=== PATIENT | male | born 1950 | race Caucasian/White ===

== ENCOUNTER → 2017-01-29 | Outpatient (CLI) | payer MEDICARE ==
[2017-01-29 09:11] LABS: Basophils % (A) 1 %; CH 28.6; CHCM 32.8; Eosinophils # (A) 0.2 k/uL (0-0.7); Eosinophils % (A) 3 %; HDW 2.69; HGB 13.3 gm/dL (13.0-17.5); Luc % (Auto) 3; Lymphocytes # (A) 1.7 k/uL (1.0-4.8); Lymphocytes % (A) 24 %; MCH 29.1 pg (25.0-35.0); MCHC 33.2 g/dL (31.0-37.0); MCV 87.6 fL (80.0-100.0); Mean Platelet Volume 6.5; Monocytes # (A) 0.7 k/uL (0-1.0); Monocytes % (A) 9 %; Neutrophils # (A) 4.3 k/uL (1.3-7.7); Neutrophils % (A) 60 %; RBC 4.57 m/uL (4.30-5.90); RDW 13.2 % (11.5-15.5); WBC 7.1 k/uL (3.8-10.6); WBC (Perox) 7.79
[2017-01-29 14:00] LABS: ALT 28 U/L (21-72); AST 17 U/L (17-59); Alkaline Phosphatase 57 U/L (38-126); Anion Gap 9 mmol/L; Blood Urea Nitrogen 21 mg/dL (9-20); Calcium 9.4 mg/dL (8.4-10.2); Carbon Dioxide 25 mmol/L (22-30); Chloride 107 mmol/L (98-107); Cholesterol 210 mg/dL (<200); Glucose 106 mg/dL (74-99); HDL Cholesterol 69 mg/dL (40-60); Non-African American GFR(MDRD) >60 (>60 ml/min/1.73 sqM); Potassium 4.7 mmol/L (3.5-5.1); Sodium 141 mmol/L (137-145); Total Bilirubin 0.6 mg/dL (0.2-1.3); Total Protein 6.6 g/dL (6.3-8.2); Triglycerides 116 mg/dL (<150)
[2017-01-29 14:33] LABS: Prostate Specific Antigen <0.06 ng/mL (0.00-4.00)
== END | disposition home or self-care (01) ==
LOC: LABWHC1 08:03
PROVIDERS: ATTEND Internal Medicine
DX: E78.2 Mixed hyperlipidemia (principal); I10 Essential (primary) hypertension; Z85.46 Personal history of malignant neoplasm of prostate
CPT/HCPCS: 36415; 80053; 80061; 84153; 85025

== ENCOUNTER → 2018-10-30 | Outpatient (CLI) | payer MEDICARE ==
--- NOTE | 2018-10-30 14:53 | NM ---
EXAMINATION TYPE: NM bone scan whole body DATE OF EXAM: 10/30/2018 COMPARISON: NONE HISTORY: Prostate cancer Delayed whole-body scanning was performed following the injection of 23.4 mCi Tc 99m MDP. Images wer e acquired 3 hours post injection. FINDINGS: No suspicious focal uptake is identified to suggest metastatic disease. There is some focal uptake in the right first metatarsophalangeal joint space, more likely related to degenerative change. Some subtle uptake within the mid to left mid sacrum on the frontal projection may be present. This i s less distinct. A metastatic lesion at this level cannot be entirely excluded. This is not appreciat ed on the posterior views. IMPRESSION: 1. Suspicious uptake suggestive for metastatic disease is not identified. 2. Probable degenerative changes first metatarsophalangeal joint space right foot. 3. Some nonspecific uptake in the mid pelvis identified on the frontal projections nearly midline. Th is does not appear to be associated with an osseous lesion.
== END | disposition home or self-care (01) ==
LOC: RADNMMAIN 10:00
PROVIDERS: ATTEND Internal Medicine
DX: Z08 Encounter for follow-up examination after completed treatment for malignant neoplasm (principal); Z85.46 Personal history of malignant neoplasm of prostate
CPT/HCPCS: 78306; A9503

== ENCOUNTER → 2019-04-08 | Outpatient (CLI) | payer MEDICARE ==
[2019-04-08 11:12] LABS: HGB 13.2 gm/dL (13.0-17.5); MCH 29.7 pg (25.0-35.0); MCHC 34.6 g/dL (31.0-37.0); MCV 85.7 fL (80.0-100.0); Mean Platelet Volume 5.5; Platelet Count 366 k/uL (150-450); RBC 4.44 m/uL (4.30-5.90); RDW 13.4 % (11.5-15.5); WBC 8.7 k/uL (3.8-10.6)
[2019-04-08 17:54] LABS: African American GFR (CKD) 88.6 (60.0-200.0); Anion Gap 9.2 mmol/L (4.00-12.00); Carbon Dioxide 28.8 mmol/L (21.6-31.8); Potassium 4.6 mmol/L (3.5-5.5)
== END | disposition home or self-care (01) ==
LOC: LABWHC1 10:16
PROVIDERS: ATTEND Internal Medicine Cardiovascular Disease
DX: R07.2 Precordial pain (principal)
CPT/HCPCS: 36415; 80051; 82565; 84520; 85027; 85379

== ENCOUNTER 2019-04-17 08:58 | Observation (INO) | payer MEDICARE ==
[2019-04-17 09:36] LABS: Basophils # (A) 0.1 k/uL (0-0.2); Basophils % (A) 1 %; Eosinophils # (A) 0.3 k/uL (0-0.7); Eosinophils % (A) 4 %; HCT 43.8 % (39.0-53.0); HGB 14.3 gm/dL (13.0-17.5); Lymphocytes # (A) 1.4 k/uL (1.0-4.8); Lymphocytes % (A) 19 %; MCH 28.9 pg (25.0-35.0); MCHC 32.6 g/dL (31.0-37.0); MCV 88.6 fL (80.0-100.0); Mean Platelet Volume 6.2; Monocytes # (A) 0.6 k/uL (0-1.0); Monocytes % (A) 8 %; Neutrophils % (A) 66 %; Platelet Count 336 k/uL (150-450); RBC 4.94 m/uL (4.30-5.90); RDW 13.9 % (11.5-15.5); WBC 7.6 k/uL (3.8-10.6)
[2019-04-17 09:47] LABS: INR 0.9 (<1.2); Partial Thromboplastin Time 24.5 sec (22.0-30.0); Prothrombin Time 9.9 sec (9.0-12.0)
[2019-04-17 10:25] LABS: ALT 18 U/L (21-72); AST 22 U/L (17-59); African American GFR (CKD) >90 (>60 ml/min/1.73 sqM); Albumin 4.3 g/dL (3.5-5.0); Alkaline Phosphatase 53 U/L (38-126); Anion Gap 9 mmol/L; Blood Urea Nitrogen 17 mg/dL (9-20); Calcium 9.5 mg/dL (8.4-10.2); Carbon Dioxide 23 mmol/L (22-30); Chloride 108 mmol/L (98-107); Creatine Kinase 67 U/L (55-170); Glucose 112 mg/dL (74-99); Magnesium 2.1 mg/dL (1.6-2.3); Potassium 4.5 mmol/L (3.5-5.1); Sodium 140 mmol/L (137-145); Total Bilirubin 0.7 mg/dL (0.2-1.3); Total Protein 7.2 g/dL (6.3-8.2)
--- NOTE | 2019-04-17 10:34 | XR ---
EXAMINATION TYPE: XR chest 2V DATE OF EXAM: 04/17/2019 COMPARISON: Chest x-ray December 02, 2014. HISTORY: Numbness in upper and lower extremities. TECHNIQUE: Frontal and lateral views of the chest are obtained. FINDINGS: There is chronic parenchymal change without suspicious narrowing focal air space opacity, pleural effusion, or pneumothorax seen. The cardiac silhouette size is within normal limits. Partial visualization of surgical change in the cervical spine. Lap band device epigastric region redemonstr ated.. IMPRESSION: Chronic changes without acute pulmonary process.
--- NOTE | 2019-04-17 12:57 | ED ---
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 Is able also history of hypertension. He was seen by his doctor today due to chest pain was noted be in A. fib with RVR the heart rate was about 135. No recent fevers chills nausea vomiting sweats: Cough or shortness of breath. No prior history of atrial fibrillation. Other modifying factors. No history of thyroid disease. MD Complaint: chest pain, other - Related Data Home Medications Medication Instructions Recorded Confirmed Escitalopram Oxalate [Lexapro] 20 mg PO DAILY 12/02/14 04/17/19 Aspirin [Adult Low Dose Aspirin EC] 81 mg PO DAILY 12/01/15 04/17/19 amLODIPine BESYLATE [Norvasc] 10 mg PO DAILY 12/01/15 04/17/19 Allergies Allergy/AdvReac Type Severity Reaction Status Date / Time Penicillins Allergy Unknown Verified 04/17/19 09:22 Childhood morphine AdvReac Nausea & Verified 04/17/19 09:22 Vomiting Review of Systems ROS Statement: Those systems with pertinent positive or pertinent negative responses have been documented in the HPI. ROS Other: All systems not noted in ROS Statement are negative. EKG Findings - EKG Results: EKG: interpreted by ERMD (Normal sinus rhythm a 75 appear interval 160 QRS duration 86 QT since QTC 396/[address]-T wave changes) Past Medical History Past Medical History: Cancer, GI Bleed, Prostate Disorder Additional Past Medical History / Comment(s): prostate cancer, skin cancer, kidney stone , RECTAL BLEEDING History of Any Multi-Drug Resistant Organisms: None Reported Past Surgical History: Appendectomy, Bariatric Surgery, Cholecystectomy Additional Past Surgical History / Comment(s): colonoscopy, lap band, rt clavical reduction, prostatectomy, SKIN CA REMOVED Past Anesthesia/Blood Transfusion Reactions: Postoperative Nausea & Vomiting (PONV) Additional Past Anesthesia/Blood Transfusion Reaction / Comment(s): VERTIGO Past Psychological History: Depression Smoking Status: Former smoker Past Alcohol Use History: None Reported Past Drug Use History: None Reported - Past Family History Father Family Medical History: Myocardial Infarction ([place]) Additional Family Medical History / Comment(s): AGE 65 OF [place] AND HAD 2 PRIOR [place]'S Mother Additional Family Medical History / Comment(s): MAC DEGENERATION, HEART PROBLEMS General Exam - General Exam Comments Initial Comments: This a well-developed well-nourished awake alert oriented times 3 male Limitations: no limitations General appearance: alert, in no apparent distress Head exam: Present: atraumatic, normocephalic, normal inspection Eye exam: Present: normal appearance, PERRL, EOMI. Absent: scleral icterus, conjunctival injection, periorbital swelling ENT exam: Present: normal exam, mucous membranes moist Neck exam: Present: normal inspection. Absent: tenderness, meningismus, lymphadenopathy Respiratory exam: Present: normal lung sounds bilaterally. Absent: respiratory distress, wheezes, rales, rhonchi, stridor Cardiovascular Exam: Present: regular rate, normal rhythm, normal heart sounds. Absent: systolic murmur, diastolic murmur, rubs, gallop, clicks GI/Abdominal exam: Present: soft, normal bowel sounds. Absent: distended, tenderness, guarding, rebound, rigid Extremities exam: Present: normal inspection, full ROM, normal capillary refill. Absent: tenderness, pedal edema, joint swelling, calf tenderness Back exam: Present: normal inspection Neurological exam: Present: alert, oriented X3, CN II-XII intact Psychiatric exam: Present: normal affect, normal mood Skin exam: Present: warm, dry, intact, normal color. Absent: rash Course Vital Signs 04/17/19 04/17/19 04/17/19 09:04 09:13 09:20 Temperature 97.4 F L Pulse Rate 75 82 78 Respiratory 16 Rate Blood Pressure 118/79 122/91 O2 Sat by Pulse 96 100 99 Oximetry 04/17/19 04/17/19 04/17/19 09:30 09:40 09:50 Temperature Pulse Rate 75 63 67 Respiratory Rate Blood Pressure 122/91 113/73 113/73 O2 Sat by Pulse 99 99 99 Oximetry 04/17/19 04/17/19 04/17/19 10:00 10:10 10:20 Temperature Pulse Rate 63 61 Respiratory Rate Blood Pressure 113/73 114/77 114/77 O2 Sat by Pulse 98 97 Oximetry 04/17/19 04/17/19 10:30 10:40 Temperature Pulse Rate 73 63 Respiratory Rate Blood Pressure 114/77 132/85 O2 Sat by Pulse 98 99 Oximetry Chest Pain MDM - MDM Did review the imaging and report no acute findings. Patient is spontaneously convert from A. fib to normal sinus rhythm since his departure from the office. Case is discussed with Dr. Mayfield as well as Dr. Adams. Patient will be admitted patient was informed of the findings as well as his family. Disposition Clinical Impression: Unstable angina pectoris, Chest pain, Paroxysmal atrial fibrillation Disposition: ADMITTED IP TO THIS HOSP Condition: Stable Referrals: Luis E Caldwell MD [Primary Care Provider] - 1-2 days
[2019-04-17] MEDS ORDERED: HEPARIN SOD,PORK IN 0.45% NACL 25,000 UNIT in 0.45% NACL 1 250ML.BAG IV SCH (13:00)
[2019-04-17] MEDS ORDERED: HEPARIN SODIUM,PORCINE 5,000 UNIT/ML 1 ML VIAL IV ONE (13:00)
[2019-04-17] MEDS ORDERED: SODIUM CHLORIDE 0.9% 1,000 ML IV SCH (13:00)
[2019-04-17] MEDS ORDERED: NITROGLYCERIN SL TABS 0.4 MG TAB SUBLINGUAL PRN (13:00)
--- NOTE | 2019-04-17 14:44 | P.HPIM ---
History of Present Illness H&P Date: 04/17/19 Patient is a 68-year-old male with a past medical history of hypertension who presented to the ED from Dr Bourgeois's office for chest discomfort. The patient notes that over the past 1 week, he has been having intermittent substernal chest discomfort, non-radiating, exertional, w/ associated palpitations, SOB, and some dizziness. The patient was seen by his PMD who referred him to Dr Bourgeois's office ([facility]). The patient underwent a stress test yesterday and was waiting for the result. Upon waking up this am, he again noticed the similar discomfort and went back to Dr Bourgeois's office where he was noticed to be in Afib w/ RVR. The patient was sent to the ED for further evaluation. Upon presentation to the ED, the patient had reverted back to sinus rhythm. At time of the interview, the patient noted that his chest discomfort and SOB had resolved upon presentation and hadn't recurred. He denied nausea, vomiting, palpitations, or dizziness. The patient underwent an extensive evaluation in the ED w/ EKG showing NSR @ 75 bpm w/ no ST-T wave changes noted. Laboratory evaluation and revealed a troponin level of 0.012, BNP of 203, BUN 17, creatinine 0.95, WBC count of 7.6, hemoglobin of 14.3, platelets 336, sodium 140, andpotassium 4.5. The patient was admitted to the medicine service in observation for cardiology evaluation. Review of Systems Pertinent positives and negatives as discussed in HPI, a complete review of systems was performed and all other systems are negative. Past Medical History Past Medical History: Cancer, GI Bleed, Prostate Disorder Additional Past Medical History / Comment(s): prostate cancer, skin cancer, kidney stone , RECTAL BLEEDING History of Any Multi-Drug Resistant Organisms: None Reported Past Surgical History: Appendectomy, Bariatric Surgery, Cholecystectomy Additional Past Surgical History / Comment(s): colonoscopy, lap band, rt clavical reduction, prostatectomy, SKIN CA REMOVED Past Anesthesia/Blood Transfusion Reactions: Postoperative Nausea & Vomiting (PONV) Additional Past Anesthesia/Blood Transfusion Reaction / Comment(s): VERTIGO Past Psychological History: Depression Smoking Status: Former smoker Past Alcohol Use History: None Reported Past Drug Use History: None Reported - Past Family History Father Family Medical History: Myocardial Infarction ([place]) Additional Family Medical History / Comment(s): AGE 65 OF [place] AND HAD 2 P RIOR NE'S Mother Additional Family Medical History / Comment(s): MAC DEGENERATION, HEART PROBLEMS Medications and Allergies Home Medications Medication Instructions Recorded Confirmed Type Escitalopram Oxalate [Lexapro] 20 mg PO DAILY 12/02/14 04/17/19 History Aspirin [Adult Low Dose Aspirin EC] 81 mg PO DAILY 12/01/15 04/17/19 History amLODIPine BESYLATE [Norvasc] 10 mg PO DAILY 12/01/15 04/17/19 History Allergies Allergy/AdvReac Type Severity Reaction Status Date / Time Penicillins Allergy Unknown Verified 04/17/19 09:22 Childhood morphine AdvReac Nausea & Verified 04/17/19 09:22 Vomiting Physical Exam Vitals: Vital Signs Temp Pulse Resp BP Pulse Ox 04/17/19 13:00 61 121/58 100 04/17/19 12:50 60 121/58 99 04/17/19 12:40 55 L 121/58 98 04/17/19 12:30 53 L 111/77 97 04/17/19 12:20 58 L 111/77 98 04/17/19 12:10 59 L 111/77 100 04/17/19 12:00 57 L 127/75 98 04/17/19 11:50 62 127/75 98 04/17/19 11:40 55 L 127/75 98 04/17/19 11:30 61 111/69 99 04/17/19 11:20 58 L 111/69 98 04/17/19 11:10 72 111/69 98 04/17/19 11:00 64 132/85 99 04/17/19 10:50 64 132/85 98 04/17/19 10:40 63 132/85 99 04/17/19 10:30 73 114/77 98 04/17/19 10:20 61 114/77 97 04/17/19 10:10 114/77 04/17/19 10:00 63 113/73 98 04/17/19 09:50 67 113/73 99 04/17/19 09:40 63 113/73 99 04/17/19 09:30 75 122/91 99 04/17/19 09:20 78 122/91 99 04/17/19 09:13 82 100 04/17/19 09:04 97.4 F L 75 16 118/79 96 Intake and Output 04/16/19 04/17/19 04/17/19 22:59 06:59 14:59 Other: Weight 99.79 kg General: non toxic, no distress, appears at stated age, obese Derm: no unusual rashes/lesions no unusual ecchymoses, warm, dry Head: atraumatic, normocephalic, symmetric Eyes: EOMI, no lid lag, anicteric sclera, pupils equal round reactive to light ENT: Nose and ears atraumatic, no thrush, no pharyngeal erythema Neck: No thyromegaly, no cervical lymphadenopathy, trachea midline, supple Mouth: no lip lesion, mucus membranes moist Cardiovascular: S1S2 reg, no murmur, positive posterior tibial pulse bilateral, no edema, capillary refill less than 2 seconds Lungs: CTA bilateral, no rhonchi, no rales , no accessory muscle use Abdominal: soft, nontender to palpation, no guarding, no appreciable orga nomegaly, normal bowel sounds Ext: no gross muscle atrophy, muscle strength 5 out of 5 in all 4 extremities grossly, no contractures, Neuro: CN II-XI grossly intact, light touch intact all 4 extremities, finger to nose within normal limits, Psych: Alert, oriented, appropriate affect Results CBC & Chem 7: 04/17/19 09:18 04/17/19 09:18 Labs: Abnormal Lab Results - Last 24 Hours (Table) 04/17/19 Range/Units 09:18 Chloride 108 H (98-107) mmol/L Glucose 112 H (74-99) mg/dL ALT 18 L (21-72) U/L Assessment and Plan Plan: Chest discomfort, SOB, likely due to newly diagnosed paroxysmal atrial fibrillation vs ACS -Cardiology consulted -Recent cardiac stress test as outpatient -CHADSVASc score - 2 -Will await Cardiology recommendations for likely long-term anticoagulation -Cardiac monitoring -Trend troponin Hypertension -Continue with home meds DVT prophylaxis -NOAC The patient is admitted with an anticipated less than 2 midnight stay for evaluation of newly diagnosed Afib CODE STATUS: Full Code Discussed with: Patient Anticipated discharge date: 04/18/[address]: Home A total of 40 minutes was spent on the care of this complex patient more than 50% of the time was spent in counseling and care coordination.
--- NOTE | 2019-04-17 14:48 | P.PN ---
Subjective This is a pleasant 68-year-old male past medical history significant for hypertension and depression. He follows in the office with Dr. Bourgeois. He went to the office this morning with symptoms of chest discomfort and was found to be in atrial fibrillation with rapid ventricular rates around 135. This is a new diagnosis for him. He was sent to the hospital for further initiation of anti-arrhythmic and anti-coagulation. By the time he arrived in the ED he had converted to sinus mechanism spontaneously with a heart rate of 75. He is seen and examined sitting up on the stretcher in ED in no acute distress he denies chest pain, shortness of breath, dizziness or palpitations. He continues to maintain sinus mechanism. He underwent a Lexiscan stress test 04/16 that was negative for reversible cardiac ischemia. Echocardiogram obtained 04/14 revealed normal LV systolic function with EF 55%, grade 1 diastolic dysfunction, mild MR and hypokinesia of the septum. Blood pressure currently 113/96 heart rate 55 afebrile and maintaining oxygen saturation on room air. Laboratory data reviewed, CBC unremarkable, sodium 140, potassium 4.5, creatinine 0.95, magnesium 2.1, cardiac enzymes negative 1, proBNP 203. He has been initiated on heparin infusion. GENERAL: Well-appearing, well-nourished and in no acute distress. NECK: Supple without JVD or thyromegaly. LUNGS: Breath sounds clear to auscultation bilaterally. Respiration equal and u nlabored. No wheezes, rales or rhonchi. HEART: Regular rate and rhythm without murmurs, rubs or gallops. S1 and S2 heard. EXTREMITIES: Normal range of motion, no edema. No clubbing or cyanosis. Tatiana pheral pulses intact. ASSESSMENT New onset paroxysmal atrial fibrillation, spontaneously converted to sinus mechanism. CHADS-VASC score 2. Chest pain, atypical. Likely secondary to a-fib. Hypertension Depression Former nicotine dependence, quit 1997 PLAN Discontinue heparin infusion and initiate on Eliquis 5 mg BID. We will ask the case liner to check the cost for the patient. Initiate rhythmol 150 mg TID for rhythm control. Continue amlodipine as previously ordered. Decrease aspirin to 81 mg daily. Consider discontinuation completely of cardiac enzymes are normal. Continue to obtain serial cardiac enzymes to rule out an acute event. Check thyroid function. Thank you kindly for this consultation. Nurse Practitioner note has been reviewed, I agree with a documented findings and plan of care. Patient was seen and examined. Objective - Vital Signs Vital signs: Vital Signs Temp 97.4 F L 04/17/19 09:04 Pulse 55 L 04/17/19 14:00 Resp 12 04/17/19 14:00 BP 113/96 04/17/19 14:00 Pulse Ox 97 04/17/19 14:00 Intake & Output 04/16/19 04/17/19 04/17/19 18:59 06:59 18:59 Weight 99.79 kg - Labs CBC & Chem 7: 04/17/19 09:18 04/17/19 09:18 Labs: Abnormal Lab Results - Last 24 Hours (Table) 04/17/19 Range/Units 09:18 Chloride 108 H (98-107) mmol/L Glucose 112 H (74-99) mg/dL ALT 18 L (21-72) U/L
[2019-04-17] MEDS: APIXABAN 5 MG TAB PO SCH ×2 (15:12→22:12)
[2019-04-17] MEDS: PROPAFENONE 150 MG TAB PO SCH ×2 (15:12→22:12)
[2019-04-17 15:48] VITALS: RESP 18
[2019-04-18 04:31] LABS: Cholesterol 239 mg/dL (<200); HDL Cholesterol 81 mg/dL (40-60); LDL Cholesterol,Calculated 137 mg/dL (0-99); Triglycerides 106 mg/dL (<150)
[2019-04-18] MEDS: PROPAFENONE 150 MG TAB PO SCH (08:10)
[2019-04-18] MEDS: APIXABAN 5 MG TAB PO SCH (08:10)
[2019-04-18] MEDS ORDERED: ASPIRIN 325 MG TAB PO SCH (09:00)
[2019-04-18] MEDS ORDERED: amLODIPine 10 MG TAB PO SCH (09:00)
[2019-04-18] MEDS ORDERED: ESCITALOPRAM 20 MG TAB PO SCH (09:00)
[2019-04-18] MEDS ORDERED: ASPIRIN 81 MG PO SCH (09:00)
[2019-04-18 10:20] VITALS: BP 138/84; PULSE 63; TEMP 97.5
--- NOTE | 2019-04-18 10:26 | P.DS ---
Providers Date of admission: 04/17/19 13:00 Expected date of discharge: 04/18/19 Attending physician: Sharee Mayfield MD Consults: 04/17/19 13:00 Consult Physician Urgent Consulting Provider: Carlos Adams Consult Reason/Comments: Chest pain, paroxysmal atrial fibrillation Do you want consulting provider notified?: Already Contacted Primary care physician: Luis E Caldwell [facility] Course: Discharge diagnoses Onset paroxysmal A. 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 Bourgeois's office after he presented there with chest discomfort and found to be in atrial fibrillation with rate 135 then spontaneously converted to sinus rhythm while in the ER, echocardiogram done in clinic showed a preserved LVEF of 55%, grade 1 diastolic dysfunction, mild MR and hypokinesis of the septum. On arrival patient was initiated on IV heparin, cardiac enzymes are negative pro BNP was 203. The patient's CHADS-VASC score 2 and he was transitioned to DOAC Eliquis and initiated on Rythmol 150 mg TID. The patient was subsequently discharged home in stable condition instructed to follow-up with his PCP Dr. Caldwell and has a follow-up appointment with cardiology Dr. Bourgeois 05/06. This discharge process took approximately 30 minutes Focused exam Cardiovascular: Regular rate and rhythm no murmurs rubs or gallops Patient Condition at Discharge: Stable Plan - Discharge Summary Discharge Rx Participant: No New Discharge Prescriptions: New Apixaban [Eliquis] 5 mg PO BID #180 tab No Action Escitalopram Oxalate [Lexapro] 20 mg PO DAILY Aspirin [Adult Low Dose Aspirin EC] 81 mg PO DAILY amLODIPine BESYLATE [Norvasc] 10 mg PO DAILY Discharge Medication List Escitalopram Oxalate [Lexapro] 20 mg PO DAILY 12/02/14 [History] Aspirin [Adult Low Dose Aspirin EC] 81 mg PO DAILY 12/01/15 [History] amLODIPine BESYLATE [Norvasc] 10 mg PO DAILY 12/01/15 [History] Apixaban [Eliquis] 5 mg PO BID #180 tab 04/17/19 [Rx] Follow up Appointment(s)/Referral(s): Luis E Caldwell MD [Primary Care Provider] - 04/21/19 9:15 am (Sunday) Dante Bourgeois MD [STAFF PHYSICIAN] - 05/06/19 1:30 pm (Sunday -previously scheduled appointment) Patient Instructions/Handouts: A-fib (Atrial Fibrillation) (DC), Safe Use of Anticoagulants (DC) Activity/Diet/Wound Care/Special Instructions: Madelyn is covered - Rx at [facility] - $90 for 90 day supply - 30 day free coupon applied Discharge Disposition: HOME SELF-CARE
--- NOTE | 2019-04-18 14:21 | PN ---
PROGRESS NOTE Mr. Hartman was seen by me yesterday in the emergency room. He came in from the office after an atrial fib following a stress test. Stress test was unremarkable for ischemia. He is maintaining sinus rhythm. He can be discharged on Eliquis 5 mg b.i.d. and Rythmol [address] and see Dr. Bourgeois in one week. Vital signs stable. No JVD. S1, S2 heard normally. Lungs are clear. Abdomen and lower extremity exam unchanged. Stress test was negative. He will be going home on Rythmol. MMODL / IJN: [id number] /
== END 2019-04-18 12:46 | disposition home or self-care (01) ==
LOC: EC 08:58 → 3SCARD 13:00
PROVIDERS: ADMIT Internal Medicine; ATTEND Internal Medicine
DX: R07.89 Other chest pain (principal); I48.0 Paroxysmal atrial fibrillation; I10 Essential (primary) hypertension; I34.0 Nonrheumatic mitral (valve) insufficiency; F32.9 Major depressive disorder, single episode, unspecified; Z79.82 Long term (current) use of aspirin; Z79.899 Other long term (current) drug therapy; Z88.0 Allergy status to penicillin; Z88.5 Allergy status to narcotic agent; Z85.828 Personal history of other malignant neoplasm of skin; Z85.46 Personal history of malignant neoplasm of prostate; Z87.442 Personal history of urinary calculi; Z87.19 Personal history of other diseases of the digestive system; Z90.49 Acquired absence of other specified parts of digestive tract; Z98.84 Bariatric surgery status; Z90.79 Acquired absence of other genital organ(s); Z87.891 Personal history of nicotine dependence; Z82.49 Family history of ischemic heart disease and other diseases of the circulatory system; Z83.518 Family history of other specified eye disorder
CPT/HCPCS: 93005 ×2; 99285; 36415; 83880; 80061; 80053; 84443; 82550; 83735; 84484; 85025; 85610; 85730; 71046; G0378 ×2

== ENCOUNTER → 2019-04-28 | Outpatient (CLI) | payer MEDICARE ==
[2019-04-28 12:38] LABS: HCT 39.8 % (39.0-53.0); HGB 13.3 gm/dL (13.0-17.5); MCH 30.1 pg (25.0-35.0); MCHC 33.5 g/dL (31.0-37.0); MCV 89.8 fL (80.0-100.0); Mean Platelet Volume 5.6; Platelet Count 354 k/uL (150-450); RBC 4.43 m/uL (4.30-5.90); RDW 13.6 % (11.5-15.5); WBC 9.4 k/uL (3.8-10.6)
[2019-04-28 18:45] LABS: Anion Gap 11.7 mmol/L (4.00-12.00); Carbon Dioxide 27.3 mmol/L (21.6-31.8); Non-African American GFR(CKD) 68.1 (60.0-200.0); Potassium 4.6 mmol/L (3.5-5.5)
== END ==
LOC: LABWHC1 11:19
PROVIDERS: ATTEND Internal Medicine Cardiovascular Disease
DX: Z01.812 Encounter for preprocedural laboratory examination (principal); R06.02 Shortness of breath
CPT/HCPCS: 36415; 80051; 82565; 84520; 85027

== ENCOUNTER → 2019-05-02 | Day surgery (SDC) | payer MEDICARE ==
[2019-04-29 14:29] VITALS: BMI 34.2
[~2019-05-02] MED LIST: ALPRAZolam 0.25 MG TAB PO PRN; ALPRAZolam 0.5 MG TAB PO ONE; ALPRAZolam 0.5 MG TAB PO PRN; ASPIRIN 325 MG TAB PO STA; ATORVASTATIN 80 MG TAB PO STA; IOPAMIDOL-370 125ML BTL INJ ONE; IV FLUID CONTINUATION 950 ML IV ONE; LIDOCAINE 1% INJ 10MG/ML (20 ML MDV) ONE; LIDOCAINE 1% INJ 10MG/ML (20 ML MDV) SQ ONE; MIDAZOLAM 2 MG/2 ML VIAL IV ONE; NITROGLYCERIN SL TABS 0.4 MG TAB SUBLINGUAL PRN; RX INFO: IV CONTRAST WAS GIVEN 1 EACH MISC MISCELLANE PRN; SODIUM CHLORIDE 0.9% 1,000 ML IV ONE; SODIUM CHLORIDE 0.9% 1,000 ML IV SCH; SODIUM CHLORIDE 0.9% 1,000 ML in EMPTY BAG 1 BAG IV ONE; fentaNYL (PF) 50 MCG/ML 2 ML AMP IV ONE; fentaNYL (PF) 50 MCG/ML 2 ML AMP ONE
[2019-05-02 07:29] VITALS: TEMP 97.7
--- NOTE | 2019-05-02 08:43 | CC ---
CARDIAC CATHETERIZATION REPORT INDICATION: Unstable angina. PROCEDURE NOTE: After obtaining informed consent, left heart catheterization and coronary angiogram are performed via the right femoral artery using standard Sergo catheters. The patient tolerated the procedure well without any obvious immediate complications. A femoral angiogram was performed and Angio-Seal was deployed for hemostasis. FINDINGS: 1. HEMODYNAMICS: Left ventricular end-diastolic pressure is 4 mm. There is no significant gradient across the aortic valve. 2. LEFT VENTRICULOGRAM: Left ventriculogram is not performed. 3. ANGIOGRAPHIC DATA: LEFT MAIN CORONARY ARTERY: Left main coronary artery is a normal-sized vessel and is free of stenosis. Divides into left anterior descending coronary artery and circumflex coronary artery. Circumflex coronary artery shows a 30% to 40% stenosis in the proximal part. LAD and its branches are free of significant stenosis. Right coronary artery is a large dominant vessel and is free of significant stenosis. CONCLUSIONS: 1. Mild nonobstructive coronary artery disease involving circumflex coronary artery. 2. Normal left ventricular end-diastolic pressures. 3. Patient received moderate conscious sedation and sedation time was 13 minutes. MMODL / IJN: [id number] /
--- NOTE | 2019-05-02 08:43 | LTR ---
May 02, 2019 Re: Noble Hartman Dear Luis E: I performed cardiac catheterization on Noble Hartman. A detailed catheterization note is enclosed for your records. In brief, the cardiac catheterization reveals mild nonobstructive coronary artery disease involving circumflex coronary artery. The patient's chest discomfort and shortness of breath are noncardiac in origin and his management is going to be in the form of risk factor modification. Thank you for allowing us to participate in the care of this pleasant gentleman. Sincerely, MD DWAIN Cardozo / NURYN: [id number] /
[2019-05-02 09:25] VITALS: RESP 16
[2019-05-02 15:44] VITALS: BP 138/69; PULSE 54
== END ==
LOC: CATHCVL 06:40
PROVIDERS: ATTEND Internal Medicine Cardiovascular Disease
DX: I25.110 Atherosclerotic heart disease of native coronary artery with unstable angina pectoris (principal); I10 Essential (primary) hypertension; Z87.891 Personal history of nicotine dependence; I48.0 Paroxysmal atrial fibrillation; Z79.01 Long term (current) use of anticoagulants; Z79.899 Other long term (current) drug therapy; Z88.5 Allergy status to narcotic agent
CPT/HCPCS: 93458; C1760; C1894; C1769; J2250; J2001; J3010; Q9967

== ENCOUNTER → 2019-11-20 | Outpatient (CLI) | payer MEDICARE ==
[2019-11-20 09:19] LABS: African American GFR (CKD) >90 (>60 ml/min/1.73 sqM); Blood Urea Nitrogen 27 mg/dL (9-20); Non-African American GFR(CKD) 82 (>60 ml/min/1.73 sqM)
--- NOTE | 2019-11-20 12:14 | CT ---
EXAMINATION TYPE: CT brain wo/w con DATE OF EXAM: 11/20/2019 COMPARISON: HISTORY: Dizziness with headache and nausea CT DLP: 2291 mGycm Automated exposure control for dose reduction was used. CONTRAST: CT scan of the head is performed without and with IV Contrast, patient injected with 100 mL of Isovue 300. FINDINGS: There is no abnormal enhancing mass or midline shift identified. The sulci are within normal limits in size. The globes are intact and the visualized sinuses are clear. Periventricular white matter sh ows patchy low attenuation. Ventricles appear prominently. There is prominence in the region of the a nterior communicating artery seen on axial images #19 and 20. Calvarium is intact. Paranasal sinuses and mastoid air cells are well aerated. IMPRESSION: Difficult to exclude aneurysm at the anterior communicating artery. MRA [place] may be of be nefit. Nonspecific white matter demyelination may be due to chronic small vessel ischemia change. The re is ventriculomegaly present, consider normal pressure hydrocephalus, brain MRI.
== END | disposition home or self-care (01) ==
LOC: RADCTMAIN 08:33
PROVIDERS: ATTEND Otolaryngology
DX: G93.89 Other specified disorders of brain (principal); G37.8 Other specified demyelinating diseases of central nervous system
CPT/HCPCS: 82565; 84520; 70470; 36415; Q9967

== ENCOUNTER → 2019-11-27 | Outpatient (CLI) | payer MEDICARE ==
--- NOTE | 2019-11-27 13:40 | MR ---
EXAMINATION TYPE: MR angio head wo con DATE OF EXAM: 11/27/2019 1:32 PM COMPARISON: NONE HISTORY: Vertigo Three-dimensional [id number] intracranial MRA was performed with multiple intensity projection im ages submitted and source data reviewed at the workstation. The vertebrobasilar system as well as intracranial portions of the internal carotid arteries and thei r major tributaries are patent. Noted to involve the anterior communicating artery is a 5 mm aneurysm . No additional aneurysms identified. 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
--- NOTE | 2019-11-27 14:13 | MR ---
EXAMINATION TYPE: MR brain wo/w con DATE OF EXAM: 11/27/2019 2:02 PM COMPARISON: MRA from the same day HISTORY: Vertigo CONTRAST: Patient received 10 mL intravenous Gadavist gadolinium contrast. Multiplanar and multispin-echo imaging of the brain was performed . Pre and post contrast enhanced i mages are obtained. The ventricles, basal cisterns and sulci overlying the cerebral convexities are moderately enlarged. There is evidence of mild to moderate periventricular white matter ischemic demyelination. Remote deep white matter insults are also noted. No acute edema is seen on diffusion weighted imaging. There is no evidence for midline shift or mass effect. 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 Acute intracranial hemorrhage or extra-axial collection is not evident. No enhancing lesions are seen. The paranasal sinuses and mastoid air cells are well-aerated. IMPRESSION: 1. Age-related atrophic and chronic small vessel ischemic change. No acute intracranial process at this time. 2. 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
== END | disposition home or self-care (01) ==
LOC: RADMRIMAIN 12:48
PROVIDERS: ATTEND Otolaryngology
DX: I72.8 Aneurysm of other specified arteries (principal); R54 Age-related physical debility; I99.8 Other disorder of circulatory system; R94.02 Abnormal brain scan
CPT/HCPCS: 70544; 70553; A9585

== ENCOUNTER 2020-04-20 08:23 | Day surgery (SDC) | payer MEDICARE ==
[2020-04-19 11:54] VITALS: BMI 33.4
[~2020-04-20 08:23] MED LIST changes: -ALPRAZolam 0.25 MG TAB PO PRN; -ALPRAZolam 0.5 MG TAB PO ONE; -ALPRAZolam 0.5 MG TAB PO PRN; -ASPIRIN 325 MG TAB PO STA; -ATORVASTATIN 80 MG TAB PO STA; -IOPAMIDOL-370 125ML BTL INJ ONE; -IV FLUID CONTINUATION 950 ML IV ONE; +LACTATED RINGERS 1,000 ML IV SCH; -LIDOCAINE 1% INJ 10MG/ML (20 ML MDV) ONE; -LIDOCAINE 1% INJ 10MG/ML (20 ML MDV) SQ ONE; -MIDAZOLAM 2 MG/2 ML VIAL IV ONE; -NITROGLYCERIN SL TABS 0.4 MG TAB SUBLINGUAL PRN; -RX INFO: IV CONTRAST WAS GIVEN 1 EACH MISC MISCELLANE PRN; -SODIUM CHLORIDE 0.9% 1,000 ML IV ONE; -SODIUM CHLORIDE 0.9% 1,000 ML IV SCH; -SODIUM CHLORIDE 0.9% 1,000 ML in EMPTY BAG 1 BAG IV ONE; -fentaNYL (PF) 50 MCG/ML 2 ML AMP IV ONE; -fentaNYL (PF) 50 MCG/ML 2 ML AMP ONE
[2020-04-20 08:48] VITALS: TEMP 97.8
[2020-04-20] MEDS ORDERED: LIDOCAINE 1% (10MG/ML) FOR IV START INTRADERMA ONE (08:52)
[2020-04-20] MEDS ORDERED: MIDAZOLAM 2 MG/2 ML VIAL ONE (08:58)
[2020-04-20] MEDS ORDERED: TRIAMCINOLONE ACETONIDE 40 MG/ML 1 ML VIAL ONE (08:58)
[2020-04-20] MEDS ORDERED: ROPIVACAINE 5MG/ML 20ML VIAL ONE (08:58)
[2020-04-20] MEDS ORDERED: fentaNYL (PF) 50 MCG/ML 2 ML AMP ONE (08:58)
[2020-04-20] MEDS ORDERED: IV FLUID CONTINUATION 1,000 ML IV ONE (09:51)
[2020-04-20 09:54] VITALS: PULSE 66
[2020-04-20 10:12] VITALS: BP 123/72; RESP 18
--- NOTE | 2020-04-20 20:44 | FL ---
Fluoroscopy INDICATION: Pain FINDINGS: Fluoroscopy time: 21 seconds. Images obtained: 5. IMPRESSIONS: 1. Documentation of fluoroscopy.
--- NOTE | 2020-04-22 12:50 | P.PCN ---
Date of Procedure: 04/20/20 Surgeon: Sharifa Monique Pathology: none sent Condition: stable Disposition: PACU Description of Procedure: PREOPERATIVE DIAGNOSIS: Lumbar spondylosis without myelopathy POSTOPERATIVE DIAGNOSIS: Lumbar spondylosis without myelopathy PROCEDURES : bilateral Radiofrequency thermocoagulation L4-L5, and L5-S1 medial branch, with fluoroscopic guidance ANESTHESIA: IV moderate conscious sedation with versed and fentanyl and local infiltration with lidocaine 1% 5 ml Physician:Sharifa Monique MD EBL: Minimal PROCEDURE INDICATION: The patient with low back pain secondary to lumbar facet arthropathy who had more than 50% relief of her pain with previous diagnostic lumbar medial branch block with bupivacaine. PROCEDURE DESCRIPTION / TECHNIQUE: The patient was seen and identified in the preoperative area. Risks, benefits, complications, including but not limited to risk of infection ,bleeding , allergic reactions to the medications and no complete pain relief , and alternatives were discussed with the patient, the patient agreed to proceed with the procedure and signed the consent. IV was started. Vital signs remained stable throughout the procedure. Patient was taken to the OR and time out was completed. The patient was placed in the prone position on the procedure table. The lumber area was prepped and draped in the usual sterile fashion. . Vital signs were closely monitored during the procedure .IV sedation was used during the procedure to decrease patients anxiety. The target points were identified as follows: For the L5-S1 level which corresponds to the dorsal ramus of L5 the target point was at the superior medial aspect of the sacral ala on the Rt side of the spine on the AP view of fluoroscopy and for the L3, and L4 medial branches the target points were at the connection between the transverse process and the superior articular process of L4, and L5 vertebra respectively on the Rtoblique view of fluoroscopy. skin was marked, and localized with 1% lidocaineat these points. Subsequently, an 18 [id number] radiofrequency needles with a 10-mm curved active tips were advanced guided by fluoroscopy to each of the target points mentioned above in a superior medial direction to get the active tips as parallel as possible to the medial branches tracks. AP, oblique, and lateral views of fluoroscopy were used to verify needle tips position. Each level then underwent motor testing at 2.5 Hz and 0 to 3 volt with local stimulation, but no radicular symptoms down the legs. Thereafter radiofrequency thermocoagulation at 80 degrees celsius for 90 seconds after injecting 1 ml of PF Marcaine 0.5%(3 mls) with 20 mg of Kenalog.The same levels on the left side were then done in the same manner. At the end of the procedure, the skin was cleansed and bandages were applied. A copy of needle placement fluoroscopy was saved on the C-arm machine. COMPLICATIONS: No acute complications. DISPOSITION / PLANS: The patient was placed in a supine position and transferred to the recovery area in a stable condition for observation and was discharged from the recovery room after meeting discharge criteria. Home discharge instructions given to the patient by the staff. The patient was reexamined prior to discharge. The patient will schedule a follow up in the clinic in 2-4 weeks.
== END 2020-04-20 10:27 | disposition home or self-care (01) ==
LOC: ORPAIN 08:23
PROVIDERS: ATTEND Anesthesiology
DX: M47.816 Spondylosis without myelopathy or radiculopathy, lumbar region (principal); I48.91 Unspecified atrial fibrillation; Z79.01 Long term (current) use of anticoagulants; Z88.5 Allergy status to narcotic agent
CPT/HCPCS: 64635; 64636; J2250; J3301; J3010; J2795; 99152; 99153

== ENCOUNTER → 2020-05-12 | Outpatient (CLI) | payer MEDICARE ==
[2020-05-12 08:40] VITALS: BP 127/68; PULSE 88; RESP 18; TEMP 98.5
--- NOTE | 2020-05-12 08:57 | P.PN ---
Subjective Progress Note Date: 05/12/20 This is a 69-year-old gentleman with history of axial lower back pain with no radiation to the lower extremities. The patient had lumbar medial branch RFA in a few weeks ago which gave him excellent relief of pain but only lasted for about one week then his pain came back to its original intensity. His pain improves by lying down in bed and by sitting up straight however it increases by standing up and moving around. The patient has not tried physical therapy recently. He takes ibuprofen for his pain. He is on Eliquis for history of coronary artery disease. Patient denies new-onset weakness, bowel/bladder incontinence, or any other signs or symptoms of cauda equina syndrome. There are no signs of acute intoxication, and no indications of medication diversion or overuse. In addition to above, 13-point review of systems is also negative for chest pain , shortness of breath, changes in vision, changes in hearing, new onset weakness, abdominal pain, diarrhea, extreme fatigue, malaise, fever, skin changes, homicidal or suicidal ideation, or bowel or bladder incontinence. Vital Signs: Reviewed in EMR Gen: AAOx3, NAD HEENT: PERRLA,hearing grossly normal Pulm: resp unlabored Neck: supple, trachea midline Neuro exam of the lower extremities: Normal muscle strength in the lower extremities bilaterally Straight leg raising test: Angelo's test: Range of motion of the lumbar spine: Facet loading test: Tenderness in the paravertebral musculature: Mild tenderness in the lumbosacral junction Neuro: CN II-XII grossly intact, Imaging: Reviewed in EMR/chart Assessment: Lumbar DDD Lumbar spondylosis without myelopathy Obesity Coronary artery disease with treatment with Eliquis Plan: 1. Explanation: Opioid and psychological risk scores were reviewed. Diagnoses, prognoses, and multiple treatment options including but not limited to physical therapy, interventional therapies, adjuvant medical therapies, narcotic medication therapies, and surgery were discussed with the patient and all questions were answered to the patient's satisfaction. 2. Opioid agreement: Signed with the patient and the patient is warned not to use opioids while driving or before driving and not to combine opioids with benzodiazepines or alcohol. 3. Counseling: The patient was counseled extensively on SMOKING CESSATION, BODY MASS INDEX, EXERCISE. Specifically, the patient was instructed regarding the importance of smoking cessation, obesity, and exercise in the context of both chronic pain and overall health. 4. Procedures: For now 5. Consultations: Prefer for a course of physical therapy 6. Investigations: None 7. Medications: [place] 5 mg twice a day #30 pills with no refills 8. Disposition: Return to clinic in 4 weeks 9. Maps were reviewed and were appropriate. Controlled Substance Measures Is patient prescribed a controlled substance at discharge?: Yes When asked, does pt state using other controlled substances?: No If prescribed controlled substance>3 days was MAPS reviewed?: Yes If Rx opioid, was Start Talking consent form obtained?: Yes If opioid is for acute pain is fill amount 7 days or less?: No Was information provided regarding opioid addiction?: Yes Objective - Vital Signs Vital signs: Vital Signs Temp 98.5 F 05/12/20 08:35 Pulse 88 05/12/20 08:35 Resp 18 05/12/20 08:35 BP 127/68 05/12/20 08:35 Pulse Ox 97 05/12/20 08:35
== END | disposition home or self-care (01) ==
LOC: PNWHC3 08:27
PROVIDERS: ATTEND Anesthesiology
DX: M51.36 Other intervertebral disc degeneration, lumbar region (principal); M47.816 Spondylosis without myelopathy or radiculopathy, lumbar region; E66.9 Obesity, unspecified; I25.10 Atherosclerotic heart disease of native coronary artery without angina pectoris; Z79.01 Long term (current) use of anticoagulants; Z79.891 Long term (current) use of opiate analgesic
CPT/HCPCS: 99211

== ENCOUNTER → 2020-06-09 | Outpatient (CLI) | payer MEDICARE ==
[2020-06-09 09:14] VITALS: BP 177/93; PULSE 96; RESP 16; TEMP 97.6
--- NOTE | 2020-06-09 09:25 | P.PAINPG ---
Subjective Progress Note Date: 06/09/20 This is a 69-year-old gentleman with history of axial lower back pain with no radiation to the lower extremities. The patient had lumbar medial branch RFA in the past ([address]) which gave him excellent relief of pain (14 months). It was repeated here but unfortunately only gave him about a week of relief. His pain improves by lying down in bed and by sitting up straight however it increases by standing up and moving around. The patient has not tried physical therapy recently. He takes ibuprofen for his pain. He is on Eliquis for history of coronary artery disease. Is receiving on the PT but this has not helped with his pain. He is confused why he only had 5 days of relief with the last procedure, he was very good relief for very short lasting. Pain is located in the mid to low back described as dull and aching with no radiation into the lower extremities. Pain is curren tly 9 out of 10, at worst 10 out of 10 at its best 5 out of 10. He notes the [place] has made him constipated and he has been taking medication to help with that Patient denies new-onset weakness, bowel/bladder incontinence, or any other signs or symptoms of cauda equina syndrome. There are no signs of acute intoxication, and no indications of medication diversion or overuse. In addition to above, 13-point review of systems is also negative for chest pain, shortness of breath, changes in vision, changes in hearing, new onset weakness, abdominal pain, diarrhea, extreme fatigue, malaise, fever, skin changes, homicidal or suicidal ideation, or bowel or bladder incontinence. Vital Signs: Reviewed in EMR Gen: AAOx3, NAD HEENT: PERRLA,hearing grossly normal Pulm: resp unlabored Neck: supple, trachea midline Neuro exam of the lower extremities: Normal muscle strength in the lower extremities bilaterally Straight leg raising test: Angelo's test: Range of motion of the lumbar spine: Facet loading test: Tenderness in the paravertebral musculature: Mild tenderness in the lumbosacral junction Neuro: CN II-XII grossly intact, Imaging: Reviewed in EMR/chart Assessment: Lumbar DDD Lumbar spondylosis without myelopathy Obesity Coronary artery disease with treatment with Eliquis Plan: 1. Explanation: Opioid and psychological risk scores were reviewed. Diagnoses, prognoses, and multiple treatment options including but not limited to physical therapy, interventional therapies, adjuvant medical therapies, narcotic medication therapies, and surgery were discussed with the patient and all questions were answered to the patient's satisfaction. 2. Opioid agreement: Signed with the patient and the patient is warned not to use opioids while driving or before driving and not to combine opioids with benzodiazepines or alcohol. 3. Counseling: The patient was counseled extensively on SMOKING CESSATION, BODY MASS INDEX, EXERCISE. Specifically, the patient was instructed regarding the importance of smoking cessation, obesity, and exercise in the context of both chronic pain and overall health. 4. Procedures: with Dr Madden he was having L2- L5 bilateral RFA. We were only able to do bilateral L4-L5, L5-S1 due to insurance issues. Given that he has had these procedures with good relief in the past and we did not to L2-L3 and L3-L4 with her last procedure, it makes sense that these specific joints might be the greater generators of his pain. We will do bilateral L2-L3 and L3- L4 RFA He'll have to hold his Eliquis for 3 days. 5. Consultations: Continue PT 6. Investigations: None 7. Medications: [place] 5 mg twice a day #30 pills, he takes it only as needed 8. Disposition: Return for procedure 9. Maps were reviewed and were appropriate. Controlled Substance Measures Is patient prescribed a controlled substance at discharge?: Yes When asked, does pt state using other controlled substances?: No If prescribed controlled substance>3 days was MAPS reviewed?: Yes If Rx opioid, was Start Talking consent form obtained?: Yes If opioid is for acute pain is fill amount 7 days or less?: No Was information provided regarding opioid addiction?: Yes PQRS Measure Charge Sheet PQRS Narrative: Smoking Status Former smoker Scale Used Numeric (1 - 10) Hx Alcohol Use (MH) No Home Medications: Ambulatory Orders Apixaban [Eliquis] 5 mg PO BID #180 tab 04/17/19 Propafenone [Rythmol] 150 mg PO TID #90 tablet 04/18/19 amLODIPine [Norvasc] 10 mg PO DAILY 03/30/20 Hydrocodone/Acetaminophen [[place] 5-325] 1 tab PO Q6HR PRN 05/12/20 Controlled Substance Measures - Controlled Substance Measures Is patient prescribed a controlled substance at discharge?: No
== END | disposition home or self-care (01) ==
LOC: PNWHC3 08:40
PROVIDERS: ATTEND Anesthesiology
DX: M51.36 Other intervertebral disc degeneration, lumbar region (principal); M47.816 Spondylosis without myelopathy or radiculopathy, lumbar region; E66.9 Obesity, unspecified; I25.10 Atherosclerotic heart disease of native coronary artery without angina pectoris; Z79.01 Long term (current) use of anticoagulants; Z87.891 Personal history of nicotine dependence; Z79.891 Long term (current) use of opiate analgesic; Z79.899 Other long term (current) drug therapy
CPT/HCPCS: 99211

== ENCOUNTER 2020-06-24 11:33 | Day surgery (SDC) | payer MEDICARE ==
[2020-06-22 15:43] VITALS: BMI 34.8
[2020-06-24 11:57] VITALS: TEMP 97.2
[2020-06-24] MEDS ORDERED: LIDOCAINE 1% (10MG/ML) FOR IV START INTRADERMA ONE (12:15)
[2020-06-24] MEDS ORDERED: SODIUM CHLORIDE 0.9% (PF) 10 ML VIAL ONE (12:45)
[2020-06-24] MEDS ORDERED: ROPIVACAINE 5MG/ML 20ML VIAL ONE (12:45)
[2020-06-24] MEDS ORDERED: methylPREDNISolone ACETATE 40 MG/ML 1 ML VIAL ONE (12:45)
[2020-06-24] MEDS ORDERED: fentaNYL (PF) 50 MCG/ML 2 ML AMP ONE (12:45)
[2020-06-24] MEDS ORDERED: MIDAZOLAM 2 MG/2 ML VIAL ONE (12:45)
--- NOTE | 2020-06-24 13:33 | P.PCN ---
Date of Procedure: 06/24/20 Procedure(s) Performed: PREOPERATIVE DIAGNOSIS: 1-Lumbar Spondylosis with Facet Arthropathy without myelopathy. 2- Lumber degenerative disc disease POSTOPERATIVE DIAGNOSIS: 1- Lumbar Spondylosis with Facet Arthropathy without myelopathy. 2- Lumber degenerative disc disease PROCEDURES : Bilateral Radiofrequency thermocoagulation, L1 , L2 , and L3 medial branch, with fluoroscopic guidance (fluoroscopy images available in the radiology department) ( to denervate the facet joint at L2-3, and L3-4 levels ) ANESTHESIA: Moderate sedation with intravenous versed 3 mg and fentaneyl 200 mcg, and local infiltration with Ropivacaine 0.5 % . EBL: Minimal PROCEDURE INDICATION: The patient with low back pain secondary to lumbar facet arthropathy who had more than 50% relief of her pain with previous diagnostic lumbar medial branch block with bupivacaine. PROCEDURE DESCRIPTION / TECHNIQUE: The patient was seen and identified in the preoperative area. Risks, benefits, complications, including but not limited to risk of infection ,bleeding , allergic reactions to the medications and no complete pain releife , and alternatives were discussed with the patient, the patient agreed to proceed with the procedure and signed the consent. IV was started. Vital signs remained stable throughout the procedure. Patient was taken to the OR and time out was completed. The patient was placed in the prone position on the procedure table. The lumber area was prepped and draped in the usual sterile fashion. . Vital signs were closely monitored during the procedure .IV sedation was used during the procedure to decrease patients anxiety. Using AP and then oblique fluoroscopy, the ``eye of the Javan dog corresponding to the connection between the superior and transverse articular processes of right L1, L2, and L3 were identified, marked, and localized with 1% lidocaine. Subsequently, a 18 [id number] radiofrequency cannula with a 10- mm active tip was advanced guided by fluoroscopy to each of the``eyes of the Javan dog at right L1, L2, and L3. Each site then underwent sensory testing at 50 Hz and 0 to 1 volt and motor testing at 2.5 Hz and 0 to 3 volt with local stimulation, but no radicular symptoms down the legs. Thereafter each sites underwent radiofrequency thermocoagulation at 80 degrees celsius for 90 seconds after injecting 0.5 ml of PF Ropivacaine 1ml, then after the thermocoagulation done , 1 ml of the block solution containing Depo-Medrol 20 mg and 3 ml of Ropivacaine 0.5% was injected at the right L1 , L2 , and L3 , levels after negative aspiration of CSF and blood and with no paresthesias. C annulas were retracted while injecting lidocaine 1% until the needle is out. The same procedure was repeated at the level of Left L1, L2 , and L3 levels. At the end of the procedure, the skin was cleansed and bandages were applied. COMPLICATIONS: No acute complications. DISPOSITION / PLANS: The patient was placed in a supine position and transferred to the recovery area in a stable condition for observation and was discharged from the recovery room after meeting discharge criteria. Home discharge instructions given to the patient by the staff. The patient was reexamined prior to discharge. The patient will schedule a follow up in the clinic in 2-4 weeks.
[2020-06-24] MEDS ORDERED: IV FLUID CONTINUATION 1,000 ML IV ONE (13:35)
[2020-06-24 13:39] VITALS: RESP 16
--- NOTE | 2020-06-24 13:48 | FL ---
Fluoroscopy INDICATION: Pain FINDINGS: Fluoroscopy time: 0.49 minutes . Images obtained: 6. IMPRESSIONS: 1. Documentation of fluoroscopy.
[2020-06-24 13:49] VITALS: BP 129/73; PULSE 74
== END 2020-06-24 14:06 | disposition home or self-care (01) ==
LOC: ORPAIN 11:33
PROVIDERS: ATTEND Specialist
DX: M47.816 Spondylosis without myelopathy or radiculopathy, lumbar region (principal); M51.36 Other intervertebral disc degeneration, lumbar region; I48.91 Unspecified atrial fibrillation; Z88.5 Allergy status to narcotic agent; Z79.01 Long term (current) use of anticoagulants
CPT/HCPCS: 64635; 64636; J2250; J1030; J3010; J2795; 99152; 99153

== ENCOUNTER → 2020-06-28 | Outpatient (CLI) | payer MEDICARE ==
--- NOTE | 2020-06-28 09:55 | MR ---
EXAMINATION TYPE: MR lumbar spine wo con DATE OF EXAM: 06/28/2020 COMPARISON: Prior lumbar MRI 12/03/2014 HISTORY: Low Back Pain TECHNIQUE: Multiplanar, multisequence images of the lumbar spine were acquired. L1-L2: Normal disc appearance without desiccation. No herniation, protrusion or disc bulging. No ca nal stenosis is present. Foramina are patent bilaterally. L2-L3: Hypertrophic changes of the facets causes posterior lateral mass effect on the thecal sac, the re is posterior broad-based disc bulge, some loss of disc height which is developed in the interval. Circumferential extension endplate disc complex encroaches somewhat on the neural foramen greater on the right. Mild spinal stenosis. L3-L4: Normal disc appearance without desiccation. No herniation, protrusion or disc bulging. No ca nal stenosis is present. Foramina are patent bilaterally. There is facet arthropathy change present. L4-L5: Small posterior disc bulge causes slight anterior mass effect on the thecal sac. There is face t arthropathy change. Circumferential extension of disc material encroaches somewhat on the neural fo ramen on the right, hypertrophic changes of the facets encroach on the lateral recesses, no significa nt spinal stenosis L5-S1: Normal disc appearance without desiccation. No herniation, protrusion or disc bulging. No ca nal stenosis is present. Foramina are patent bilaterally. Lumbar segments are intact. No paraspinal masses are identified. Conus medullaris has a normal appe arance. There is a mild spinal curvature. Some loss of disc signal at intervertebral levels is again seen consistent with disc desiccation. Possible transitional vertebral body, correlate prior to any i ntervention, numbering system as on prior exams may not be accurate. Parapelvic cysts suspected withi n the left kidney. IMPRESSION: Degenerative disc disease mildly progressed as described, correlate with plain film prior to any inte rvention as described above.
== END | disposition home or self-care (01) ==
LOC: RADMRIMAIN 06:50
PROVIDERS: ATTEND Anesthesiology
DX: M51.36 Other intervertebral disc degeneration, lumbar region (principal)
CPT/HCPCS: 72148

== ENCOUNTER → 2020-07-12 | Outpatient (CLI) | payer MEDICARE ==
[2020-07-12 12:49] VITALS: BP 158/83; PULSE 82; RESP 18; TEMP 97.6
--- NOTE | 2020-07-12 12:58 | P.PN ---
Subjective Progress Note Date: 07/12/20 This is a 69-year-old gentleman with axial lower back pain status post RFA on the lumbar medial branches. After his RFA on the L4 5 and L5-S1 joints he had one week of very good pain relief but he did not get any relief after the RFA on the higher lumbar facet joints. His pain is back to its baseline now .he takes [place] for his pain but it does cause severe constipation to him. Patient denies new-onset weakness, bowel/bladder incontinence, or any other signs or symptoms of cauda equina syndrome. There are no signs of acute intoxication, and no indications of medication diversion or overuse. In addition to above, 13-point review of systems is also negative for chest pain, shortness of breath, changes in vision, changes in hearing, new onset weakness, abdominal pain, diarrhea, extreme fatigue, malaise, fever, skin changes, homicidal or suicidal ideation, or bowel or bladder incontinence. Vital Signs: Reviewed in EMR Gen: AAOx3, NAD HEENT: PERRLA,hearing grossly normal Pulm: resp unlabored Neck: supple, trachea midline Neuro exam of the lower extremities: Straight leg raising test: Angelo's test: Range of motion of the lumbar spine: Facet loading test: Tenderness in the paravertebral musculature: There is tenderness above the iliac crest close to midline on the left side of the spine and also around the sacroiliac joint on the left side. Neuro: CN II-XII grossly intact, Imaging: Reviewed in EMR/chart Assessment: Lumbar spondylosis without myelopathy Probable left sacroiliitis Probable lumbar sacral ligament inflammation Coronary artery disease with treatment with Eliquis Plan: 1. Explanation: Opioid and psychological risk scores were reviewed. Diagnoses, prognoses, and multiple treatment options including but not limited to physical therapy, interventional therapies, adjuvant medical therapies, narcotic medication therapies, and surgery were discussed with the patient and all questions were answered to the patient's satisfaction. 2. Opioid agreement: Signed with the patient and the patient is warned not to use opioids while driving or before driving and not to combine opioids with benzodiazepines or alcohol. 3. Counseling: The patient was counseled extensively on SMOKING CESSATION, BODY MASS INDEX, EXERCISE. Specifically, the patient was instructed regarding the importance of smoking cessation, obesity, and exercise in the context of both chronic pain and overall health. 4. Procedures: Scheduled for left lumbar sacral ligament injection with fluoroscopic guidance and left sacroiliac joint steroid injection . The patient does not have to hold his Eliquis for this procedure. 5. Consultations: None 6. Investigations: None 7. Medications: Continue [place] 5 mg twice a day if needed for pain and I will prescribe him Movantik for his constipation 8. Disposition: Return to the above-mentioned procedures as soon as possible 9. Maps were reviewed and were appropriate. Controlled Substance Measures Is patient prescribed a controlled substance at discharge?: Yes When asked, does pt state using other controlled substances?: No If prescribed controlled substance>3 days was MAPS reviewed?: Yes If Rx opioid, was Start Talking consent form obtained?: Yes If opioid is for acute pain is fill amount 7 days or less?: No Was information provided regarding opioid addiction?: Yes Objective - Vital Signs Vital signs: Vital Signs Temp 97.6 F 07/12/20 12:41 Pulse 82 07/12/20 12:41 Resp 18 07/12/20 12:41 BP 158/83 07/12/20 12:41 Pulse Ox 97 07/12/20 12:41 Intake & Output 07/11/20 07/12/20 07/12/20 18:59 06:59 18:59 Weight 102.076 kg
== END | disposition home or self-care (01) ==
LOC: PNWHC3 12:24
PROVIDERS: ATTEND Anesthesiology
DX: M47.816 Spondylosis without myelopathy or radiculopathy, lumbar region (principal); I25.10 Atherosclerotic heart disease of native coronary artery without angina pectoris; Z79.01 Long term (current) use of anticoagulants; Z79.891 Long term (current) use of opiate analgesic
CPT/HCPCS: 99211

== ENCOUNTER → 2020-10-15 | Day surgery (SDC) | payer MEDICARE ==
[2020-10-13 13:13] VITALS: BMI 33.4
[~2020-10-15] MED LIST changes: +IV FLUID CONTINUATION 1,000 ML IV ONE; +LIDOCAINE 1% (10MG/ML) FOR IV START INTRADERMA ONE; +MIDAZOLAM 2 MG/2 ML VIAL ONE; +ROPIVACAINE 5MG/ML 20ML VIAL ONE; +fentaNYL (PF) 50 MCG/ML 2 ML AMP ONE; +methylPREDNISolone ACETATE 40 MG/ML 1 ML VIAL ONE
[2020-10-15 07:28] VITALS: TEMP 97.3
--- NOTE | 2020-10-15 08:04 | P.PCN ---
Date of Procedure: 10/15/20 Procedure(s) Performed: Procedure= 1-Left sacroiliac joints steroid injection under fluoroscopy guidance (fluoroscopy image stored on file in the radiology Department ). 2-left lumbosacral ligament steroid injection under fluoroscopic guidance Preoperative diagnosis= 1-Left sacroiliitis 2-left lumbosacral ligament neuralgia 3-lumbar spondylosis with facet arthropathy Postoperative diagnosis=Same as preop Diagnosis . Complication = none Condition= stable Anesthesia= monitored anesthesia care as per anesthesia department . Indication for the procedure= patient complaining of low back pain , examination was positive for severe tenderness over the left sacroiliac joints , and over the left lumbosacral ligament and patient diagnosed with sacroiliitis, for this reason he was good candidate for sacroiliac joint steroid injection. Description of the procedure= procedure risk and benefits discussed with the patient, including but not limited, risk of infection and bleeding, and ALLERGIC reaction to the medication and not complete pain relief and patient agreed with the preceding patient taken to the operating room, placed in prone position or standard monitors applied to the patient then after induction of anesthesia back prepped with chlorhexidine 3 times , Then under strict sterile technique, first I did the left sacroiliac joint the which was identified under fluoroscopy guidance been local infiltration of the skin and subcu interstitial with lidocaine 1% then 22-gauge Quincke Needle advanced slowly under fluoroscopy and placed in the left sacroiliac joint needle placement confirmed with AP and oblique and lateral view and after appropriate needle placement confirmed and after negative aspiration, or heme , then Ropivacaine 0.5% 3 mL, and 20 mg of Depo-Medrol mixed together and injected in the right sacroiliac joint after negative aspiration patient tolerated the procedure well without any complication. Then the left lumbosacral ligament steroid injection done under strict sterile technique local infiltration of the skin and subcu interstitial at the location of the left lumbosacral ligament then a 22-gauge [place]ke Needle advanced slowly under fluoroscopy time placed in the left lumbosacral ligament, needle placement confirmed with AP and oblique and lateral view then after appropriate needle placement confirmed and after negative aspiration 0.5% Marcaine 4 mL and 20 mg of Depo-Medrol injected after negative aspiration patient tolerated the procedure well that any complications and she will follow up in clinic 3 weeks
[2020-10-15 08:24] VITALS: BP 107/64; PULSE 70; RESP 18
--- NOTE | 2020-10-15 08:48 | FL ---
Fluoroscopy INDICATION: Pain FINDINGS: Fluoroscopy time: 5 seconds. Images obtained: 2. IMPRESSIONS: 1. Documentation of fluoroscopy.
== END ==
LOC: ORPAIN 06:37
PROVIDERS: ATTEND Specialist
DX: M46.1 Sacroiliitis, not elsewhere classified (principal); M47.816 Spondylosis without myelopathy or radiculopathy, lumbar region; G58.8 Other specified mononeuropathies; I48.91 Unspecified atrial fibrillation; Z88.5 Allergy status to narcotic agent; Z79.899 Other long term (current) drug therapy
CPT/HCPCS: 20550; J2250; J1030; J3010; J2795; G0260; 27096

== ENCOUNTER → 2020-10-27 | Outpatient (CLI) | payer MEDICARE ==
[2020-10-27 11:06] VITALS: BP 144/85; PULSE 75; RESP 16; TEMP 97.7
--- NOTE | 2020-10-27 11:20 | P.PN ---
Subjective Progress Note Date: 10/27/20 This is a follow-up visit for this 70 years old male with a chronic history of severe low back pain, is diagnosed with lumbar spondylosis, and left sacroiliitis, and left lumbosacral ligament neuralgia, recently we have done a left sacroiliac joint steroid injection, and left lumbosacral ligament through t he injection he reported that he had a good benefit from it, currently is complaining of severe localized pain in the low back area ,mainly on the left side, with radiation to the left buttock area, he denies any motor or sensory deficit he denies any fever or night sweats. Denies any change in bowel movements or urination, he is able to ambulate on his own . Objective - Vital Signs Vital signs: Vital Signs Temp 97.7 F 10/27/20 11:04 Pulse 75 10/27/20 11:04 Resp 16 10/27/20 11:04 BP 144/85 10/27/20 11:04 Pulse Ox 97 10/27/20 11:04 Intake & Output 10/26/20 10/27/20 10/27/20 18:59 06:59 18:59 Weight 99.79 kg - Exam Physical Examinations : -Constitutiona : Cooperative , not in acute distress . -HEENT : nech : supple , no Lymphadenopathy , normal thyroid size . : eyes : no ptosis , no icterus, no photophobia . - neurologic : Cranial nerve II to XII intact , no focal neurological deffecit . -psychatric : alert , oriented X 3 , appropriate affect , intact judgment and insight . -Lymphatic : no Lymphadenopathy . - musculoskeltal : Lumber spine moter stegnth lower extremities ,thigh and legs 5/5 Right side , 5/5 Left side deep tendon reflexes : normal Knee J erk , normal ankle Jerk lumber facet Loading Test = negative bilaterally Range of motion of the lumbar spine F lexion 30 degrees, extension 10 degrees strait leg raising test = positive at 45 degree left side Fabere test= negative bilaterally Sever tenderness over the Sacroiliac joint on the Left sides Gaenslen test= negative right ,and positive left . Seated flexion test= negative right ,and positive Left . Distraction test= positive left-sided only Sacroiliac compression test= positive left Severe tenderness on the left side lumbar paraspinal muscles around L4 Assessment and Plan Plan: Assessment and plan=1-lumbar spondylosis with lumbar facet arthropathy without myelopathy 2-left sacroiliitis. 3-myofascial pain syndrome lumbar area. Patient could benefit from left-sided sacroiliac joint steroid injection and from left side trigger point injection lumbar paraspinal muscles - PQRS measures = - Patient's medications are documented in the chart. -Tobacco use is negative and counseling.Given. -Patient's has not received pneumococcal vaccine. -Advanced care planning discussed, patient not eligible. -Opiate contract not signed. -Pain positive and follow-up visit/procedure is scheduled. -Patient's blood pressure measured [ 144/85 ] , and documented in the record ,and patient will follow up with the primary care. -Patient's weight was measured and body mass index [ ] above the, normal limits and counseling was done. and patient instructed to follow-up with the primary care physician. -Patient was not identified as an unhealthy alcohol user Time with Patient: Less than 30
== END ==
LOC: PNWHC3 10:31
PROVIDERS: ATTEND Specialist
DX: M47.816 Spondylosis without myelopathy or radiculopathy, lumbar region (principal); M46.1 Sacroiliitis, not elsewhere classified; M79.18 Myalgia, other site; Z87.891 Personal history of nicotine dependence
CPT/HCPCS: 99211

== ENCOUNTER 2020-12-07 06:41 | Day surgery (SDC) | payer MEDICARE ==
[~2020-12-07 06:41] MED LIST changes: -IV FLUID CONTINUATION 1,000 ML IV ONE; -LIDOCAINE 1% (10MG/ML) FOR IV START INTRADERMA ONE; -MIDAZOLAM 2 MG/2 ML VIAL ONE; -ROPIVACAINE 5MG/ML 20ML VIAL ONE; -fentaNYL (PF) 50 MCG/ML 2 ML AMP ONE; -methylPREDNISolone ACETATE 40 MG/ML 1 ML VIAL ONE
[2020-12-07] MEDS ORDERED: LIDOCAINE 1% (10MG/ML) FOR IV START INTRADERMA ONE (09:43)
[2020-12-07 09:44] VITALS: TEMP 97.4
[2020-12-07] MEDS ORDERED: methylPREDNISolone ACETATE 40 MG/ML 1 ML VIAL ONE (09:45)
[2020-12-07] MEDS ORDERED: fentaNYL (PF) 50 MCG/ML 2 ML AMP ONE (09:45)
[2020-12-07] MEDS ORDERED: ROPIVACAINE 5MG/ML 20ML VIAL ONE (09:45)
[2020-12-07] MEDS ORDERED: MIDAZOLAM 2 MG/2 ML VIAL ONE (09:45)
--- NOTE | 2020-12-07 10:05 | P.PCN ---
Date of Procedure: 12/07/20 Procedure(s) Performed: Procedure= 1-Left sacroiliac joints steroid injection under fluoroscopy guidance (fluoroscopy image stored on file in the radiology Department ) 2-trigger point injection left side lumbar paraspinal muscles total of 3 trigger point injected Preoperative diagnosis= 1-left sacroiliitis 2-myofascial pain syndrome lumbar paraspinal muscles3-lumbar facet arthropathy Postoperative diagnosis=Same as preop Diagnosis . Complication = none Condition= stable Anesthesia= moderate sedation with intravenous Versed 2 mg , and fentanyl 100 micrograms . Indication for the procedure= patient complaining of low back pain , examination was positive for severe tenderness over the sacroiliac joints bilaterally and patient diagnosed with sacroiliitis, for this reason he/ she was good candidate for sacroiliac joint steroid injection. Description of the procedure= procedure risk and benefits discussed with the patient, including but not limited, risk of infection and bleeding, and ALLERGIC reaction to the medication and not complete pain relief and patient agreed with the preceding patient taken to the operating room, placed in prone position or standard monitors applied to the patient then after induction of anesthesia back prepped with chlorhexidine 3 times , Then the left sacroiliac joint steroid injection done under strict sterile technique local infiltration of the skin and subcu interstitial at the location of the left sacroiliac joint then a 22-gauge Quincke Needle advanced slowly under fluoroscopy time placed in the left sacroiliac joint, needle placement confirmed with AP and oblique and lateral view then after appropriate needle placement confirmed and after negative aspiration 0.5% Ropivacaine 3 mL and 40 mg of Depo-Medrol injected in the left sacroiliac joint after negative aspiration patient tolerated the procedure well that any complications . then the left side trigger point injection in the lumbar paraspinal muscles ,(was marked and identified in preop holding area ) each one of them injected with ropivacaine 0.5% 2 mL, using 25-gauge needle injection done after negative aspiration, and was no paresthesia during the injection, patient tolerated the procedure well without any complications,and taken to recovery room and monitored, he is discharged home in stable condition
[2020-12-07] MEDS ORDERED: IV FLUID CONTINUATION 800 ML IV ONE (10:08)
[2020-12-07 10:16] VITALS: RESP 16
[2020-12-07 10:24] VITALS: BP 123/72; PULSE 85
--- NOTE | 2020-12-07 10:27 | FL ---
EXAMINATION TYPE: FL guided pain mgmt statistic DATE OF EXAM: 12/07/2020 HISTORY: Fluoroscopy time 3 seconds of fluoroscopy provided. IMPRESSION: 1. Fluoroscopy time.
== END 2020-12-07 10:39 | disposition home or self-care (01) ==
LOC: ORPAIN 06:41
PROVIDERS: ATTEND Specialist
DX: M79.18 Myalgia, other site (principal); M47.816 Spondylosis without myelopathy or radiculopathy, lumbar region; Z88.5 Allergy status to narcotic agent
CPT/HCPCS: 20553; J2250; J1030; J3010; J2795; G0260; 20552; 27096; 99152

== ENCOUNTER → 2021-01-03 | Outpatient (CLI) | payer MEDICARE ==
[2021-01-03 11:29] VITALS: BP 129/76; PULSE 67; RESP 16; TEMP 97.9
--- NOTE | 2021-01-03 14:48 | P.PN ---
Subjective Progress Note Date: 01/03/21 This is a follow-up visit for this 70 years old male with a chronic history of severe low back pain, is diagnosed with lumbar spondylosis, and left sacroiliitis, and left lumbosacral ligament neuralgia, recently we have done a left sacroiliac joint steroid injection, currently is complaining of severe loc alized pain in the low back area ,mainly on the left side, with radiation to the left buttock area, he denies any motor or sensory deficit he denies any fever or night sweats. Denies any change in bowel movements or urination, he is able to ambulate on his own . Physical Examinations : -Constitutiona : Cooperative , not in acute distress . -HEENT : nech : supple , no Lymphadenopathy , normal thyroid size . : eyes : no ptosis , no icterus, no photophobia . - neurologic : Cranial nerve II to XII intact , no focal neurological deffecit . -psychatric : alert , oriented X 3 , appropriate affect , intact judgment and insight . -Lymphatic : no Lymphadenopathy . - musculoskeltal : Lumber spine moter stegnth lower extremities ,thigh and legs 5/5 Right side , 5/5 Left side deep tendon reflexes : normal Knee Jerk , normal ankle Jerk lumber facet Loading Test = negative bilaterally Range of motion of the lumbar spine Flexion 30 degrees, extension 10 degrees strait leg raising test = positive at 45 degree left side Fabere test= negative bilaterally Severe tenderness on the left side lower lumbar paraspinal muscles Assessment and Plan Plan: Assessment and plan=1-lumbar spondylosis with lumbar facet arthropathy without myelopathy 2-left sacroiliitis. 3-myofascial pain syndrome lumbar area. Patient could benefit from left side trigger po int injection lower lumbar paraspinal muscles - PQRS measures = - Patient's medications are documented in the chart. -Tobacco use is negative and counseling.Given. -Patient's has not received pneumococcal vaccine. -Advanced care planning discussed, patient not eligible. -Opiate contract not signed. -Pain positive and follow-up visit/procedure is scheduled. -Patient's blood pressure measured [ 129/76] , and documented in the record ,and patient will follow up with the primary care. -Patient's weight was measured and body mass index [ ] above the, normal limits and counseling was done. and patient instructed to follow-up with the primary care physician. -Patient was not identified as an unhealthy alcohol user Objective - Vital Signs Vital signs: Vital Signs Temp 97.9 F 01/03/21 11:27 Pulse 67 01/03/21 11:27 Resp 16 01/03/21 11:27 BP 129/76 01/03/21 11:27 Pulse Ox 96 01/03/21 11:27
== END | disposition home or self-care (01) ==
LOC: PNWHC3 10:36
PROVIDERS: ATTEND Specialist
DX: M50.30 Other cervical disc degeneration, unspecified cervical region (principal); M47.816 Spondylosis without myelopathy or radiculopathy, lumbar region; M46.96 Unspecified inflammatory spondylopathy, lumbar region; M46.1 Sacroiliitis, not elsewhere classified
CPT/HCPCS: 99211

== ENCOUNTER 2021-01-25 08:14 | Day surgery (SDC) | payer MEDICARE ==
[2021-01-24 09:33] VITALS: BMI 33.4
[2021-01-25 08:57] VITALS: TEMP 97.5
[2021-01-25] MEDS ORDERED: LACTATED RINGERS 1,000 ML IV ONE (09:06)
[2021-01-25] MEDS ORDERED: ROPIVACAINE 5MG/ML 20ML VIAL ONE (09:35)
[2021-01-25] MEDS ORDERED: MIDAZOLAM 2 MG/2 ML VIAL ONE (09:35)
[2021-01-25] MEDS ORDERED: methylPREDNISolone ACETATE 40 MG/ML 1 ML VIAL ONE (09:35)
--- NOTE | 2021-01-25 09:35 | P.OP ---
Date of Procedure: 01/25/21 Description of Procedure: Date of procedure: 01/25/2021 Preoperative Diagnosis: myofascial pain syndrome of left lower lumbar paraspinal muscles Postoperative diagnosis: Same Anesthesia: Local Surgeon: Maged Koehler MD Estimated blood loss: 0 ml Indications for procedure: This is a 70-year-old patient with myofascial pain and palpable trigger points in Lumbar paraspinal, Latissimus dorsi muscles on the left. The patient consents for an injection after an explanation of risks including but not limited to bleeding and infection, benefits, and alternatives and the patient has signed a consent form indicating understanding of all of them. Description of procedure: After informed consent was obtained the patient's back was sterilely prepped in the usual fashion with ChloraPrep. 3 trigger points were identified via palpation of the lumbar paraspinal and latissimus dorsi muscles on the left and marked sterilely. Ultrasound guidance was utilized for each injection. Ultrasound guidance was used for needle placement and for visualization of medication spread. Each trigger point was injected with a 22-gauge 100mm with a solution consisting of 8 mL of 0.5% Ropivacaine and 80mg/1ml of Depo-Medrol for total of 9 mls. 2mls was injected into 4 sites. The patient's vital signs were stable afterwards and the procedure was tolerated well. Patient was discharged home with follow-up instructions.
[2021-01-25] MEDS ORDERED: IV FLUID CONTINUATION 1,000 ML IV ONE (09:51)
[2021-01-25 09:54] VITALS: RESP 16
[2021-01-25 10:10] VITALS: BP 120/70; PULSE 60
== END 2021-01-25 10:18 | disposition home or self-care (01) ==
LOC: ORPAIN 08:14
PROVIDERS: ATTEND Anesthesiology
DX: M79.18 Myalgia, other site (principal); Z88.5 Allergy status to narcotic agent; I48.0 Paroxysmal atrial fibrillation; Z79.01 Long term (current) use of anticoagulants
CPT/HCPCS: 20552; J2250; J1030; J2795; 20553

== ENCOUNTER 2021-02-09 12:35 | Observation (INO) | payer MEDICARE ==
[2021-02-09] MEDS ORDERED: SODIUM CHLORIDE 0.9% 1,000 ML IV STA (12:50)
[2021-02-09 13:20] LABS: Basophils % (A) 1 %; Eosinophils # (A) 0.2 k/uL (0-0.7); Eosinophils % (A) 2 %; HCT 37.1 % (39.0-53.0); Lymphocytes # (A) 1.5 k/uL (1.0-4.8); Lymphocytes % (A) 19 %; MCH 27.6 pg (25.0-35.0); MCHC 32.5 g/dL (31.0-37.0); MCV 84.9 fL (80.0-100.0); Mean Platelet Volume 7.2; Monocytes # (A) 0.8 k/uL (0-1.0); Monocytes % (A) 10 %; Neutrophils # (A) 5.5 k/uL (1.3-7.7); Neutrophils % (A) 67 %; Platelet Count 502 k/uL (150-450); RBC 4.37 m/uL (4.30-5.90); RDW 13.5 % (11.5-15.5); WBC 8.2 k/uL (3.8-10.6)
--- NOTE | 2021-02-09 13:23 | ED ---
General Adult HPI - General Chief complaint: Dizziness Stated complaint: A-Fib Time Seen by Provider: 02/09/21 12:38 Source: EMS Mode of arrival: EMS Limitations: no limitations - History of Present Illness Initial comments: Patient is a 70-year-old male with history of A. fib, on eliquis, and hypertension, presenting to the emergency department via EMS over feeling dizzy and short of breath since yesterday. He denies any chest pain associated with t his. He states he did feels heart rate increase and felt like he was in and out of A. fib. Patient states he felt short of breath continue today with elevated heart rate so he called ems. Per EMS, his heart rate is averaging anywhere from 80-160. On arrival to the ER, he states he is feeling much improvement, he currently has no short of breath, no chest pain. He denies being dizzy but feels like if he stands up he might be dizzy. He denies any abdominal pain, no nausea or vomiting. He states he was having some mild abdominal discomfort yesterday but feels like it is constipation. He states he does deal with occasional constipation and this feels similar. He denies any recent fevers or chills. He denies having a headache, no blurry vision. He denies any changes in his medications. Patient has no further complaints at this time. - Related Data Home Medications Medication Instructions Recorded Confirmed amLODIPine [Norvasc] 10 mg PO QAM 03/30/20 01/25/21 Aspirin 325 mg PO DAILY 09/02/20 01/25/21 Propafenone [Rythmol] 225 mg PO TID 09/02/20 01/25/21 Ferrous Sulfate [Feosol] 325 mg PO DAILY 10/13/20 01/25/21 Multivitamins, Thera [Multivitamin 1 tab PO DAILY 10/13/20 01/25/21 (formulary)] Pantoprazole [Protonix] 40 mg PO DAILY 10/13/20 01/25/21 Atorvastatin Calcium [Lipitor] 20 mg PO HS 01/25/21 01/25/21 Diltiazem Oral [Cardizem Oral] 30 mg PO TID 01/25/21 01/25/21 Previous Rx's Medication Instructions Recorded Apixaban [Eliquis] 5 mg PO BID #180 tab 04/17/19 Allergies Allergy/AdvReac Type Severity Reaction Status Date / Time morphine Allergy Nausea & Verified 02/09/21 12:39 Vomiting Review of Systems ROS Statement: Those systems with pertinent positive or pertinent negative responses have been documented in the HPI. ROS Other: All systems not noted in ROS Statement are negative. Past Medical History Past Medical History: Atrial Fibrillation, Cancer, Hypertension, Prostate Disorder Additional Past Medical History / Comment(s): CHRONIC LOW BACK PAIN. Prostate cancer, skin cancer, kidney stone. History of Any Multi-Drug Resistant Organisms: None Reported Past Surgical History: Appendectomy, Bariatric Surgery, Cholecystectomy, Orthopedic Surgery Additional Past Surgical History / Comment(s): cervical sx with titanium rods, Colonoscopy, lap band, rt clavical reduction, Prostatectomy, SKIN CA REMOVED, pain procedures at [facility] PROCED[facility] Past Anesthesia/Blood Transfusion Reactions: Postoperative Nausea & Vomiting (PONV) Additional Past Anesthesia/Blood Transfusion Reaction / Comment(s): VERTIGO Past Psychological History: Depression Smoking Status: Former smoker Past Alcohol Use History: None Reported Past Drug Use History: None Reported - Past Family History Father Family Medical History: Myocardial Infarction (DC) Mother Additional Family Medical History / Comment(s): MAC DEGENERATION, HEART PROBLEMS General Exam - General Exam Comments Initial Comments: GENERAL: Patient is well-developed and well-nourished. Patient is nontoxic and in no acute distress. HEAD: Atraumatic, normocephalic. EYES: Pupils equal round and reactive to light, extraocular movements intact, sclera anicteric, conjunctiva are normal. Eyelids were unremarkable. ENT: TMs normal, nares patent, oropharynx clear without exudates. Moist mucous membranes. NECK: Normal range of motion, supple without lymphadenopathy or JVD. LUNGS: Unlabored respirations. Breath sounds clear to auscultation bilaterally and equal. No wheezes rales or rhonchi. HEART: Regular rate and rhythm without murmurs, rubs or gallops. ABDOMEN: Soft, nontender, normoactive bowel sounds. No guarding, no rebound. No masses appreciated. : Deferred MUSCULOSKELETAL: Normal extremities with adequate strength and normal range of motion, no pitting or edema. No clubbing or cyanosis. NEUROLOGICAL: Patient is alert and oriented x 3. Motor and sensory are also intact. Cranial nerves II through XII grossly intact. Symmetrical smile. Normal speech, normal gait. PSYCH: Normal mood, normal affect. SKIN: Warm, Dry, normal turgor, no rashes or lesions noted. Limitations: no limitations Course Vital Signs 02/09/21 02/09/21 02/09/21 12:37 13:00 13:30 Temperature 98.3 F Pulse Rate 81 78 77 Respiratory 16 20 24 Rate Blood Pressure 118/82 145/94 116/79 O2 Sat by Pulse 99 100 100 Oximetry 02/09/21 02/09/21 14:00 14:30 Temperature Pulse Rate 71 74 Respiratory 22 19 Rate Blood Pressure 136/79 125/84 O2 Sat by Pulse 97 98 Oximetry EKG Findings - EKG Comments: EKG Findings:: Sinus rhythm with fusion complexes, no signs of acute ST segment elevation. Ventricular rate 82, ND interval 180, QT 388. Similar to previous on 04/17/2019. Medical Decision Making - Medical Decision Making Patient is a 70-year-old male with history of A. fib, hypertension, presenting via EMS with concerns of shortness of breath, palpitations and dizziness since yesterday. He feels like he is going in and out of A. fib. He is on eliquis. Per EMS, his heart rate was averaging anywhere from 80-160/170's with associated SOB/dizziness. Upon arrival to the ER, his vitals were stable, heart rate in the 80s. He is in no acute distress, he denies any chest pain or shortness of breath here. His exam revealing no acute findings. EKG shows sinus rhythm with fusion complexes, no acute process. Chest x-ray shows COPD, no other acute process. Patient's labs show a normal white count, stable hemoglobin at 12.0, coags are within normal limits. Troponin is negative. Patient did have a trial of standing, had episode of dizziness and felt like he may go into A. fib. His vitals continued to be stable. Patient will be brought in for cardiac consult with ANakul fib associated with dizziness. Patient accepted by . Case discussed with Dr. Montes. - Lab Data Result diagrams: 02/09/21 13:00 02/09/21 13:00 Lab Results 02/09/21 02/09/21 02/09/21 Range/Units 13:00 13:00 13:00 WBC 8.2 (3.8-10.6) k/uL RBC 4.37 (4.30-5.90) m/uL Hgb 12.0 L (13.0-17.5) gm/dL Hct 37.1 L (39.0-53.0) % MCV 84.9 (80.0-100.0) fL MCH 27.6 (25.0-35.0) pg MCHC 32.5 (31.0-37.0) g/dL RDW 13.5 (11.5-15.5) % Plt Count 502 H (150-450) k/uL MPV 7.2 Neutrophils % 67 % Lymphocytes % 19 % Monocytes % 10 % Eosinophils % 2 % Basophils % 1 % Neutrophils # 5.5 (1.3-7.7) k/uL Lymphocytes # 1.5 (1.0-4.8) k/uL Monocytes # 0.8 (0-1.0) k/uL Eosinophils # 0.2 (0-0.7) k/uL Basophils # 0.0 (0-0.2) k/uL PT 10.6 (9.0-12.0) sec INR 1.0 (<1.2) APTT 24.2 (22.0-30.0) sec Sodium 139 (137-145) mmol/L Potassium 4.1 (3.5-5.1) mmol/L Chloride 110 H (98-107) mmol/L Carbon Dioxide 18 L (22-30) mmol/L Anion Gap 11 mmol/L BUN 18 (9-20) mg/dL Creatinine 0.98 (0.66-1.25) mg/dL Est GFR (CKD-EPI)AfAm >90 (>60 ml/min/1.73 sqM) Est GFR (CKD-EPI)NonAf 78 (>60 ml/min/1.73 sqM) Glucose 121 H (74-99) mg/dL Calcium 9.5 (8.4-10.2) mg/dL Magnesium 2.1 (1.6-2.3) mg/dL Total Bilirubin 0.6 (0.2-1.3) mg/dL AST 27 (17-59) U/L ALT 16 (4-49) U/L Alkaline Phosphatase 60 (38-126) U/L Troponin I (0.000-0.034) ng/mL Total Protein 6.8 (6.3-8.2) g/dL Albumin 4.0 (3.5-5.0) g/dL 02/09/21 Range/Units 13:00 WBC (3.8-10.6) k/uL RBC (4.30-5.90) m/uL Hgb (13.0-17.5) gm/dL Hct (39.0-53.0) % MCV (80.0-100.0) fL MCH (25.0-35.0) pg MCHC (31.0-37.0) g/dL RDW (11.5-15.5) % Plt Count (150-450) k/uL MPV Neutrophils % % Lymphocytes % % Monocytes % % Eosinophils % % Basophils % % Neutrophils # (1.3-7.7) k/uL Lymphocytes # (1.0-4.8) k/uL Monocytes # (0-1.0) k/uL Eosinophils # (0-0.7) k/uL Basophils # (0-0.2) k/uL PT (9.0-12.0) sec INR (<1.2) APTT (22.0-30.0) sec Sodium (137-145) mmol/L Potassium (3.5-5.1) mmol/L Chloride (98-107) mmol/L Carbon Dioxide (22-30) mmol/L Anion Gap mmol/L BUN (9-20) mg/dL Creatinine (0.66-1.25) mg/dL Est GFR (CKD-EPI)AfAm (>60 ml/min/1.73 sqM) Est GFR (CKD-EPI)NonAf (>60 ml/min/1.73 sqM) Glucose (74-99) mg/dL Calcium (8.4-10.2) mg/dL Magnesium (1.6-2.3) mg/dL Total Bilirubin (0.2-1.3) mg/dL AST (17-59) U/L ALT (4-49) U/L Alkaline Phosphatase (38-126) U/L Troponin I <0.012 (0.000-0.034) ng/mL Total Protein (6.3-8.2) g/dL Albumin (3.5-5.0) g/dL Disposition Clinical Impression: A-fib, Dizziness Disposition: ADMITTED IP TO THIS HOSP Condition: Stable Referrals: Lilo Cannon NPC [Primary Care Provider] - 1-2 days Decision Date: 02/09/21 Decision Time: 15:02
[2021-02-09 13:30] LABS: Partial Thromboplastin Time 24.2 sec (22.0-30.0); Prothrombin Time 10.6 sec (9.0-12.0)
--- NOTE | 2021-02-09 13:30 | XR ---
EXAMINATION TYPE: XR chest 2V DATE OF EXAM: 02/09/2021 COMPARISON: 04/17/2019 HISTORY: 70 year-old male shortness of breath, dyspnea, chest pain TECHNIQUE: AP and lateral views FINDINGS: Heart limits of normal in size. Aorta and pulmonary vasculature within normal limits. Partially visua lized posterior cervical fusion hardware. Hyperinflation. No consolidation or pleural effusion. IMPRESSION: COPD. No definite acute process.
[2021-02-09 13:36] LABS: ALT 16 U/L (4-49); AST 27 U/L (17-59); African American GFR (CKD) >90 (>60 ml/min/1.73 sqM); Alkaline Phosphatase 60 U/L (38-126); Anion Gap 11 mmol/L; Blood Urea Nitrogen 18 mg/dL (9-20); Calcium 9.5 mg/dL (8.4-10.2); Carbon Dioxide 18 mmol/L (22-30); Chloride 110 mmol/L (98-107); Glucose 121 mg/dL (74-99); Magnesium 2.1 mg/dL (1.6-2.3); Non-African American GFR(CKD) 78 (>60 ml/min/1.73 sqM); Potassium 4.1 mmol/L (3.5-5.1); Sodium 139 mmol/L (137-145); Total Bilirubin 0.6 mg/dL (0.2-1.3); Total Protein 6.8 g/dL (6.3-8.2)
[2021-02-09 14:52] LABS: Appearance,Urine Clear (Clear); Bilirubin,Urine Negative (Negative); Blood,Urine Negative (Negative); Color,Urine Yellow; Glucose,Urine (UA) Negative (Negative); Ketones,Urine 2+ (Negative); Leukocyte Esterase,Urine Negative (Negative); Nitrite,Urine Negative (Negative); Protein,Urine Negative (Negative); Urobilinogen,Urine <2.0 mg/dL (<2.0)
[2021-02-09] MEDS ORDERED: ACETAMINOPHEN TAB 325 MG TAB PO PRN (14:58)
[2021-02-09] MEDS ORDERED: NALOXONE 0.4 MG/ML 1 ML VIAL IV PRN (14:58)
[2021-02-09] MEDS ORDERED: ONDANSETRON 4 MG/2 ML VIAL IVP PRN (14:58)
--- NOTE | 2021-02-09 16:16 | P.HPIM ---
History of Present Illness H&P Date: 02/09/21 Chief Complaint: Dizziness This is a 70-year-old male with past medical history noted below significant for chronic atrial fibrillation on anticoagulation with Eliquis who presented to the emergency room with worsening dizziness and palpitation. Patient said that last night he was having problems with constipation and then went to bed and woke up this morning feeling very dizzy. He also describes his heart racing. This was associated with mild shortness of breath. He denies any chest pain. Patient said that he lives alone and noticed that he is unable to get out of bed secondary to dizziness and palpitations so he called EMS. According to ER reports, patient's heart rate during transport with EMS was up to 160. When he presented to the ER his heart rate was in the 80s and 90s. He is hemodynamically stable. His heart rate is fluctuating on the monitor between 70 and 120s. Patient's report taking all of his medications as prescribed. Patient is on a weird regimen including Cardizem and amlodipine. He is also maintained on Rythmol. He otherwise denies any flulike symptoms. Review of Systems Review of system: 14 points review of systems were obtained and were negative except to what were mentioned in the HPI. Past Medical History Past Medical History: Atrial Fibrillation, Cancer, Hypertension, Prostate Disorder Additional Past Medical History / Comment(s): CHRONIC LOW BACK PAIN. Prostate cancer, skin cancer, kidney stone. History of Any Multi-Drug Resistant Organisms: None Reported Past Surgical History: Appendectomy, Bariatric Surgery, Cholecystectomy, Orthopedic Surgery Additional Past Surgical History / Comment(s): cervical sx with titanium rods, Colonoscopy, lap band, rt clavical reduction, Prostatectomy, SKIN CA REMOVED, pain procedures at [facility]PAIN [facility]INIC PROCEDURES Past Anesthesia/Blood Transfusion Reactions: Postoperative Nausea & Vomiting (PONV) Additional Past Anesthesia/Blood Transfusion Reaction / Comment(s): VERTIGO Past Psychological History: Depression Smoking Status: Former smoker Past Alcohol Use History: None Reported Past Drug Use History: None Reported - Past Family History Father Family Medical History: Myocardial Infarction ([place]) Mother Additional Family Medical History / Comment(s): MAC DEGENERATION, HEART PROBLEMS Medications and Allergies Home Medications Medication Instructions Recorded Confirmed Type Apixaban [Eliquis] 5 mg PO BID #180 tab 04/17/19 02/09/21 Rx amLODIPine [Norvasc] 10 mg PO DAILY 03/30/20 02/09/21 History Aspirin 325 mg PO DAILY 09/02/20 02/09/21 History Ferrous Sulfate [Feosol] 325 mg PO Q96H 10/13/20 02/09/21 History Multivitamins, Thera [Multivitamin 1 tab PO DAILY 10/13/20 02/09/21 History (formulary)] Atorvastatin Calcium [Lipitor] 20 mg PO HS 01/25/21 02/09/21 History Diltiazem Oral [Cardizem Oral] 30 mg PO TID 01/25/21 02/09/21 History Budesonide/Formoterol Fumarate 2 puff INHALATION RT-BID 02/09/21 02/09/21 History [Symbicort 160-4.5 Mcg Inhaler] Propafenone [Rythmol] 225 mg PO TID 02/09/21 02/09/21 History Allergies Allergy/AdvReac Type Severity Reaction Status Date / Time morphine AdvReac Nausea & Verified 02/09/21 15:08 Vomiting Physical Exam Vitals: Vital Signs Temp Pulse Resp BP Pulse Ox 02/09/21 14:30 74 19 125/84 98 02/09/21 14:00 71 22 136/79 97 02/09/21 13:30 77 24 116/79 100 02/09/21 13:00 78 20 145/94 100 02/09/21 12:37 98.3 F 81 16 118/82 99 Intake and Output 02/09/21 02/09/21 02/09/21 06:59 14:59 22:59 Other: Weight 99.79 kg General: The patient is awake and alert, in no distress Eye: there is normal conjunctiva bilaterally. Neck: The neck is supple, there is no JVD. Cardiovascular: Normal S1-S2, no S3-S4, no murmurs. Respiratory: Lungs clear to auscultation bilaterally Gastrointestinal: Abdomen is soft, nontender Musculoskeletal: There is no pedal edema. Neurological:. Speech is normal. Skin: Skin is warm and dry Results CBC & Chem 7: 02/09/21 13:00 02/09/21 13:00 Labs: Abnormal Lab Results - Last 24 Hours (Table) 02/09/21 02/09/21 02/09/21 Range/Units 13:00 13:00 14:47 Hgb 12.0 L (13.0-17.5) gm/dL Hct 37.1 L (39.0-53.0) % Plt Count 502 H (150-450) k/uL Chloride 110 H (98-107) mmol/L Carbon Dioxide 18 L (22-30) mmol/L Glucose 121 H (74-99) mg/dL Urine Ketones 2+ H (Negative) Assessment and Plan Assessment: 1. Chronic atrial fibrillation with rapid ventricular response. I will increase his home dose of Cardizem from 30 mg 3 times a day to 60 mg 3 times a day. Discontinue Norvasc. Continue home dose of Rythmol. On anticoagulation with Eliquis. I would check thyroid function test and obtain echocardiogram. Cardiology consulted for further evaluation. 2. Essential hypertension, blood pressure within acceptable range. Amlodipine was discontinued. I will continue to monitor blood pressure closely. 3. History of brain aneurysm status post coiling at [facility] in July 2020 Today, I reviewed his medication list and lab work results. We'll continue telemetry monitoring. Awaiting cardiology evaluation.
[2021-02-09] MEDS: PROPAFENONE 225 MG TAB PO SCH ×2 (17:59→21:05)
[2021-02-09] MEDS: DILTIAZEM ORAL 60 MG TAB PO SCH ×2 (17:59→21:05)
[2021-02-09] MEDS: SYMBICORT 160-4.5 MCG INHALER INHALATION SCH (19:43)
[2021-02-09] MEDS ORDERED: ATORVASTATIN 20 MG TAB PO SCH (21:00)
[2021-02-09] MEDS: APIXABAN 5 MG TAB PO SCH (21:05)
[2021-02-09 21:21] VITALS: RESP 16
[2021-02-10] MEDS: SYMBICORT 160-4.5 MCG INHALER INHALATION SCH (08:23)
[2021-02-10] MEDS: PROPAFENONE 225 MG TAB PO SCH ×2 (08:57→17:05)
[2021-02-10] MEDS: APIXABAN 5 MG TAB PO SCH (08:57)
[2021-02-10] MEDS: DILTIAZEM ORAL 60 MG TAB PO SCH ×2 (08:57→17:05)
[2021-02-10] MEDS ORDERED: ASPIRIN 325 MG TAB PO SCH (09:00)
[2021-02-10] MEDS ORDERED: MULTIVITAMINS, THERA 1 EACH TAB PO SCH (09:00)
--- NOTE | 2021-02-10 09:46 | CONS ---
CONSULTATION Mr. Hartman 70-year-old male who presented with symptoms of dizziness. The patient had severe constipation over the last 4 days and yesterday was getting up to the bathroom multiple times during the night without ability to move his bowels. Then he got up again and he felt quite dizzy. Subsequently he went back to his bedroom and he felt his heart going fast and because of that, he called EMS. In the EMS he was noted to be in atrial fibrillation and upon arrival, he was in sinus mechanism. He had palpitation, but no chest discomfort. His breathing has been stable. He is feeling better today. He continues to be in sinus mechanism. He has no PND, orthopnea. No peripheral edema and no syncope. He has underwent a stress echocardiogram in February of 2020 that revealed no evidence of inducible ischemia and his left ventricular systolic function was preserved at that time. The patient is average in his exercise tolerance and has no associated chest discomfort and according to the records available, he had a prior mild nonobstructive coronary artery disease by cardiac catheterization. The patient has no history of myocardial infarction or congestive heart failure. His coronary risk factors are remarkable for history of hypertension. He is nondiabetic. MEDICATION: Include Eliquis 5 mg twice a day, aspirin once a day, Norvasc 10 mg daily and diltiazem 30 mg 3 times a day in addition to Lipitor 20 mg daily. REVIEW OF SYSTEMS: RESPIRATORY system: He has no documented history of recent wheezing or cough. GI system: He had the severe constipation. No nausea. No vomiting. system: No dysuria or hematuria. NERVOUS SYSTEM: No history of stroke or seizure. PHYSICAL EXAMINATION: 70-year-old male, alert, oriented, in no apparent distress. Blood pressure 119/70 with a heart rate in the 70s. HEAD: Normocephalic. Eyes sclerae anicteric. NECK: Good upstroke. No bruit. No jugular venous distention. LUNGS: Clear to auscultation. HEART: Regular rate and rhythm S1, S2. No S3. No S4. No rub. ABDOMEN: Soft, nontender. Positive bowel sounds. No organomegaly. EXTREMITIES: No edema. Intact distal pulses. LAB DATA: Hemoglobin of 12. Troponin less than 0.012. BUN and creatinine of 18 and 0.98, potassium 4.1. TSH 1.1810. EKG revealed a sinus mechanism, normal axis and intervals. No acute changes. His chest x-ray shows no acute infiltrate. IMPRESSION: 1. Episode of dizziness could be related to orthostatic hypotension with an episode of paroxysmal atrial fibrillation back in sinus mechanism. No evidence of acute coronary syndrome. 2. Paroxysmal atrial fibrillation remains in sinus mechanism. 3. History of hypertension. 4. History of hyperlipidemia. RECOMMENDATIONS: I agree with your plan of stopping the amlodipine. I will also stop his aspirin. The patient had a prior history of brain aneurysm with coiling at [facility] in July of this year and has been stable. I would obtain echocardiogram with Doppler. If there is no evidence of segmental wall motion abnormality, then no further cardiac workup will be needed at this time and he will follow up on a regular basis with Dr. Bourgeois. The issue of constipation will be evaluated by his primary care physician. Thank you for this consult. We will follow with you. MMODL / IJN: [id number] /
[2021-02-10] MEDS ORDERED: LACTULOSE 20 GM/30 ML CUP PO ONE (10:30)
--- NOTE | 2021-02-10 13:49 | ECHOF ---
Referral Reason:afib MEASUREMENTS -------- HEIGHT: 172.7 cm WEIGHT: 99.8 kg BP: 119/71 RVIDd: 4.2 cm (< 3.3) IVSd: 1.2 cm (0.6 - 1.1) LVIDd: 4.7 cm (3.9 - 5.3) LVPWd: 1.3 cm (0.6 - 1.1) IVSs: 1.3 cm LVIDs: 3.0 cm LVPWs: 1.8 cm LAESV Index (A-L): 30.69 ml/m Ao Diam: 2.8 cm (2.0 - 3.7) AV Cusp: 1.9 cm (1.5 - 2.6) LA Diam: 4.6 cm (2.7 - 3.8) MV EXCURSION: 20.523 mm (> 18.000) MV EF SLOPE: 70 mm/s (70 - 150) EPSS: 0.3 cm MV E [place]: 0.71 m/s MV DecT: 253 ms MV A [place]: 0.88 m/s MV E/A Ratio: 0.82 RAP: 5.00 mmHg RVSP: 26.33 mmHg FINDINGS -------- Sinus rhythm. This was a technically adequate study. The left ventricular size is normal. There is borderline concentric left ventricular hypertrophy. Overall left ventricular systolic function is normal with, an EF between 55 - 60 %. The right ventricle is moderately enlarged. LA is midly dilated 29-33ml/m2. The right atrium is mildly enlarged. Interatrial and interventricular septum intact. There is mild aortic valve sclerosis. There is no evidence of aortic regurgitation. There is no e vidence of aortic stenosis. The mitral valve is normal. Mild mitral regurgitation is present. The tricuspid valve appears structurally normal. Mild tricuspid regurgitation present. Right vent ricular systolic pressure is normal at < 35 mmHg. The right ventricular systolic pressure, as measu red by Doppler, is 26.33mmHg. There is no pulmonic regurgitation present. The aortic root size is normal. IVC Not well visulized. There is no pericardial effusion. CONCLUSIONS -------- 1. There is borderline concentric left ventricular hypertrophy. 2. Overall left ventricular systolic function is normal with, an EF between 55 - 60 %. 3. The right ventricle is moderately enlarged. 4. LA is midly dilated 29-33ml/m2. 5. The right atrium is mildly enlarged. 6. There is mild aortic valve sclerosis. 7. Mild mitral regurgitation is present. 8. Mild tricuspid regurgitation present. 9. There is no pericardial effusion. FABRIC WORKER SUPERVISOR: Jacqueline Hall RDCS
[2021-02-10 14:11] VITALS: BP 137/68; PULSE 69; TEMP 98.1
--- NOTE | 2021-02-10 16:31 | P.DS ---
Providers Date of admission: 02/09/21 15:11 Expected date of discharge: 02/10/21 Attending physician: Rochelle Preston Consults: 02/09/21 14:59 Consult Physician Urgent Consulting Provider: [facility] Consult Reason/Comments: A. fib with dizziness, episodes of RVR Do you want consulting provider notified?: Yes Primary care physician: Lilo Cannon [facility] Hospital Course: This is a 70-year-old male with past medical history noted below who presented to the emergency room with palpitation and dizziness. Patient was evaluated in the ER and placed on observation for further management of his medical problems noted below. 1. Chronic atrial fibrillation with rapid ventricular response. Converted spontaneously to normal sinus rhythm after admission. Home dose of Cardizem adjusted. Discontinued Norvasc and aspirin. Continue home dose of Rythmol. On anticoagulation with Eliquis. Patient was seen and evaluated by cardiology. Echocardiogram showed preserved ejection fraction with no significant valvular abnormalities. Thyroid function test was normal. 2. Essential hypertension, blood pressure within acceptable range. Amlodipine was discontinued. Continue to monitor blood pressure closely. 3. History of brain aneurysm status post coiling at [facility] in July 2020 Patient was seen and evaluated by me on the day of discharge. He was in normal sinus rhythm on traffic monitor specialist. He will be discharged home in a stable condition. He was advised to follow-up with his line pilot as directed. General: The patient is awake and alert, in no distress Eye: there is normal conjunctiva bilaterally. Neck: The neck is supple, there is no JVD. Cardiovascular: Normal S1-S2, no S3-S4, no murmurs. Respiratory: Lungs clear to auscultation bilaterally Gastrointestinal: Abdomen is soft, nontender Musculoskeletal: There is no pedal edema. Neurological:. Speech is normal. Skin: Skin is warm and dry Patient Condition at Discharge: Stable Plan - Discharge Summary Discharge Rx Participant: Yes New Discharge Prescriptions: New Diltiazem Cd [Cardizem Cd] 180 mg PO DAILY #30 cap.er.24h Continue Apixaban [Eliquis] 5 mg PO BID #180 tab Multivitamins, Thera [Multivitamin (formulary)] 1 tab PO DAILY Propafenone [Rythmol] 225 mg PO TID Ferrous Sulfate [Iron (65 MG Elemental)] 325 mg PO Q96H Atorvastatin Calcium [Lipitor] 20 mg PO HS Budesonide/Formoterol Fumarate [Symbicort 160-4.5 Mcg Inhaler] 2 puff INHALATION RT-BID Discontinued amLODIPine [Norvasc] 10 mg PO DAILY Aspirin 325 mg PO DAILY Diltiazem Oral [Cardizem Oral] 30 mg PO TID Discharge Medication List Apixaban [Eliquis] 5 mg PO BID #180 tab 04/17/19 [Rx] Ferrous Sulfate [Iron (65 MG Elemental)] 325 mg PO Q96H 10/13/20 [History] Multivitamins, Thera [Multivitamin (formulary)] 1 tab PO DAILY 10/13/20 [History] Atorvastatin Calcium [Lipitor] 20 mg PO HS 01/25/21 [History] Budesonide/Formoterol Fumarate [Symbicort 160-4.5 Mcg Inhaler] 2 puff INHALATION RT-BID 02/09/21 [History] Propafenone [Rythmol] 225 mg PO TID 02/09/21 [History] Diltiazem Cd [Cardizem Cd] 180 mg PO DAILY #30 cap.er.24h 02/10/21 [Rx] Follow up Appointment(s)/Referral(s): Lilo Cannon, DOMINIQUE [Primary Care Provider] - 1-2 days Discharge Disposition: HOME SELF-CARE
[2021-02-12] MEDS ORDERED: FERROUS SULFATE 325 MG TAB PO SCH (12:30)
== END 2021-02-10 17:47 | disposition home or self-care (01) ==
LOC: EC 12:35 → 6NMEDSUR 15:11
PROVIDERS: ADMIT Internal Medicine; ATTEND Internal Medicine
DX: I48.0 Paroxysmal atrial fibrillation (principal); I10 Essential (primary) hypertension; I67.1 Cerebral aneurysm, nonruptured; E78.5 Hyperlipidemia, unspecified; I25.10 Atherosclerotic heart disease of native coronary artery without angina pectoris; I48.20 Chronic atrial fibrillation, unspecified; J44.9 Chronic obstructive pulmonary disease, unspecified; K59.00 Constipation, unspecified; G89.29 Other chronic pain; M54.5 Low back pain; N42.9 Disorder of prostate, unspecified; F32.9 Major depressive disorder, single episode, unspecified; Z79.01 Long term (current) use of anticoagulants; Z79.51 Long term (current) use of inhaled steroids; Z79.82 Long term (current) use of aspirin; Z79.899 Other long term (current) drug therapy; Z88.5 Allergy status to narcotic agent; Z85.46 Personal history of malignant neoplasm of prostate; Z85.828 Personal history of other malignant neoplasm of skin; Z87.442 Personal history of urinary calculi; Z87.891 Personal history of nicotine dependence; Z90.89 Acquired absence of other organs; Z90.49 Acquired absence of other specified parts of digestive tract; Z98.84 Bariatric surgery status; Z82.49 Family history of ischemic heart disease and other diseases of the circulatory system
CPT/HCPCS: 96360; 99285; 36415; 94640 ×2; 93005; 93306; 80053; 84443; 83735; 84484; 85025; 85610; 85730; 81003; 71046; G0378 ×2

== ENCOUNTER 2021-02-14 05:46 | Observation (INO) | payer MEDICARE ==
[2021-02-14] MEDS ORDERED: SODIUM CHLORIDE 0.9% 500 ML 500 ML IV STA (06:26)
[2021-02-14] MEDS ORDERED: ASPIRIN 81 MG PO STA (06:26)
[2021-02-14 06:49] LABS: Basophils % (A) 0 %; Eosinophils # (A) 0.3 k/uL (0-0.7); Eosinophils % (A) 4 %; HCT 35.1 % (39.0-53.0); HGB 11.6 gm/dL (13.0-17.5); Hypochromasia Slight; Lymphocytes # (A) 1.5 k/uL (1.0-4.8); Lymphocytes % (A) 23 %; MCV 84.9 fL (80.0-100.0); Mean Platelet Volume 7.5; Monocytes # (A) 0.6 k/uL (0-1.0); Monocytes % (A) 9 %; Neutrophils # (A) 4.2 k/uL (1.3-7.7); Neutrophils % (A) 62 %; Platelet Count 454 k/uL (150-450); RBC 4.13 m/uL (4.30-5.90); RDW 13.6 % (11.5-15.5); WBC 6.7 k/uL (3.8-10.6)
--- NOTE | 2021-02-14 06:56 | ED ---
Chest Pain HPI - General Chief Complaint: Chest Pain Stated Complaint: Chest Pain Time Seen by Provider: 02/14/21 06:02 Source: patient Mode of arrival: ambulatory - History of Present Illness Initial Comments: Patient is a 70-year-old male with history of A. fib, hypertension, presenting to the emergency Department with complaints of chest pain started about 2 hours prior to arrival. He describes it as pressure in the center of his chest, no radiation. He feels like it is pressure coming up from his abdomen. Patient was just discharged from this hospital 4 days ago for similar complaint. He states that he had normal labs and did have an echo which was normal as well. States during his stay he told them he was constipated so he was given a certain medication, he had a very large bowel movement while in the hospital and felt so much better. He states he is feeling that same way again. He is complaining of some dizziness since yesterday, he was trying to have a bowel movement, he also feels shortness of breath. He is having lots of abdominal pressure as well, but no specific area of pain. He denies any nausea or vomiting. He states he has not had a bowel movement since being in the hospital 4 days ago. He does admit to history of appendectomy, cholecystectomy and bariatric surgery. He also had history of prostate cancer with removal. No recent fevers or chills. He has no further complaints. - Related Data Home Medications Medication Instructions Recorded Confirmed Ferrous Sulfate [Iron (65 MG 325 mg PO Q96H 10/13/20 02/14/21 Elemental)] Multivitamins, Thera [Multivitamin 1 tab PO DAILY 10/13/20 02/14/21 (formulary)] Atorvastatin Calcium [Lipitor] 20 mg PO HS 01/25/21 02/14/21 Budesonide/Formoterol Fumarate 2 puff INHALATION RT-BID 02/09/21 02/14/21 [Symbicort 160-4.5 Mcg Inhaler] Propafenone [Rythmol] 225 mg PO TID 02/09/21 02/14/21 Aspirin EC [Ecotrin] 325 mg PO DAILY 02/14/21 02/14/21 Diltiazem Oral [Cardizem Oral] 30 mg PO TID 02/14/21 02/14/21 amLODIPine [Norvasc] 10 mg PO DAILY 02/14/21 02/14/21 Previous Rx's Medication Instructions Recorded Apixaban [Eliquis] 5 mg PO BID #180 tab 04/17/19 Allergies Allergy/AdvReac Type Severity Reaction Status Date / Time morphine AdvReac Nausea & Verified 02/14/21 08:02 Vomiting Review of Systems ROS Statement: Those systems with pertinent positive or pertinent negative responses have been documented in the HPI. ROS Other: All systems not noted in ROS Statement are negative. EKG Findings - EKG Comments: EKG Findings:: Sinus rhythm with first-degree AV block with premature atrial complexes, nonspecific ST abnormalities, no signs of acute ST segment elevation. Prolonged QT, this is similar to his previous and 02/09/2021. Ventricular rate 83, PA interval 224, QT 412. Past Medical History Past Medical History: Atrial Fibrillation, Cancer, Hypertension, Prostate Di sorder Additional Past Medical History / Comment(s): CHRONIC LOW BACK PAIN. Prostate cancer, skin cancer, kidney stone. History of Any Multi-Drug Resistant Organisms: None Reported Past Surgical History: Appendectomy, Bariatric Surgery, Cholecystectomy, Orthopedic Surgery Additional Past Surgical History / Comment(s): cervical sx with titanium rods, Colonoscopy, lap band, rt clavical reduction, Prostatectomy, SKIN CA REMOVED, pain procedures at [facility].PAIN CLINIC PROCEDURES Past Anesthesia/Blood Transfusion Reactions: Postoperative Nausea & Vomiting (PONV) Additional Past Anesthesia/Blood Transfusion Reaction / Comment(s): VERTIGO Past Psychological History: Depression Smoking Status: Former smoker Past Alcohol Use History: None Reported Past Drug Use History: None Reported - Past Family History Father Family Medical History: Myocardial Infarction ([place]) Mother Additional Family Medical History / Comment(s): MAC DEGENERATION, HEART PROBLEMS General Exam - General Exam Comments Initial Comments: GENERAL: Patient is well-developed and well-nourished. Patient is nontoxic and in mild distress. HEAD: Atraumatic, normocephalic. EYES: Pupils equal round and reactive to light, extraocular movements intact, sclera anicteric, conjunctiva are normal. Eyelids were unremarkable. ENT: TMs normal, nares patent, oropharynx clear without exudates. Moist mucous membranes. NECK: Normal range of motion, supple without lymphadenopathy or JVD. LUNGS: Unlabored respirations. Breath sounds clear to auscultation bilaterally and eq ual. No wheezes rales or rhonchi. HEART: Regular rate and rhythm without murmurs, rubs or gallops. ABDOMEN: Soft, no specific area pain, pressure with palpation all over his abdomen. normoactive bowel sounds. No guarding, no rebound. No masses appreciated. : Deferred MUSCULOSKELETAL: Normal extremities with adequate strength and normal range of motion, no pitting or edema. No clubbing or cyanosis. NEUROLOGICAL: Patient is alert and oriented x 3. Motor and sensory are also intact. Cranial nerves II through XII grossly intact. Symmetrical smile. Normal speech, normal gait. PSYCH: Normal mood, normal affect. SKIN: Warm, Dry, normal turgor, no rashes or lesions noted. Course Vital Signs 02/14/21 02/14/21 02/14/21 05:49 07:27 10:00 Temperature 98.1 F 97.8 F Pulse Rate 114 H 64 112 H Respiratory 18 16 24 Rate Blood Pressure 101/68 138/84 137/79 O2 Sat by Pulse 100 100 98 Oximetry - Reevaluation(s) Reevaluation #1: 02/14/21 10:20 Patient's initial cardiac workup is all within normal limits. Patient was given lactulose to help with bowel movement, this was unsuccessful, he continues to have lots of abdominal pressure. At this time I did order a CT of the abdomen and pelvis, waiting results. Chest Pain [facility] Patient is a 70-year-old male presenting for chest pressure, dizziness and shortness of breath that started about 3 AM this morning. Patient was recently admitted for A. fib and dizziness last week, he was discharged on , had normal labs and echo. He states he had a bowel movement during that stay and felt his symptoms much improved. He feels like his symptoms are coming from his belly. He has not had a bowel movement in 4 days. His initial vital showed tachycardia at 114, blood pressure slightly low. Initial cardiac workup was negative including EKG, troponin, labs are all within normal limits, d-dimer is normal as well. Urine shows no evidence of infection. The lows, did have a small bowel movement with some mild improvement in his symptoms. He to need to felt short of breath and dizzy from the pushing so ended up doing an abdominal CT which showed some mild narrowing of the sigmoid colon but no other acute findings, no obstruction. Patient remains uncomfortable, still complaining of chest pressure and abdominal pressure. Patient will be admitted for serial troponins and consult with GI. He is agreeable to this. Patient accepted by Dr. Preston with GI on consult. Case discussed with Dr. Mo. Disposition Clinical Impression: Chest pain, Abdominal pain, Constipation Disposition: ADMITTED IP TO THIS HOSP Condition: Stable Decision Date: 02/14/21 Decision Time: 12:57
[2021-02-14 06:57] LABS: ALT 16 U/L (4-49); African American GFR (CKD) >90 (>60 ml/min/1.73 sqM); Albumin 4.1 g/dL (3.5-5.0); Amylase 51 U/L (30-110); Anion Gap 10 mmol/L; Blood Urea Nitrogen 16 mg/dL (9-20); Calcium 9.7 mg/dL (8.4-10.2); Carbon Dioxide 19 mmol/L (22-30); Chloride 111 mmol/L (98-107); Glucose 127 mg/dL (74-99); Lipase 108 U/L (23-300); Non-African American GFR(CKD) 83 (>60 ml/min/1.73 sqM); Sodium 140 mmol/L (137-145); Total Bilirubin 0.8 mg/dL (0.2-1.3); Total Protein 6.9 g/dL (6.3-8.2)
[2021-02-14 06:59] LABS: AST 32 U/L (17-59); Alkaline Phosphatase 48 U/L (38-126); Magnesium 2.1 mg/dL (1.6-2.3); Potassium 4.5 mmol/L (3.5-5.1)
[2021-02-14 07:02] LABS: Partial Thromboplastin Time 24.7 sec (22.0-30.0); Prothrombin Time 10.9 sec (9.0-12.0)
--- NOTE | 2021-02-14 07:06 | XR ---
EXAMINATION TYPE: XR KUB DATE OF EXAM: 02/14/2021 COMPARISON: NONE HISTORY: Constipation TECHNIQUE: 2 views upright FINDINGS: There is no sign of intestinal obstruction or pneumoperitoneum. Fecal pattern is normal. Th ere is gastric bariatric surgery. There are clips in the pelvis. There is no evidence of abdominal ma ss. There are clips from cholecystectomy. Lung bases are clear. IMPRESSION: Nonacute abdomen. No significant constipation.
--- NOTE | 2021-02-14 07:07 | XR ---
EXAMINATION TYPE: XR chest 2V DATE OF EXAM: 02/14/2021 COMPARISON: 02/09/2021 HISTORY: Chest pain TECHNIQUE: 2 views FINDINGS: Heart and mediastinum are normal. Lungs are clear of infiltrate. There is no heart failure. There are chest leads. Costophrenic angles are clear. Bony thorax appears intact. IMPRESSION: No active cardiopulmonary disease. No change.
[2021-02-14 07:44] LABS: Appearance,Urine Clear (Clear); Bilirubin,Urine Negative (Negative); Blood,Urine Negative (Negative); Color,Urine Light Yellow; Glucose,Urine (UA) Negative (Negative); Ketones,Urine Negative (Negative); Leukocyte Esterase,Urine Negative (Negative); Nitrite,Urine Negative (Negative); PH, Urine 7.5 (5.0-8.0); Protein,Urine Negative (Negative); Specific Gravity,Urine 1.007 (1.001-1.035); Urobilinogen,Urine <2.0 mg/dL (<2.0)
[2021-02-14] MEDS ORDERED: LACTULOSE 20 GM/30 ML CUP PO ONE (08:01)
--- NOTE | 2021-02-14 11:57 | CT ---
EXAMINATION TYPE: CT abdomen pelvis w con DATE OF EXAM: 02/14/2021 COMPARISON: None HISTORY: Acute abdomen pressure CT DLP: 1710.1 mGycm Automated exposure control for dose reduction was used. CONTRAST: CT scan of the abdomen pelvis is performed with IV Contrast, patient injected with 100 ml mL of Isovu e 300. FINDINGS- LUNG BASES-2 mm nodule within the right middle lobe. 2 small to characterize. Subsegmental changes le ft lung base.. LIVER/GB-postcholecystectomy changes noted. PANCREAS- No gross abnormality is seen. SPLEEN- No gross abnormality is seen. ADRENALS- No gross abnormality is seen. KIDNEYS/BLADDER-no hydronephrosis. There is a lateral mid pole renal lesion which does not meet the c riteria of simple cyst measuring 1.2 cm and ultrasound correlation is recommended.. BOWEL-a lap band surgery noted. No evidence of obstruction. Bowel gas pattern nonspecific. Changes of diverticulosis noted. There is a localized area of narrowing involving the sigmoid colon.. LYMPH NODES- No greater than 1cm abdominal or pelvic lymph nodes areappreciated. OSSEOUS STRUCTURES-hypertrophic and degenerative changes of the spine. Multilevel facet arthropathy.. OTHER- aorta of normal caliber. There are 2 fat-containing anterior abdominal wall small hernias. IMPRESSION- 1. Post lap band surgery with 2 small anterior abdominal wall fat-containing hernias. 2. No evidence of bowel obstruction. 3. Diverticulosis of the colon with a localized area of narrowing involving the sigmoid colon. This p otentially could be transient and related to peristalsis. Mucosal lesion not excluded. Consider direc t visualization. 4. Indeterminate right renal lesion recommend ultrasound.
[2021-02-14] MEDS ORDERED: ACETAMINOPHEN TAB 325 MG TAB PO PRN (12:55)
[2021-02-14] MEDS ORDERED: ONDANSETRON 4 MG/2 ML VIAL IVP PRN (12:55)
[2021-02-14] MEDS ORDERED: NALOXONE 0.4 MG/ML 1 ML VIAL IV PRN (12:55)
[2021-02-14] MEDS ORDERED: FERROUS SULFATE 325 MG TAB PO SCH (14:30)
--- NOTE | 2021-02-14 14:30 | P.HPIM ---
History of Present Illness H&P Date: 02/14/21 Chief Complaint: Constipation and chest tightness This is a 70-year-old male with past medical history noted below significant for chronic atrial fibrillation on anticoagulation who presented to the emergency room with chest tightness and constipation. Patient was discharged on the hospital a few days ago after being admitted for A. fib with RVR. His regimen was adjusted at the time. He said that he was doing fairly well up until yesterday and he felt slightly dizzy. He is also complaining of constipation and reported that he did not have a bowel movement since . He denies any significant abdominal pain. He believed that his chest tightness is secondary to his constipation. He denies any exertional dyspnea or active chest pain. He was evaluated in the ER and a computed tomography scan showed evidence of diverticulosis with narrowing involving the sigmoid colon. Patient told me that he had upper and lower endoscopy me at [facility] 3 month ago that was reported normal. Patient will be placed on observation for further evaluation. Review of Systems Review of system: 14 points review of systems were obtained and were negative except to what were mentioned in the HPI. Past Medical History Past Medical History: Atrial Fibrillation, Cancer, Hypertension, Prostate Disorder Additional Past Medical History / Comment(s): CHRONIC LOW BACK PAIN. Prostate cancer, skin cancer, kidney stone. History of Any Multi-Drug Resistant Organisms: None Reported Past Surgical History: Appendectomy, Bariatric Surgery, Cholecystectomy, Orthopedic Surgery Additional Past Surgical History / Comment(s): cervical sx with titanium rods, Colonoscopy, lap band, rt clavical reduction, Prostatectomy, SKIN CA REMOVED, pain procedures at .PAIN CLINIC PROCEDURES Past Anesthesia/Blood Transfusion Reactions: Postoperative Nausea & Vomiting (PONV) Additional Past Anesthesia/Blood Transfusion Reaction / Comment(s): VERTIGO Past Psychological History: Depression Smoking Status: Former smoker Past Alcohol Use History: None Reported Past Drug Use History: None Reported - Past Family History Father Family Medical History: Myocardial Infarction ([place]) Mother Additional Family Medical History / Comment(s): MAC DEGENERATION, HEART PROBLEMS Medications and Allergies Home Medications Medication Instructions Recorded Confirmed Type Apixaban [Eliquis] 5 mg PO BID #180 tab 04/17/19 02/14/21 Rx Ferrous Sulfate [Iron (65 MG 325 mg PO Q96H 10/13/20 02/14/21 History Elemental)] Multivitamins, Thera [Multivitamin 1 tab PO DAILY 10/13/20 02/14/21 History (formulary)] Atorvastatin Calcium [Lipitor] 20 mg PO HS 01/25/21 02/14/21 History Budesonide/Formoterol Fumarate 2 puff INHALATION RT-BID 02/09/21 02/14/21 History [Symbicort 160-4.5 Mcg Inhaler] Propafenone [Rythmol] 225 mg PO TID 02/09/21 02/14/21 History Aspirin EC [Ecotrin] 325 mg PO DAILY 02/14/21 02/14/21 History Diltiazem Oral [Cardizem Oral] 30 mg PO TID 02/14/21 02/14/21 History amLODIPine [Norvasc] 10 mg PO DAILY 02/14/21 02/14/21 History Allergies Allergy/AdvReac Type Severity Reaction Status Date / Time morphine AdvReac Nausea & Verified 02/14/21 08:02 Vomiting Physical Exam Vitals: Vital Signs Temp Pulse Resp BP Pulse Ox 02/14/21 10:00 112 H 24 137/79 98 02/14/21 07:27 97.8 F 64 16 138/84 100 02/14/21 05:49 98.1 F 114 H 18 101/68 100 Intake and Output 02/13/21 02/14/21 02/14/21 22:59 06:59 14:59 Other: Weight 99.79 kg General: The patient is awake and alert, in no distress Eye: there is normal conjunctiva bilaterally. Neck: The neck is supple, there is no JVD. Cardiovascular: Normal S1-S2, no S3-S4, no murmurs. Respiratory: Lungs clear to auscultation bilaterally Gastrointestinal: Abdomen is soft, nontender Musculoskeletal: There is no pedal edema. Neurological:. Speech is normal. Skin: Skin is warm and dry Results CBC & Chem 7: 02/14/21 06:34 02/14/21 06:34 Labs: Abnormal Lab Results - Last 24 Hours (Table) 02/14/21 02/14/21 Range/Units 06:34 06:34 RBC 4.13 L (4.30-5.90) m/uL Hgb 11.6 L (13.0-17.5) gm/dL Hct 35.1 L (39.0-53.0) % Plt Count 454 H (150-450) k/uL Chloride 111 H (98-107) mmol/L Carbon Dioxide 19 L (22-30) mmol/L Glucose 127 H (74-99) mg/dL Assessment and Plan Assessment: 1. Constipation, patient given one-time dose of lactulose in the ER. We will administer enema as well. Computed tomography scan of the abdomen showed diverticulosis with localized area of narrowing involving the sigmoid colon. GI consulted by ER staff. Patient informing that he had the upper and lower endoscopy 3 month ago that was reported normal. 2. Chronic atrial fibrillation on anticoagulation 3. Essential hypertension Patient will be placed in observation awaiting GI evaluation
[2021-02-14] MEDS: SODIUM CHLORIDE 0.9% 1,000 ML IV SCH (16:13)
[2021-02-14] MEDS: DILTIAZEM ORAL 30 MG TAB PO SCH ×2 (17:09→21:22)
[2021-02-14] MEDS: PROPAFENONE 225 MG TAB PO SCH ×2 (17:09→21:22)
[2021-02-14] MEDS: SYMBICORT 160-4.5 MCG INHALER INHALATION SCH (19:37)
[2021-02-14] MEDS: polyethylene glycoL 3350 17 GM POWD.PACK PO SCH (21:22)
[2021-02-14] MEDS: ATORVASTATIN 20 MG TAB PO SCH (21:22)
[2021-02-14] MEDS: APIXABAN 5 MG TAB PO SCH (21:22)
[2021-02-15] MEDS: SODIUM CHLORIDE 0.9% 1,000 ML IV SCH ×2 (02:46→17:07)
[2021-02-15] MEDS: MULTIVITAMINS, THERA 1 EACH TAB PO SCH (07:43)
[2021-02-15] MEDS: APIXABAN 5 MG TAB PO SCH (07:43)
[2021-02-15] MEDS: PROPAFENONE 225 MG TAB PO SCH (07:43)
[2021-02-15] MEDS: SYMBICORT 160-4.5 MCG INHALER INHALATION SCH ×2 (07:48→19:31)
[2021-02-15] MEDS ORDERED: NITROGLYCERIN SL TABS 0.4 MG TAB SUBLINGUAL PRN (09:01)
[2021-02-15] MEDS ORDERED: ALPRAZolam 0.25 MG TAB PO PRN (09:01)
[2021-02-15] MEDS ORDERED: SODIUM CHLORIDE 0.9% 1,000 ML in EMPTY BAG 1 BAG IV ONE (09:01)
[2021-02-15] MEDS ORDERED: ALPRAZolam 0.5 MG TAB PO PRN (09:01)
--- NOTE | 2021-02-15 09:44 | P.CRDCN ---
History of Present Illness History of present illness: HISTORY OF PRESENTING ILLNESS This is a pleasant 70-year-old male past medical history significant for nonobstructive coronary artery disease, paroxysmal atrial fibrillation, hypertension, brain aneursym, bariatric surgery, former tobacco use. 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 We have been asked to see in consultation for chest pain and symptomatic bradycardia. Patient is seen and examined at bedside. He states that for some time now in the morning he has acute onset shortness of breath, dizziness, lightheadedness and sometimes confusion. This morning around 7:30 AM patient has an episode of shortness of breath, lightheadedness and confusion he was noted to have a heart rate in the 3040s, the nurse and heart time getting the patient's pulse. At that time patient's heart rate fluctuating and he was very symptomatic. His heart rate then increased and was in atrial fibrillation with RVR and then his heart decreased to the 40s. In addition to this, patient has been having intermittent episodes of chest pressure. It is nonradiating. It is exertional. It is aggravated by activity or when he is exerting himself. It is alleviated by resting. Patient does have associated shortness of breath. He states that these episodes have been happening after his stress test last year. He denies palpitations, lower extremity edema, syncope, symptoms of orthopnea or PND. Patient was recently admitted with dizziness, he underwent an echocardiogram showed no acute findings. His amlodipine was discontinued at that time. Current home cardiac medications include aspirin 81 mg daily, Cardizem 30 mg 3 times a day, Rythmol 225 mg 3 times a day, atorvastatin 20 mg daily, Eliquis 5 mg twice a day. DIAGNOSTICS EKG reveals sinus rhythm with first degree AV block, premature ventricle complexes, ST depression in V3-V6, ST depressions appear slightly progressed from previous EKG in 02/09/21 Most recent cardiac catheterization 04/2019 which revealed mild nonobstructive coronary artery disease involving the circumflex coronary [id number]% stenosis proximal circumflex. Normal left ventricular diastolic pressures. Most recent stress test was dobutamine stress test 03/04/2020 which was negative for ischemia. Most recent echocardiogram 02/10/2021 revealed EF 50-60%, RV is mildly enlarged, LA is mildly dilated, mild mitral regurgitation, tricuspid regurgitation Telemetry tracings indicate sinus bradycardia HR in 30-40s, patient also with 2- 3 second pauses, and occasionally did go into atrial fibrillation with RVR Chest xray no active cardiopulmonary disease. Laboratory reviewed, troponin negative 3, WBC 6.7, hemoglobin 11.6, platelets 454, d-dimer negative, sodium 140, potassium 4.5, BUN 16, serum and 0.9, magnesium 2.1, proBNP 187 REVIEW OF SYSTEMS At the time of my exam: CONSTITUTIONAL: Denies fever or chills. CARDIOVASCULAR: +chest pain, +shortness of breath, Denies orthopnea, PND or palpitations. RESPIRATORY: Denies cough. GASTROINTESTINAL: Denies abdominal pain, diarrhea, constipation, nausea or vomiting. MUSCULOSKELETAL: Denies myalgias. NEUROLOGIC: +lightheadedness +dizziness +confusion, Denies numbness, tingling, headacbe or weakness. ENDOCRINE: Denies fatigue, weight change, polydipsia or polyurina. GENITOURINARY: Denies burning, hematuria or urgency with micturation. HEMATOLOGIC: Denies history of anemia or bleeding. PHYSICAL EXAMINATION Blood pressure 132/68 heart rate 74 afebrile and maintaining oxygen saturation 100% on room air CONSTITUTIONAL: No apparent distress. HEENT: Head is normocephalic. Pupils are equal, round. Sclerae anicteric. Mucous membranes of the mouth are moist. No JVD. No carotid bruit. CHEST EXAMINATION: Lungs are clear to auscultation. No chest wall tenderness is noted on palpation or with deep breathing. HEART EXAMINATION: Regular rate and rhythm. S1, S2 heard. No murmurs, gallops or rub. ABDOMEN: Soft, nontender. Positive bowel sounds. EXTREMITIES: 2+ peripheral pulses, no lower extremity edema and no calf tenderness. SKIN: intact NEUROLOGIC EXAMINATION: Patient is awake, alert and oriented x3. ASSESSMENT Symptomatic bradycardia Chest pain, patient's symptoms and EKG changes concern for possible ischemia History of nonobstructive coronary artery disease Paroxysmal atrial fibrillation (on Eliquis) Hypertension History of brain aneursym History of bariatric surgery Former tobacco use PLAN -We recommend cardiac catheterization at this time. Patient is agreeable to procedure -I have discussed the risks, benefits and alternative therapies for the above- mentioned procedure and for both sedation/analgesia as well as necessary blood product administration, if indicated, as they pertain to this patient. The patient has indicated understanding and acceptance of the risks and procedures discussed. Questions have been answered appropriately and he is agreeable to move forward with the above-stated procedure. -No need to repeat echocardiogram at this time with recent test on 02/10/21 -Patient in addition will most likely need a pacemaker, this was discussed with the patient in detail, we will discuss further with patient after cardiac catheterization results -Patient did receive his Eliquis this morning. -Hold cardizem and rythmol at this time. -Continue statin -Further recommendations based on clinical course Nurse Practitioner note has been reviewed, I agree with a documented findings and plan of care. Patient was seen and examined. Past Medical History Past Medical History: Atrial Fibrillation, Cancer, Hypertension, Prostate Disorder Additional Past Medical History / Comment(s): CHRONIC LOW BACK PAIN. Prostate cancer, skin cancer, kidney stone. History of Any Multi-Drug Resistant Organisms: None Reported Past Surgical History: Appendectomy, Bariatric Surgery, Cholecystectomy, Orthopedic Surgery Additional Past Surgical History / Comment(s): cervical sx with titanium rods, Colonoscopy, lap band, rt clavical reduction, Prostatectomy, SKIN CA REMOVED, pain procedures at [facility]PA[facility] PROCEDURES Past Anesthesia/Blood Transfusion Reactions: Postoperative Nausea & Vomiting (PONV) Additional Past Anesthesia/Blood Transfusion Reaction / Comment(s): VERTIGO Past Psychological History: Depression Smoking Status: Former smoker Past Alcohol Use History: None Reported Past Drug Use History: None Reported - Past Family History Father Family Medical History: Myocardial Infarction ([place]) Mother Additional Family Medical History / Comment(s): MAC DEGENERATION, HEART PROBLEMS Medications and Allergies Home Medications Medication Instructions Recorded Confirmed Type Apixaban [Eliquis] 5 mg PO BID #180 tab 04/17/19 02/14/21 Rx Ferrous Sulfate [Iron (65 MG 325 mg PO Q96H 10/13/20 02/14/21 History Elemental)] Multivitamins, Thera [Multivitamin 1 tab PO DAILY 10/13/20 02/14/21 History (formulary)] Atorvastatin Calcium [Lipitor] 20 mg PO HS 01/25/21 02/14/21 History Budesonide/Formoterol Fumarate 2 puff INHALATION RT-BID 02/09/21 02/14/21 History [Symbicort 160-4.5 Mcg Inhaler] Propafenone [Rythmol] 225 mg PO TID 02/09/21 02/14/21 History Aspirin EC [Ecotrin] 325 mg PO DAILY 02/14/21 02/14/21 History Diltiazem Oral [Cardizem Oral] 30 mg PO TID 02/14/21 02/14/21 History amLODIPine [Norvasc] 10 mg PO DAILY 02/14/21 02/14/21 History Allergies Allergy/AdvReac Type Severity Reaction Status Date / Time morphine AdvReac Nausea & Verified 02/14/21 08:02 Vomiting Physical Exam Vitals: Vital Signs Temp Pulse Pulse Pulse Resp BP BP 02/15/21 07:00 97.5 F L 74 16 132/68 02/15/21 02:00 97.8 F 61 14 110/68 02/14/21 19:39 98.0 F 62 16 152/61 02/14/21 13:32 98.3 F 76 16 147/79 02/14/21 10:00 112 H 24 137/79 Pulse Ox 02/15/21 07:00 100 02/15/21 02:00 95 02/14/21 19:39 96 02/14/21 13:32 98 02/14/21 10:00 98 Intake and Output 02/14/21 02/15/21 02/15/21 22:59 06:59 14:59 Other: Voiding Method Toilet Toilet # Voids 1 1 Weight 101.6 kg 101.3 kg Results 02/14/21 06:34 02/14/21 06:34 Cardiac Enzymes 02/14/21 02/14/21 Range/Units 15:12 17:55 Troponin I <0.012 <0.012 (0.000-0.034) ng/mL Current Medications Generic Name Dose Route Start Last Admin Trade Name Freq PRN Reason Stop Dose Admin Acetaminophen 650 mg 02/14/21 12:55 Acetaminophen Tab 325 Mg Tab PO Q6HR PRN Mild Pain or Fever > 100.5 Alprazolam 0.25 mg 02/15/21 09:01 Alprazolam 0.25 Mg Tab PO Q6HR PRN Mild Anxiety Alprazolam 0.5 mg 02/15/21 09:01 Alprazolam 0.5 Mg Tab PO Q6HR PRN Moderate Anxiety Apixaban 5 mg 02/14/21 21:00 02/15/21 07:43 Apixaban 5 Mg Tab PO 5 mg BID KEATON Administration Protocol Atorvastatin Calcium 20 mg 02/14/21 21:00 02/14/21 21:22 Atorvastatin 20 Mg Tab PO 20 mg HS KEATON Administration Budesonide/Formoterol Fumarate 2 puff 02/14/21 20:00 02/15/21 07:48 Symbicort 160-4.5 Mcg Inhaler INHALATION 2 puff RT-BID KEATON Administration Ferrous Sulfate 325 mg 02/14/21 14:30 02/14/21 16:23 Ferrous Sulfate 325 Mg Tab PO 325 mg Q96H KEATON Administration Sodium Chloride 1,000 mls @ 75 mls/hr 02/14/21 13:00 02/15/21 02:46 Saline 0.9% IV Not Given .[id number] KEATON Sodium Chloride 1,000 ml/ IV 1,000 mls @ 101.3 mls/hr 02/15/21 09:01 Solution IV 02/15/21 18:53 .[id number] ONE 1 ML/KG/HR Heparin Sodium (Porcine) 10, 1,001 mls @ 999 mls/hr 02/16/21 07:00 000 unit/ Sodium Chloride IRRIGATION 02/16/21 23:00 ONCE PRN INTRA-OP Heparin Sodium (Porcine) 2,500 250.5 mls @ 250 mls/hr 02/16/21 07:00 unit/ Sodium Chloride IRRIGATION 02/16/21 23:00 ONCE PRN INTRA-OP Multivitamins 1 each 02/15/21 09:00 02/15/21 07:43 Multivitamins, Thera 1 Each Tab PO 1 each DAILY KEATON Administration Naloxone HCl 0.2 mg 02/14/21 12:55 Naloxone 0.4 Mg/Ml 1 Ml Vial IV Q2M PRN Opioid Reversal Nitroglycerin 0.4 mg 02/15/21 09:01 Nitroglycerin Sl Tabs 0.4 Mg Tab SUBLINGUAL Q5M PRN Chest Pain Ondansetron HCl 4 mg 02/14/21 12:55 Ondansetron 4 Mg/2 Ml Vial IVP Q8HR PRN Nausea And Vomiting Polyethylene Glycol 17 gm 02/14/21 21:00 02/14/21 21:22 Polyethylene Glycol 3350 17 Gm Powd.Pack PO 17 gm HS KEATON Administration Propafenone HCl 225 mg 02/14/21 16:00 02/15/21 07:43 Propafenone 225 Mg Tab PO 225 mg TID KEATON Administration Intake and Output 02/14/21 02/15/21 02/15/21 22:59 06:59 14:59 Other: Voiding Method Toilet Toilet # Voids 1 1 Weight 101.6 kg 101.3 kg 02/14/21 06:34 02/14/21 06:34
[2021-02-15] MEDS ORDERED: ASPIRIN 325 MG TAB PO STA (09:45)
[2021-02-15] MEDS ORDERED: fentaNYL (PF) 50 MCG/ML 2 ML AMP ONE (09:56)
[2021-02-15] MEDS ORDERED: HEPARIN SODIUM 1,000 UN/ML (10ML VL) ONE (09:56)
[2021-02-15] MEDS ORDERED: VERAPAMIL 2.5 MG/ML 2 ML AMP ONE (09:56)
[2021-02-15] MEDS ORDERED: LIDOCAINE 1% INJ 10MG/ML (20 ML MDV) ONE (09:56)
[2021-02-15] MEDS ORDERED: IV FLUID CONTINUATION 600 ML IV ONE (10:26)
[2021-02-15] MEDS ORDERED: MIDAZOLAM 2 MG/2 ML VIAL IV ONE (10:50)
[2021-02-15] MEDS ORDERED: fentaNYL (PF) 50 MCG/ML 2 ML AMP IV ONE (10:50)
[2021-02-15] MEDS ORDERED: LIDOCAINE 1% INJ 10MG/ML (20 ML MDV) SQ ONE (10:51)
[2021-02-15] MEDS ORDERED: VERAPAMIL SYRINGE (5 MG/10 ML) INTRAARTER ONE (10:52)
[2021-02-15] MEDS ORDERED: HEPARIN SODIUM 1,000 UN/ML (10ML VL) IV ONE (10:54)
--- NOTE | 2021-02-15 10:59 | P.PN ---
Subjective Progress Note Date: 02/15/21 Patient was having symptoms of chest pressure this morning and his heart rate was noted to be in the 30s and 40s on the monitor in atrial fibrillation. Patient remained hemodynamically stable. He was seen and evaluated by cardiology. He was taken to the lab technologist for left heart catheterization. Objective - Vital Signs Vital signs: Vital Signs Temp 97.5 F L 02/15/21 07:00 Pulse 76 02/15/21 08:00 Resp 16 02/15/21 08:00 BP 132/68 02/15/21 07:00 Pulse Ox 100 02/15/21 07:00 Intake & Output 02/14/21 02/15/21 02/15/21 18:59 06:59 18:59 Weight 101.6 kg 101.3 kg Other: Voiding Method Toilet Toilet # Voids 1 1 - Exam General: The patient is awake and alert, in no distress Eye: there is normal conjunctiva bilaterally. Neck: The neck is supple, there is no JVD. Cardiovascular: Normal S1-S2, no S3-S4, no murmurs. Respiratory: Lungs clear to auscultation bilaterally Gastrointestinal: Abdomen is soft, nontender Musculoskeletal: There is no pedal edema. Neurological:. Speech is normal. Skin: Skin is warm and dry - Labs CBC & Chem 7: 02/14/21 06:34 02/14/21 06:34 Assessment and Plan Assessment: This is a 70-year-old male with past medical history noted below who presented to the emergency room with worsening constipation and abdominal/chest pressure. Patient was evaluated in the ER and placed on observation for further management. After receiving a dose of lactulose and an enema patient had a bowel movement with some relief. On the following morning, patient was having more chest pressure and was noted to be bradycardic on the quality assurance monitor body with heart rate to the 30s and 40s in atrial fibrillation. A 12-lead EKG showed nonspecific changes concerning for ischemia. Cardiology recommended left heart catheterization. Below is a list of his medical problems at this during this hospitalization. 1. History of nonobstructive coronary artery disease now with symptoms suggestive for unstable angina: Seen and evaluated by cardiology. Left heart catheterization today. Recent echocardiogram showed preserved ejection fraction with no significant valvular or wall motion abnormalities. 2. Constipation: Resolved. We will continue bowel regimen Computed tomography scan of the abdomen showed diverticulosis with localized area of narrowing involving the sigmoid colon. GI consulted by ER staff. Patient informing that he had the upper and lower endoscopy 3 month ago that was reported normal. 3. Chronic atrial fibrillation on anticoagulation with Eliquis. Cardiology recommended holding Cardizem and Rythmol for now. We'll continue telemetry monitoring 4. Essential hypertension Continue current management otherwise. Repeat lab work in the morning.
[2021-02-15] MEDS ORDERED: IOPAMIDOL-370 125ML BTL INJ ONE (11:05)
[2021-02-15] MEDS ORDERED: ONDANSETRON 4 MG/2 ML VIAL ONE (12:41)
[2021-02-15] MEDS ORDERED: MAGNESIUM CITRATE 296 ML BOTTLE PO ONE (15:34)
--- NOTE | 2021-02-15 16:49 | P.CONS ---
History of Present Illness - Reason for Consult Consult date: 02/15/21 Constipation, Abdominal pain Requesting physician: Ita Ojeda - Chief Complaint rapid heart rate - History of Present Illness Sub-pleasant 70-year-old white male who came to the emergency department with complaints of rapid heart rate. The patient has a history of atrial fibrillation, brain aneurysm, prostate cancer, hypertension, lap band surgery, and chronic low back pain. He was seen recently at [facility] and here in the emergency department and sent home medication adjustment. The patient reports he had similar symptoms again this morning around 7:30 where he had rapid heart rate, lightheadedness, confusion shortness of breath and chest pressure. He is being followed by cardiology and is planned to undergo cardiac catheterization this morning. Patient was also complaining of constipation and abdominal pain. States he does not regularly get constipated but at times he will and he has not gone for 4-5 days. He states when he has the constipation he gets some distention and abdominal discomfort. He denies any nausea or vomiting. Lactulose yesterday afternoon and did have a bowel movement following. He states the bowel movement was hard and yodit. Denied any blood from the rectum or blood in the stool. He had a CT of the abdomen and pelvis that showed post lap band surgery with 2 small anterior abdominal wall fat-co ntaining hernias. No evidence of bowel obstruction. Diverticulosis of the colon with a localized area of narrowing involving the sigmoid colon. This potentially could be transient related to peristalsis. Mucosal lesion not excluded. Consider direct visualization. Indeterminate right renal lesion recommend ultrasound. He also had an abdominal x-ray showing nonacute abdomen. No significant constipation. He had an EGD and colonoscopy done by Dr. Charles 12/03/15 for GI bleed. Colonoscopy showed extensive colitis of the rectum and left colon, EGD showed antral gastritis, and mild esophagitis. He also states that Dr. Chavis did a repeat EGD and sigmoidoscopy in August of this year at [facility] which was significant for a polyp. Review of Systems REVIEW OF SYSTEMS: CARDIOPULMONARY: Rapid heart rate,. The chest pressure and shortness of breath. Gastrointestinal: Abdominal pain. No nausea or vomiting. No hematemesis, coffee-ground emesis. No rectal bleeding, or melena. Constipation, no bowel movement for 4-5 days. GENITOURINARY: No dysuria or hematuria. MUSCULOSKELETAL: Reports normal range of motion., Joint pain. SKIN: No rashes. No jaundice. ENDOCRINE: No chills, fevers. No excessive weight gain or loss. No polydipsia or polyuria. PSYCHIATRIC: Unremarkable. NEUROLOGY: No change in mental status. Denies dizziness, headache. ENT: Vision unremarkable. CONSTITUTIONAL: No recent weight loss. No fever, chills, night sweats. Past Medical History Past Medical History: Atrial Fibrillation, Cancer, Hypertension, Prostate Disorder Additional Past Medical History / Comment(s): CHRONIC LOW BACK PAIN. Prostate cancer, skin cancer, kidney stone. History of Any Multi-Drug Resistant Organisms: None Reported Past Surgical History: Appendectomy, Bariatric Surgery, Cholecystectomy, Orthopedic Surgery Additional Past Surgical History / Comment(s): cervical sx with titanium rods, Colonoscopy, lap band, rt clavical reduction, Prostatectomy, SKIN CA REMOVED, pain procedures at [facility] PROCEDURES Past Anesthesia/Blood Transfusion Reactions: Postoperative Nausea & Vomiting (PONV) Additional Past Anesthesia/Blood Transfusion Reaction / Comm: VERTIGO Past Psychological History: Depression Smoking Status: Former smoker Past Alcohol Use History: None Reported Past Drug Use History: None Reported - Past Family History Father Family Medical History: Myocardial Infarction (CT) Mother Additional Family Medical History / Comment(s): MAC DEGENERATION, HEART PROBLEMS Medications and Allergies Home Medications Medication Instructions Recorded Confirmed Type Apixaban [Eliquis] 5 mg PO BID #180 tab 04/17/19 02/14/21 Rx Ferrous Sulfate [Iron (65 MG 325 mg PO Q96H 10/13/20 02/14/21 History Elemental)] Multivitamins, Thera [Multivitamin 1 tab PO DAILY 10/13/20 02/14/21 History (formulary)] Atorvastatin Calcium [Lipitor] 20 mg PO HS 01/25/21 02/14/21 History Budesonide/Formoterol Fumarate 2 puff INHALATION RT-BID 02/09/21 02/14/21 History [Symbicort 160-4.5 Mcg Inhaler] Propafenone [Rythmol] 225 mg PO TID 02/09/21 02/14/21 History Aspirin EC [Ecotrin] 325 mg PO DAILY 02/14/21 02/14/21 History Diltiazem Oral [Cardizem Oral] 30 mg PO TID 02/14/21 02/14/21 History amLODIPine [Norvasc] 10 mg PO DAILY 02/14/21 02/14/21 History Allergies Allergy/AdvReac Type Severity Reaction Status Date / Time morphine AdvReac Nausea & Verified 02/14/21 08:02 Vomiting Physical Exam Vitals: Vital Signs Temp Pulse Pulse Resp BP Pulse Ox 02/15/21 07:00 97.5 F L 74 16 132/68 100 02/15/21 02:00 97.8 F 61 14 110/68 95 02/14/21 19:39 98.0 F 62 16 152/61 96 02/14/21 13:32 98.3 F 76 16 147/79 98 Intake and Output 02/14/21 02/15/21 02/15/21 22:59 06:59 14:59 Other: Voiding Method Toilet Toilet # Voids 1 1 Weight 101.6 kg 101.3 kg Results CBC & Chem 7: 02/14/21 06:34 02/14/21 06:34 Comments: CT of the abdomen and pelvis that showed post lap band surgery with 2 small anterior abdominal wall fat-containing hernias. No evidence of bowel obstruction. Diverticulosis of the colon with a localized area of narrowing involving the sigmoid colon. This potentially could be transient related to peristalsis. Mucosal lesion not excluded. Consider direct visualization. Indeterminate right renal lesion recommend ultrasound. abdominal x-ray showing nonacute abdomen. No significant constipation. Assessment and Plan (1) Constipation Narrative/Plan: This is 70-year-old male patient with a past medical history significant for chronic atrial fibrillation, brain aneurysm, prostate cancer, hypertension, and chronic low back pain who presented to the emergency department with rapid heart rate, dizziness, shortness of breath and chest pressure. Patient was also complaining of some abdominal pain and distention associated with constipation. The patient has a history of occasional constipation. Last bowel movement reported 4-5 days ago. He was given back to low-dose yesterday with positive bowel movement following. He had a CT of the abdomen and pelvis that showed no bowel obstruction and no significant constipation. He is currently being worked up by cardiology and underwent a cardiac catheterization today and plan is for pacemaker placement tomorrow. Patient states abdominal pain has improved since bowel movement. He underwent EGD and colonoscopy 12/03/[address] Charles for GI bleed. Colonoscopy showed extensive colitis of the rectum and left colon. EGD showed antral gastritis and mild esophagitis. He states he had a sigmoidoscopy and repeat EGD in August [address] Bourgeois at [facility] which was significant for a polyp. Current Visit: Yes Status: Acute Code(s): K59.00 - CONSTIPATION, UNSPECIFIED SNOMED Code(s): 39209156 (2) Abdominal pain Current Visit: Yes Status: Acute Code(s): R10.9 - UNSPECIFIED ABDOMINAL PAIN SNOMED Code(s): 22034343 (3) Paroxysmal atrial fibrillation Narrative/Plan: Being followed closely by cardiology plan is for pacemaker tomorrow. Patient is on Eliquis, currently on hold. Current Visit: No Status: Acute Code(s): I48.0 - PAROXYSMAL ATRIAL FIBRILLATION SNOMED Code(s): 550575575 Plan: 1. Continue symptomatic and supportive care 2. Patient may have diet as tolerated 3. Magnesium citrate ordered 4. Continue with MiraLAX as needed for constipation 5. Continue medical and cardiac management Thank you for this consultation, we will continue to follow Dr. Barclay I agree with the dictator's note, documented as a scribe by Genny Thorne.
[2021-02-15] MEDS: polyethylene glycoL 3350 17 GM POWD.PACK PO SCH (20:54)
[2021-02-15] MEDS: ATORVASTATIN 20 MG TAB PO SCH (20:54)
[2021-02-15] MEDS ORDERED: FLECAINIDE 50 MG TAB PO SCH (21:00)
[2021-02-15] MEDS ORDERED: DILTIAZEM ORAL 30 MG TAB PO SCH (22:00)
--- NOTE | 2021-02-15 22:03 | P.CARDCATH ---
Description of Procedure: PROCEDURES PERFORMED: Left heart catheterization, bilateral coronary angiography INDICATION: Chest pain concerning for unstable angina HISTORY: Patient is a pleasant 70 year old male with history of Afib, hypertension and hyperlipidemia who has been having worsened symptoms of lightheadedness as well as intermittent chest pressure which can occur with exertion. Left heart catheterization was recommended. CONSENT:I have discussed the risks, benefits and alternative therapies for the above-mentioned procedure and for both sedation/analgesia as well as necessary blood product administration, if indicated, as they pertain to this patient. The patient has indicated understanding and acceptance of the risks and procedures discussed. PROCEDURE: After the risks, benefits and alternatives of the above mentioned procedure explained in detail with the patient, informed consent was obtained. Patient was taken to the catheterization lab and prepped and draped in usual fashion. 1% lidocaine was used to anesthetize the right radial artery. A 6- [place] sheath was placed in the right radial artery using modified Seldinger yoandy hnique. Left coronary angiography was performed with a 5-[place] Lucian JL 3.5 catheter and right coronary angiography was performed with a 5-[place] Lucian AR2 catheter in various views. A 5-[place] Lucian FR5 catheter was inserted into the left ventricle and pressure measurements were obtained. The right radial sheath was removed and a TR band was placed with hemostasis achieved. The patient tolerated the procedure well. Patient was transported back to the post catheterization holding area in stable condition. Conscious Sedation: Patient was monitored under the direct supervision of vision of myself for conscious sedation using Versed and fentanyl for a total duration of 14 minutes HEMODYNAMICS: Ao: 143/78 LV: 142/2, LVEDP 12mmHg SELECTIVE CORONARY ARTERIOGRAPHY: LEFT MAIN: The left main is a large caliber vessel which bifurcates into the LAD and circumflex. There is no significant stenosis. LEFT ANTERIOR DESCENDING CORONARY ARTERY: LAD is a large caliber vessel which wraps around to the apex. There are mild luminal irregularities. LEFT CIRCUMFLEX CORONARY ARTERY: Left circumflex is a moderate caliber vessel with proximal 20-30% stenosis. RIGHT CORONARY ARTERY: The right coronary artery is a large caliber vessel which gives off a PDA and PLV branch and is the dominant vessel. There is a proximal RCA 30% stenosis. FINAL IMPRESSION: 1. Mild CAD as described above including 30% RCA and circumflex stenosis. 2. Normal left sided filling pressures PLAN: 1. Aggressive risk factor modification per most recent ACC/AHA guidelines. 2. Continue with medical treatment.
[2021-02-16] MEDS: SODIUM CHLORIDE 0.9% 1,000 ML IV SCH ×2 (05:27→07:04)
[2021-02-16] MEDS ORDERED: HEPARIN SODIUM,PORCINE 2,500 UNIT in SODIUM CHLORIDE 0.9% 250 ML IRRIGATION PRN (07:00)
[2021-02-16] MEDS ORDERED: HEPARIN SODIUM,PORCINE 10,000 UNIT in SODIUM CHLORIDE 0.9% 1,000 ML IRRIGATION PRN (07:00)
[2021-02-16] MEDS: FLECAINIDE 50 MG TAB PO SCH ×2 (07:04→20:12)
[2021-02-16] MEDS: SYMBICORT 160-4.5 MCG INHALER INHALATION SCH ×2 (07:55→21:45)
[2021-02-16] MEDS: APIXABAN 5 MG TAB PO SCH ×2 (09:05→20:12)
[2021-02-16] MEDS: MULTIVITAMINS, THERA 1 EACH TAB PO SCH (09:05)
[2021-02-16 09:36] LABS: Basophils # (A) 0.02 X 10*3/uL (0.00-0.10); Basophils % (A) 0.3 %; Eosinophils # (A) 0.27 X 10*3/uL (0.04-0.35); HCT 28.7 % (39.6-50.0); HGB 8.7 g/dL (13.0-17.0); Lymphocytes # (A) 1.85 X 10*3/uL (0.90-5.00); Lymphocytes % (A) 27.2 %; MCH 26.5 pg (27.0-32.0); MCHC 30.3 g/dL (32.0-37.0); MCV 87.5 fL (80.0-97.0); Mean Platelet Volume 9.7 fL (9.5-12.2); Monocytes # (A) 0.75 X 10*3/uL (0.20-1.00); Neutrophils # (A) 3.88 X 10*3/uL (1.80-7.70); Neutrophils % (A) 57.1 %; Platelet Count 341 X 10*3/uL (140-440); RBC 3.28 X 10*6/uL (4.40-5.60); RDW 13.2 % (11.5-14.5)
[2021-02-16 10:32] LABS: African American GFR (CKD) 99.2 (60.0-200.0); Anion Gap 5.9 mmol/L (4.00-12.00); BUN/Creat Ratio 25.56 Ratio (12.00-20.00); Calcium 7.9 mg/dL (8.7-10.3); Carbon Dioxide 24.1 mmol/L (21.6-31.8); Magnesium 1.8 mg/dL (1.5-2.4); Non-African American GFR(CKD) 85.6 (60.0-200.0)
--- NOTE | 2021-02-16 13:02 | P.PN ---
Subjective This is a pleasant 70-year-old male past medical history significant for nonobstructive coronary artery disease, paroxysmal atrial fibrillation, hype rtension, brain aneursym, bariatric surgery, former tobacco use. He follows with a door hanger in [place]. We have been asked to see in consultation for chest pain and symptomatic bradycardia. Patient is seen and examined at bedside. He states that for some time now in the morning he has acute onset shortness of breath, dizziness, lightheadedness and sometimes confusion. This morning around 7:30 AM patient has an episode of shortness of breath, lightheadedness and confusion he was noted to have a heart rate in the 3040s, the nurse and heart time getting the patient's pulse. At that time patient's heart rate fluctuating and he was very symptomatic. His heart rate then increased and was in atrial fibrillation with RVR and then his heart decreased to the 40s. In addition to this, patient has been having intermittent episodes of chest pressure. It is nonradiating. It is exertional. It is aggravated by activity or when he is exerting himself. It is alleviated by resting. Patient does have associated shortness of breath. He states that these episodes have been happening after his stress test last year. He denies palpitations, lower extremity edema, syncope, symptoms of orthopnea or PND. Patient was recently admitted with dizziness, he underwent an echocardiogram showed no acute findings. His amlodipine was discontinued at that time. Current home cardiac medications include aspirin 81 mg daily, Cardizem 30 mg 3 times a day, Rythmol 225 mg 3 times a day, atorvastatin 20 mg daily, Eliquis 5 mg twice a day.Most recent echocardiogram 02/10/2021 revealed EF 50-60%, RV is mildly enlarged, LA is mildly dilated, mild mitral regurgitation, tricuspid regurgitation 02/15- Patient underwent cardiac catheterization with Dr. Li, which revealed mild coronary artery disease, left circumflex with proximal 20-30% stenosis. Proximal RCA with 30% stenosis. 02/16/2021: Patient seen and examined at bedside, , no acute distress. No complaints at this time. Blood pressure 122/73, heart rate 64, afebrile, maintaining oxygen saturations 95% room air. Telemetry reviewed patient continues to be in sinus mechanism heart rate 50-[address] Sotelo evaluated the patient yesterday and recommended flecainide 100 mg twice a day and possible ablation as an outpatient. Patient currently maintained on Eliquis 5 mg twice a day, atorvastatin 20 mg nightly, flecainide 100 mg twice a day. PHYSICAL EXAMINATION CONSTITUTIONAL: No apparent distress. HEENT: Neck Supple. CHEST EXAMINATION: Lungs are clear to auscultation. HEART EXAMINATION: Regular rate and rhythm. S1, S2 heard. ABDOMEN: Soft, nontender. Positive bowel sounds. EXTREMITIES: 2+ peripheral pulses, no lower extremity edema and no calf tenderness. SKIN: R radial artery cath site, clean, dry intact 2+ pulses NEUROLOGIC EXAMINATION: Patient is awake, alert and oriented x3. ASSESSMENT Symptomatic bradycardia, sinus rhythm with PACs. Chest pain, patient's symptoms and EKG changes concern for possible ischemia History of nonobstructive coronary artery disease Paroxysmal atrial fibrillation (on Eliquis) Hypertension History of brain aneursym History of bariatric surgery Former tobacco use non-obstructive coronary artery disease PLAN -Patient evaluated by Dr. Sotelo, recommends Flecainide and possible ablation as an outpatient. Patient will follow up with Dr. Sotelo in the outpatient office. -Continue Eliquis 5mg BID -Continue Flecainide 100mg BID -Continue to monitor patient on telemetry for 24 hours. -If patient hemodynamically stable. Most likely discharge tomorrow. Nurse Practitioner note has been reviewed, I agree with a documented findings and plan of care. Patient was seen and examined. Objective - Vital Signs Vital signs: Vital Signs Temp 97.4 F L 02/16/21 07:00 Pulse 71 02/16/21 08:00 Resp 18 02/16/21 08:00 BP 122/73 02/16/21 07:00 Pulse Ox 95 02/16/21 07:00 Intake & Output 02/15/21 02/16/21 02/16/21 18:59 06:59 18:59 Intake Total 650 Balance 650 Intake: IV 100 Oral 550 Other: Voiding Method Toilet Toilet Toilet # Voids 1 2 - Labs CBC & Chem 7: 02/16/21 04:27 02/16/21 04:27 Labs: Abnormal Lab Results - Last 24 Hours (Table) 02/16/21 02/16/21 Range/Units 04:27 04:27 RBC 3.28 L (4.40-5.60) X 10*6/uL Hgb 8.7 L (13.0-17.0) g/dL Hct 28.7 L (39.6-50.0) % MCH 26.5 L (27.0-32.0) pg MCHC 30.3 L (32.0-37.0) g/dL Chloride 110 H (96-109) mmol/L BUN/Creatinine Ratio 25.56 H (12.00-20.00) Ratio Calcium 7.9 L (8.7-10.3) mg/dL
--- NOTE | 2021-02-16 13:15 | P.PN ---
Subjective Progress Note Date: 02/16/21 Patient is doing well today. She was sitting at the side of the bed when I saw him. He denies any discomfort. He is currently in normal sinus rhythm on the monitor. No acute events overnight reported by nursing staff. Objective - Vital Signs Vital signs: Vital Signs Temp 97.4 F L 02/16/21 07:00 Pulse 71 02/16/21 08:00 Resp 18 02/16/21 08:00 BP 122/73 02/16/21 07:00 Pulse Ox 95 02/16/21 07:00 Intake & Output 02/15/21 02/16/21 02/16/21 18:59 06:59 18:59 Intake Total 650 Balance 650 Intake: IV 100 Oral 550 Other: Voiding Method Toilet Toilet Toilet # Voids 1 2 1 - Exam General: The patient is awake and alert, in no distress Eye: there is normal conjunctiva bilaterally. Neck: The neck is supple, there is no JVD. Cardiovascular: Normal S1-S2, no S3-S4, no murmurs. Respiratory: Lungs clear to auscultation bilaterally Gastrointestinal: Abdomen is soft, nontender Musculoskeletal: There is no pedal edema. Neurological:. Speech is normal. Skin: Skin is warm and dry - Labs CBC & Chem 7: 02/16/21 04:27 02/16/21 04:27 Labs: Abnormal Lab Results - Last 24 Hours (Table) 02/16/21 02/16/21 Range/Units 04:27 04:27 RBC 3.28 L (4.40-5.60) X 10*6/uL Hgb 8.7 L (13.0-17.0) g/dL Hct 28.7 L (39.6-50.0) % MCH 26.5 L (27.0-32.0) pg MCHC 30.3 L (32.0-37.0) g/dL Chloride 110 H (96-109) mmol/L BUN/Creatinine Ratio 25.56 H (12.00-20.00) Ratio Calcium 7.9 L (8.7-10.3) mg/dL Assessment and Plan Assessment: This is a 70-year-old male with past medical history noted below who presented to the emergency room with worsening constipation and abdominal/chest pressure. Patient was evaluated in the ER and placed on observation for further management. After receiving a dose of lactulose and an enema patient had a bowel movement with some relief. On the following morning, patient was having more chest pressure and was noted to be bradycardic on the cafeteria monitor with heart rate to the 30s and 40s in atrial fibrillation. A 12-lead EKG showed nonspecific changes concerning for ischemia. Cardiology recommended left heart catheterization. Below is a list of his medical problems at this during this hospitalization. 1. History of nonobstructive coronary artery disease now with symptoms suggestive for unstable angina: Seen and evaluated by cardiology. Left heart catheterization on 02/16 showed nonobstructive coronary artery disease. Recent echocardiogram showed preserved ejection fraction with no significant valvular or wall motion abnormalities. 2. Constipation: Resolved. We will continue bowel regimen Computed tomography scan of the abdomen showed diverticulosis with localized area of narrowing invo lving the sigmoid colon. GI consulted by ER staff. Patient had upper and lower endoscopy 3 month ago that was reported normal. 3. Chronic atrial fibrillation on anticoagulation with Eliquis. Cardiology recommended starting flecainide twice daily. Discontinue Cardizem and Rythmol. We'll continue telemetry monitoring. Currently in normal sinus rhythm 4. Essential hypertension Continue current management otherwise. Repeat lab work in the morning. Anticipate discharge home tomorrow
--- NOTE | 2021-02-16 14:41 | P.PN ---
Subjective Progress Note Date: 02/16/21 Principal diagnosis: Anemia The patient was seen and examined lying in bed. Patient states he had a couple small bowel movements yesterday therefore he did not take his magnesium citrate. Patient states he does still feel like he has some bloating and stool present. Denies any abdominal pain, nausea, or vomiting. Patient states plan is for discharge home tomorrow an outpatient cardiac ablation. Denies any blood in his stool. Objective - Vital Signs Vital signs: Vital Signs Temp 97.4 F L 02/16/21 07:00 Pulse 64 02/16/21 07:00 Resp 18 02/16/21 07:00 BP 122/73 02/16/21 07:00 Pulse Ox 95 02/16/21 07:00 Intake & Output 02/15/21 02/16/21 02/16/21 18:59 06:59 18:59 Intake Total 650 Balance 650 Intake: IV 100 Oral 550 Other: Voiding Method Toilet Toilet # Voids 1 2 - Exam General appearance: The patient is alert, oriented, appears in no acute distress. HET: Head is normocephalic and atraumatic. Conjunctiva pink. Sclera anicteric. Neck: Supple without lymphadenopathy. Abdomen: Soft, nontender, nondistended with bowel sounds. No guarding or rigidity. Extremities: Normal skin color and turgor. No pedal edema Skin: No rashes, no jaundice Neurological: No focal deficits. Alert and oriented 3. - Labs CBC & Chem 7: 02/16/21 04:27 02/16/21 04:27 Labs: Abnormal Lab Results - Last 24 Hours (Table) 02/16/21 Range/Units 04:27 RBC 3.28 L (4.40-5.60) X 10*6/uL Hgb 8.7 L (13.0-17.0) g/dL Hct 28.7 L (39.6-50.0) % MCH 26.5 L (27.0-32.0) pg MCHC 30.3 L (32.0-37.0) g/dL Assessment and Plan (1) Constipation Narrative/Plan: This is 70-year-old male patient with a past medical history significant for chr onic atrial fibrillation, brain aneurysm, prostate cancer, hypertension, and chronic low back pain who presented to the emergency department with rapid heart rate, dizziness, shortness of breath and chest pressure. Patient was also complaining of some abdominal pain and distention associated with constipation. The patient has a history of occasional constipation. Last bowel movement reported 4-5 days ago. He was given back to low-dose yesterday with positive bowel movement following. He had a CT of the abdomen and pelvis that showed no bowel obstruction and no significant constipation. He is currently being worked up by cardiology and underwent a cardiac catheterization today and plan is for pacemaker placement tomorrow. Patient states abdominal pain has improved since bowel movement. He underwent EGD and colonoscopy 12/03/[address] Charles for GI bleed. Colonoscopy showed extensive colitis of the rectum and left colon. EGD showed antral gastritis and mild esophagitis. He states he had a sigmoidoscopy and repeat EGD in August [address] Bourgeois at [facility] which was significant for a polyp. Current Visit: Yes Status: Acute Code(s): K59.00 - CONSTIPATION, UNSPECIFIED SNOMED Code(s): 39731018 (2) Abdominal pain Current Visit: Yes Status: Acute Code(s): R10.9 - UNSPECIFIED ABDOMINAL PAIN SNOMED Code(s): 85024256 (3) Paroxysmal atrial fibrillation Narrative/Plan: Being followed closely by cardiology plan is for pacemaker tomorrow. Patient is on Eliquis, currently on hold. Current Visit: No Status: Acute Code(s): I48.0 - PAROXYSMAL ATRIAL FIBRILLATION SNOMED Code(s): 926455561 Plan: 1. Continue symptomatic and supportive care 2. Patient may have diet as tolerated 3. Magnesium citrate ordered 4. Continue with MiraLAX as needed for constipation 5. Continue medical and cardiac management Thank you for this consultation, patient is cleared for discharge from gastroenterology. He may follow-up as needed if constipation persists. Dr. Barclay I agree with the dictator's note, documented as a scribe by Genny Thorne.
[2021-02-16] MEDS: ATORVASTATIN 20 MG TAB PO SCH (20:12)
[2021-02-16] MEDS: polyethylene glycoL 3350 17 GM POWD.PACK PO SCH (20:12)
[2021-02-17] MEDS: SYMBICORT 160-4.5 MCG INHALER INHALATION SCH (07:35)
[2021-02-17] MEDS: SODIUM CHLORIDE 0.9% 1,000 ML IV SCH (08:27)
[2021-02-17] MEDS: FLECAINIDE 50 MG TAB PO SCH ×2 (08:28→08:31)
[2021-02-17] MEDS: APIXABAN 5 MG TAB PO SCH (08:28)
[2021-02-17] MEDS: MULTIVITAMINS, THERA 1 EACH TAB PO SCH (08:28)
[2021-02-17 08:44] VITALS: BP 119/71; PULSE 71; RESP 17; TEMP 98.2
[2021-02-17 10:17] LABS: Basophils % (A) 1 %; Eosinophils # (A) 0.2 k/uL (0-0.7); Eosinophils % (A) 4 %; HCT 31.7 % (39.0-53.0); HGB 10.1 gm/dL (13.0-17.5); Hypochromasia Moderate; Lymphocytes % (A) 16 %; MCH 27.9 pg (25.0-35.0); MCHC 31.9 g/dL (31.0-37.0); MCV 87.5 fL (80.0-100.0); Monocytes # (A) 0.5 k/uL (0-1.0); Monocytes % (A) 8 %; Neutrophils # (A) 4.7 k/uL (1.3-7.7); Neutrophils % (A) 70 %; Platelet Count 362 k/uL (150-450); RBC 3.62 m/uL (4.30-5.90); RDW 13.8 % (11.5-15.5); WBC 6.7 k/uL (3.8-10.6)
--- NOTE | 2021-02-17 10:30 | P.PN ---
Subjective Progress Note Date: 02/17/21 HISTORY OF PRESENT ILLNESS: This is a pleasant 70-year-old male past medical history significant for nonobstructive coronary artery disease, paroxysmal atrial fibrillation, hyperten evelyn, brain aneursym, bariatric surgery, former tobacco use. 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 We have been asked to see in consultation for chest pain and symptomatic bradycardia. Patient is seen and examined at bedside. He states that for some time now in the morning he has acute onset shortness of breath, dizziness, lightheadedness and sometimes confusion. This morning around 7:30 AM patient has an episode of shortness of breath, lightheadedness and confusion he was noted to have a heart rate in the 3040s, the nurse and heart time getting the patient's pulse. At that time patient's heart rate fluctuating and he was very symptomatic. His heart rate then increased and was in atrial fibrillation with RVR and then his heart decreased to the 40s. In addition to this, patient has been having intermittent episodes of chest pressure. It is nonradiating. It is exertional. It is aggravated by activity or when he is exerting himself. It is alleviated by resting. Patient does have associated shortness of breath. He states that these episodes have been happening after hi s stress test last year. He denies palpitations, lower extremity edema, syncope, symptoms of orthopnea or PND. Patient was recently admitted with dizziness, he underwent an echocardiogram showed no acute findings. His amlodipine was discontinued at that time. Current home cardiac medications include aspirin 81 mg daily, Cardizem 30 mg 3 times a day, Rythmol 225 mg 3 times a day, atorvastatin 20 mg daily, Eliquis 5 mg twice a day.Most recent echocardiogram 02/10/2021 revealed EF 50-60%, RV is mildly enlarged, LA is mildly dilated, mild mitral regurgitation, tricuspid regurgitation 02/15- Patient underwent cardiac catheterization with Dr. Li, which revealed mild coronary artery disease, left circumflex with proximal 20-30% stenosis. Proximal RCA with 30% stenosis. 02/16/2021: Patient seen and examined at bedside, , no acute distress. No complaints at this time. Blood pressure 122/73, heart rate 64, afebrile, maintaining oxygen saturations 95% room air. Telemetry reviewed patient continues to be in sinus mechanism heart rate 50-[address] Sotelo evaluated the patient yesterday and recommended flecainide 100 mg twice a day and possible ablation as an outpatient. Patient currently maintained on Eliquis 5 mg twice a day, atorvastatin 20 mg nightly, flecainide 100 mg twice a day. 02/17/2021 Patient examined this morning. Patient is sitting up in the chair. He denies chest pain or pressure. He denies shortness of breath. Upon reviewing tele metry, patient had an episode around 1:30 morning where his heart rate went into the 130s to 140s. Patient states he thinks he may have been in the bathroom at that time as he was having issues with constipation overnight. No significant bradycardia has been noted. Hemoglobin yesterday 8.7. Repeat today 10.1. PHYSICAL EXAM: VITAL SIGNS: Reviewed. GENERAL: Well-developed in no acute distress. NECK: Supple. No JVD or thyromegaly LUNGS: Respirations even and unlabored. Lungs essentially clear to auscultation bilaterally. HEART: Regular rate and rhythm. S1 and S2 heard. EXTREMITIES: Normal range of motion. No clubbing or cyanosis. Peripheral pulses intact. No lower extremity edema. Right radial cath site with pus present ASSESSMENT: Symptomatic bradycardia Chest pain, status post cardiac catheterization revealing mild coronary artery disease Paroxysmal atrial fibrillation, on anticoagulation with Eliquis Hypertension History of brain aneurysm History of bariatric surgery Former nicotine dependence PLAN: Continue current cardiac medications including Eliquis 5 mg twice a day, atorvastatin 20 mg daily, and flecainide 100 mg every 12 hours The patient may be discharged home today from a cardiac standpoint. He is to follow up outpatient with Dr. Sotelo and possible cardiac ablation will be scheduled on an outpatient basis. Nurse practitioner note has been reviewed by physician. Signing provider agrees with the documented findings, assessment, and plan of care. Objective - Vital Signs Vital signs: Vital Signs Temp 98.2 F 02/17/21 08:00 Pulse 71 02/17/21 08:00 Resp 17 02/17/21 08:00 BP 119/71 02/17/21 08:00 Pulse Ox 98 02/17/21 08:00 Intake & Output 02/16/21 02/17/21 02/17/21 18:59 06:59 18:59 Intake Total 180 Balance 180 Weight 103 kg 103.1 kg Intake: Oral 180 Other: Voiding Method Toilet Toilet # Voids 1 3 1 # Bowel Movements 1 - Labs CBC & Chem 7: 02/17/21 09:18 02/16/21 04:27 Labs: Abnormal Lab Results - Last 24 Hours (Table) 02/16/21 02/17/21 Range/Units 04:27 09:18 RBC 3.62 L (4.30-5.90) m/uL Hgb 10.1 L (13.0-17.5) gm/dL Hct 31.7 L (39.0-53.0) % Chloride 110 H (96-109) mmol/L BUN/Creatinine Ratio 25.56 H (12.00-20.00) Ratio Calcium 7.9 L (8.7-10.3) mg/dL
--- NOTE | 2021-02-17 20:09 | P.EPCON ---
Electrophysiology Consult - EP Consult Electrophysiology Consult: This is Dr. Sotelo dictating a consult on this patient The patient was interviewed and examined IMPRESSION / ASSESSMENT: Symptomatic paroxysmal atrial fibrillation with RVR. This is his primary arrhythmia and the main reason for his symptoms Postconversion bradycardia, brief but his heart rates to go down into the 30s, while on Cardizem and propafenone 225 mg twice daily Mild coronary artery disease Prior history of cerebral aneurysm status post coiling at [facility] in July of this year Preserved LV systolic function normal atrial size, mild MR Telemetry strips obtained and reviewed Patient has paroxysmal atrial fibrillation, symptomatic He has postconversion bradycardia documented around 11 PM last night This morning when he was bradycardic after cath he was actually having sinus rhythm with PACs on telemetry but the monitor showed a heart rate of 30 beats a minute He is on Cardizem and propafenone 225 mg 3 times a day and is feeling terrible His left atrium is normal LV function is normal No significant CAD Prior history of cerebral aneurysm status post coiling at [facility] in July of this year PLAN: Stop Cardizem Stop propafenone Start flecainide 100 mg twice daily Monitor on telemetry for 48 hours to watch for bradycardia and for adequate suppression of atrial fibrillation Resume anticoagulation Patient was instructed not to stop ELIQUIS I would recommend cryoablation of the pulmonary veins and then subsequently reduction in the dose of flecainide to 50 mg twice daily HPI Patient complains of recurrent weakness fatigue and tiredness he has been experiencing this since August He gets this mostly in the morning he feels his heart and these episodes last for 30 minutes to an hour One particular day he is feeling very bad and he went to his primary care physician's office He was found to be in A. fib with RVR He was transferred to [facility] He was started on rate control medications and treated with propafenone However he continues to feel poorly expenses palpitations but feels very weak and lightheaded dizzy Here on telemetry he has had recurrent episodes of atrial fibrillation with postconversion mild bradycardia No syncope ROS: No fever chills or rigors, no cough, phlegm or expectoration, no nausea, vomiting or diarrhea, no hematuria, dysuria, no musculoskeletal complaints, no strokes or seizures, no skin lesions. EXAMINATION: Normal heart sounds no murmurs or gallop or rub Abdomen soft nontender Extremities are warm no edema During atrial fibrillation his heart rates are elevated and the patient feels very poorly He has paroxysmal atrial fibrillation and he converts to sinus rhythm and sinus bradycardia, briefly in the 30s REVIEW OF LABS, ECG & MEDICAL DATA Telemetry strips obtained and reviewed Patient has paroxysmal atrial fibrillation, symptomatic He has postconversion bradycardia documented around 11 PM last night This morning when he was bradycardic after cath he was actually having sinus rhythm with PACs on telemetry but the monitor showed a heart rate of 30 beats a minute He is on Cardizem and propafenone 225 mg 3 times a day and is feeling therapy His left atrium is normal LV function is normal No significant CAD Prior history of cerebral aneurysm status post coiling at [facility] in July of this andi
--- NOTE | 2021-03-16 13:35 | P.DS ---
Providers Date of admission: 02/15/21 13:28 Expected date of discharge: 03/16/21 Attending physician: Rochelle Preston Consults: 02/15/21 07:38 Consult Physician Routine Consulting Provider: Geoff Richards Consult Reason/Comments: symptomatic bradycardia Do you want consulting provider notified?: Yes Primary care physician: [facility] Course: This is a 70-year-old male with past medical history noted below who presented to the emergency room with worsening constipation and abdominal/chest pressure. Patient was evaluated in the ER and placed on observation for further management. After receiving a dose of lactulose and an enema patient had a bowel movement with some relief. On the following morning, patient was having more chest pressure and was noted to be bradycardic on the vehicle monitor technician with heart rate to the 30s and 40s in atrial fibrillation. A 12-lead EKG showed nonspecific changes concerning for ischemia. Cardiology recommended left heart catheterization. Below is a list of his medical problems at this during this hospitalization. 1. History of nonobstructive coronary artery disease now with symptoms suggestive for unstable angina: Seen and evaluated by cardiology. Left heart catheterization on 02/16 showed nonobstructive coronary artery disease. Recent echocardiogram showed preserved ejection fraction with no significant valvular or wall motion abnormalities. 2. Constipation: Resolved. We will continue bowel regimen Computed tomography scan of the abdomen showed diverticulosis with localized area of narrowing involving the sigmoid colon. GI consulted by ER staff. Patient had upper and lower endoscopy 3 month ago that was reported normal. 3. Chronic atrial fibrillation on anticoagulation with Eliquis. Cardiology recommended starting flecainide twice daily. Discontinue Cardizem and Rythmol. We'll continue telemetry monitoring. Currently in normal sinus rhythm 4. Essential hypertension Patient was discharged home in a stable condition. For further details about this hospitalization please refer to the electronic chart. Patient Condition at Discharge: Stable Plan - Discharge Summary Discharge Rx Participant: No New Discharge Prescriptions: New polyethylene glycoL 3350 [Miralax] 17 gm PO HS #30 powd.pack Continue Apixaban [Eliquis] 5 mg PO BID #180 tab Multivitamins, Thera [Multivitamin (formulary)] 1 tab PO DAILY Ferrous Sulfate [Iron (65 MG Elemental)] 325 mg PO Q96H Atorvastatin Calcium [Lipitor] 20 mg PO HS Budesonide/Formoterol Fumarate [Symbicort 160-4.5 Mcg Inhaler] 2 puff INHALATION RT-BID Discontinued Propafenone [Rythmol] 225 mg PO TID amLODIPine [Norvasc] 10 mg PO DAILY Diltiazem Oral [Cardizem Oral] 30 mg PO TID Aspirin EC [Ecotrin] 325 mg PO DAILY No Action Ubidecarenone [Co Q-10] 100 mg PO DAILY Flecainide [Tambocor] 50 mg PO Q12HR Colchicine [Colcrys] 0.6 mg PO DAILY #7 each Pantoprazole [Protonix] 40 mg PO DAILY Cyanocobalamin (Vitamin B-12) [Vitamin B-12] 1,000 mcg PO DAILY Discharge Medication List Apixaban [Eliquis] 5 mg PO BID #180 tab 04/17/19 [Rx] Ferrous Sulfate [Iron (65 MG Elemental)] 325 mg PO Q96H 10/13/20 [History] Multivitamins, Thera [Multivitamin (formulary)] 1 tab PO DAILY 10/13/20 [History] Atorvastatin Calcium [Lipitor] 20 mg PO HS 01/25/21 [History] Budesonide/Formoterol Fumarate [Symbicort 160-4.5 Mcg Inhaler] 2 puff INHALATION RT-BID 02/09/21 [History] polyethylene glycoL 3350 [Miralax] 17 gm PO HS #30 powd.pack 02/17/21 [Rx] Cyanocobalamin (Vitamin B-12) [Vitamin B-12] 1,000 mcg PO DAILY 03/02/21 [History] Flecainide [Tambocor] 50 mg PO Q12HR 03/02/21 [History] Pantoprazole [Protonix] 40 mg PO DAILY 03/02/21 [History] Ubidecarenone [Co Q-10] 100 mg PO DAILY 03/02/21 [History] Colchicine [Colcrys] 0.6 mg PO DAILY #7 each 03/08/21 [Rx] Follow up Appointment(s)/Referral(s): Alvin Li DO [STAFF PHYSICIAN] - 1 Week Rachael Bourgeois MD [STAFF PHYSICIAN] - As Needed Marco A Martin MD [Primary Care Provider] - 1-2 days Patient Instructions/Handouts: Flecainide (By mouth), A-fib (Atrial Fibrillation) (GEN), Bradycardia (GEN) Discharge Disposition: HOME SELF-CARE
== END 2021-02-17 12:18 | disposition home or self-care (01) ==
LOC: EC 05:46 → 6NMEDSUR 12:37 → OBSVTOIN 02-15 13:28 → INTOOBSV 02-15 13:28 → UNDODISIN 02-17 12:18
PROVIDERS: ADMIT Internal Medicine; ATTEND Internal Medicine
PROC: B2111ZZ Fluoroscopy of Multiple Coronary Arteries using Low Osmolar Contrast (ICD-10-PCS; 2021-02-15)
PROC: 4A023N7 Measurement of Cardiac Sampling and Pressure, Left Heart, Percutaneous Approach (ICD-10-PCS; principal; 2021-02-15 07:30)
DX: I25.119 Atherosclerotic heart disease of native coronary artery with unspecified angina pectoris (principal); K59.00 Constipation, unspecified; K57.30 Diverticulosis of large intestine without perforation or abscess without bleeding; R07.89 Other chest pain; I48.0 Paroxysmal atrial fibrillation; I10 Essential (primary) hypertension; I44.0 Atrioventricular block, first degree; R00.1 Bradycardia, unspecified; I08.1 Rheumatic disorders of both mitral and tricuspid valves; G89.29 Other chronic pain; M54.5 Low back pain; F32.9 Major depressive disorder, single episode, unspecified; Z98.84 Bariatric surgery status; Z90.49 Acquired absence of other specified parts of digestive tract; Z90.79 Acquired absence of other genital organ(s); Z88.5 Allergy status to narcotic agent; Z79.899 Other long term (current) drug therapy; Z79.51 Long term (current) use of inhaled steroids; Z79.82 Long term (current) use of aspirin; Z79.01 Long term (current) use of anticoagulants; Z85.46 Personal history of malignant neoplasm of prostate; Z85.828 Personal history of other malignant neoplasm of skin; Z87.442 Personal history of urinary calculi; Z87.891 Personal history of nicotine dependence; Z86.79 Personal history of other diseases of the circulatory system; Z86.010 Personal history of colon polyps; Z82.49 Family history of ischemic heart disease and other diseases of the circulatory system
CPT/HCPCS: 96360; 96361; 99285; 36415; 94640 ×6; 93005; 93458; 85379; 83880; 80053; 80048; 84443; 82150; 83690; 83735 ×2; 84484; 85025 ×3; 85610; 85730; 81003; 71046; 74018; 74177; G0378 ×4; C1894; C1769; J2250; J2001; J3010; J1644; Q9967 ×2

== ENCOUNTER 2021-02-27 06:23 | Emergency (ER) | payer MEDICARE ==
[2021-02-27 06:34] VITALS: TEMP 98.1
[2021-02-27] MEDS ORDERED: ASPIRIN 81 MG PO STA (06:58)
--- NOTE | 2021-02-27 07:11 | ED ---
Chest Pain HPI - General Chief Complaint: Chest Pain Stated Complaint: A-Fib Time Seen by Provider: 02/27/21 06:35 Source: patient Mode of arrival: wheelchair - History of Present Illness Initial Comments: Patient is a 70-year-old male with history of A. fib, presenting to the emergency Department with complaints of acute onset of chest pressure and shortness of breath that woke him from sleep about 2 AM this morning. Patient states he was given a new medication, flecainide, that he took 2 tablets, for a total 100 mg, when this episode was happening. Patient states he did feel improvement in his symptoms and lay back down to go to sleep. He states he slept for maybe an hour or 2 and then woke up with the same pressure and shortness of breath feeling so he drove himself to the ER. He states the pressure is mostly in the center of his chest, denies any radiation. Currently rates it a 5/10. He is improving since he walked into the ER. He does feel short of breath as well. He is on Eliquis. He states he is supposed to have an ablation by Dr. Sotelo however they are very backed up and they're trying to schedule him at this time. He denies any fevers or chills, no cough or congestion, no abdominal pain, nausea or vomiting or diarrhea. He has no further complaints at this time. Upon arrival to the ER his vitals are stable. - Related Data Home Medications Medication Instructions Recorded Confirmed Ferrous Sulfate [Iron (65 MG 325 mg PO Q96H 10/13/20 02/14/21 Elemental)] Multivitamins, Thera [Multivitamin 1 tab PO DAILY 10/13/20 02/14/21 (formulary)] Atorvastatin Calcium [Lipitor] 20 mg PO HS 01/25/21 02/14/21 Budesonide/Formoterol Fumarate 2 puff INHALATION RT-BID 02/09/21 02/14/21 [Symbicort 160-4.5 Mcg Inhaler] Previous Rx's Medication Instructions Recorded Apixaban [Eliquis] 5 mg PO BID #180 tab 04/17/19 Flecainide [Tambocor] 100 mg PO Q12HR #240 tab 02/17/21 polyethylene glycoL 3350 [Miralax] 17 gm PO HS #30 powd.pack 02/17/21 Allergies Allergy/AdvReac Type Severity Reaction Status Date / Time morphine AdvReac Nausea & Verified 02/27/21 06:34 Vomiting Review of Systems ROS Statement: Those systems with pertinent positive or pertinent negative responses have been documented in the HPI. ROS Other: All systems not noted in ROS Statement are negative. EKG Findings - EKG Comments: EKG Findings:: Sinus rhythm with premature supraventricular complexes, otherwise normal ECG, no signs of acute ST segment elevation. Similar to previous and 02/14/2021. Ventricular rate 72, WI interval 194, QT 434. Past Medical History Past Medical History: Atrial Fibrillation, Cancer, Hypertension, Prostate Disorder Additional Past Medical History / Comment(s): CHRONIC LOW BACK PAIN. Prostate cancer, skin cancer, kidney stone. History of Any Multi-Drug Resistant Organisms: None Reported Past Surgical History: Appendectomy, Bariatric Surgery, Cholecystectomy, Orthopedic Surgery Additional Past Surgical History / Comment(s): cervical sx with titanium rods, Colonoscopy, lap band, rt clavical reduction, Prostatectomy, SKIN CA REMOVED, pain procedures at [facility]PAIN [facility]INIC PROCEDURES Past Anesthesia/Blood Transfusion Reactions: Postoperative Nausea & Vomiting (PONV) Additional Past Anesthesia/Blood Transfusion Reaction / Comment(s): VERTIGO Past Psychological History: Depression Smoking Status: Former smoker Past Alcohol Use History: None Reported Past Drug Use History: None Reported - Past Family History Father Family Medical History: Myocardial Infarction (NM) Mother Additional Family Medical History / Comment(s): MAC DEGENERATION, HEART PROBLEMS General Exam - General Exam Comments Initial Comments: GENERAL: Patient is well-developed and well-nourished. Patient is nontoxic and in mild distress. HEAD: Atraumatic, normocephalic. EYES: Pupils equal round and reactive to light, extraocular movements intact, sclera anicteric, conjunctiva are normal. Eyelids were unremarkable. ENT: TMs normal, nares patent, oropharynx clear without exudates. Moist mucous membranes. NECK: Normal range of motion, supple without lymphadenopathy or JVD. LUNGS: Unlabored respirations. Breath sounds clear to auscultation bilaterally and equal. No wheezes rales or rhonchi. HEART: Regular rate and rhythm without murmurs, rubs or gallops. ABDOMEN: Soft, nontender, normoactive bowel sounds. No guarding, no rebound. No masses appreciated. : Deferred MUSCULOSKELETAL: Normal extremities with adequate strength and normal range of motion, no pitting or edema. No clubbing or cyanosis. NEUROLOGICAL: Patient is alert and oriented x 3. Motor and sensory are also intact. Cranial nerves II through XII grossly intact. Symmetrical smile. Normal speech, normal gait. PSYCH: Normal mood, normal affect. SKIN: Warm, Dry, normal turgor, no rashes or lesions noted. Course Vital Signs 02/27/21 02/27/21 06:32 07:20 Temperature 98.1 F Pulse Rate 75 64 Respiratory 18 20 Rate Blood Pressure 206/81 143/69 O2 Sat by Pulse 98 97 Oximetry Chest Pain [facility] Patient is a 70-year-old male with history of A. fib, presenting for an acute onset of chest pressure shortness of breath that happened approximately 2 AM this morning. It did wake him up from his sleep. He took 2 tablets of Flecainide, total of 100mg, it did help improve his symptoms. He went back to sleep for an hour or 2 and woke up with the same symptoms today came in to the ER. His vitals are stable, EKG showing sinus rhythm with premature super ventri cular complexes, no other acute process. Labs today are unremarkable including a normal white count, normal d-dimer and normal troponin, BNP is 232. Patient's vital signs remained stable. He states he feels improvement does not feel short of breath or palpitations at this time. Patient did have a recent heart cath and has been following closely Dr. Sotelo. I do feel he patient is safe to go home. Strict return parameters were discussed with the patient and he verbalized understanding. He is agreeable to this plan of care, he states he does feel comfortable going home. He will follow up with his armhole baster jumpbasting. Case discussed in detail with Dr. Montes who is agreeable to this as well. Disposition Clinical Impression: Dyspnea, Atypical chest pain Disposition: HOME SELF-CARE Condition: Stable Instructions (If sedation given, give patient instructions): A-fib (Atrial Fibrillation) (ED) Additional Instructions: Please return to the Emergency Department if symptoms worsen or any other concerns. Please follow-up with your armhole baster jumpbasting. Is patient prescribed a controlled substance at d/c from ED?: No Referrals: Marco A Martin MD [Primary Care Provider] - 1-2 days Bruno Sotelo MD [STAFF PHYSICIAN] - 1-2 days Time of Disposition: 08:24
[2021-02-27 07:19] LABS: Basophils % (A) 1 %; Eosinophils # (A) 0.4 k/uL (0-0.7); Eosinophils % (A) 6 %; HCT 32.3 % (39.0-53.0); HGB 10.4 gm/dL (13.0-17.5); Hypochromasia Slight; Lymphocytes # (A) 1.7 k/uL (1.0-4.8); Lymphocytes % (A) 28 %; MCH 27.6 pg (25.0-35.0); MCHC 32.2 g/dL (31.0-37.0); MCV 85.8 fL (80.0-100.0); Mean Platelet Volume 7.4; Monocytes # (A) 0.6 k/uL (0-1.0); Monocytes % (A) 9 %; Neutrophils # (A) 3.4 k/uL (1.3-7.7); Neutrophils % (A) 54 %; Platelet Count 384 k/uL (150-450); RBC 3.76 m/uL (4.30-5.90); RDW 13.8 % (11.5-15.5); WBC 6.3 k/uL (3.8-10.6)
--- NOTE | 2021-02-27 07:22 | XR ---
EXAMINATION TYPE: XR chest 2V DATE OF EXAM: 02/27/2021 COMPARISON: 02/14/2021 HISTORY: Chest pain TECHNIQUE: Frontal and lateral views of the chest are obtained. FINDINGS: There is no focal air space opacity, pleural effusion, or pneumothorax seen. The cardiac silhouette size is within normal limits. The osseous structures are intact. IMPRESSION: No acute cardiopulmonary process. No interval change.
[2021-02-27 07:28] VITALS: PULSE 64
[2021-02-27 07:31] LABS: Albumin 3.5 g/dL (3.5-5.0); Potassium 4.5 mmol/L (3.5-5.1); Total Bilirubin 0.2 mg/dL (0.2-1.3); Total Protein 5.9 g/dL (6.3-8.2)
[2021-02-27 07:37] LABS: INR 0.9 (<1.2); Partial Thromboplastin Time 23.2 sec (22.0-30.0); Prothrombin Time 9.8 sec (9.0-12.0)
[2021-02-27 08:59] VITALS: BP 135/79; RESP 18
== END 2021-02-27 08:59 | disposition home or self-care (01) ==
LOC: EC 06:23
DX: R06.02 Shortness of breath (principal); R07.89 Other chest pain; I10 Essential (primary) hypertension; Z88.5 Allergy status to narcotic agent; Z87.891 Personal history of nicotine dependence; Z86.79 Personal history of other diseases of the circulatory system
CPT/HCPCS: 36415; 71046; 80053; 83735; 83880; 84484; 85025; 85379; 85610; 85730; 93005; 99285

== ENCOUNTER 2021-03-07 09:46 | Day surgery (SDC) | payer MEDICARE ==
[2021-03-02 14:09] VITALS: BMI 34.9
[2021-03-07] MEDS ORDERED: SODIUM CHLORIDE 0.9% 1,000 ML IV SCH (10:41)
[2021-03-07] MEDS ORDERED: LACTATED RINGERS 1,000 ML IV SCH (10:41)
[2021-03-07] MEDS ORDERED: SODIUM CHLORIDE 0.9% 1,000 ML IV ONE (10:47)
[2021-03-07 11:09] LABS: Glucose,Whole Blood 116 mg/dL (75-99)
[2021-03-07] MEDS ORDERED: PHENYLEPHRINE-0.9% NACL SYG 1,000 MCG/10 ML SYRINGE ONE (13:01)
[2021-03-07] MEDS ORDERED: PROTAMINE SULFATE 10 MG/ML 5 ML VIAL IV ONE (13:01)
[2021-03-07] MEDS ORDERED: MIDAZOLAM 2 MG/2 ML VIAL ONE (13:01)
[2021-03-07] MEDS ORDERED: PROPOFOL 10 MG/ML 20 ML VIAL IV ONE (13:01)
[2021-03-07] MEDS ORDERED: HEPARIN SODIUM,PORCINE 10,000 UNIT/ML 1 ML VIAL ONE (13:01)
[2021-03-07] MEDS ORDERED: GLYCOPYRROLATE 0.2 MG/ML 2 ML VIAL ONE (13:01)
[2021-03-07] MEDS ORDERED: fentaNYL (PF) 50 MCG/ML 2 ML AMP ONE (13:01)
[2021-03-07] MEDS ORDERED: ISOPROTERENOL 250 MCG/1.25 ML SYR IV ONE (13:01)
[2021-03-07] MEDS ORDERED: SUCCINYLCHOLINE CHLORIDE 100 MG/5 ML SYR IV ONE (13:01)
[2021-03-07] MEDS ORDERED: LIDOCAINE 1% INJ 10MG/ML (20 ML MDV) ONE (13:11)
[2021-03-07] MEDS ORDERED: HEPARIN SOD,PORK IN 0.45% NACL 25,000 UNIT in 0.45% NACL 1 250ML.BAG IV ONE (13:14)
--- NOTE | 2021-03-07 13:19 | P.HPCAR ---
History of Present Illness This is Dr. Sotelo dictating an H/P on this patient The patient was interviewed and examined IMPRESSION / ASSESSMENT: Patient continues to experience palpitations on flecainide 50 mg twice daily, symptomatic following discharge from the hospital Paroxysmal atrial fibrillation with RVR continue with discomfort in the chest No episodes of syncope on flecainide since this Mild CAD History of cerebral aneurysm status post coiling at [facility] earlier this year Preserved LV systolic function History of postconversion pauses and postconversion bradycardia, very symptomatic Normal left atrium PLAN: Cryoablation the pulmonary veins for management of paroxysmal atrial fibrillation Reduce the dose of flecainide thereafter to 25 mg twice daily Continue ELIQUIS 5 mg twice daily Follow-up with Dr. Li thereafter HPI Patient continues to have episodes of palpitations and chest discomfort, brief episodes on flecainide However he does not have any further episodes of syncope or presyncope He complains of chest discomfort when he has atrial fibrillation with palpitations Minimal puffiness in the ankles He denies any fever chills cough expectoration Denies any syncope post discharge ROS: No fever chills or rigors, no cough, phlegm or expectoration, no nausea, vomiting or diarrhea, no hematuria, dysuria, no musculoskeletal complaints, no strokes or seizures, no skin lesions. EXAMINATION: Afebrile 97.2F pulse rate in the 70s, blood pressure 117/58. His mercury pulse ox 98% No JVD no carotid bruits Heart sounds are normal and regular no murmurs Breath sounds are clear no rhonchi no crackles Normal S1 normal is Soft abdomen nontender Extremities are warm minimal lower extremity puffiness REVIEW OF LABS, ECG & MEDICAL DATA glucose 116 Physical Exam Vitals: Vital Signs Temp Pulse Resp BP Pulse Ox 03/07/21 10:49 97.2 F L 74 16 117/58 98 Intake and Output 03/06/21 03/07/21 03/07/21 22:59 06:59 14:59 Intake Total 20 Balance 20 Intake: IV 20 Other: Weight 103.6 kg Past Medical History Past Medical History: Atrial Fibrillation, Cancer, Hypertension, Prostate Disorder Additional Past Medical History / Comment(s): CHRONIC LOW BACK PAIN. Prostate cancer, skin cancer, kidney stone. History of Any Multi-Drug Resistant Organisms: None Reported Past Surgical History: Appendectomy, Bariatric Surgery, Cholecystectomy, Orthopedic Surgery Additional Past Surgical History / Comment(s): cervical sx with titanium rods, Colonoscopy, lap band, rt clavical reduction, Prostatectomy, SKIN CA REMOVED, pain procedures at [facility]PAIN CLINIC PROCEDURES Past Anesthesia/Blood Transfusion Reactions: Postoperative Nausea & Vomiting (PONV) Additional Past Anesthesia/Blood Transfusion Reaction / Comment(s): VERTIGO Smoking Status: Former smoker - Past Family History Father Family Medical History: Myocardial Infarction (CT) Mother Additional Family Medical History / Comment(s): MAC DEGENERATION, HEART PROBLEMS Physical Examination Vital Signs Temp Pulse Resp BP Pulse Ox 03/07/21 10:49 97.2 F L 74 16 117/58 98 Intake and Output 03/06/21 03/07/21 03/07/21 22:59 06:59 14:59 Intake Total 20 Balance 20 Intake: IV 20 Other: Weight 103.6 kg Results Current Medications Generic Name Dose Route Start Last Admin Trade Name Freq PRN Reason Stop Dose Admin Lactated Ringer's 1,000 mls @ 20 mls/hr 03/07/21 10:41 Lactated Ringers IV 04/06/21 10:42 .Q24H KETAON Sodium Chloride 1,000 mls @ 20 mls/hr 03/07/21 10:41 Saline 0.9% IV 04/06/21 10:42 .Q24H KEATON Intake and Output 03/06/21 03/07/21 03/07/21 22:59 06:59 14:59 Intake Total 20 Balance 20 Intake: IV 20 Other: Weight 103.6 kg Patient Weight 03/08/21 06:59 Weight 103.6 kg
[2021-03-07] MEDS ORDERED: LIDOCAINE 1% INJ 10MG/ML (20 ML MDV) SQ ONE (13:53)
[2021-03-07] MEDS ORDERED: IOPAMIDOL-370 100ML BTL INJ ONE (15:20)
[2021-03-07] MEDS ORDERED: ACETAMINOPHEN IV (For NPO) 1,000 MG in EMPTY BAG 1 BAG IVPB ONE (16:02)
--- NOTE | 2021-03-07 16:21 | P.EPPROC ---
- EP Procedure Note Electrophysiology Procedure Note: PROCEDURE A. fib ablation/pulmonary isolation DIAGNOSIS Paroxysmal Atrial fibrillation, symptomatic, refractory to therapy with flecainide and propafenone Long postconversion pauses on propafenone, symptomatic Normal coronary arteries preserved LV systolic function and no significant valvular abnormalities RESULT Elevated left atrial pressures with prominent V waves, 38/8/21 mmHg RA pressures 17/6/11 mmHg No left atrial appendage mass seen on intracardiac echo Successful A. fib ablation/pulmonary vein isolation of all veins using cryo- ablation Complete entrance block in all 4 veins confirmed No evidence for phrenic nerve injury Esophageal deflection YES At the end of the procedure Inducible atrial fibrillation with burst stimulation in the coronary sinus on high-dose Isuprel following successful PVI, requiring 100 J biphasic cardioversion PROCEDURE DETAILS Patient was brought to the EP lab in a fasting state. Written informed consent was obtained prior to the procedure. Procedure performed under general anesthesia After initial muscle relaxant use, muscle relaxants were not given thereafter in order to assess phrenic nerve during procedure. Patient prepped and draped as per protocol Full cryo-set up with standard preparation of the cryoablation tools done. Femo ral Venous access obtained on the right and left groins Venous and arterial Sheaths placed. Diagnostic catheters for the high right atrium, phrenic nerve stimulation and pacing, His bundle, RV and coronary sinus placed Intracardiac echo catheter placed. Long sheath placed in the right atrium Left and right transseptal catheterization performed under intracardiac echo guidance. Intravenous heparin with aCT above 300 Later, catheter positioning and balloon positioning in the left atrium, under intracardiac echo guidance Diagnostic EP study with Drug infusion Coronary sinus pacing and recording Baseline measurements QRS 91 ms, sinus cycle length 900 ms, QT 480 ms line AH 110 ms, HV 41 ms Atrial pacing performed from the high right atrium and the coronary sinus Transseptal catheterization performed RA pressure 17/6/11 LA pressure 38/8/21 Transseptal catheterization performed with standard sheath. The cryoablation sheath was then placed with an over the wire exchange without any acute complications. All 4 pulmonary veins were isolated in the following sequence: Left superior followed by left inferior followed by right superior followed by right inferior The cryo-ablation balloon was placed at the os of each vein 1.5 mL of IV dye was injected to confirm an occluded vein Goal during cryoablation was to achieve complete occlusion of the pulmonary vein, achieve -30 degrees C at 30 seconds and achieve -40 degrees C at 60 seconds and a time to effect of less than 60-90 seconds, . If not the balloon was repositioned to obtain this result After completion of Cryoblation with durations from 180-240 seconds, entrance block was confirmed with the Attain circular catheter in a roving fashion around the antrum of the pulmonary veins Phrenic nerve pacing was performed from the SVC, right innominate vein area and diaphragm voltage was monitored. Diaphragmatic contractions were also monitored manually for strength of contraction. Parameter goals for each cryo freeze Complete occlusion of the appropriate vein -30 degrees C by 30 seconds -40 degrees C by 60 seconds Minimum between minus 40-55 degrees C Thaw time greater than 10 seconds Balloon visualized by intracardiac echo The esophagus was intubated. Esophageal Temperature monitoring with a CIRCA catheter formed. Esophageal deflection for hypothermia of the esophagus below 30 degrees C Left superior pulmonary vein Complete isolation, entrance block Left inferior pulmonary vein Complete isolation, entrance block Right superior pulmonary vein, during phrenic nerve pacing Complete isolation, entrance block Right middle pulmonary vein, during phrenic nerve pacing Complete isolation with entrance block Right inferior pulmonary vein, during phrenic nerve pacing Complete isolation, entrance block At the end of the procedure the Achieve catheter was once again used to check for entrance block Phrenic nerve stimulation was performed to confirm diaphragmatic stimulation the end of the procedure Cine fluoroscopy was performed at the very end of the procedure to confirm movement of both diaphragms with inspiration and expiration At the end of the procedure the patient was extubated Heparin was reversed Venous sheaths were removed and hemostasis assured PROCEDURES PERFORMED Diagnostic EP study CS pacing and recording Left and right transseptal catheterization Catheter the mapping of the tachycardia (NOT 3D mapping) Intracardiac echocardiography Pulmonary vein isolation with transseptal and comprehensive EPS, 53868 Electrical cardioversion with a synchronized shock across the chest [id number] Drug Infusion [id number]
[2021-03-07] MEDS ORDERED: lisinopriL 10 MG TAB PO STA (17:11)
[2021-03-07] MEDS: COLCHICINE 0.6 MG EACH PO SCH ×2 (17:23→17:43)
[2021-03-07] MEDS: SYMBICORT 160-4.5 MCG INHALER INHALATION SCH (20:02)
[2021-03-07] MEDS: ACETAMINOPHEN TAB 325 MG TAB PO PRN (20:03)
[2021-03-07] MEDS: FLECAINIDE 50 MG TAB PO SCH (20:04)
[2021-03-07] MEDS: APIXABAN 5 MG TAB PO SCH (20:04)
[2021-03-07] MEDS ORDERED: ATORVASTATIN 20 MG TAB PO SCH (21:00)
[2021-03-08] MEDS: ACETAMINOPHEN TAB 325 MG TAB PO PRN (02:13)
[2021-03-08] MEDS ORDERED: NITROGLYCERIN OINT 1 INCH/GM PACKET TOPICAL STA (06:14)
--- NOTE | 2021-03-08 06:22 | P.EN ---
A team note Activated at 5:45 AM. Arrived on the scene shortly after. Reviewed the chart and discussed the case with RN. The patient was admitted for paroxysmal atrial fibrillation and underwent an ablation. The patient was doing well throughout the night when he suddenly developed substernal pressure-like chest discomfort or shortness of breath. At time of evaluation, the patient reports that his pain is somewhat improved since initial onset roughly 45 minutes ago. The pain was currently a 4 out of 10, substernal, pressure-like, nonradiating, nonpleuritic, with associated shortness of breath and nausea and dizziness. EKG was obtained revealing normal sinus rhythm at [address] elevations noted in inferior leads. The EKG was sent to industrial custodian manager business continuity Dr CHITRA Adams who noted that his symptoms could be from pericarditis and to give a dose of Dilaudid and continue cardiac monitoring. General: Non-toxic, in mild acute distress, appears stated age, obese HEENT: NC/AT, anicteric sclerae, moist conjunctiva, no lid-lag, PERRLA Cardiovascular: S1/S2 wnl, no murmurs, rubs, or gallops Lungs: Clear to auscultation, normal respiratory effort, no accessory muscle use Abdominal: Soft, non-tender, non-distended, no guarding, rebound, or rigidity Skin: Warm, dry Extremities: No edema or contractures Psychiatric: Alert and oriented to person, place and time, appropriate affect Neuro: CN II-XII grossly intact, Strength 5/5 in all 4 extremities, Speech intact, Sensation to light touch grossly intact throughout Assessment/plan Chest pain with abnormal EKG status post ablation -Obtain repeat EKGs every 30 minutes -Continue cardiac monitoring -Nitroglycerin paste ordered -Defer management to cardiology to whom this patient is well-known
[2021-03-08] MEDS ORDERED: HYDROmorphone 0.5 MG/0.5 ML SYRINGE IVP STA (06:28)
[2021-03-08] MEDS ORDERED: PANTOPRAZOLE 40 MG TABLET PO SCH (07:30)
[2021-03-08] MEDS ORDERED: FUROSEMIDE 40 MG TAB PO ONE (08:02)
[2021-03-08] MEDS ORDERED: LACTULOSE 20 GM/30 ML CUP PO ONE (08:15)
[2021-03-08] MEDS: COLCHICINE 0.6 MG EACH PO SCH (08:16)
[2021-03-08] MEDS: APIXABAN 5 MG TAB PO SCH (08:16)
[2021-03-08] MEDS: FLECAINIDE 50 MG TAB PO SCH (08:17)
[2021-03-08] MEDS: SYMBICORT 160-4.5 MCG INHALER INHALATION SCH (08:48)
[2021-03-08 14:59] VITALS: BP 124/66; PULSE 76; RESP 16; TEMP 98.1
--- NOTE | 2021-03-09 11:22 | P.DS ---
Providers Attending physician: Bruno Sotelo Primary care physician: [facility] Course: Patient was brought in for elective cryoablation of the pulmonary veins for management of paroxysmal atrial fibrillation. He underwent the procedure yesterday without any acute complication. Last evening he had an episode of chest discomfort. An EKG was obtained in the computer readings had acute ME prompting an A-team to be called. In fact EKG showed signs of early repolarization. The patient was having discomfort in the left precordial region exacerbated by breathing which is standard and typical after an ablation. He continues to have some discomfort with deep inspiration at the time of her exam. He denies exertional chest pain. Blood pressure 124/66 heart rate 76 afebrile maintaining oxygen saturation on room air. GENERAL: Well-appearing, well-nourished and in no acute distress. NECK: Supple without JVD or thyromegaly. LUNGS: Breath sounds clear to auscultation bilaterally. Respiration equal and unlabored. No wheezes, rales or rhonchi. HEART: Regular rate and rhythm without murmurs, rubs or gallops. S1 and S2 heard. EXTREMITIES: Normal range of motion, no edema. No clubbing or cyanosis. Peripheral pulses intact. ASSESSMENT Paroxysmal atrial fibrillation PLAN Stable for discharge. Follow-up with Dr. Li in the office. Add colchicine 0.6 mg daily for one week. Nurse Practitioner note has been reviewed, I agree with a documented findings and plan of care. Patient was seen and examined. Patient Condition at Discharge: Stable Plan - Discharge Summary Discharge Rx Participant: Yes New Discharge Prescriptions: New Colchicine [Colcrys] 0.6 mg PO DAILY #7 each Continue Apixaban [Eliquis] 5 mg PO BID #180 tab Multivitamins, Thera [Multivitamin (formulary)] 1 tab PO DAILY polyethylene glycoL 3350 [Miralax] 17 gm PO HS #30 powd.pack Ubidecarenone [Co Q-10] 100 mg PO DAILY Flecainide [Tambocor] 50 mg PO Q12HR Ferrous Sulfate [Iron (65 MG Elemental)] 325 mg PO Q96H Atorvastatin Calcium [Lipitor] 20 mg PO HS Budesonide/Formoterol Fumarate [Symbicort 160-4.5 Mcg Inhaler] 2 puff INHALATION RT-BID Pantoprazole [Protonix] 40 mg PO DAILY Cyanocobalamin (Vitamin B-12) [Vitamin B-12] 1,000 mcg PO DAILY Discharge Medication List Apixaban [Eliquis] 5 mg PO BID #180 tab 04/17/19 [Rx] Ferrous Sulfate [Iron (65 MG Elemental)] 325 mg PO Q96H 10/13/20 [History] Multivitamins, Thera [Multivitamin (formulary)] 1 tab PO DAILY 10/13/20 [History] Atorvastatin Calcium [Lipitor] 20 mg PO HS 01/25/21 [History] Budesonide/Formoterol Fumarate [Symbicort 160-4.5 Mcg Inhaler] 2 puff INHALATION RT-BID 02/09/21 [History] polyethylene glycoL 3350 [Miralax] 17 gm PO HS #30 powd.pack 02/17/21 [Rx] Cyanocobalamin (Vitamin B-12) [Vitamin B-12] 1,000 mcg PO DAILY 03/02/21 [History] Flecainide [Tambocor] 50 mg PO Q12HR 03/02/21 [History] Pantoprazole [Protonix] 40 mg PO DAILY 03/02/21 [History] Ubidecarenone [Co Q-10] 100 mg PO DAILY 03/02/21 [History] Colchicine [Colcrys] 0.6 mg PO DAILY #7 each 03/08/21 [Rx] Follow up Appointment(s)/Referral(s): Alvin Li DO [STAFF PHYSICIAN] - 03/15/21 9:00 am Patient Instructions/Handouts: Cardiac Ablation (DC) Activity/Diet/Wound Care/Special Instructions: Post EP study - Ablation instructions 1. Keep access sites dry for 2 days. 2. No heavy lifting or straining for 2 days. 3. Avoid bending the hips repeatedly for 2 days. 4. You may go up and down stairs slowly Call if the following is noted 1. Bleeding, increasing swelling or pain at the access sites. 2. Increasing chest discomfort, especially upon taking a deep breath. 3. Increasing shortness of breath, at rest or with exertion. 4. Undue cough / phlegm 5. Difficulty or pain while swallowing. 6. Pain or change in color in the extremities. 7. Fever, chills, rigors. 8. Increasing headache or neurologic symptoms. 9. Dizziness, fainting, palpitations No change in medications Follow-up Dr. Li within one week Discharge Disposition: HOME SELF-CARE
== END 2021-03-08 15:20 | disposition home or self-care (01) ==
LOC: CATHEP 09:46 → 6NMEDSUR 15:44 → CATHEP 03-08 15:20
PROVIDERS: ATTEND Internal Medicine Clinical Cardiac Electrophysiology
DX: I48.0 Paroxysmal atrial fibrillation (principal); I10 Essential (primary) hypertension; Z85.46 Personal history of malignant neoplasm of prostate; Z79.899 Other long term (current) drug therapy; Z79.82 Long term (current) use of aspirin; I67.1 Cerebral aneurysm, nonruptured; I25.10 Atherosclerotic heart disease of native coronary artery without angina pectoris; R07.89 Other chest pain; Z79.01 Long term (current) use of anticoagulants; Z82.49 Family history of ischemic heart disease and other diseases of the circulatory system; Z87.442 Personal history of urinary calculi; Z87.891 Personal history of nicotine dependence; Z90.49 Acquired absence of other specified parts of digestive tract; Z90.79 Acquired absence of other genital organ(s)
CPT/HCPCS: 94640 ×2; 93623; 93662; 93609; 93656; C1894 ×2; C1769 ×5; C1760; C1730 ×2; C1759; C1893; C1733; C1766; J2250; J2720; J1644 ×2; J2001; J3010; J0131; J2370; J0330; J2704; J1170; Q9967; 93653

== ENCOUNTER → 2021-03-16 | Outpatient (CLI) | payer MEDICARE ==
--- NOTE | 2021-03-16 14:03 | CONS ---
CONSULTATION DATE OF SERVICE: 03/16/2021 This 70-year-old gentleman has been evaluated in [facility] for possible obstructive sleep apnea-hypopnea syndrome. HISTORY OF PRESENT ILLNESS/SLEEP-WAKE EVALUATION: Patient's usual sleep schedule is from 10 p.m. to 8 a.m. No problems with falling asleep. No TV in bedroom. He usually sleeps on the side position. He does snore and wakes up from sleep 2 times with one episode of nocturia. During the day he feels significant sleepiness. [place] Sleepiness Scale is 14. According to the patient, he is ready to take a nap any time, but fights sleepiness and does not take any naps. No history of hypnagogic hallucinations, sleep paralysis or cataplexy. During the day he might have problems with memory and depression. PAST MEDICAL HISTORY: Positive for atrial fibrillation, hyperlipidemia, iron deficiency anemia, prostate carcinoma, neck problems, brain aneurysm. PAST SURGICAL HISTORY: Cardiac ablation for atrial fibrillation, prostatectomy in 2005, neck surgery, surgery for brain aneurysm in July 2019. MEDICATIONS: 1. Eliquis 5 mg twice a day. 2. Flecainide 50 mg twice a day. 3. Pantoprazole 40 mg once a day. 4. Atorvastatin 20 mg once a day. 5. Iron supplement once in 4 days. SOCIAL HISTORY: Positive for smoking up to 2 packs a day for 30 years, quit in 1997. Alcohol consumption: None. FAMILY HISTORY: Heart problems. REVIEW OF SYSTEMS: No fevers. No double vision. No recent chest pain. No shortness of breath. No abdominal pain. No bleeding episodes. No blood in the urine. No seizure episodes. Awakenings from sleep, sleepiness during the day. PHYSICAL EXAMINATION: GENERAL: A gentleman without distress. VITAL SIGNS: BP 153/74, HR 74, RR 16, height 5 feet 8 inches, weight 229, body mass index 34.8, temperature 98.1, oxygen saturation at room air 98%. HEENT: PERRLA, EOMI, evaluation of oropharynx showed tongue protrudes midline. Extremely low position of soft palate; Mallampati IV. NECK: Supple, no JVD. Thyroid is not palpable. Neck measures 16-1/2 inches in circumference. LUNGS: Clear to percussion and to auscultation. Good air exchange. No wheezing or rhonchi. HEART: S1, S2 regular. No murmurs, gallops, or rubs. ABDOMEN: Soft and nontender. Bowel sounds are present. No organomegaly appreciated. EXTREMITIES: No clubbing or cyanosis. SOFTWARE SALES CONSULTANT: Awake, alert, and oriented X3. Cranial nerves 2 to 7 intact. There is no fasciculation or atrophy. noted. No focal deficits observed. IMPRESSION: 1. Snoring, awakenings from sleep with nocturia, extremely low position of soft palate, Mallampati IV, sleepiness, [place] Sleepiness Scale increased to 14; obstructive sleep apnea-hypopnea syndrome. 2. Significant excessive daytime sleepiness with [place] Sleepiness Scale 14, dictating necessity to include hypersomnia in differential diagnosis. 3. History of atrial fibrillation converted to normal sinus rhythm by cardiac ablation. 4. Hyperlipidemia. 5. History of iron deficiency anemia. 6. History of prostate carcinoma, status post prostatectomy in 2005. 7. Status post neck surgery. 8. Status post treatment for brain aneurysm in July 2019. PLAN: 1. Polysomnography for evaluation of patient's breathing during sleep. 2. CPAP/BiPAP titration if sleep study confirms obstructive sleep apnea-hypopnea syndrome. 3. Preferable position during sleep on the side. 4. No driving if patient feels any sleepiness. 5. I will see patient for follow up visit to explain results of testing and following plan. 6. MSLT if sleep study is negative for obstructive sleep apnea-hypopnea syndrome. Thank you very much for referring this patient for consultation. Sincerely, Humble Garcia MD, PhD, FAASM Diplomat of [employer] Sleep Medicine Board of [employer] [facility] Fonda MMODL / NURYN: [id number] /
== END | disposition home or self-care (01) ==
LOC: SLEEP 11:11
PROVIDERS: ATTEND Internal Medicine
DX: G47.33 Obstructive sleep apnea (adult) (pediatric) (principal); G47.10 Hypersomnia, unspecified; I48.91 Unspecified atrial fibrillation; E78.5 Hyperlipidemia, unspecified; D50.9 Iron deficiency anemia, unspecified; Z85.46 Personal history of malignant neoplasm of prostate; Z90.79 Acquired absence of other genital organ(s)
CPT/HCPCS: 99211

== ENCOUNTER 2021-03-25 08:54 | Observation (INO) | payer MEDICARE ==
--- NOTE | 2021-03-25 09:22 | ED ---
General Adult HPI - General Chief complaint: Shortness of Breath Stated complaint: SOB, dizziness Time Seen by Provider: 03/25/21 09:02 Source: patient, RN notes reviewed, old records reviewed Mode of arrival: wheelchair Limitations: physical limitation - History of Present Illness Initial comments: 70-year-old male history of atrial fibrillation presents for evaluation of dyspnea, mild chest pressure. Symptoms began yesterday morning and improve thr oughout the day. This morning again the patient woke up with increased dyspnea and chest pressure. He is on eliquis, and had heart ablation earlier this week with cardiology. He denies lower extremity edema. Denies cough. Denies fever. He has been vaccinated against coronavirus. - Related Data Home Medications Medication Instructions Recorded Confirmed Ferrous Sulfate [Iron (65 MG 325 mg PO Q96H 10/13/20 03/25/21 Elemental)] Multivitamins, Thera [Multivitamin 1 tab PO DAILY 10/13/20 03/25/21 (formulary)] Atorvastatin Calcium [Lipitor] 20 mg PO HS 01/25/21 03/25/21 Budesonide/Formoterol Fumarate 2 puff INHALATION RT-BID 02/09/21 03/25/21 [Symbicort 160-4.5 Mcg Inhaler] Cyanocobalamin (Vitamin B-12) 1,000 mcg PO DAILY 03/02/21 03/25/21 [Vitamin B-12] Flecainide [Tambocor] 50 mg PO Q12HR 03/02/21 03/25/21 Pantoprazole [Protonix] 40 mg PO DAILY 03/02/21 03/25/21 Ubidecarenone [Co Q-10] 100 mg PO DAILY 03/02/21 03/25/21 Penicillin V Potassium [Pen Vee K] 500 mg PO QID 03/25/21 03/25/21 Previous Rx's Medication Instructions Recorded Apixaban [Eliquis] 5 mg PO BID #180 tab 04/17/19 Colchicine [Colcrys] 0.6 mg PO DAILY #7 each 03/08/21 Allergies Allergy/AdvReac Type Severity Reaction Status Date / Time morphine AdvReac Nausea & Verified 03/25/21 10:36 Vomiting Review of Systems ROS Statement: Those systems with pertinent positive or pertinent negative responses have been documented in the HPI. ROS Other: All systems not noted in ROS Statement are negative. Past Medical History Past Medical History: Atrial Fibrillation, Cancer, Hypertension, Prostate Disorder Additional Past Medical History / Comment(s): CHRONIC LOW BACK PAIN. Prostate cancer, skin cancer, kidney stone. History of Any Multi-Drug Resistant Organisms: None Reported Past Surgical History: Appendectomy, Bariatric Surgery, Cholecystectomy, Orthopedic Surgery Additional Past Surgical History / Comment(s): cervical sx with titanium rods, Colonoscopy, lap band, rt clavical reduction, Prostatectomy, SKIN CA REMOVED, pain procedures at [facility] PROCEDURES, heart ablation Past Anesthesia/Blood Transfusion Reactions: No Reported Reaction Additional Past Anesthesia/Blood Transfusion Reaction / Comment(s): VERTIGO Past Psychological History: Depression Smoking Status: Former smoker Past Alcohol Use History: None Reported Past Drug Use History: None Reported - Past Family History Father Family Medical History: Myocardial Infarction ([place]) Mother Additional Family Medical History / Comment(s): MAC DEGENERATION, HEART PROBLEMS General Exam Limitations: physical limitation General appearance: alert, in no apparent distress, anxious Head exam: Present: atraumatic, normocephalic Eye exam: Present: normal appearance, PERRL ENT exam: Present: normal exam Neck exam: Present: normal inspection. Absent: tenderness, meningismus Respiratory exam: Present: normal lung sounds bilaterally. Absent: respiratory distress, wheezes, rales, rhonchi Cardiovascular Exam: Present: regular rate, normal rhythm GI/Abdominal exam: Present: soft. Absent: distended, tenderness, guarding Extremities exam: Present: normal inspection, normal capillary refill. Absent: pedal edema, calf tenderness Neurological exam: Present: alert, oriented X3, CN II-XII intact. Absent: motor sensory deficit Psychiatric exam: Present: normal affect, normal mood Skin exam: Present: warm, dry, intact. Absent: cyanosis, diaphoretic Course Vital Signs 03/25/21 08:55 Temperature 97.5 F L Pulse Rate 75 Respiratory 24 Rate Blood Pressure 153/83 O2 Sat by Pulse 100 Oximetry EKG Findings - EKG Comments: EKG Findings:: EKG: Normal sinus rhythm, rate 63, OK interval 162, QRS duration 94, QTC 452, no ST segment elevation. Medical Decision Making - Medical Decision Making 70-year-old male with orthopnea, dyspnea, and mild chest pressure. EKG is sinus rhythm without ST segment elevation. Chest x-ray clear, no large pneumonia, no signs of congestive heart failure. He has a CBC showing improved hemoglobin from prior, normal white blood cell count, normal lites, negative d-dimer, negative troponin, negative BNP. I did discuss case with Dr. Li covering for cardiology. Patient will be observed repeat troponin has been ordered. Cardiology placed on consult. Patient admitted to [facility]. - Lab Data Result diagrams: 03/25/21 09:03/25/21 09: Lab Results 03/25/21 03/25/21 03/25/21 Range/Units 09: 09: 09: WBC 7.8 (3.8-10.6) k/uL RBC 4.37 (4.30-5.90) m/uL Hgb 11.4 L (13.0-17.5) gm/dL Hct 36.0 L (39.0-53.0) % MCV 82.4 (80.0-100.0) fL MCH 26.2 (25.0-35.0) pg MCHC 31.8 (31.0-37.0) g/dL RDW 13.3 (11.5-15.5) % Plt Count 456 H (150-450) k/uL MPV 7.1 Neutrophils % 71 % Lymphocytes % 16 % Monocytes % 7 % Eosinophils % 3 % Basophils % 0 % Neutrophils # 5.6 (1.3-7.7) k/uL Lymphocytes # 1.3 (1.0-4.8) k/uL Monocytes # 0.5 (0-1.0) k/uL Eosinophils # 0.2 (0-0.7) k/uL Basophils # 0.0 (0-0.2) k/uL Hypochromasia Slight PT 10.9 (9.0-12.0) sec INR 1.0 (<1.2) APTT 24.5 (22.0-30.0) sec D-Dimer 0.24 (<0.60) mg/L FEU Sodium 139 (137-145) mmol/L Potassium 4.7 (3.5-5.1) mmol/L Chloride 106 (98-107) mmol/L Carbon Dioxide 21 L (22-30) mmol/L Anion Gap 12 mmol/L BUN 16 (9-20) mg/dL Creatinine 1.02 (0.66-1.25) mg/dL Est GFR (CKD-EPI)AfAm 85 (>60 ml/min/1.73 sqM) Est GFR (CKD-EPI)NonAf 74 (>60 ml/min/1.73 sqM) Glucose 132 H (74-99) mg/dL Plasma Lactic Acid Nathaniel (0.7-2.0) mmol/L Calcium 9.7 (8.4-10.2) mg/dL Total Bilirubin 0.6 (0.2-1.3) mg/dL AST 22 (17-59) U/L ALT 15 (4-49) U/L Alkaline Phosphatase 68 (38-126) U/L Troponin I (0.000-0.034) ng/mL NT-Pro-B Natriuret Pep pg/mL Total Protein 6.7 (6.3-8.2) g/dL Albumin 3.9 (3.5-5.0) g/dL 03/25/21 03/25/21 03/25/21 Range/Units 09:27 09:27 09:27 WBC (3.8-10.6) k/uL RBC (4.30-5.90) m/uL Hgb (13.0-17.5) gm/dL Hct (39.0-53.0) % MCV (80.0-100.0) fL MCH (25.0-35.0) pg MCHC (31.0-37.0) g/dL RDW (11.5-15.5) % Plt Count (150-450) k/uL MPV Neutrophils % % Lymphocytes % % Monocytes % % Eosinophils % % Basophils % % Neutrophils # (1.3-7.7) k/uL Lymphocytes # (1.0-4.8) k/uL Monocytes # (0-1.0) k/uL Eosinophils # (0-0.7) k/uL Basophils # (0-0.2) k/uL Hypochromasia PT (9.0-12.0) sec INR (<1.2) APTT (22.0-30.0) sec D-Dimer (<0.60) mg/L FEU Sodium (137-145) mmol/L Potassium (3.5-5.1) mmol/L Chloride (98-107) mmol/L Carbon Dioxide (22-30) mmol/L Anion Gap mmol/L BUN (9-20) mg/dL Creatinine (0.66-1.25) mg/dL Est GFR (CKD-EPI)AfAm (>60 ml/min/1.73 sqM) Est GFR (CKD-EPI)NonAf (>60 ml/min/1.73 sqM) Glucose (74-99) mg/dL Plasma Lactic Acid Nathaniel 2.4 H* (0.7-2.0) mmol/L Calcium (8.4-10.2) mg/dL Total Bilirubin (0.2-1.3) mg/dL AST (17-59) U/L ALT (4-49) U/L Alkaline Phosphatase (38-126) U/L Troponin I <0.012 (0.000-0.034) ng/mL NT-Pro-B Natriuret Pep 348 pg/mL Total Protein (6.3-8.2) g/dL Albumin (3.5-5.0) g/dL Disposition Clinical Impression: Dyspnea, Chest pain Disposition: ADMITTED IP TO THIS HOSP Condition: Stable Is patient prescribed a controlled substance at d/c from ED?: No Referrals: Marco A Martin MD [Primary Care Provider] - 1-2 days Decision to Admit Reason: Admit from EC Decision Date: 03/25/21 Decision Time: 11:01
[2021-03-25 09:40] LABS: Basophils % (A) 0 %; Eosinophils # (A) 0.2 k/uL (0-0.7); Eosinophils % (A) 3 %; HGB 11.4 gm/dL (13.0-17.5); Hypochromasia Slight; Lymphocytes # (A) 1.3 k/uL (1.0-4.8); Lymphocytes % (A) 16 %; MCH 26.2 pg (25.0-35.0); MCHC 31.8 g/dL (31.0-37.0); MCV 82.4 fL (80.0-100.0); Mean Platelet Volume 7.1; Monocytes # (A) 0.5 k/uL (0-1.0); Monocytes % (A) 7 %; Neutrophils # (A) 5.6 k/uL (1.3-7.7); Neutrophils % (A) 71 %; Platelet Count 456 k/uL (150-450); RBC 4.37 m/uL (4.30-5.90); RDW 13.3 % (11.5-15.5); WBC 7.8 k/uL (3.8-10.6)
[2021-03-25 09:52] LABS: Albumin 3.9 g/dL (3.5-5.0); Calcium 9.7 mg/dL (8.4-10.2); Potassium 4.7 mmol/L (3.5-5.1); Total Bilirubin 0.6 mg/dL (0.2-1.3); Total Protein 6.7 g/dL (6.3-8.2)
[2021-03-25 09:58] LABS: Partial Thromboplastin Time 24.5 sec (22.0-30.0); Prothrombin Time 10.9 sec (9.0-12.0)
--- NOTE | 2021-03-25 10:27 | XR ---
EXAMINATION TYPE: XR chest 2V DATE OF EXAM: 03/25/2021 COMPARISON: 02/27/2021 INDICATION: Difficulty breathing short of breath TECHNIQUE: Frontal and lateral views of the chest are obtained. FINDINGS: The heart size is normal. The pulmonary vasculature is normal. There is a 1.0 cm nodular type density at the lateral right lung base may be a nipple shadow. Repeat chest x-ray with nipple markers is recommended. This is an interval finding. Underlying nodule is not excluded. IMPRESSION: 1. 1 cm nodule may be a nipple shadow. Repeat frontal chest with nipple markers is recommended. 2. An acute pulmonary process not otherwise evident.
[2021-03-25] MEDS ORDERED: ACETAMINOPHEN TAB 325 MG TAB PO PRN (10:59)
[2021-03-25] MEDS ORDERED: NALOXONE 0.4 MG/ML 1 ML VIAL IV PRN (10:59)
--- NOTE | 2021-03-25 12:13 | P.HPIM ---
<Omar Huerta - Last Filed: 03/25/21 14:18> History of Present Illness H&P Date: 03/25/21 History of Presenting Illness: Patient is a very pleasant 70-year-old male with a past medical history of CAD, hypertension, hyperlipidemia, chronic atrial fibrillation on anticoagulation w ith Eliquis and status post recent ablation, and GERD. Patient presented to the hospital with a chief complaint of chest pain, shortness of breath, and lightheadedness. Patient reports that over the past 6 weeks he has experienced progressively worsening dyspnea with exertion and has underwent an extensive cardiac workup including an echocardiogram 02/10/21 showing an EF of 55-60% with no significant valvular abnormalities. Cardiac catheterization on 02/15/21 showing mild CAD with 30% stenosis to RCA and circumflex in which cardiology recommended aggressive risk factor modification and continued medical management. He reports despite echocardiogram and cardiac catheterization he continued to have progressively worsening dyspnea with exertion. Patient reports in addition to this he reports having significant orthopnea and reports that he has been waking up in the middle of the night unable to catch his breath and feeling as though he is drowning in his own secretions. Patient reports he came to the emergency department this morning because when he woke up not only was he feeling the same shortness of breath and feeling as though he was drowning this was also accompanied by chest pain and dizziness/lightheadedness. Upon arrival to the emergency department patient was seen and fully evaluated. His vital signs were stable, his SpO2 was 100% on room air. EKG was completed showing normal sinus rhythm at 63 bpm with no noted T-wave or ST abnormalities. Chest x-ray revealed findings suggestive of a 1 cm nodule likely secondary to nipple shadow. Labs completed with CBC showing mild normocytic normochromic anemia with hemoglobin of 11.4 and thrombocytosis with platelet count of 456. D-dimer was normal findings is 0.24 and troponin negative at less than 0.012. BMP was unremarkable and initial lactic acid was 2.4 resolving after treatment of fluids to 1.6. Covid PCR was negative and patient reports receiving both vaccinations. Patient was admitted to our services with consultation to cardiology as well as pulmonology. Upon examination, patient denied having any headache, lightheadedness, dizziness, changes in vision or hearing, currently feeling any chest pain or palpitations and states shortness of breath improves when he is sitting up but returns with movement or lying down. Review of systems: Pertinent positives and negatives as discussed in HPI, a complete review of systems was performed and all other systems are negative. Physical exam: Vital signs reviewed and stable. General: Nontoxic, no distress and appears stated age. Derm: Skin warm and dry, normal coloration for ethnicity. Head: Atraumatic, normocephalic and symmetric. Eyes: EOMs intact, no lid lag, and anicteric sclera Mouth: no lip lesions, mucus membranes moist Cardiovascular: Regular rate and rhythm with normal S1S2, no murmur, positive posterior tibial pulses bilaterally, and cap refill < 2 seconds. Lungs: Respirations even, regular, and unlabored on room air. Lungs CTA bilaterally, no rhonchi, no rales, no wheezing, and no accessory muscle usage. Abdominal: soft, nontender to palpation, no guarding, no appreciable organomegaly Ext: ROM intact. No gross muscle atrophy, no edema, no contractures Neuro: Speech clear, face symmetrical and CN II-XII grossly intact with no noted focal neuro deficits Psych: Alert and oriented to person, place, time, and situation. Appropriate and pleasant affect. Assessment and Plan of Care: Chest pain and progressively worsening dyspnea with exertion -EKG was completed showing normal sinus rhythm at 63 bpm with no noted T-wave or ST abnormalities. -Troponin negative at less than 0.012, we will continue to trend. -Consult to cardiology, appreciate further recommendations -Recent Echocardiogram revealing an EF of 55-60 % with no significant valvular abnormalities. -Recent cardiac cath 02/15/21 showing mild CAD with 30% stenosis to RCA and circumflex in which cardiology recommended aggressive risk factor modification and continued medical management. -Continue daily aspirin, Eliquis, atorvastatin, and flecainide. -Continuous telemetry monitoring Orthopnea -Possibly underlying undiagnosed sleep apnea -Consult placed to pulmonology -Patient will likely need to follow up outpatient with counter server for PFTs Hypertension -Monitor vital signs and continue daily medication regimen with flecainide 50 mg every 12 hours. Hyperlipidemia -Continue daily medication regimen with atorvastatin 20 mg nightly. Chronic atrial fibrillation on anticoagulation with Eliquis and status post recent ablation -Continue daily medication regimen with Eliquis for anticoagulation and fl ecainide for rate/rhythm control. GERD -GI prophylaxis with 40 mg Protonix daily . The patient is admitted with an anticipated less than 2 midnight stay for evaluation of chest pain, dyspnea with exertion, and orthopnea. CODE STATUS: Full code DVT prophylaxis: Eliquis Discussed with: Patient and RN Anticipated discharge date: 1-[address]: Home A total of 45 minutes was spent on the care of this complex patient more than 50% of the time was spent in counseling and care coordination. Past Medical History Past Medical History: Atrial Fibrillation, Cancer, Hypertension, Prostate Disorder Additional Past Medical History / Comment(s): CHRONIC LOW BACK PAIN. Prostate cancer, skin cancer, kidney stone. History of Any Multi-Drug Resistant Organisms: None Reported Past Surgical History: Appendectomy, Bariatric Surgery, Cholecystectomy, Orthopedic Surgery Additional Past Surgical History / Comment(s): cervical sx with titanium rods, Colonoscopy, lap band, rt clavical reduction, Prostatectomy, SKIN CA REMOVED, pain procedures at [facility] PROCEDURES, heart ablation Past Anesthesia/Blood Transfusion Reactions: No Reported Reaction Additional Past Anesthesia/Blood Transfusion Reaction / Comment(s): VERTIGO Past Psychological History: Depression Smoking Status: Former smoker Past Alcohol Use History: None Reported Past Drug Use History: None Reported - Past Family History Father Family Medical History: Myocardial Infarction ([place]) Mother Additional Family Medical History / Comment(s): MAC DEGENERATION, HEART PROBLEMS Medications and Allergies Home Medications Medication Instructions Recorded Confirmed Type Apixaban [Eliquis] 5 mg PO BID #180 tab 04/17/19 03/25/21 Rx Ferrous Sulfate [Iron (65 MG 325 mg PO Q96H 10/13/20 03/25/21 History Elemental)] Multivitamins, Thera [Multivitamin 1 tab PO DAILY 10/13/20 03/25/21 History (formulary)] Atorvastatin Calcium [Lipitor] 20 mg PO HS 01/25/21 03/25/21 History Budesonide/Formoterol Fumarate 2 puff INHALATION RT-BID 02/09/21 03/25/21 History [Symbicort 160-4.5 Mcg Inhaler] Cyanocobalamin (Vitamin B-12) 1,000 mcg PO DAILY 03/02/21 03/25/21 History [Vitamin B-12] Flecainide [Tambocor] 50 mg PO Q12HR 03/02/21 03/25/21 History Pantoprazole [Protonix] 40 mg PO DAILY 03/02/21 03/25/21 History Ubidecarenone [Co Q-10] 100 mg PO DAILY 03/02/21 03/25/21 History Colchicine [Colcrys] 0.6 mg PO DAILY #7 each 03/08/21 03/25/21 Rx Penicillin V Potassium [Pen Vee K] 500 mg PO QID 03/25/21 03/25/21 History Allergies Allergy/AdvReac Type Severity Reaction Status Date / Time morphine AdvReac Nausea & Verified 03/25/21 10:36 Vomiting Physical Exam Vitals: Vital Signs Temp Pulse Resp BP Pulse Ox 03/25/21 08:55 97.5 F L 75 24 153/83 100 Intake and Output 03/24/21 03/25/21 03/25/21 22:59 06:59 14:59 Other: Weight 99.79 kg Results CBC & Chem 7: 03/25/21 09:27 03/25/21 09:27 Labs: Abnormal Lab Results - Last 24 Hours (Table) 03/25/21 03/25/21 03/25/21 Range/Units 09:27 09:27 09:27 Hgb 11.4 L (13.0-17.5) gm/dL Hct 36.0 L (39.0-53.0) % Plt Count 456 H (150-450) k/uL Carbon Dioxide 21 L (22-30) mmol/L Glucose 132 H (74-99) mg/dL Plasma Lactic Acid Nathaniel 2.4 H* (0.7-2.0) mmol/L <Chevy Olea - Last Filed: 03/25/21 18:29> Physical Exam Osteopathic Statement: *. No significant issues noted on an osteopathic structural exam other than those noted in the History and Physical/Consult. Vitals: Vital Signs Temp Pulse Resp BP Pulse Ox 03/25/21 15:00 78 18 132/77 100 03/25/21 14:00 77 18 100 03/25/21 13:00 74 18 100 03/25/21 12:19 74 18 121/71 100 03/25/21 08:55 97.5 F L 75 24 153/83 100 Intake and Output 03/25/21 03/25/21 03/25/21 06:59 14:59 22:59 Other: Weight 99.79 kg Results CBC & Chem 7: 03/25/21 09:27 03/25/21 09:27 Labs: Abnormal Lab Results - Last 24 Hours (Table) 03/25/21 03/25/21 03/25/21 Range/Units 09: 09: 09:27 Hgb 11.4 L (13.0-17.5) gm/dL Hct 36.0 L (39.0-53.0) % Plt Count 456 H (150-450) k/uL Carbon Dioxide 21 L (22-30) mmol/L Glucose 132 H (74-99) mg/dL Plasma Lactic Acid Nathaniel 2.4 H* (0.7-2.0) mmol/L Assessment and Plan Assessment: Patient seen and evaluated by me independently. Patient was also seen by ISABEL, the original author of this note. I am in agreement with the subjective, physical exam, and assessment and plan as documented with the addition/changes of my exam and assessment below. Gen: awake, alert HEENT: normocephalic, atraumatic, good hearing acuity, moist mucous membranes Resp: good air exchange, breathing comfortably with no accessory muscle use CVS: good distal perfusion x 4, GI: soft, NTTP, ND : no SPT, no CVAT, tripathi catheter not present MSK: no pitting edema, no clubbing Neuro: non-focal, moving all extremities Psych: cooperative, euthymic mood Plan: admit to observation, telemetry Rule out cardiac event Patient will need pulmonary function tests and sleep study
--- NOTE | 2021-03-25 13:37 | P.CNPUL ---
History of Present Illness Consult date: 03/25/21 Requesting physician: Chevy Olea Reason for consult: other (Orthopnea, lung nodule) Chief complaint: Chest pain History of present illness: This is a 70-year-old white male with history of chronic atrial fibrillation, history of ablation, patient presented to the hospital with an acute episode of dyspnea and mild chest pressure over the sternum, symptoms started early this morning as the patient woke up, he felt sudden chest pressure, dyspnea, and felt lightheaded. Patient had recent cryoablation of the pulmonary veins 2 weeks ago, and he was discharged home on 03/16/2021. Patient had previous history of nonobstructive coronary artery disease with intermittent symptoms of unstable angina. Last cardiac catheterization on 02/16 showed nonobstructive coronary artery disease. And recent echocardiogram showed good LV function. Again the patient does have history of chronic atrial fibrillation, and recent ablation was done. He was maintained on flecainide twice a day, and he discontinued his Cardizem and Rythmol after his last ablation. Patient is maintained on anticoagulation therapy. Chest x-ray on admission questioned a small tiny right lower lobe nodule less than 1 cm, was not present on a chest x-ray from a month ago, hence I feel the nodule is most likely and a shadow, and I will recommend repeat x-ray of the chest with nipple markers. Patient had remote [id number] smoking history, however he quit many years ago. He had no active pulmonary symptoms except for this recent episode of shortness of breath and chest pressure. Denies any cough, no wheezing, denies any fever no chills and or hemoptysis troponin on this admission was relatively normal repeat troponin was also normal and his BNP level was normal. Chest x-ray was also unremarkable except for this questionable right lower lobe nodule, again highly suspicious for being a nipple shadow. Even if the patient truly has lung nodule, this would have to be monitored on outpatient basis and the patient will eventually need CT of the chest and close monitoring on outpatient basis. Review of Systems CONSTITUTIONAL: Denies fever or chills. CARDIOVASCULAR: As noted in HPI. RESPIRATORY: Denies cough wheezing shortness of breath GASTROINTESTINAL: Denies abdominal pain, diarrhea, constipation, nausea or vomiting. MUSCULOSKELETAL: Denies myalgias. NEUROLOOn Lightheadedness earlier today as noted in HPI. Genitourinary: Denies burning, hematuria or urgency with micturation. HEMATOLOGIC: Denies history of anemia or bleeding. patient is maintained on anticoagulation therapy for atrial fibrillation. psychiatric: Negative. skin: Negative Past Medical History Past Medical History: Atrial Fibrillation, Cancer, Hypertension, Prostate Disorder Additional Past Medical History / Comment(s): CHRONIC LOW BACK PAIN. Prostate cancer, skin cancer, kidney stone. History of Any Multi-Drug Resistant Organisms: None Reported Past Surgical History: Appendectomy, Bariatric Surgery, Cholecystectomy, Orthopedic Surgery Additional Past Surgical History / Comment(s): cervical sx with titanium rods, Colonoscopy, lap band, rt clavical reduction, Prostatectomy, SKIN CA REMOVED, pain procedures at [facility] PROCEDURES, heart ablation Past Anesthesia/Blood Transfusion Reactions: No Reported Reaction Additional Past Anesthesia/Blood Transfusion Reaction / Comment(s): VERTIGO Past Psychological History: Depression Smoking Status: Former smoker Past Alcohol Use History: None Reported Past Drug Use History: None Reported - Past Family History Father Family Medical History: Myocardial Infarction ([place]) Mother Additional Family Medical History / Comment(s): MAC DEGENERATION, HEART PROBLEMS Medications and Allergies Home Medications Medication Instructions Recorded Confirmed Type Apixaban [Eliquis] 5 mg PO BID #180 tab 04/17/19 03/25/21 Rx Ferrous Sulfate [Iron (65 MG 325 mg PO Q96H 10/13/20 03/25/21 History Elemental)] Multivitamins, Thera [Multivitamin 1 tab PO DAILY 10/13/20 03/25/21 History (formulary)] Atorvastatin Calcium [Lipitor] 20 mg PO HS 01/25/21 03/25/21 History Budesonide/Formoterol Fumarate 2 puff INHALATION RT-BID 02/09/21 03/25/21 History [Symbicort 160-4.5 Mcg Inhaler] Cyanocobalamin (Vitamin B-12) 1,000 mcg PO DAILY 03/02/21 03/25/21 History [Vitamin B-12] Flecainide [Tambocor] 50 mg PO Q12HR 03/02/21 03/25/21 History Pantoprazole [Protonix] 40 mg PO DAILY 03/02/21 03/25/21 History Ubidecarenone [Co Q-10] 100 mg PO DAILY 03/02/21 03/25/21 History Colchicine [Colcrys] 0.6 mg PO DAILY #7 each 03/08/21 03/25/21 Rx Penicillin V Potassium [Pen Vee K] 500 mg PO QID 03/25/21 03/25/21 History Allergies Allergy/AdvReac Type Severity Reaction Status Date / Time morphine AdvReac Nausea & Verified 03/25/21 10:36 Vomiting Physical Exam Vitals: Vital Signs Temp Pulse Resp BP Pulse Ox 03/25/21 12:19 74 18 121/71 100 03/25/21 08:55 97.5 F L 75 24 153/83 100 Intake and Output 03/24/21 03/25/21 03/25/21 22:59 06:59 14:59 Other: Weight 99.79 kg Physical Exam: Revealed 70-year-old white male in no distress. Head: Atraumatic, normocephalic. HEENT:[Neck is supple.] [No neck masses.] [No thyromegaly.] [No JVD.] Chest: [Clear throughout, no crackles, no rhonchi, no wheezes.] Cardiac Exam: [Normal S1 and S2, no S3 gallop, no murmur.] Abdomen: [Soft, nontender, no megaly, no rebound, no guarding, normal bowel sounds.] Extremities: [No clubbing, no edema, no cyanosis.] Neurological Exam: [No focal neurologic deficit.] Alert oriented 3. Psychiatric: Normal mood, affect and normal mental status examination. Skin: No rashes. Results - Laboratory Findings CBC and BMP: 03/25/21 09:27 03/25/21 09:27 PT/INR, D-dimer PT 10.9 sec (9.0-12.0) 03/25/21 09: INR 1.0 (<1.2) 03/25/21 09:27 D-Dimer 0.24 mg/L FEU (<0.60) 03/25/21 09:27 Abnormal lab findings: Abnormal Labs 03/25/21 03/25/21 03/25/21 09:27 09:27 09:27 Hgb 11.4 L Hct 36.0 L Plt Count 456 H Carbon Dioxide 21 L Glucose 132 H Plasma Lactic Acid Nathaniel 2.4 H* - Diagnostic Findings Chest x-ray: image reviewed (As noted in HPI.) Assessment and Plan Assessment: Impression: Chest pain, cardiac in nature unless for otherwise. Possibly related to intermittent episodes of atrial fibrillation and RVR. History of nonobstructive coronary artery disease. Paroxysmal atrial fibrillation. Status post recent ablation. Nonspecific right lower lobe nodule, suggest repeating chest x-ray with nipple markers. This nodule was not present on a chest x-ray from a month ago. Benign essential hypertension. History of brain aneurysm. History of bariatric surgery. Former smoker. Recommendation: Continue treatment plan as per cardiology. A shunt is yet to be seen by cardiology. Repeat chest x-ray with nipple markers. If the nodule is truly present, would recommend outpatient follow-up and CT of the chest which could also be done on outpatient basis. Will reevaluate the patient on when necessary basis. Time with Patient: Greater than 30
[2021-03-25] MEDS: SYMBICORT 160-4.5 MCG INHALER INHALATION SCH (19:55)
[2021-03-25] MEDS ORDERED: ATORVASTATIN 20 MG TAB PO SCH (21:00)
[2021-03-25] MEDS: FLECAINIDE 50 MG TAB PO SCH (21:20)
[2021-03-25] MEDS: APIXABAN 5 MG TAB PO SCH (21:20)
[2021-03-25 23:46] VITALS: RESP 18
[2021-03-26] MEDS ORDERED: PANTOPRAZOLE 40 MG TABLET PO SCH (07:30)
--- NOTE | 2021-03-26 07:39 | XR ---
EXAMINATION TYPE: XR chest 2V DATE OF EXAM: 03/26/2021 COMPARISON: 03/25/2021 HISTORY: 70 years Male. STUDY INDICATION GIVEN: rt lung nodule . TECHNIQUE: Frontal lateral chest radiographs IMPRESSION: Previously described 1 cm nodule is not well demonstrated on this study. Bilateral nipple markers are noted. Minimal bibasilar subsegmental atelectasis. No significant change. No focal airspace disease, pneumothorax or pleural effusion identified. The cardiomediastinal silhoue tte is normal. No acute osseous abnormality.
[2021-03-26] MEDS: APIXABAN 5 MG TAB PO SCH (08:16)
[2021-03-26] MEDS: FLECAINIDE 50 MG TAB PO SCH (08:18)
[2021-03-26] MEDS: COLCHICINE 0.6 MG EACH PO SCH ×2 (08:21→08:23)
[2021-03-26] MEDS ORDERED: MULTIVITAMINS, THERA 1 EACH TAB PO SCH (09:00)
[2021-03-26] MEDS ORDERED: ASPIRIN 81 MG PO SCH (09:00)
[2021-03-26] MEDS ORDERED: CYANOCOBALAMIN 500 MCG TAB PO SCH (09:00)
[2021-03-26] MEDS: SYMBICORT 160-4.5 MCG INHALER INHALATION SCH (09:10)
[2021-03-26 11:41] LABS: HCT 33.3 % (39.6-50.0); HGB 9.9 g/dL (13.0-17.0); MCH 25.1 pg (27.0-32.0); MCHC 29.7 g/dL (32.0-37.0); MCV 84.5 fL (80.0-97.0); Mean Platelet Volume 9.6 fL (9.5-12.2); Platelet Count 371 X 10*3/uL (140-440); RBC 3.94 X 10*6/uL (4.40-5.60); RDW 13.3 % (11.5-14.5); WBC 6.75 X 10*3/uL (4.50-10.00)
[2021-03-26 11:54] LABS: African American GFR (CKD) 77.9 (60.0-200.0); Anion Gap 9.3 mmol/L (4.00-12.00); BUN/Creat Ratio 18.18 Ratio (12.00-20.00); Calcium 8.8 mg/dL (8.7-10.3); Carbon Dioxide 24.7 mmol/L (21.6-31.8); Non-African American GFR(CKD) 67.2 (60.0-200.0); Potassium 4.5 mmol/L (3.5-5.5)
[2021-03-26] MEDS ORDERED: MAG HYDROX/AL HYDROX/SIMETH 30 ML, HYOSCYAMINE ELIXIR 10 ML, LIDOCAINE VISCOUS 2% 10 ML PO ONE ×3 (12:00)
[2021-03-26 14:32] VITALS: BP 144/79; PULSE 69; TEMP 98.5
--- NOTE | 2021-03-26 16:36 | P.DS ---
<Omar Huerta - Last Filed: 03/26/21 16:37> Providers Expected date of discharge: 03/26/21 Hospital Course: Discharge Diagnosis: Chest pain, acute coronary event ruled out GERD Orthopnea and reports of waking up choking, likely resulting from reflux as these symptoms completely resolved with GI cocktail Hypertension Hyperlipidemia Chronic atrial fibrillation on anticoagulation with Eliquis and status post recent ablation Hospital Course: Patient is a very pleasant 70-year-old male with a past medical history of CAD, hypertension, hyperlipidemia, chronic atrial fibrillation on anticoagulation wi th Eliquis and status post recent ablation, and GERD. Patient presented to the hospital with a chief complaint of chest pain, shortness of breath, and lightheadedness. Patient reports that over the past 6 weeks he has experienced progressively worsening dyspnea with exertion and has underwent an extensive cardiac workup including an echocardiogram 02/10/21 showing an EF of 55-60% with no significant valvular abnormalities. Cardiac catheterization on 02/15/21 showing mild CAD with 30% stenosis to RCA and circumflex in which cardiology recommended aggressive risk factor modification and continued medical management. He reports despite echocardiogram and cardiac catheterization he continued to have progressively worsening dyspnea with exertion. Patient reports in addition to this he reports having significant orthopnea and reports that he has been waking up in the middle of the night unable to catch his breath and feeling as though he is drowning in his own secretions. Patient reports he came to the emergency department this morning because when he woke up not only was he feeling the same shortness of breath and feeling as though he was drowning this was also accompanied by chest pain and dizziness/lightheadedness. Upon arrival to the emergency department patient was seen and fully evaluated. His vital signs were stable, his SpO2 was 100% on room air. EKG was completed showing normal sinus rhythm at 63 bpm with no noted T-wave or ST abnormalities. Chest x-ray revealed findings suggestive of a 1 cm nodule likely secondary to nipple shadow. Labs completed with CBC showing mild normocytic normochromic anemia with hemoglobin of 11.4 and thrombocytosis with platelet count of 456. D-dimer was normal findings is 0.24 and troponin negative at less than 0.012. BMP was unremarkable and initial lactic acid was 2.4 resolving after treatment of fluids to 1.6. Covid PCR was negative and patient reports receiving both vaccinations. Patient was admitted to our services with consultation to cardiology as well as pulmonology. Patient continued to have persistent complaints of dyspnea, shakiness, and nausea and waking up choking each time he lied down. Concerns for underlying obstructive sleep apnea versus GERD. Orders placed for GI cocktail consisting of Maalox, hyoscyamine, and viscous lidocaine. This resulted in complete resolution of patient's symptoms. Case was discussed with cardiology whom stated patient cleared for discharge home and may follow up in office outpatient. Patient started on Protonix 40 mg twice a day along with Carafate ACHS. Patient educated on the importance of staying upright for 2 hours after meals and maintaining heart healthy and low fat diet. Patient instructed he will need to follow up outpatient with GI specialist, Dr. Charles on Sunday. Patient is also scheduled for Sleep study on 04/03/21. Physical exam: Vital signs reviewed and stable. General: Nontoxic, no distress and appears stated age. Derm: Skin warm and dry, normal coloration for ethnicity. Head: Atraumatic, normocephalic and symmetric. Eyes: EOMs intact, no lid lag, and anicteric sclera Mouth: no lip lesions, mucus membranes moist Cardiovascular: Regular rate and rhythm with normal S1S2, no murmur, positive posterior tibial pulses bilaterally, and cap refill < 2 seconds. Lungs: Respirations even, regular, and unlabored on room air. Lungs CTA bilaterally, no rhonchi, no rales, no wheezing, and no accessory muscle usage. Abdominal: soft, nontender to palpation, no guarding, no appreciable organ omegaly Ext: ROM intact. No gross muscle atrophy, no edema, no contractures Neuro: Speech clear, face symmetrical and CN II-XII grossly intact with no noted focal neuro deficits Psych: Alert and oriented to person, place, time, and situation. Appropriate and pleasant affect. A total of 45 minutes of time were spent preparing this complex discharge summary. Patient Condition at Discharge: Stable Plan - Discharge Summary Discharge Rx Participant: No New Discharge Prescriptions: New Sucralfate [Carafate] 1 gm PO ACHS 30 Days #1 pack Continue Apixaban [Eliquis] 5 mg PO BID #180 tab Multivitamins, Thera [Multivitamin (formulary)] 1 tab PO DAILY Ubidecarenone [Co Q-10] 100 mg PO DAILY Flecainide [Tambocor] 50 mg PO Q12HR Colchicine [Colcrys] 0.6 mg PO DAILY #7 each Ferrous Sulfate [Iron (65 MG Elemental)] 325 mg PO Q96H Atorvastatin Calcium [Lipitor] 20 mg PO HS Budesonide/Formoterol Fumarate [Symbicort 160-4.5 Mcg Inhaler] 2 puff INHALATION RT-BID Cyanocobalamin (Vitamin B-12) [Vitamin B-12] 1,000 mcg PO DAILY Changed Pantoprazole [Protonix] 40 mg PO BID 30 Days #60 tab No Action Penicillin V Potassium [Pen Vee K] 500 mg PO QID Discharge Medication List Apixaban [Eliquis] 5 mg PO BID #180 tab 04/17/19 [Rx] Ferrous Sulfate [Iron (65 MG Elemental)] 325 mg PO Q96H 10/13/20 [History] Multivitamins, Thera [Multivitamin (formulary)] 1 tab PO DAILY 10/13/20 [History] Atorvastatin Calcium [Lipitor] 20 mg PO HS 01/25/21 [History] Budesonide/Formoterol Fumarate [Symbicort 160-4.5 Mcg Inhaler] 2 puff INHALATION RT-BID 02/09/21 [History] Cyanocobalamin (Vitamin B-12) [Vitamin B-12] 1,000 mcg PO DAILY 03/02/21 [History] Flecainide [Tambocor] 50 mg PO Q12HR 03/02/21 [History] Ubidecarenone [Co Q-10] 100 mg PO DAILY 03/02/21 [History] Colchicine [Colcrys] 0.6 mg PO DAILY #7 each 03/08/21 [Rx] Penicillin V Potassium [Pen Vee K] 500 mg PO QID 03/25/21 [History] Pantoprazole [Protonix] 40 mg PO BID 30 Days #60 tab 03/26/21 [Rx] Sucralfate [Carafate] 1 gm PO ACHS 30 Days #1 pack 03/26/21 [Rx] Follow up Appointment(s)/Referral(s): Alvin Li DO [STAFF PHYSICIAN] - 1 Week Marco A Martin MD [Primary Care Provider] - 1-2 days Patricia Rushing MD [STAFF PHYSICIAN] - 1 Week Alvarez Charles MD [STAFF PHYSICIAN] - 1-2 Days (Please call Sunday morning as Dr. Charles stated he would like to see you in office sunday.) Patient Instructions/Handouts: Gastroesophageal Reflux Disease (DC), Dizziness (GEN) Activity/Diet/Wound Care/Special Instructions: Activity: As tolerated Diet: Heart healthy and low-fat diet Special Instructions: Please follow up outpatient for your sleep study as scheduled. You received significant improvement as expected when you received the GI cocktail as we discussed. You are being started on Protonix 40 mg twice daily. I recommend that you take this medication for 4-6 weeks prior to tapering down to one pill daily..in which you may discuss further with your GI specialist, Dr. Charles. In addition to taking this medication we are starting you on Carafate 1 g with meals and just before bedtime. These medications well help coat your stomach and aid in controlling your gastric reflux. It is also of high importance for you to remain upright after meals for a minimum of 2 hours prior to laying down. You may also benefit by sleeping with an additional pillow beneath your head to help elevate your head and further prevent reflux. Thank you for allowing us to participate in your care, it was truly a pleasure having you for our patient!!! Discharge Disposition: HOME SELF-CARE <Betsy Tong - Last Filed: 03/26/21 19:40> Providers Date of admission: 03/25/21 11:00 Attending physician: Chevy Olea MD Consults: 03/25/21 12:18 Consult Physician Routine Consulting Provider: Latoya Hunt Consult Reason/Comments: orthopnea, pt states cant sleep wakes up choking Do you want consulting provider notified?: Yes 03/25/21 12:19 Consult Physician Routine Consulting Provider: Biju Rojas Consult Reason/Comments: chest pain, progressively worsening dyspnea Do you want consulting provider notified?: Yes Primary care physician: [facility] Hospital Course: Omar Huerta NP rendered care for this patient independently, reviewed the findings and plan as documented in the note above. I did not physically speak with or examine the patient on this date.
[2021-03-29] MEDS ORDERED: FERROUS SULFATE 325 MG TAB PO SCH (09:00)
== END 2021-03-26 17:01 | disposition home or self-care (01) ==
LOC: EC 08:54 → 6NMEDSUR 11:00
PROVIDERS: ADMIT Internal Medicine; ATTEND Internal Medicine
DX: R07.89 Other chest pain (principal); K21.9 Gastro-esophageal reflux disease without esophagitis; E78.5 Hyperlipidemia, unspecified; F32.9 Major depressive disorder, single episode, unspecified; Z20.822 Contact with and (suspected) exposure to COVID-19; I10 Essential (primary) hypertension; I25.10 Atherosclerotic heart disease of native coronary artery without angina pectoris; I48.0 Paroxysmal atrial fibrillation; I48.20 Chronic atrial fibrillation, unspecified; Z79.01 Long term (current) use of anticoagulants; Z79.51 Long term (current) use of inhaled steroids; Z79.899 Other long term (current) drug therapy; Z82.49 Family history of ischemic heart disease and other diseases of the circulatory system; Z85.46 Personal history of malignant neoplasm of prostate; Z85.828 Personal history of other malignant neoplasm of skin; Z87.442 Personal history of urinary calculi; Z87.891 Personal history of nicotine dependence; Z98.84 Bariatric surgery status
CPT/HCPCS: 99285; 36415; 94640 ×2; 93005; 85379; 83880; 80053; 80048; 83605; 83735; 84484; 85025; 85027; 85610; 85730; 87635; 71046 ×2; G0378 ×2

== ENCOUNTER 2021-03-28 08:29 | Emergency (ER) | payer MEDICARE ==
[2021-03-28 08:33] VITALS: TEMP 97.5
[2021-03-28] MEDS ORDERED: LORazepam 2 MG/ML INJ IV STA (08:49)
--- NOTE | 2021-03-28 09:25 | ED ---
General Adult HPI - General Chief complaint: Shortness of Breath Stated complaint: SOB Time Seen by Provider: 03/28/21 08:40 Source: patient, RN notes reviewed, old records reviewed Mode of arrival: wheelchair Limitations: physical limitation - History of Present Illness Initial comments: This is a 70-year-old male who presents emergency department stating that he is short of breath. Patient states that occurred last week and then he was admitted to the hospital he went home on Sunday he felt good for 24 hours but this morning he woke up at 5:00 short of breath. Patient states while he was here cardiology told him he had nothing to do with his heart and the patient was told he had some gastric reflux and he should follow-up with Dr. Charles. Patient states while he was in the hospital he did get a GI cocktail didn't seem to make his symptoms resolved. Patient denies any fever chills or cough. Patient denies any chest pain. Patient denies any abdominal pain patient denies nausea vomiting diarrhea. - Related Data Home Medications Medication Instructions Recorded Confirmed Ferrous Sulfate [Iron (65 MG 325 mg PO Q96H 10/13/20 03/28/21 Elemental)] Multivitamins, Thera [Multivitamin 1 tab PO DAILY 10/13/20 03/28/21 (formulary)] Atorvastatin Calcium [Lipitor] 20 mg PO HS 01/25/21 03/28/21 Budesonide/Formoterol Fumarate 2 puff INHALATION RT-BID 02/09/21 03/28/21 [Symbicort 160-4.5 Mcg Inhaler] Cyanocobalamin (Vitamin B-12) 1,000 mcg PO DAILY 03/02/21 03/28/21 [Vitamin B-12] Flecainide [Tambocor] 50 mg PO Q12HR 03/02/21 03/28/21 Ubidecarenone [Co Q-10] 100 mg PO DAILY 03/02/21 03/28/21 Penicillin V Potassium [Pen Vee K] 500 mg PO QID 03/25/21 03/28/21 Previous Rx's Medication Instructions Recorded Apixaban [Eliquis] 5 mg PO BID #180 tab 04/17/19 Colchicine [Colcrys] 0.6 mg PO DAILY #7 each 03/08/21 Pantoprazole [Protonix] 40 mg PO BID 30 Days #60 tab 03/26/21 Sucralfate [Carafate] 1 gm PO ACHS 30 Days #1 pack 03/26/21 Allergies Allergy/AdvReac Type Severity Reaction Status Date / Time morphine AdvReac Nausea & Verified 03/28/21 10:06 Vomiting Review of Systems ROS Statement: Those systems with pertinent positive or pertinent negative responses have been documented in the HPI. ROS Other: All systems not noted in ROS Statement are negative. Past Medical History Past Medical History: Atrial Fibrillation, Cancer, Hypertension, Prostate Disorder Additional Past Medical History / Comment(s): CHRONIC LOW BACK PAIN. Prostate cancer, skin cancer, kidney stone. History of Any Multi-Drug Resistant Organisms: None Reported Past Surgical History: Appendectomy, Bariatric Surgery, Cholecystectomy, Orthopedic Surgery Additional Past Surgical History / Comment(s): cervical sx with titanium rods, Colonoscopy, lap band, rt clavical reduction, Prostatectomy, SKIN CA REMOVED, pain procedures at [facility] PROCEDURES, heart ablation Past Anesthesia/Blood Transfusion Reactions: No Reported Reaction Additional Past Anesthesia/Blood Transfusion Reaction / Comment(s): VERTIGO Past Psychological History: Depression Smoking Status: Former smoker Past Alcohol Use History: None Reported Past Drug Use History: None Reported - Past Family History Father Family Medical History: Myocardial Infarction ([place]) Mother Additional Family Medical History / Comment(s): MAC DEGENERATION, HEART PROBLEMS General Exam - General Exam Comments Initial Comments: GENERAL: Patient is well-developed and well-nourished. Patient is nontoxic and well- hydrated and is in mild distress. Patient appears to be very anxious ENT: Neck is soft and supple. No significant lymphadenopathy is noted. Oropharynx is clear. Moist mucous membranes. Neck has full range of motion without eliciting any pain. EYES: The sclera were anicteric and conjunctiva were pink and moist. Extraocular movements were intact and pupils were equal round and reactive to light. Eyelids were unremarkable. PULMONARY: Unlabored respirations. Good breath sounds bilaterally. No audible rales rhon chi or wheezing was noted. CARDIOVASCULAR: There is a regular rate and rhythm without any murmurs gallops or rubs. ABDOMEN: Soft and nontender with normal bowel sounds. SKIN: Skin is clear with no lesions or rashes and otherwise unremarkable. NEUROLOGIC: Patient is alert and oriented x3. Cranial nerves II through XII are grossly intact. Motor and sensory are also intact. Normal speech, volume and content. Symmetrical smile. MUSCULOSKELETAL: Normal extremities with adequate strength and full range of motion. No lower extremity swelling or edema. No calf tenderness. LYMPHATICS: No significant lymphadenopathy is noted PSYCHIATRIC: Moderately anxious Limitations: physical limitation Course Vital Signs 03/28/21 03/28/21 08:30 08:40 Temperature 97.5 F L Pulse Rate 79 Respiratory 22 22 Rate Blood Pressure 136/80 O2 Sat by Pulse 98 Oximetry Medical Decision Making - Medical Decision Making EKG shows sinus bradycardia 59 bpm UT interval is 172 QRS is 98 QT interval 446 QTC is 441. Patient's EKG shows no ST segment elevation or depression. Patient's chest x-ray shows no acute abnormality. I gave the patient half an Ativan and after that all the symptoms resolved. - Lab Data Result diagrams: 03/28/21 09:05 03/28/21 09:05 Lab Results 03/28/21 03/28/21 03/28/21 Range/Units 09:05 09:05 09:05 WBC 7.1 (3.8-10.6) k/uL RBC 4.07 L (4.30-5.90) m/uL Hgb 11.0 L (13.0-17.5) gm/dL Hct 32.6 L (39.0-53.0) % MCV 80.2 (80.0-100.0) fL MCH 27.0 (25.0-35.0) pg MCHC 33.6 (31.0-37.0) g/dL RDW 13.6 (11.5-15.5) % Plt Count 465 H (150-450) k/uL MPV 7.3 Neutrophils % 71 % Lymphocytes % 16 % Monocytes % 8 % Eosinophils % 3 % Basophils % 0 % Neutrophils # 5.1 (1.3-7.7) k/uL Lymphocytes # 1.1 (1.0-4.8) k/uL Monocytes # 0.5 (0-1.0) k/uL Eosinophils # 0.2 (0-0.7) k/uL Basophils # 0.0 (0-0.2) k/uL PT 10.8 (9.0-12.0) sec INR 1.0 (<1.2) APTT 23.5 (22.0-30.0) sec Sodium 139 (137-145) mmol/L Potassium 4.4 (3.5-5.1) mmol/L Chloride 110 H (98-107) mmol/L Carbon Dioxide 20 L (22-30) mmol/L Anion Gap 9 mmol/L BUN 23 H (9-20) mg/dL Creatinine 0.99 (0.66-1.25) mg/dL Est GFR (CKD-EPI)AfAm 88 (>60 ml/min/1.73 sqM) Est GFR (CKD-EPI)NonAf 76 (>60 ml/min/1.73 sqM) Glucose 129 H (74-99) mg/dL Plasma Lactic Acid Nathaniel (0.7-2.0) mmol/L Calcium 9.4 (8.4-10.2) mg/dL Total Bilirubin 0.7 (0.2-1.3) mg/dL AST 25 (17-59) U/L ALT 15 (4-49) U/L Alkaline Phosphatase 60 (38-126) U/L Troponin I (0.000-0.034) ng/mL Total Protein 6.4 (6.3-8.2) g/dL Albumin 3.7 (3.5-5.0) g/dL 03/28/21 03/28/21 Range/Units 09:05 09:05 WBC (3.8-10.6) k/uL RBC (4.30-5.90) m/uL Hgb (13.0-17.5) gm/dL Hct (39.0-53.0) % MCV (80.0-100.0) fL MCH (25.0-35.0) pg MCHC (31.0-37.0) g/dL RDW (11.5-15.5) % Plt Count (150-450) k/uL MPV Neutrophils % % Lymphocytes % % Monocytes % % Eosinophils % % Basophils % % Neutrophils # (1.3-7.7) k/uL Lymphocytes # (1.0-4.8) k/uL Monocytes # (0-1.0) k/uL Eosinophils # (0-0.7) k/uL Basophils # (0-0.2) k/uL PT (9.0-12.0) sec INR (<1.2) APTT (22.0-30.0) sec Sodium (137-145) mmol/L Potassium (3.5-5.1) mmol/L Chloride (98-107) mmol/L Carbon Dioxide (22-30) mmol/L Anion Gap mmol/L BUN (9-20) mg/dL Creatinine (0.66-1.25) mg/dL Est GFR (CKD-EPI)AfAm (>60 ml/min/1.73 sqM) Est GFR (CKD-EPI)NonAf (>60 ml/min/1.73 sqM) Glucose (74-99) mg/dL Plasma Lactic Acid Nathaniel 1.5 (0.7-2.0) mmol/L Calcium (8.4-10.2) mg/dL Total Bilirubin (0.2-1.3) mg/dL AST (17-59) U/L ALT (4-49) U/L Alkaline Phosphatase (38-126) U/L Troponin I <0.012 (0.000-0.034) ng/mL Total Protein (6.3-8.2) g/dL Albumin (3.5-5.0) g/dL Disposition Clinical Impression: Anxiety Disposition: HOME SELF-CARE Condition: Good Instructions (If sedation given, give patient instructions): Anxiety (ED) Is patient prescribed a controlled substance at d/c from ED?: No Referrals: Marco A Martin MD [Primary Care Provider] - 1-2 days Time of Disposition: 10:38
[2021-03-28 09:37] LABS: Albumin 3.7 g/dL (3.5-5.0); Calcium 9.4 mg/dL (8.4-10.2); Potassium 4.4 mmol/L (3.5-5.1); Total Bilirubin 0.7 mg/dL (0.2-1.3); Total Protein 6.4 g/dL (6.3-8.2)
[2021-03-28 09:40] LABS: Partial Thromboplastin Time 23.5 sec (22.0-30.0); Prothrombin Time 10.8 sec (9.0-12.0)
[2021-03-28 09:42] LABS: Basophils % (A) 0 %; Eosinophils # (A) 0.2 k/uL (0-0.7); Eosinophils % (A) 3 %; HCT 32.6 % (39.0-53.0); Lymphocytes # (A) 1.1 k/uL (1.0-4.8); Lymphocytes % (A) 16 %; MCHC 33.6 g/dL (31.0-37.0); MCV 80.2 fL (80.0-100.0); Mean Platelet Volume 7.3; Monocytes # (A) 0.5 k/uL (0-1.0); Monocytes % (A) 8 %; Neutrophils # (A) 5.1 k/uL (1.3-7.7); Neutrophils % (A) 71 %; Platelet Count 465 k/uL (150-450); RBC 4.07 m/uL (4.30-5.90); RDW 13.6 % (11.5-15.5); WBC 7.1 k/uL (3.8-10.6)
--- NOTE | 2021-03-28 10:03 | XR ---
EXAMINATION TYPE: XR chest 2V DATE OF EXAM: 03/28/2021 COMPARISON: 03/26/2021 HISTORY: 70-year-old male shortness of breath, difficulty breathing TECHNIQUE: PA and lateral views FINDINGS: Posterior cervical fusion hardware. Heart normal size. Some strandy atelectasis in the lower lungs. M ild hyperinflation. No ailyn consolidation or pleural effusion. IMPRESSION: Correlate for underlying COPD. There is some strandy basilar atelectasis but without acute process ot herwise seen.
[2021-03-28 10:47] VITALS: BP 164/86; PULSE 63; RESP 16
== END 2021-03-28 10:58 | disposition home or self-care (01) ==
LOC: EC 08:29
DX: F41.9 Anxiety disorder, unspecified (principal); R06.02 Shortness of breath; I10 Essential (primary) hypertension; I48.91 Unspecified atrial fibrillation; K21.9 Gastro-esophageal reflux disease without esophagitis; Z79.01 Long term (current) use of anticoagulants; Z87.891 Personal history of nicotine dependence; Z88.5 Allergy status to narcotic agent; Z79.899 Other long term (current) drug therapy
CPT/HCPCS: 36415; 93005; 80053; 83605; 84484; 85025; 85610; 85730; 71046; 99285; 96374; J2060

== ENCOUNTER → 2021-03-28 | Outpatient (CLI) | payer MEDICARE ==
[2021-03-28 13:47] VITALS: BP 146/84; PULSE 78; TEMP 98.1; BMI 33.7
[2021-03-28 13:56] VITALS: RESP 22
--- NOTE | 2021-03-28 14:37 | FL ---
GASTRIC BANDING ESOPHAGRAM CLINICAL HISTORY: Pain Gastric banding esophagram was performed. The patient ingested thin liquid barium without difficulty or delay. Gastric band is noted to be in place. There is no evidence for leak or obstruction. No prolapse is identified. Small reducible hiatal hernia identified. IMPRESSION: Normal-appearing gastric banding device without leak or obstruction. Small reducible hiatal hernia i dentified.
--- NOTE | 2021-03-29 12:43 | P.HPBAR ---
Bariatric H&P - History & Physicial H&P Date: 03/28/21 History & Physicial: Visit/CC: lap band follow up Patient initial contact: Initial weight: 140.614 kg Initial weight in pounds: 310.00 Height: 5 ft 8 in Initial BMI: 47.1 Last weight: Current weight: 100.698 kg Current weight in pounds: 222.00 Current BMI: 33.7 Faber body weight (based on NIH guidelines): 69.853 kg Excess body weight loss: 56.4% The patient is a 70 year-old M who presents for Bariatric Assessment. Patient's had complaints of some chest pressure and pain. He's been worked up by cardiology. Apparently the pain is noncardiac in nature. He denies any significant dysphagia. He's had some epigastric abdominal pain. Past Medical History Past Medical History: Atrial Fibrillation, Cancer, Hypertension, Prostate Disorder Additional Past Medical History / Comment(s): CHRONIC LOW BACK PAIN. Prostate cancer, skin cancer, kidney stone. History of Any Multi-Drug Resistant Organisms: None Reported Past Surgical History: Appendectomy, Bariatric Surgery, Cholecystectomy, Orthopedic Surgery Additional Past Surgical History / Comment(s): cervical sx with titanium rods, Colonoscopy, lap band, rt clavical reduction, Prostatectomy, SKIN CA REMOVED, pain procedures at [facility] PROCEDURES, heart ablation Past Anesthesia/Blood Transfusion Reactions: No Reported Reaction Additional Past Anesthesia/Blood Transfusion Reaction / Comm: VERTIGO Past Psychological History: Depression Additional Psychological History / Comment(s): past hx depression Smoking Status: Former smoker Past Alcohol Use History: None Reported Additional Past Alcohol Use History / Comment(s): started smoking age 13 stopped age 53 (08/05/97) SMOKED 3ppd Past Drug Use History: None Reported - Past Family History Father Family Medical History: Myocardial Infarction ([place]) Mother Additional Family Medical History / Comment(s): MAC DEGENERATION, HEART PROBLEMS Surgical - Exam Vital Signs Temp Pulse Resp BP Pulse Ox 98.1 F 78 22 146/84 99 03/28/21 13:43 03/28/21 13:43 03/28/21 13:43 03/28/21 13:43 03/28/21 13:43 - General well developed, well nourished, no distress - Eyes PERRL - ENT normal pinna - Neck no masses - Respiratory normal expansion - Cardiovascular Rhythm: regular - Abdomen Abdomen: soft, non tender Bariatric Assessment & Plan Plan: Epigastric abdominal pain. Patient will undergo esophagram and EGD. Bariatric Checklist Checklist: Plan: Checklist: EGD: 1. Hiatal hernia: 2. H. Pylori: HgbA1c: Vitamin D: Smoking: Former smoker Primary care physician referral: Dr Martin Psychiatry clearance: Cardiology clearance: Sleep study: Diet journal: VTE risk score: VTE risk level: Rehab needs at discharge:
== END | disposition home or self-care (01) ==
LOC: BARWHC3 13:03
PROVIDERS: ATTEND Surgery
DX: E66.01 Morbid (severe) obesity due to excess calories (principal); K21.9 Gastro-esophageal reflux disease without esophagitis; K44.9 Diaphragmatic hernia without obstruction or gangrene; Z68.33 Body mass index [BMI] 33.0-33.9, adult
CPT/HCPCS: 74220; G0463; 99211

== ENCOUNTER 2021-03-31 10:01 | Day surgery (SDC) | payer MEDICARE ==
[2021-03-30 08:57] VITALS: BMI 33.4
[2021-03-31 11:10] VITALS: RESP 16; TEMP 97.1
[2021-03-31] MEDS ORDERED: LIDOCAINE 1% (10MG/ML) FOR IV START INTRADERMA ONE (11:14)
[2021-03-31] MEDS ORDERED: LIDOCAINE 1% INJ 10MG/ML (20 ML MDV) ONE (11:57)
[2021-03-31] MEDS ORDERED: PROPOFOL 10 MG/ML 20 ML VIAL IV ONE (11:57)
--- NOTE | 2021-03-31 11:57 | P.GSHP ---
History of Present Illness H&P Date: 03/31/21 Chief Complaint: GERD This a 70-year-old male with history of GERD. Patient presents today for EGD. Past Medical History Past Medical History: Atrial Fibrillation, Cancer, GERD/Reflux, Hypertension, Prostate Disorder Additional Past Medical History / Comment(s): CHRONIC LOW BACK PAIN. Prostate cancer, skin cancer, kidney stone. RECENT SOB, DIFFICULTY SWALLOWING History of Any Multi-Drug Resistant Organisms: None Reported Past Surgical History: Appendectomy, Bariatric Surgery, Cardiac Ablation, Cholecystectomy, Orthopedic Surgery Additional Past Surgical History / Comment(s): cervical sx with titanium rods, Colonoscopy, lap band, rt clavical reduction, Prostatectomy, SKIN CA REMOVED, pain procedures at [facility] PROCEDURES, EGD Past Anesthesia/Blood Transfusion Reactions: No Reported Reaction Additional Past Anesthesia/Blood Transfusion Reaction / Comment(s): VERTIGO Smoking Status: Former smoker - Past Family History Father Family Medical History: Myocardial Infarction ([place]) Mother Additional Family Medical History / Comment(s): MAC DEGENERATION, HEART PROBLEMS Medications and Allergies Home Medications Medication Instructions Recorded Confirmed Type Apixaban [Eliquis] 5 mg PO BID #180 tab 04/17/19 03/31/21 Rx Ferrous Sulfate [Iron (65 MG 325 mg PO Q96H 10/13/20 03/31/21 History Elemental)] Multivitamins, Thera [Multivitamin 1 tab PO DAILY 10/13/20 03/31/21 History (formulary)] Atorvastatin Calcium [Lipitor] 20 mg PO HS 01/25/21 03/31/21 History Budesonide/Formoterol Fumarate 2 puff INHALATION RT-BID 02/09/21 03/31/21 History [Symbicort 160-4.5 Mcg Inhaler] Cyanocobalamin (Vitamin B-12) 1,000 mcg PO DAILY 03/02/21 03/31/21 History [Vitamin B-12] Flecainide [Tambocor] 50 mg PO Q12HR 03/02/21 03/31/21 History Ubidecarenone [Co Q-10] 100 mg PO DAILY 03/02/21 03/31/21 History Colchicine [Colcrys] 0.6 mg PO DAILY #7 each 03/08/21 03/31/21 Rx Pantoprazole [Protonix] 40 mg PO BID 30 Days #60 tab 03/26/21 03/31/21 Rx Sucralfate [Carafate] 1 gm PO ACHS 30 Days #1 pack 03/26/21 03/31/21 Rx Allergies Allergy/AdvReac Type Severity Reaction Status Date / Time morphine AdvReac Nausea & Verified 03/30/21 08:47 Vomiting Surgical - Exam Vital Signs Temp Pulse Resp BP Pulse Ox 97.1 F L 83 16 168/75 97 03/31/21 11:06 03/31/21 11:06 03/31/21 11:06 03/31/21 11:06 03/31/21 11:06 - General well developed, well nourished, no distress - Eyes PERRL - ENT normal pinna - Neck no masses - Respiratory normal expansion - Cardiovascular Rhythm: regular - Abdomen Abdomen: soft, non tender Assessment and Plan Assessment: GERD. We'll perform EGD.
--- NOTE | 2021-03-31 12:06 | P.OP ---
Date of Procedure: 03/31/21 Preoperative Diagnosis: GERD Postoperative Diagnosis: Mild antral gastritis Mild esophagitis LAP-BAND without evidence of erosion or inflammation Procedure(s) Performed: EGD Anesthesia: MAC Surgeon: Alvarez Charles Pathology: other (Antrum, esophagus) Condition: stable Disposition: PACU Description of Procedure: Patient's placed on the endoscopy table in the lateral position. He received IV sedation. The gastro-/oropharynx passed in the esophagus and stomach. Scope was then placed through the pylorus. The first and second portion of the duodenum appeared normal. Scope was then brought back the antrum this was mildly inflamed. A biopsies performed. Scope was unretroflexed and remainder of some appeared normal. The patient had previously placed Linn device in this was without evidence of inflammation or erosion. The GE junction was at 47 is. The distal esophagus appeared inflamed and a biopsies performed. The proximal esophagus appeared normal. Scope withdrawn for patient.
[2021-03-31 12:12] VITALS: PULSE 58
[2021-03-31 12:25] VITALS: BP 146/79
== END 2021-03-31 12:50 | disposition home or self-care (01) ==
LOC: ORWHC2ENDO 10:01
PROVIDERS: ATTEND Surgery
DX: K21.00 Gastro-esophageal reflux disease with esophagitis, without bleeding (principal); I48.91 Unspecified atrial fibrillation; G89.29 Other chronic pain; M54.5 Low back pain; Z85.46 Personal history of malignant neoplasm of prostate; Z98.84 Bariatric surgery status; Z85.828 Personal history of other malignant neoplasm of skin; Z87.891 Personal history of nicotine dependence; Z92.3 Personal history of irradiation; Z90.79 Acquired absence of other genital organ(s); J44.9 Chronic obstructive pulmonary disease, unspecified; Z88.5 Allergy status to narcotic agent; Z79.01 Long term (current) use of anticoagulants; Z79.899 Other long term (current) drug therapy
CPT/HCPCS: 88305; 43239; J2001; J2704

== ENCOUNTER 2021-05-17 07:05 | Day surgery (SDC) | payer MEDICARE ==
[2021-05-17 07:34] VITALS: RESP 16; TEMP 97.6
[2021-05-17] MEDS ORDERED: LACTATED RINGERS 1,000 ML IV ONE (07:53)
[2021-05-17] MEDS ORDERED: LIDOCAINE 1% (10MG/ML) FOR IV START INTRADERMA ONE (07:54)
[2021-05-17] MEDS ORDERED: methylPREDNISolone ACETATE 40 MG/ML 1 ML VIAL ONE (07:57)
[2021-05-17] MEDS ORDERED: MIDAZOLAM 2 MG/2 ML VIAL ONE (07:57)
[2021-05-17] MEDS ORDERED: ROPIVACAINE 5MG/ML 20ML VIAL ONE (07:57)
[2021-05-17] MEDS ORDERED: fentaNYL (PF) 50 MCG/ML 2 ML AMP ONE (07:57)
--- NOTE | 2021-05-17 08:13 | P.PCN ---
Date of Procedure: 05/17/21 Procedure(s) Performed: Procedure =1-trigger point injection left side lumbar paraspinal muscles ,total of 3 trigger point injected. Preoperative diagnosis= 1-myofascial pain syndrome lumbar paraspinal muscles . Postoperative diagnosis=Same as preop Diagnosis . Complication = none Condition= stable Anesthesia= moderate sedation with intravenous Versed 2 mg , and fentanyl 50 micrograms . Indication for the procedure= patient complaining of low back pain , examination was positive for mutiple trigger points Lumbar are Description of the procedure= procedure risk and benefits discussed with the patient, including but not limited, risk of infection and bleeding, and ALLERGIC reaction to the medication and not complete pain relief and patient agreed with the preceding patient taken to the operating room, placed in prone position or standard monitors applied to the patient then after induction of anesthesia back prepped with chlorhexidine 3 times , then the left side trigger point injection in the Left lumbar paraspinal muscles ,(was marked and identified in preop holding area ) each one of them injected with ropivacaine 0.5% 3 mL, using 25-gauge Spinal needle used injection done after negative aspiration, and was no paresthesia during the injection, patient tolerated the procedure well without any complications,and taken to recovery room and monitored, he is discharged home in stable condition total of 9 ml of Ropivacaine 0.5 % mixed with 40 mg Depo-Medrol , 3 ml of the mixture used to injecte each trigger points
[2021-05-17] MEDS ORDERED: IV FLUID CONTINUATION 900 ML IV ONE (08:15)
[2021-05-17 08:37] VITALS: BP 136/75; PULSE 66
== END 2021-05-17 09:00 | disposition home or self-care (01) ==
LOC: ORPAIN 07:05
PROVIDERS: ATTEND Specialist
DX: M79.18 Myalgia, other site (principal)
CPT/HCPCS: 20553; J2250; J1030; J3010; J2795

== ENCOUNTER → 2021-06-01 | Outpatient (CLI) | payer MEDICARE ==
[2021-06-01 09:58] VITALS: BP 184/81; PULSE 75; RESP 18; TEMP 97.7
--- NOTE | 2021-06-01 10:16 | P.PN ---
Subjective Progress Note Date: 06/01/21 Noble is a 70-year-old male presented to clinic today for follow-up appointment. He has a history of lumbar spondylosis with facet arthropathy without myelopathy, bilateral SI joint dysfunction, lumbar degenerative disc disease. Most recently he had trigger point injections in the lumbar region he reports that he only had a couple days relief with the pain has returned. Almost a year ago he had bilateral radiofrequency ablation at L2-3 and L3 4. He's had very good success with this hasn't been pain free for over 10 months and his pain is beginning to return now. He feels the pain in his low back into his buttocks. Torches pain is worse with increased increased activity. Pain is better with interventions and rest. His interventions allowed him to perform his daily activities with reduction in pain. Eyes any bowel or bladder dysfunction, saddle anesthesia, or any other red flag symptoms. Noted that his blood pressure was elevated today at 184/81. He is currently not being treated for hypertension patient is advised to seek care through his primary care provider. Objective - Exam Physical Examinations : -Constitutiona : Cooperative , not in acute distress . -HEENT : nech : supple , no Lymphadenopathy , normal thyroid size . : eyes : no ptosis , no icterus, no photophobia . - neurologic : Cranial nerve II to XII intact , no focal neurological deffecit . -psychatric : alert , oriented X 3 , appropriate affect , intact judgment and insight . -Lymphatic : no Lymphadenopathy . - musculoskeltal : Lumber spine moter stegnth lower extremities ,thigh and legs 5/5 Right side , 5/5 Left side deep tendon reflexes : normal Knee Jerk , normal ankle Jerk lumber facet Loading Test =positive Right , positive Left Range of motion of the lumbar spine Flexion 30 degrees, extension 10 degrees strait leg raising test = positive at 30 degree Fabere test= positive Right , and positive LT . Sever tenderness over the Sacroiliac joint on the Right , and Left sides Gaenslen test= positive right ,and positive left . Seated flexion test= positive right ,and positive Left . Distraction test= positive bilaterally Sacroiliac compression test= positive bilaterally Assessment and Plan Assessment: Assessment and plan Assessment: lumbar spondylosis with lumbar facet arthropathy without myelopathy left sacroiliitis. myofascial pain syndrome lumbar area. Plan: Patient could benefit from repeat bilateral lumbar radiofrequency ablation at L2-[address] Figueroa was available by phone for consultation during his visit. I have spent 28 minutes on patient care today. The time was used to review the medical records including relevant urine studies and Prescription history (MAPs), review of the available imaging, evaluation and examination of the patient, coordination of care with the medical staff and if applicable referring physicians, as well as creation of the medical record. - PQRS measures = - Patient's medications are documented in the chart. -Tobacco use is negative -Patient's has received pneumococcal vaccine. -Advanced care planning discussed, patient not eligible. -Opiate contract signed. -Pain positive and follow-up visit/procedure is scheduled. -Patient's blood pressure measured 184/81, and documented in the record ,and patient will follow up with the primary care. -Patient was not identified as an unhealthy alcohol user Time with Patient: Less than 30
== END | disposition home or self-care (01) ==
LOC: PNWHC3 09:21
PROVIDERS: ATTEND Student in an Organized Health Care Education/Training Program
DX: M47.896 Other spondylosis, lumbar region (principal); M46.1 Sacroiliitis, not elsewhere classified; M79.18 Myalgia, other site
CPT/HCPCS: 99211

== ENCOUNTER → 2021-08-17 | Outpatient (CLI) | payer MEDICARE ==
[2021-08-17 10:21] VITALS: BP 143/85; PULSE 66; RESP 18; TEMP 97.7
--- NOTE | 2021-08-17 10:50 | P.PN ---
Subjective Progress Note Date: 08/17/21 Principal diagnosis: A 71 yr old male/ female with a history of severe and chronic low back pain secondary to lumbar degenerative disc diseases and lumbar spondylosis with facet arthropathy presents today for follow-up of a bilateral L2 to L3 and L3-L4 RFA. Patient states he experienced no relief in the lower lumbar spine status post procedure. Pain level is currently at 9 out of 10 in intensity, dull and achy in the lower lumbar spine with occasional radiation to the hips and buttocks bilaterally. Pain is provoked by cold therapy, sitting for 30 minutes, walking for 15 minutes. Pain is alleviated with aspirin, injections, heat, home-based stretching regimen, supine with legs elevated and rest. Interventional pain procedures completed include B RFA of L4-L5/L5-S1 in Mar 2020 and B RFA of L2-L3/L3-L4 in Jun 2020, then B RFA of L2-L3/ L3-L4 in Jul 2020 Patient denies any side effects of the medication(s), denies excessive drowsiness or sleepiness, denies suicidal ideation and reports that the current pain medication is helping to control the pain and improve activities of daily living. Patient denies any motor or sensory deficits. Patient denies any fever or night sweats, denies any change in the bowel movements or urination. Physical Examination: -Constitutional: Cooperative. Not in acute distress . -HEENT: Neck is supple. No lymphadenopathy. No thyromegaly. Normal thyroid size. Eyes: No ptosis , no icterus, no photophobia. ENT: No auditory deficits. Normal oropharynx. No Thrush. - Respiratory: Chest clear to auscultations bilaterally. No wheezing. No rhonchi. - Cardiovascular: Regular rate and rhythm. S1 / S2 , no S3 , no S4. - Gastrointestinal: Abdomen soft no tenderness. Bowel sounds positive in all four quadrants. No organomegaly. - Genitourinary: Deferred. - Neurologic: Cranial nerve II to XII intact. No focal neurological deficits. - Psychatric: Alert & oriented x 3. Matching mood & appropriate affect. Judgment and insight intact. - Lymphatic: No Lymphadenopathy. - Musculoskeletal: Cervical spine: Muscle bulk/ tone/ strength in the bilateral upper extremities normal. Facet loading test cervical area positive. Lumbar spine: Motor bulk/ tone/ strength lower extremities , thigh and legs : 5/5 Deep tendon reflexes : Normal Knee Jerk. Normal Ankle Jerk . Diffuse and vertebral body tenderness to palpation over the L3, L4, L5 Lumbar Facet Loading Test positive over the L4 to L5 with a jump reflex Straight Leg Raise: positive at 30 degree right side/ left side Benito test: positive right side / left side Range of motion: Range of motion in flexion of the lumbar spine <60 degrees Range of motion: Extension of the lumbar spine <20 degrees Severe tenderness over the Sacroiliac joint: right side / left side Assessment and plan: Chronic low back pain secondary to lumbar degenerative disc disease , lumbar spondylosis with facet arthropathy without myelopathy Recommendation of bilateral RFA of the L4 to L5 and L5 to S1 Advised to stop Aspirin and Eliquis 3 days prior to procedure Risks, benefits of procedure discussed and patient verbalized understanding All patient questions answered MAPS reviewed and it was appropriate. I have spent 31 minutes on patient care today. Dr Figueroa was available by phone for the evaluation of this patient. The time was used to review the medical records including relevant urine studies and Prescription history (MAPs), review of the available imaging, evaluation and examination of the patient, coordination of care with the medical staff and if applicable referring physicians, as well as creation of the medical record Objective - Vital Signs Vital signs: Vital Signs Temp 97.7 F 08/17/21 10:12 Pulse 66 08/17/21 10:12 Resp 18 08/17/21 10:12 BP 143/85 08/17/21 10:12 Pulse Ox 93 L 08/17/21 10:12 PQRS Measure Charge Sheet Mode of Arrival: Ambulatory - Pain Location Lower Back Non-Pharmacological Interventions: Heat, Inactivity, Position/Reposition Pharmacological Interventions: Block, PRN Medication PQRS Narrative: Smoking Status Former smoker Blood Pressure 143/85 Pain Intensity [Lower Back] 10 Scale Used Numeric (1 - 10) Hx Alcohol Use (MH) No Home Medications: Ambulatory Orders Apixaban [Eliquis] 5 mg PO BID #180 tab 04/17/19 Ferrous Sulfate [Iron (65 MG Elemental)] 325 mg PO Q96H 10/13/20 Multivitamins, Thera [Multivitamin (formulary)] 1 tab PO DAILY 10/13/20 Atorvastatin Calcium [Lipitor] 20 mg PO HS 01/25/21 Cyanocobalamin (Vitamin B-12) [Vitamin B-12] 1,000 mcg PO DAILY 03/02/21 Flecainide [Tambocor] 50 mg PO Q12HR 03/02/21 Ubidecarenone [Co Q-10] 100 mg PO DAILY 03/02/21 Metoprolol Succinate [Toprol XL] 25 mg PO DAILY 07/06/21 Ibuprofen 800 mg PO Q8H PRN 07/12/21 Pantoprazole [Protonix] 40 mg PO DAILY 08/15/21
== END | disposition home or self-care (01) ==
LOC: PNWHC3 09:34
PROVIDERS: ATTEND Physician Assistant Medical
DX: M47.896 Other spondylosis, lumbar region (principal); M51.36 Other intervertebral disc degeneration, lumbar region
CPT/HCPCS: 99211

== ENCOUNTER → 2021-09-07 | Outpatient (CLI) | payer MEDICARE ==
--- NOTE | 2021-09-07 13:47 | SFUN ---
SLEEP CENTER FOLLOW UP NOTE DATE OF SERVICE: 09/07/2021 This 71-year-old gentleman has been followed in Sleep Center for treatment of obstructive sleep apnea-hypopnea syndrome and central sleep apneas. I discussed results of his sleep studies with the patient in detail. Diagnostic sleep study showed that he has sleep apnea. During titration, respiration improved but did not normalize. I tried the patient on treatment with an automatic CPAP machine. He is trying to use CPAP equipment, but the mask goes out shortly after starting using it at night. He tried a nasal pillow mask. Now he is using a full-face mask. [place] Sleepiness Scale increased to 14. I checked his CPAP unit. Range of the pressure is 5 to 15, average pressure 10 cm of water. Significant leak from the mask; average 42.4 L/minute. Apnea-hypopnea index still increased to 15.3, including central apnea-hypopnea index 4.7, obstructive apnea- hypopnea index 2.6, and unknown 5.4, which may again indicate some central events. Usage is 15/30 days, which is 50% of the time, and average usage is only 1 hour 28 minutes. CURRENT MEDICATIONS: 1. Eliquis 5 mg twice a day. 2. Flecainide 50 mg twice a day. 3. Pantoprazole 40 mg once a day. 4. Atorvastatin 20 mg once a day. 5. Iron supplement. PHYSICAL EXAMINATION: GENERAL: Pleasant patient in no distress. VITAL SIGNS: BP 161/79, HR 59, RR 16, weight 223.2, temperature 97.0, oxygen saturation at room air 97%. HEENT: PERRLA, EOMI, evaluation of oropharynx showed tongue protrudes midline. NECK: Supple, no JVD. Thyroid is not palpable. LUNGS: Clear to percussion and to auscultation. Good air exchange. No wheezing or rhonchi. HEART: S1, S2 regular. No murmurs, gallops, or rubs. ABDOMEN: Soft and nontender. Bowel sounds are present. No organomegaly appreciated. EXTREMITIES: No clubbing or cyanosis. 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 Cranial nerves 2 to 7 intact. There is no fasciculation or atrophy. noted. No focal deficits observed. IMPRESSION: 1. Obstructive and central sleep apnea-hypopnea syndrome. At present the patient is not compliant with treatment. His mask goes out after about 1-2 hour of sleep. Apnea-hypopnea index improved from 39 per hour during diagnostic test to 15.3 per hour at the present time, but this is still above normal and includes central events. 2. The patient continues to present symptoms of excessive daytime sleepiness. [place] Sleepiness Scale is 14. 3. History of atrial fibrillation. 4. Hyperlipidemia. 5. History of iron deficiency anemia. 6. History of prostate carcinoma, status post prostatectomy in 2005. 7. Status post neck surgery. 8. Status post treatment for brain aneurysm in July 2019. PLAN: 1. While checking his CPAP unit, RAMP was off. I increased RAMP to maximal level of 45 minutes. 2. The patient will try to continue to use the same mask but not to put it on so much, because this may increase risk for leaking. 3. He will try to use CPAP equipment every night for the whole night. If he needs to go to the rest room he should keep his mask on and just disconnect the tube. 4. Follow-up visit in 4 to 6 weeks. 5. If no improvement, we may consider titration with BiPAP, possibly in ST mode, if necessary [employer] ventilator. Thank you very much for allowing me to participate in the management of your patient. Sincerely, Humble Garcia MD, PhD, FAASM Diplomat of [place] [employer] Sleep Medicine [employer] [place] [employer] [facility] [place] MMDAYANARAL / NURYN: [id number] /
== END | disposition home or self-care (01) ==
LOC: SLEEP 11:30
PROVIDERS: ATTEND Internal Medicine
DX: G47.33 Obstructive sleep apnea (adult) (pediatric) (principal); E78.5 Hyperlipidemia, unspecified; Z86.79 Personal history of other diseases of the circulatory system; Z86.2 Personal history of diseases of the blood and blood-forming organs and certain disorders involving the immune mechanism; Z85.46 Personal history of malignant neoplasm of prostate; Z98.890 Other specified postprocedural states; Z86.69 Personal history of other diseases of the nervous system and sense organs

== ENCOUNTER → 2021-10-05 | Outpatient (CLI) | payer MEDICARE ==
--- NOTE | 2021-10-05 11:24 | P.PN ---
Subjective Progress Note Date: 10/05/21 Principal diagnosis: A 71 yr old male with a history of severe and chronic low back pain secondary to lumbar degenerative disc diseases and lumbar spondylosis with facet arthropathy presents today for evaluation status post bilateral RFA L3-5. Patient states he experienced 50% pain relief status post procedure. Pain level is currently at 4 out of 10 in intensity, dull, achy in the lower aspects of his lumbar spine which radiates left and right of midline, left greater than right. Pain is provoked by bending lifting or twisting. Pain is alleviated with medications, heat, physical therapy years ago, home exercise stretching regimen, laying supine, sitting upright in a chair and rest. Interventional pain procedures completed include BL RFA L3-5 Patient is currently on Tylenol Patient denies any side effects of the medication(s), denies excessive drowsiness or sleepiness, denies suicidal ideation and reports that the current pain medication is helping to control the pain and improve activities of daily living. Patient denies any motor or sensory deficits. Patient denies any fever or night sweats, denies any change in the bowel movements or urination. Physical Examination: -Constitutional: Cooperative. Not in acute distress . -HEENT: Neck is supple. No lymphadenopathy. No thyromegaly. Normal thyroid size. Eyes: No ptosis , no icterus, no photophobia. ENT: No auditory deficits. Normal oropharynx. No Thrush. - Respiratory: Chest clear to auscultations bilaterally. No wheezing. No rhonchi. - Cardiovascular: Regular rate and rhythm. S1 / S2 , no S3 , no S4. - Gastrointestinal: Abdomen soft no tenderness. Bowel sounds positive in all four quadrants. No organomegaly. - Genitourinary: Deferred. - Neurologic: Cranial nerve II to XII intact. No focal neurological deficits. - Psychatric: Alert & oriented x 3. Matching mood & appropriate affect. Judgment and insight intact. - Lymphatic: No Lymphadenopathy. - Musculoskeletal: Cervical spine: Muscle bulk/ tone/ strength in the bilateral upper extremities normal. Facet loading test cervical area positive. Lumbar spine: Motor bulk/ tone/ strength lower extremities , thigh and legs : 5/5 Deep tendon reflexes : Normal Knee Jerk. Normal Ankle Jerk . Vertebral body tenderness to palpation over Lumbar Facet Loading Test positive Straight Leg Raise: positive at 30 degrees right side/ left side Gaenslen's Test positive Sacral spine : Severe tenderness over the Sacroiliac joint: right side / left side Range of motion: Flexion of the lumbar spine <60 degrees Range of motion: Extension of the lumbar spine <20 degrees Gaenslen's Test positive Benito test: positive right side / left side Assessment and plan: Chronic low back pain secondary to lumbar degenerative disc disease , lumbar spondylosis with facet arthropathy without myelopathy Patient experienced sufficient and substantial pain relief status post procedure. Discussed prognoses, signs and symptoms to look for for any follow- up. Patient may return to our office again on an as-needed basis. All patient questions answered MAPS reviewed and it was appropriate. I have spent 31 minutes on patient care today. Dr Figueroa was available by phone for the evaluation of this patient. The time was used to review the medical records including relevant urine studies and Prescription history (MAPs), review of the available imaging, evaluation and examination of the patient, coordination of care with the medical staff and if applicable referring physicians, as well as creation of the medical record PQRS Measure Charge Sheet PQRS Narrative: Smoking Status Former smoker Pain Intensity [Lower Back] 3 Scale Used Numeric (1 - 10) Hx Alcohol Use (MH) No Home Medications: Ambulatory Orders Apixaban [Eliquis] 5 mg PO BID #180 tab 04/17/19 Ferrous Sulfate [Iron (65 MG Elemental)] 325 mg PO Q96H 10/13/20 Multivitamins, Thera [Multivitamin (formulary)] 1 tab PO DAILY 10/13/20 Atorvastatin Calcium [Lipitor] 40 mg PO HS 01/25/21 Cyanocobalamin (Vitamin B-12) [Vitamin B-12] 1,000 mcg PO DAILY 03/02/21 Flecainide [Tambocor] 50 mg PO Q12HR 03/02/21 Ubidecarenone [Co Q-10] 100 mg PO DAILY 03/02/21 Metoprolol Succinate [Toprol XL] 25 mg PO DAILY 07/06/21 Ibuprofen 800 mg PO Q8H PRN 07/12/21 Pantoprazole [Protonix] 40 mg PO DAILY 08/15/21 Furosemide [Lasix] 40 mg PO DAILY 09/19/21
[2021-10-05 12:13] VITALS: BP 126/69; PULSE 71; RESP 18; TEMP 97.5
== END | disposition home or self-care (01) ==
LOC: PNWHC3 10:29
PROVIDERS: ATTEND Specialist
DX: M47.896 Other spondylosis, lumbar region (principal); M51.36 Other intervertebral disc degeneration, lumbar region
CPT/HCPCS: 99211

== ENCOUNTER → 2021-10-27 | Outpatient (CLI) | payer MEDICARE ==
--- NOTE | 2021-10-27 12:59 | SFUN ---
SLEEP CENTER FOLLOW UP NOTE DATE OF SERVICE: 10/27/2021 This 71-year-old gentleman has been followed in Sleep Center for treatment of obstructive sleep apnea-hypopnea syndrome. For the last 2 weeks the patient has not been able to use his CPAP equipment. He complains of pressure in the machine. He does not feel comfortable with the mask. He tried a full-face mask, nasal pillow mask. He does not like nasal pillows. Rush Sleepiness Scale today increased to 12. I discussed with the patient the possibility of using a nasal mask. He wishes to try it. MEDICATIONS: 1. Eliquis 5 mg twice a day. 2. Pantoprazole 40 mg once a day. 3. Flecainide twice a day. 4. Atorvastatin 20 mg once a day. PHYSICAL EXAMINATION: GENERAL: Pleasant patient in no distress. VITAL SIGNS: BP 121/65, HR 62, RR 16, weight 230.4 pounds, temperature 97.1, oxygen saturation at room air 94%. HEENT: PERRLA, EOMI, evaluation of oropharynx showed tongue protrudes midline. NECK: Supple, no JVD. Thyroid is not palpable. LUNGS: Clear to percussion and to auscultation. Good air exchange. No wheezing or rhonchi. HEART: S1, S2 regular. No murmurs, gallops, or rubs. ABDOMEN: Soft and nontender. Bowel sounds are present. No organomegaly appreciated. EXTREMITIES: No clubbing or cyanosis. CAR CONDITIONER: Awake, alert, and oriented X3. Cranial nerves 2 to 7 intact. There is no fasciculation or atrophy. noted. No focal deficits observed. IMPRESSION: 1. Obstructive and central sleep apnea-hypopnea syndrome. The patient has difficulties using CPAP related to the pressure and mask. 2. History of atrial fibrillation. 3. Hyperlipidemia. 4. History of iron deficiency anemia. 5. History of prostate carcinoma, status post prostatectomy in 2005. 6. Status post neck surgery. 7. Status post treatment for brain aneurysm in July of 2019. PLAN: 1. Prescription for nasal mask Eson 2 was sent to [facility]. 2. I significantly decreased the range of pressure in the machine to the pressure 4 to 8 cm of water to provide comfort for the patient. 3. Patient will continue to use PAP equipment every night for the whole night. 4. Sleep hygiene with regular time in bed for at least 7-1/2 to 8 hours. 5. Precautions related to driving. No driving if feeling sleepiness. 6. I will maintain all necessary prescription for PAP supplies including mask, tube, filters. 7. Watching weight. 8. Follow-up visit in one month or earlier if patient has any problems. Thank you very much for allowing me to participate in the management of your patient. Sincerely, Humble Garcia MD, PhD, FAASM Diplomat of [employer] Sleep Medicine Board of [place] [facility] [place] MMODL / NURYN: [id number] /
== END | disposition home or self-care (01) ==
LOC: SLEEP 10:06
PROVIDERS: ATTEND Internal Medicine
DX: G47.33 Obstructive sleep apnea (adult) (pediatric) (principal); E78.5 Hyperlipidemia, unspecified; Z86.79 Personal history of other diseases of the circulatory system; Z86.2 Personal history of diseases of the blood and blood-forming organs and certain disorders involving the immune mechanism; Z85.46 Personal history of malignant neoplasm of prostate; Z98.890 Other specified postprocedural states; Z86.69 Personal history of other diseases of the nervous system and sense organs

== ENCOUNTER 2022-03-18 11:31 | Emergency (ER) | payer MEDICARE ==
[2022-03-18 11:43] VITALS: RESP 18; TEMP 97.6
[2022-03-18] MEDS ORDERED: SODIUM CHLORIDE 0.9% 500 ML 500 ML IV ONE (12:19)
--- NOTE | 2022-03-18 12:21 | ED ---
General Adult HPI - General Chief complaint: Dizziness Stated complaint: near syncope Time Seen by Provider: 03/18/22 12:05 Source: patient, EMS, RN notes reviewed, old records reviewed Mode of arrival: EMS Limitations: no limitations - History of Present Illness Initial comments: 71-year-old male presenting for evaluation of lightheadedness, near-syncope. Patient states he did not eat dinner last night and did not eat breakfast today. He had gone to a and was outside in the hot sun and humidity. He felt lightheaded and felt like he might pass out. He did not completely pass out. He was this was associated with nausea and diaphoresis. No associated chest pain or palpitations. No abdominal pain. No preceding symptoms. No cough or fever. No dysuria or hematuria. - Related Data Home Medications Medication Instructions Recorded Confirmed Ferrous Sulfate [Iron (65 MG 325 mg PO Q96H 10/13/20 10/05/21 Elemental)] Multivitamins, Thera [Multivitamin 1 tab PO DAILY 10/13/20 10/05/21 (formulary)] Atorvastatin Calcium [Lipitor] 40 mg PO HS 01/25/21 10/05/21 Cyanocobalamin (Vitamin B-12) 1,000 mcg PO DAILY 03/02/21 10/05/21 [Vitamin B-12] Flecainide [Tambocor] 50 mg PO Q12HR 03/02/21 10/05/21 Ubidecarenone [Co Q-10] 100 mg PO DAILY 03/02/21 10/05/21 Metoprolol Succinate [Toprol XL] 25 mg PO DAILY 07/06/21 10/05/21 Ibuprofen 800 mg PO Q8H PRN 07/12/21 10/05/21 Pantoprazole [Protonix] 40 mg PO DAILY 08/15/21 10/05/21 Furosemide [Lasix] 40 mg PO DAILY 09/19/21 10/05/21 Previous Rx's Medication Instructions Recorded Apixaban [Eliquis] 5 mg PO BID #180 tab 04/17/19 Allergies Allergy/AdvReac Type Severity Reaction Status Date / Time morphine AdvReac Nausea & Verified 03/18/22 11:43 Vomiting Review of Systems ROS Statement: Those systems with pertinent positive or pertinent negative responses have been documented in the HPI. ROS Other: All systems not noted in ROS Statement are negative. Past Medical History Past Medical History: Atrial Fibrillation, Cancer, GERD/Reflux, Hypertension, Prostate Disorder Additional Past Medical History / Comment(s): CHRONIC LOW BACK PAIN. Prostate cancer, skin cancer, kidney stone. RECENT SOB, DIFFICULTY SWALLOWING History of Any Multi-Drug Resistant Organisms: None Reported Past Surgical History: Appendectomy, Bariatric Surgery, Cardiac Ablation, Cholecystectomy, Orthopedic Surgery Additional Past Surgical History / Comment(s): cervical sx with titanium rods, Colonoscopy, lap band, rt clavical reduction, Prostatectomy, SKIN CA REMOVED, pain procedures at [facility]PAIN [facility]INIC PROCEDURES, EGD Past Anesthesia/Blood Transfusion Reactions: No Reported Reaction Additional Past Anesthesia/Blood Transfusion Reaction / Comment(s): VERTIGO Past Psychological History: Depression Smoking Status: Former smoker - Past Family History Father Family Medical History: Myocardial Infarction ([place]) Mother Additional Family Medical History / Comment(s): MAC DEGENERATION, HEART PROBLEMS General Exam Limitations: no limitations General appearance: alert, in no apparent distress Head exam: Present: atraumatic, normocephalic Eye exam: Present: normal appearance, PERRL ENT exam: Present: mucous membranes dry Neck exam: Present: normal inspection. Absent: tenderness, meningismus Respiratory exam: Present: normal lung sounds bilaterally. Absent: respiratory distress, wheezes Cardiovascular Exam: Present: normal rhythm, bradycardia GI/Abdominal exam: Present: soft. Absent: distended, tenderness, guarding, rebound Extremities exam: Present: normal inspection, normal capillary refill. Absent: calf tenderness Neurological exam: Present: alert, oriented X3, CN II-XII intact. Absent: motor sensory deficit Psychiatric exam: Present: normal affect, normal mood Skin exam: Present: warm, dry, intact. Absent: cyanosis, diaphoretic Course Vital Signs 03/18/22 03/18/22 11:37 13:55 Temperature 97.6 F Pulse Rate 53 L 60 Respiratory 18 18 Rate Blood Pressure 141/67 143/70 O2 Sat by Pulse 96 100 Oximetry - Reevaluation(s) Reevaluation #1: 03/18/22 13:40 Patient feeling better, eager for discharge. EKG Findings - EKG Comments: EKG Findings:: EKG: Sinus bradycardia rate of 51, NM interval 193, QRS duration 109, QTC [address] segment elevation. Medical Decision Making - Medical Decision Making 71-year-old male with near syncope. This does seem to be related to decreased food intake over the past 24 hours and being exposed to the heat. No chest pain or abdominal pain. No vomiting. Patient feels completely normal after IV fluid and rest. He is given food additional emergency department. He has a stable chronic anemia which is improved from prior. Normal white blood cell count, mild acute kidney injury. Normal electrolytes. EKG is sinus bradycardia. The patient does have history of atrial fibrillation and is on flecainide and metoprolol. He feels well with stable blood pressure return parameters discussed. He will eat and drink normally. - Lab Data Result diagrams: 03/18/22 12:21 03/18/22 12:21 Lab Results 03/18/22 03/18/22 Range/Units 12:21 12:21 WBC 9.9 (3.8-10.6) k/uL RBC 4.08 L (4.30-5.90) m/uL Hgb 12.2 L (13.0-17.5) gm/dL Hct 37.0 L (39.0-53.0) % MCV 90.7 (80.0-100.0) fL MCH 29.9 (25.0-35.0) pg MCHC 32.9 (31.0-37.0) g/dL RDW 13.8 (11.5-15.5) % Plt Count 366 (150-450) k/uL MPV 7.1 Neutrophils % 77 % Lymphocytes % 14 % Monocytes % 6 % Eosinophils % 2 % Basophils % 0 % Neutrophils # 7.6 (1.3-7.7) k/uL Lymphocytes # 1.4 (1.0-4.8) k/uL Monocytes # 0.6 (0-1.0) k/uL Eosinophils # 0.2 (0-0.7) k/uL Basophils # 0.0 (0-0.2) k/uL Sodium 136 L (137-145) mmol/L Potassium 4.0 (3.5-5.1) mmol/L Chloride 99 (98-107) mmol/L Carbon Dioxide 25 (22-30) mmol/L Anion Gap 12 mmol/L BUN 30 H (9-20) mg/dL Creatinine 1.39 H (0.66-1.25) mg/dL Est GFR (CKD-EPI)AfAm 58 (>60 ml/min/1.73 sqM) Est GFR (CKD-EPI)NonAf 50 (>60 ml/min/1.73 sqM) Glucose 154 H (74-99) mg/dL Calcium 8.7 (8.4-10.2) mg/dL Magnesium 1.8 (1.6-2.3) mg/dL Total Bilirubin 0.9 (0.2-1.3) mg/dL AST 21 (17-59) U/L ALT 17 (4-49) U/L Alkaline Phosphatase 66 (38-126) U/L Total Protein 6.4 (6.3-8.2) g/dL Albumin 4.0 (3.5-5.0) g/dL Disposition Clinical Impression: Orthostatic hypotension, Dehydration Disposition: HOME SELF-CARE Condition: Good Instructions (If sedation given, give patient instructions): Dehydration (ED), Near Syncope (ED) Is patient prescribed a controlled substance at d/c from ED?: No Referrals: Marco A Martin MD [Primary Care Provider] - 1-2 days
[2022-03-18 12:29] LABS: Basophils % (A) 0 %; Eosinophils # (A) 0.2 k/uL (0-0.7); Eosinophils % (A) 2 %; HGB 12.2 gm/dL (13.0-17.5); Lymphocytes # (A) 1.4 k/uL (1.0-4.8); Lymphocytes % (A) 14 %; MCH 29.9 pg (25.0-35.0); MCHC 32.9 g/dL (31.0-37.0); MCV 90.7 fL (80.0-100.0); Mean Platelet Volume 7.1; Monocytes # (A) 0.6 k/uL (0-1.0); Monocytes % (A) 6 %; Neutrophils # (A) 7.6 k/uL (1.3-7.7); Neutrophils % (A) 77 %; Platelet Count 366 k/uL (150-450); RBC 4.08 m/uL (4.30-5.90); RDW 13.8 % (11.5-15.5); WBC 9.9 k/uL (3.8-10.6)
[2022-03-18 12:36] LABS: Calcium 8.7 mg/dL (8.4-10.2); Magnesium 1.8 mg/dL (1.6-2.3); Total Bilirubin 0.9 mg/dL (0.2-1.3); Total Protein 6.4 g/dL (6.3-8.2)
[2022-03-18 13:56] VITALS: BP 143/70; PULSE 60
== END 2022-03-18 13:57 | disposition home or self-care (01) ==
LOC: EC 11:31
DX: I95.1 Orthostatic hypotension (principal); E86.0 Dehydration; I10 Essential (primary) hypertension; I48.91 Unspecified atrial fibrillation; K21.9 Gastro-esophageal reflux disease without esophagitis; Z87.891 Personal history of nicotine dependence; Z88.6 Allergy status to analgesic agent; Z79.899 Other long term (current) drug therapy
CPT/HCPCS: 36415; 80053; 83735; 85025; 93005; 96360; 99284

== ENCOUNTER 2022-09-28 10:42 | Observation (INO) | payer MEDICARE ==
--- NOTE | 2022-09-28 11:33 | ED ---
General Adult HPI - General Chief complaint: Chest Pain Stated complaint: Chest Pain,SOB Time Seen by Provider: 09/28/22 10:54 Source: patient, RN notes reviewed, old records reviewed Mode of arrival: ambulatory Limitations: no limitations - History of Present Illness Initial comments: 72-year-old male presenting for evaluation of dyspnea and chest pressure. Symptoms have been present for the past several days. No prior history of CAD or CHF. Denies cough. Discussed describes chest pressure is across his entire upper chest. - Related Data Home Medications Medication Instructions Recorded Confirmed Ferrous Sulfate [Iron (65 MG 325 mg PO Q96H 10/13/20 09/28/22 Elemental)] Multivitamins, Thera [Multivitamin 1 tab PO DAILY 10/13/20 09/28/22 (formulary)] Cyanocobalamin (Vitamin B-12) 1,000 mcg PO DAILY 03/02/21 09/28/22 [Vitamin B-12] Flecainide [Tambocor] 50 mg PO Q12HR 03/02/21 09/28/22 Ubidecarenone [Co Q-10] 100 mg PO DAILY 03/02/21 09/28/22 Metoprolol Succinate [Toprol XL] 25 mg PO DAILY 07/06/21 09/28/22 Pantoprazole [Protonix] 40 mg PO DAILY 08/15/21 09/28/22 Furosemide [Lasix] 40 mg PO DAILY 09/19/21 09/28/22 Atorvastatin [Lipitor] 40 mg PO HS 09/28/22 09/28/22 Escitalopram [Lexapro] 10 mg PO HS 09/28/22 09/28/22 Previous Rx's Medication Instructions Recorded Apixaban [Eliquis] 5 mg PO BID #180 tab 04/17/19 Allergies Allergy/AdvReac Type Severity Reaction Status Date / Time morphine AdvReac Nausea & Verified 09/28/22 12:34 Vomiting Review of Systems ROS Statement: Those systems with pertinent positive or pertinent negative responses have been documented in the HPI. ROS Other: All systems not noted in ROS Statement are negative. Past Medical History Past Medical History: Atrial Fibrillation, Cancer, GERD/Reflux, Hypertension, Prostate Disorder Additional Past Medical History / Comment(s): CHRONIC LOW BACK PAIN. Prostate cancer, skin cancer, kidney stone. RECENT SOB, DIFFICULTY SWALLOWING History of Any Multi-Drug Resistant Organisms: None Reported Past Surgical History: Appendectomy, Bariatric Surgery, Cardiac Ablation, Cholecystectomy, Orthopedic Surgery Additional Past Surgical History / Comment(s): cervical sx with titanium rods, Colonoscopy, lap band, rt clavical reduction, Prostatectomy, SKIN CA REMOVED, pain procedures at [facility].PAIN CLINIC PROCEDURES, EGD Past Anesthesia/Blood Transfusion Reactions: No Reported Reaction Additional Past Anesthesia/Blood Transfusion Reaction / Comment(s): VERTIGO Past Psychological History: Depression Smoking Status: Former smoker - Past Family History Father Family Medical History: Myocardial Infarction ([place]) Mother Additional Family Medical History / Comment(s): MAC DEGENERATION, HEART PROBLEMS General Exam Limitations: no limitations General appearance: alert Head exam: Present: atraumatic, normocephalic Eye exam: Present: normal appearance, PERRL Neck exam: Present: normal inspection. Absent: tenderness, meningismus Respiratory exam: Present: respiratory distress, decreased breath sounds. Absent: wheezes, rales, rhonchi Cardiovascular Exam: Present: regular rate, normal rhythm GI/Abdominal exam: Present: soft. Absent: distended, tenderness, guarding Extremities exam: Present: pedal edema. Absent: calf tenderness Course Vital Signs 09/28/22 09/28/22 09/28/22 10:48 11:19 11:32 Temperature 97.9 F Pulse Rate 100 Respiratory 22 24 Rate Blood Pressure 114/66 O2 Sat by Pulse 97 Oximetry EKG Findings - EKG Comments: EKG Findings:: Sinus rhythm rate of 81, [place] interval 187, QRS duration 95, QTC 4:[address] segment elevation Medical Decision Making - Medical Decision Making Was pt. sent in by a medical professional or institution (Dr. PA, MATTRESS FILLING MACHINE TENDER, urgent care, hospital, or [facility]...) When possible be specific @ -[No] Did you speak to anyone other than the patient for history (EMS, parent, family, police, friend...)? What history was obtained from this source @ -[No] Did you review nursing and triage notes (agree or disagree)? Why? @ -[I reviewed and agree with nursing and triage notes] Were old charts reviewed (outside hosp., previous admission, EMS record, old EKG, old radiological studies, urgent care reports/EKG's, [facility] records)? Report findings @ -[No old charts were reviewed] Differential Diagnosis (chest pain, altered mental status, abdominal pain women, abdominal pain men, vaginal bleeding, weakness, fever, dyspnea, syncope, headache, dizziness, GI bleed, back pain, seizure, CVA, palpatations, mental health, musculoskeletal)? @ -Differential Dyspnea: Coronary syndrome, arrhythmia, tamponade, asthma, COPD, pulmonary embolism, pneumonia, pneumothorax, pulmonary effusion, anaphylaxis, diabetic ketoacidosis, flailed chest, pulmonary contusion, diaphragmatic rupture, anemia, neuromuscular, this is not meant to be an all-inclusive list. EKG interpreted by me (3pts min.). @ -[As above] X-rays interpreted by me (1pt min.). @ -Rest x-ray showed hyperinflation without focal pneumonia or acute findings CT interpreted by me (1pt min.). @ -[None done] U/S interpreted by me (1pt. min.). @ -[None done] What testing was considered but not performed or refused? (CT, X-rays, U/S, labs)? Why? @ -[None] What meds were considered but not given or refused? Why? @ -[None] Did you discuss the management of the patient with other professionals (professionals i.e. , PA, MATTRESS FILLING MACHINE TENDER, lab, RT, psych nurse, social media content manager, compensation vice president, teacher, grant officer, human services case manager)? Give summary @ -As discussed with admitting physician Dr. Martinez Was smoking cessation discussed for >3mins.? @ -[No] Was critical care preformed (if so, how long)? @ -[No] Were there social determinants of health that impacted care today? How? (Homelessness, low income, unemployed, alcoholism, drug addiction, transportation, low edu. Level, literacy, decrease access to med. care, [facility], rehab)? @ -[No] Was there de-escalation of care discussed even if they declined (Discuss DNR or withdrawal of care, Hospice)? DNR status @ -[No] What co-morbidities impacted this encounter? (DM, HTN, Smoking, COPD, CAD, Cancer, CVA, ARF, Chemo, Hep., AIDS, mental health diagnosis, sleep apnea, morbid obesity)? @ -COPD, hypertension Was patient admitted / discharged? Hospital course, mention meds given and route, prescriptions, significant lab abnormalities, going to OR and other pertinent info. @ -72-year-old male presenting with chest pain and dyspnea. Pain is across the chest. Chief complaint is really predominantly dyspnea without fever or cough. Chest x-ray negative for acute cardiopulmonary findings. Normal CBC, normal CMP, negative d-dimer, negative troponin. Undiagnosed new problem with uncertain prognosis? @ -[No] Drug Therapy requiring intensive monitoring for toxicity (Heparin, Nitro, Insulin, Cardizem)? @ -[No] Were any procedures done? @ -[No] Diagnosis/symptom? @ -Dyspnea secondary to COPD exacerbation Acute, or Chronic, or Acute on Chronic? @ -Acute Uncomplicated (without systemic symptoms) or Complicated (systemic symptoms)? @ -[Complicated] Side effects of treatment? @ -[No] Exacerbation, Progression, or Severe Exacerbation? @ -Exacerbation, COPD Poses a threat to life or bodily function? How? (Chest pain, USA, [place], pneumonia, PE, COPD, DKA, ARF, appy, cholecystitis, CVA, Diverticulitis, Homicidal, Suicidal, threat to staff... and all critical care pts) @ -[Dyspnea, COPD, progression to worsening hypoxia and respiratory failure] - Lab Data Result diagrams: 09/28/22 11:15 09/28/22 11:15 Lab Results 09/28/22 09/28/22 09/28/22 Range/Units 11:15 11:15 11:15 WBC 7.3 (3.8-10.6) k/uL RBC 4.43 (4.30-5.90) m/uL Hgb 13.4 (13.0-17.5) gm/dL Hct 40.1 (39.0-53.0) % MCV 90.6 (80.0-100.0) fL MCH 30.4 (25.0-35.0) pg MCHC 33.5 (31.0-37.0) g/dL RDW 14.0 (11.5-15.5) % Plt Count 412 (150-450) k/uL MPV 6.9 Neutrophils % 68 % Lymphocytes % 16 % Monocytes % 7 % Eosinophils % 6 % Basophils % 0 % Neutrophils # 4.9 (1.3-7.7) k/uL Lymphocytes # 1.2 (1.0-4.8) k/uL Monocytes # 0.5 (0-1.0) k/uL Eosinophils # 0.4 (0-0.7) k/uL Basophils # 0.0 (0-0.2) k/uL PT 10.4 (9.0-12.0) sec INR 1.0 (<1.2) APTT 23.9 (22.0-30.0) sec D-Dimer 0.37 (<0.60) mg/L FEU Sodium 140 (137-145) mmol/L Potassium 4.0 (3.5-5.1) mmol/L Chloride 104 (98-107) mmol/L Carbon Dioxide 28 (22-30) mmol/L Anion Gap 8 mmol/L BUN 25 H (9-20) mg/dL Creatinine 1.16 (0.66-1.25) mg/dL Est GFR (CKD-EPI)AfAm 72 (>60 ml/min/1.73 sqM) Est GFR (CKD-EPI)NonAf 63 (>60 ml/min/1.73 sqM) Glucose 148 H (74-99) mg/dL Calcium 9.2 (8.4-10.2) mg/dL Magnesium 2.0 (1.6-2.3) mg/dL Total Bilirubin 1.0 (0.2-1.3) mg/dL AST 21 (17-59) U/L ALT 21 (4-49) U/L Alkaline Phosphatase 70 (38-126) U/L Troponin I (0.000-0.034) ng/mL Total Protein 6.9 (6.3-8.2) g/dL Albumin 4.1 (3.5-5.0) g/dL 09/28/22 Range/Units 11:15 WBC (3.8-10.6) k/uL RBC (4.30-5.90) m/uL Hgb (13.0-17.5) gm/dL Hct (39.0-53.0) % MCV (80.0-100.0) fL MCH (25.0-35.0) pg MCHC (31.0-37.0) g/dL RDW (11.5-15.5) % Plt Count (150-450) k/uL MPV Neutrophils % % Lymphocytes % % Monocytes % % Eosinophils % % Basophils % % Neutrophils # (1.3-7.7) k/uL Lymphocytes # (1.0-4.8) k/uL Monocytes # (0-1.0) k/uL Eosinophils # (0-0.7) k/uL Basophils # (0-0.2) k/uL PT (9.0-12.0) sec INR (<1.2) APTT (22.0-30.0) sec D-Dimer (<0.60) mg/L FEU Sodium (137-145) mmol/L Potassium (3.5-5.1) mmol/L Chloride (98-107) mmol/L Carbon Dioxide (22-30) mmol/L Anion Gap mmol/L BUN (9-20) mg/dL Creatinine (0.66-1.25) mg/dL Est GFR (CKD-EPI)AfAm (>60 ml/min/1.73 sqM) Est GFR (CKD-EPI)NonAf (>60 ml/min/1.73 sqM) Glucose (74-99) mg/dL Calcium (8.4-10.2) mg/dL Magnesium (1.6-2.3) mg/dL Total Bilirubin (0.2-1.3) mg/dL AST (17-59) U/L ALT (4-49) U/L Alkaline Phosphatase (38-126) U/L Troponin I <0.012 (0.000-0.034) ng/mL Total Protein (6.3-8.2) g/dL Albumin (3.5-5.0) g/dL Disposition Clinical Impression: Chest pain, COPD exacerbation Disposition: ADMITTED IP TO THIS HOSP Condition: Stable Is patient prescribed a controlled substance at d/c from ED?: No Referrals: Marco A Martin MD [Primary Care Provider] - 1-2 days Time of Disposition: 13:29
[2022-09-28 11:45] LABS: Basophils % (A) 0 %; Eosinophils # (A) 0.4 k/uL (0-0.7); Eosinophils % (A) 6 %; HCT 40.1 % (39.0-53.0); HGB 13.4 gm/dL (13.0-17.5); Lymphocytes # (A) 1.2 k/uL (1.0-4.8); Lymphocytes % (A) 16 %; MCH 30.4 pg (25.0-35.0); MCHC 33.5 g/dL (31.0-37.0); MCV 90.6 fL (80.0-100.0); Mean Platelet Volume 6.9; Monocytes # (A) 0.5 k/uL (0-1.0); Monocytes % (A) 7 %; Neutrophils # (A) 4.9 k/uL (1.3-7.7); Neutrophils % (A) 68 %; Platelet Count 412 k/uL (150-450); RBC 4.43 m/uL (4.30-5.90); WBC 7.3 k/uL (3.8-10.6)
--- NOTE | 2022-09-28 11:52 | XR ---
EXAMINATION TYPE: XR chest 2V DATE OF EXAM: 09/28/2022 COMPARISON: 03/28/2021 HISTORY: 72-year-old male with chest pain TECHNIQUE: PA and lateral views FINDINGS: Heart normal size. Aorta and pulmonary vasculature within normal limits. There is hyperinflation with flattening of the hemidiaphragms. Mild degenerative disc disease midthoracic spine. Partially visual ized posterior cervical fusion hardware. No consolidation or pleural effusion. IMPRESSION: COPD. No acute cardiopulmonary process.
[2022-09-28 12:03] LABS: Albumin 4.1 g/dL (3.5-5.0); Calcium 9.2 mg/dL (8.4-10.2); Total Protein 6.9 g/dL (6.3-8.2)
[2022-09-28 12:04] LABS: Partial Thromboplastin Time 23.9 sec (22.0-30.0); Prothrombin Time 10.4 sec (9.0-12.0)
[2022-09-28] MEDS ORDERED: ALBUTEROL NEBULIZED 2.5 MG/3 ML INHALATION STA (12:51)
[2022-09-28] MEDS ORDERED: IPRATROPIUM-ALBUTEROL 3 ML NEB INHALATION STA (12:51)
[2022-09-28] MEDS ORDERED: methylPREDNISolone SOD SUCCI 125 MG/2 ML VIAL IV STA (12:51)
[2022-09-28] MEDS ORDERED: IPRATROPIUM-ALBUTEROL 3 ML NEB INHALATION PRN (13:25)
[2022-09-28] MEDS ORDERED: NALOXONE 0.4 MG/ML 1 ML VIAL IVP PRN (13:25)
[2022-09-28] MEDS ORDERED: ALBUTEROL NEBULIZED 2.5 MG/3 ML INHALATION PRN (13:30)
[2022-09-28] MEDS ORDERED: IPRATROPIUM 0.5 MG/2.5 ML NEBU INHALATION PRN (13:30)
[2022-09-28] MEDS: IPRATROPIUM 0.5 MG/2.5 ML NEBU INHALATION SCH ×2 (15:39→21:05)
[2022-09-28] MEDS: ALBUTEROL NEBULIZED 2.5 MG/3 ML INHALATION SCH ×2 (15:39→21:05)
[2022-09-28] MEDS ORDERED: IPRATROPIUM-ALBUTEROL 3 ML NEB INHALATION SCH (16:00)
[2022-09-28] MEDS ORDERED: ALPRAZolam 0.25 MG TAB PO PRN (16:40)
[2022-09-28] MEDS ORDERED: ACETAMINOPHEN TAB 325 MG TAB PO PRN (16:54)
--- NOTE | 2022-09-28 17:03 | P.HPIM ---
History of Present Illness H&P Date: 09/28/22 This is a pleasant 72-year-old male who presents to [facility] with headache and ringing in the left ear for the past few days. Patient states once he was traeted in the ER he is now more and able to express his concerns. Past medical history includes atrial fibrillation on Eliquis, hypertension hyperlipidemia, and anxiety. On initial evaluation by the ER, he presented with increased shortness of breath and chest pain, noted in documentation. However, when I interviewed the patient he more concerned about his prior brain aneurysm with stent and this constant headache on the left side. He was very nervous when he came to the ER. Patient was admitted for chest pain and acute exacerbation of COPD. Chest x-ray does show evidence of COPD. However, on exam patient does not have any wheezing or diminished breath sounds. Patient was given IV steroids on presentation. Currently patient denies chest pain or shortness of breath. Patient states that his headache is still there but has improved. Ringing in the ears persists. Patient denies dizziness, lightheadedness, nausea, vomiting, fever, chills, or focal neurological deficits. Patient lives alone and is pretty independent. His about 5 years ago. Patient has close friends in the area. The sons lives in [place], [place]. Review of Systems A 14 point review of systems was assessed patient was only positive for those discussed in HPI Past Medical History Past Medical History: Atrial Fibrillation, Cancer, GERD/Reflux, Hypertension, Prostate Disorder Additional Past Medical History / Comment(s): CHRONIC LOW BACK PAIN. Prostate cancer, skin cancer, kidney stone. RECENT SOB, DIFFICULTY SWALLOWING History of Any Multi-Drug Resistant Organisms: None Reported Past Surgical History: Appendectomy, Bariatric Surgery, Cardiac Ablation, Cholecystectomy, Orthopedic Surgery Additional Past Surgical History / Comment(s): cervical sx with titanium rods, Colonoscopy, lap band, rt clavical reduction, Prostatectomy, SKIN CA REMOVED, pain procedures at .PAIN CLINIC PROCEDURES, EGD Past Anesthesia/Blood Transfusion Reactions: No Reported Reaction Additional Past Anesthesia/Blood Transfusion Reaction / Comment(s): VERTIGO Past Psychological History: Depression Smoking Status: Former smoker - Past Family History Father Family Medical History: Myocardial Infarction ([place]) Mother Additional Family Medical History / Comment(s): MAC DEGENERATION, HEART PROBLEMS Medications and Allergies Home Medications Medication Instructions Recorded Confirmed Type Apixaban [Eliquis] 5 mg PO BID #180 tab 04/17/19 09/28/22 Rx Ferrous Sulfate [Iron (65 MG 325 mg PO Q96H 10/13/20 09/28/22 History Elemental)] Multivitamins, Thera [Multivitamin 1 tab PO DAILY 10/13/20 09/28/22 History (formulary)] Cyanocobalamin (Vitamin B-12) 1,000 mcg PO DAILY 03/02/21 09/28/22 History [Vitamin B-12] Flecainide [Tambocor] 50 mg PO Q12HR 03/02/21 09/28/22 History Ubidecarenone [Co Q-10] 100 mg PO DAILY 03/02/21 09/28/22 History Metoprolol Succinate [Toprol XL] 25 mg PO DAILY 07/06/21 09/28/22 History Pantoprazole [Protonix] 40 mg PO DAILY 08/15/21 09/28/22 History Furosemide [Lasix] 40 mg PO DAILY 09/19/21 09/28/22 History Atorvastatin [Lipitor] 40 mg PO HS 09/28/22 09/28/22 History Escitalopram [Lexapro] 10 mg PO HS 09/28/22 09/28/22 History Allergies Allergy/AdvReac Type Severity Reaction Status Date / Time morphine AdvReac Nausea & Verified 09/28/22 12:34 Vomiting Physical Exam Osteopathic Statement: *. No significant issues noted on an osteopathic structural exam other than those noted in the History and Physical/Consult. Vitals: Vital Signs Temp Pulse Resp BP Pulse Ox 09/28/22 14:47 105 H 26 H 129/93 09/28/22 14:28 68 16 09/28/22 14:24 98 09/28/22 14:13 78 16 09/28/22 13:47 61 24 151/83 99 09/28/22 11:32 97.9 F 09/28/22 11:19 24 09/28/22 10:48 100 22 114/66 97 Intake and Output 09/28/22 09/28/22 09/28/22 06:59 14:59 22:59 Other: Weight 99.79 kg General: [non toxic], [no distress], [appears at stated age] Derm: [warm], [dry] Head: [atraumatic], [normocephalic], [symmetric] Eyes: [EOMI], [no lid lag], [anicteric sclera] Mouth: [no lip lesion], [mucus membranes moist] Cardiovascular: [S1S2 reg], [no murmur], [positive posterior tibial pulse bilateral], Lungs: [CTA bilateral], [no rhonchi, no rales] , [no accessory muscle use] Abdominal: [soft], [ nontender to palpation], [no guarding], [no appreciable organomegaly] Ext: [no gross muscle atrophy], [no edema], [no contractures] Neuro: [ CN II-XI grossly intact], [no focal neuro deficits] Psych: [Alert], [oriented], [appropriate affect] - Constitutional General appearance: no acute distress - EENT Eyes: EOMI - Neck Neck: no lymphadenopathy - Gastrointestinal General gastrointestinal: no organomegaly, soft, no tenderness Results CBC & Chem 7: 09/28/22 11:15 09/28/22 11:15 Labs: Abnormal Lab Results - Last 24 Hours (Table) 09/28/22 Range/Units 11:15 BUN 25 H (9-20) mg/dL Glucose 148 H (74-99) mg/dL Thrombosis Risk Factor Assmnt - DVT/VTE Prophylaxis DVT/VTE Prophylaxis: Pharmacologic Prophylaxis ordered Assessment and Plan Assessment: Acute conditions: Headache with Tinnitus History of brain aneurysm with stent placement Atypical chest pain resolved Shortness of breath treated for acute COPD exacerbation resolved Chronic conditions: Atrial fib Hypertension Hyperlipidemia Anxiety Morbid obesity Plan: CT of the head without contrast CTA of the head and neck Tylenol when necessary pain Consult cardiology: patient is followed by Dr. Li as an outpatient Continue IV Solu-Medrol for now consider transitioning to oral prednisone to be Trend troponin level Albuterol nebulizer treatment as needed Resume home medications: Eliquis, metoprolol, flecainide, atorvastatin, and Lasix Xanax when necessary anxiety patient was very nervous GI DVT prophylaxis A.m. labs Screening labs Patient is a DO NOT RESUSCITATE Disposition: Home in the next 24-48 hours 45 minutes spent coordinating care, counseling and documenting patient case. Time with Patient: Greater than 30
--- NOTE | 2022-09-28 17:38 | CT ---
EXAMINATION TYPE: CT brain wo con DATE OF EXAM: 09/28/2022 COMPARISON: 11/20/2019 HISTORY: R/O carotid stenosis. CT DLP: Combined DLP of 1666.8 mGycm Automated exposure control for dose reduction was used. Images obtained of the brain with no contrast. There is enlargement of the ventricles. There are surgical clips at the anterior [place]. Th ere is metal artifact. There is cerebral cortical atrophy. No midline shift. No sign of intracranial hemorrhage. There is hypodensity in the periventricular white matter. The calvarium is intact. Skull base is intact. IMPRESSION: Chronic white matter changes. Cerebral atrophy and hydrocephalus. Aneurysm surgery. No acute abnormal ity. No significant change compared to old exam.
[2022-09-28] MEDS ORDERED: methylPREDNISolone SOD SUCCI 125 MG/2 ML VIAL IV SCH (18:00)
--- NOTE | 2022-09-28 18:10 | CT ---
EXAMINATION TYPE: CT angio head neck DATE OF EXAM: 09/28/2022 COMPARISON: None HISTORY: R/O carotid stenosis CT DLP: Combined DLP of 1666.8 mGycm Automated exposure control for dose reduction was used. CONTRAST: Performed with IV Contrast, patient injected with 65cc mL of Isovue 370. Images obtained from the aortic arch to the vertex of the brain with the IV contrast there are Three- D postprocessed images. There is normal branching pattern of the great vessels on the aortic arch. There is arterial flow in the subclavian arteries bilaterally. There is arterial flow in the common internal and external carot id arteries bilaterally. There is arterial flow in both vertebral arteries. No evidence of carotid or vertebral artery aneurysm or dissection. There is some minimal plaque in 15% stenosis origin of the left internal carotid artery. There is 10% stenosis due to plaque formation on the posterior wall of the proximal right internal carotid artery. There is arterial flow in the vertebrobasilar artery system. No evidence of carotid or vertebral jeb ry aneurysm or dissection. There is metallic density consistent with aneurysm surgery or coils at the proximal right anterior ce rebral artery. This is at the anterior communicating artery. There is arterial flow in the anterior middle and posterior cerebral arteries bilaterally. No mass ef fect. No evidence of neovascularity. There is normal enhancement of the venous sinuses. No evidence o f intracranial hemodynamic arterial stenosis. IMPRESSION: No significant angiographic abnormality of the neck. Metallic density apparently from aneurysm coils in the anterior communicating artery aneurysm. No zurdo dence of hemodynamic stenosis.
[2022-09-28] MEDS: FLECAINIDE 50 MG TAB PO SCH (20:49)
[2022-09-28] MEDS: APIXABAN 5 MG TAB PO SCH (20:49)
[2022-09-28] MEDS: HYDROcodone/APAP 5-325MG 1 EACH TAB PO PRN (20:54)
[2022-09-28] MEDS ORDERED: ESCITALOPRAM 10 MG TAB PO SCH (21:00)
[2022-09-28] MEDS ORDERED: ATORVASTATIN 40 MG TAB PO SCH (21:00)
[2022-09-28] MEDS: methylPREDNISolone SOD SUCCI 125 MG/2 ML VIAL IV SCH (23:34)
--- NOTE | 2022-09-29 07:15 | P.CRDCN ---
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 His main presentation was a headache started 24 hours before. He underwent further workup including computed tomography scan and that came in to be unremarkable besides mild atrophic changes. We consulted to see the patient this time because he was experiencing chest discomfort. The discomfort is in the middle of the chest as a pressure on the chest was no radiation and no associated symptoms. No shortness of breath and no dizziness or lightheadedness and no feeling of heart racing or fluttering or any presyncope or syncope. He underwent further workup including EKG showing sinus rhythm was no significant ST or T-wave abnormalities and cardiac enzymes came in to be unremarkable with a chest x-ray did not show any acute abnormalities as well. He is known to have mild nonobstructive CAD based on heart catheterization in 2020 and also around the same time he underwent an echocardiogram which revealed normal LV systolic function was no significant valvular abnormalities as well. The physical examination is unremarkable. He does have normal/stable vital signs with a regular rhythm and soft systolic murmur right upper sternal border with a clear breathing sounds bilaterally and no carotid bruit and no lower extremities edema noted. The headache has resolved. The chest discomfort has improved as well. TIA/CVA has ruled out as well. Plan Headache which has resolved completely. Chest discomfort which has resolved as well Hypertension Dyslipidemia Paroxysmal atrial fibrillation History of intracranial aneurysm repair Plan Intracranial bleeding/acute CVA has ruled out Acute coronary syndrome has been ruled out as well Rule out severe CAD. Obtaining stress test and echocardiogram Continue the current medical regimen Follow-up with the patient Past Medical History Past Medical History: Atrial Fibrillation, Cancer, GERD/Reflux, Hypertension, Prostate Disorder Additional Past Medical History / Comment(s): CHRONIC LOW BACK PAIN. Prostate cancer, skin cancer, kidney stone. RECENT SOB, DIFFICULTY SWALLOWING History of Any Multi-Drug Resistant Organisms: None Reported Past Surgical History: Appendectomy, Bariatric Surgery, Cardiac Ablation, Cholecystectomy, Orthopedic Surgery Additional Past Surgical History / Comment(s): cervical sx with titanium rods, Colonoscopy, lap band, rt clavical reduction, Prostatectomy, SKIN CA REMOVED, pain procedures at [facility] PROCEDURES, EGD Past Anesthesia/Blood Transfusion Reactions: No Reported Reaction Additional Past Anesthesia/Blood Transfusion Reaction / Comment(s): VERTIGO Past Psychological History: Depression Additional Psychological History / Comment(s): past hx depression Smoking Status: Former smoker Past Alcohol Use History: None Reported Additional Past Alcohol Use History / Comment(s): started smoking age 13 stopped age 53 (08/05/97) SMOKED 3ppd Past Drug Use History: None Reported - Past Family History Father Family Medical History: Myocardial Infarction ([place]) Mother Additional Family Medical History / Comment(s): MAC DEGENERATION, HEART PROBLEMS Medications and Allergies Home Medications Medication Instructions Recorded Confirmed Type Apixaban [Eliquis] 5 mg PO BID #180 tab 04/17/19 09/28/22 Rx Ferrous Sulfate [Iron (65 MG 325 mg PO Q96H 10/13/20 09/28/22 History Elemental)] Multivitamins, Thera [Multivitamin 1 tab PO DAILY 10/13/20 09/28/22 History (formulary)] Cyanocobalamin (Vitamin B-12) 1,000 mcg PO DAILY 03/02/21 09/28/22 History [Vitamin B-12] Flecainide [Tambocor] 50 mg PO Q12HR 03/02/21 09/28/22 History Ubidecarenone [Co Q-10] 100 mg PO DAILY 03/02/21 09/28/22 History Metoprolol Succinate [Toprol XL] 25 mg PO DAILY 07/06/21 09/28/22 History Pantoprazole [Protonix] 40 mg PO DAILY 08/15/21 09/28/22 History Furosemide [Lasix] 40 mg PO DAILY 09/19/21 09/28/22 History Atorvastatin [Lipitor] 40 mg PO HS 09/28/22 09/28/22 History Escitalopram [Lexapro] 10 mg PO HS 09/28/22 09/28/22 History Allergies Allergy/AdvReac Type Severity Reaction Status Date / Time morphine AdvReac Nausea & Verified 09/28/22 12:34 Vomiting Physical Exam Vitals: Vital Signs Temp Pulse Pulse Resp BP BP BP 09/29/22 06:19 98.2 F 89 130/75 09/29/22 01:00 97.7 F 74 17 124/65 09/28/22 21:18 77 09/28/22 21:06 72 09/28/22 19:09 97.6 F 73 18 128/72 09/28/22 17:34 97.5 F L 86 16 150/83 09/28/22 14:47 105 H 26 H 129/93 09/28/22 14:28 68 16 09/28/22 14:24 09/28/22 14:13 78 16 09/28/22 13:47 61 24 151/83 09/28/22 11:32 97.9 F 09/28/22 11:19 24 09/28/22 10:48 100 22 114/66 Pulse Ox 09/29/22 06:19 09/29/22 01:00 96 09/28/22 21:18 09/28/22 21:06 09/28/22 19:09 95 09/28/22 17:34 98 09/28/22 14:47 09/28/22 14:28 09/28/22 14:24 98 09/28/22 14:13 09/28/22 13:47 99 09/28/22 11:32 09/28/22 11:19 09/28/22 10:48 97 Intake and Output 09/28/22 09/29/22 09/29/22 22:59 06:59 14:59 Other: # Voids 1 1 Weight 99.79 kg Results 09/28/22 11:15 09/28/22 11:15 Cardiac Enzymes 09/28/22 09/28/22 09/28/22 Range/Units 11:15 11:15 16:26 AST 21 (17-59) U/L Troponin I <0.012 <0.012 (0.000-0.034) ng/mL 09/28/22 Range/Units 20:15 AST (17-59) U/L Troponin I <0.012 (0.000-0.034) ng/mL Coagulation 09/28/22 Range/Units 11:15 PT 10.4 (9.0-12.0) sec APTT 23.9 (22.0-30.0) sec CBC 09/28/22 Range/Units 11:15 WBC 7.3 (3.8-10.6) k/uL RBC 4.43 (4.30-5.90) m/uL Hgb 13.4 (13.0-17.5) gm/dL Hct 40.1 (39.0-53.0) % Plt Count 412 (150-450) k/uL Comprehensive Metabolic Panel 09/28/22 Range/Units 11:15 Sodium 140 (137-145) mmol/L Potassium 4.0 (3.5-5.1) mmol/L Chloride 104 (98-107) mmol/L Carbon Dioxide 28 (22-30) mmol/L BUN 25 H (9-20) mg/dL Creatinine 1.16 (0.66-1.25) mg/dL Glucose 148 H (74-99) mg/dL Calcium 9.2 (8.4-10.2) mg/dL AST 21 (17-59) U/L ALT 21 (4-49) U/L Alkaline Phosphatase 70 (38-126) U/L Total Protein 6.9 (6.3-8.2) g/dL Albumin 4.1 (3.5-5.0) g/dL Current Medications Generic Name Dose Route Start Last Admin Trade Name Freq PRN Reason Stop Dose Admin Acetaminophen 325 mg 09/28/22 16:54 Acetaminophen Tab 325 Mg Tab PO Q6HR PRN Fever and/ or Pain Hydrocodone Bitart/Acetaminophen 1 each 09/28/22 20:07 09/28/22 20:54 Hydrocodone/Apap 5-325mg 1 Each Tab PO 1 each Q6HR PRN Administration Pain Albuterol Sulfate 2.5 mg 09/28/22 16:00 09/28/22 21:05 Albuterol Nebulized 2.5 Mg/3 Ml INHALATION 2.5 mg RT-QID KEATON Administration Albuterol Sulfate 2.5 mg 09/28/22 13:30 Albuterol Nebulized 2.5 Mg/3 Ml INHALATION RT-Q2H PRN Shortness Of Breath Or Wheezing Alprazolam 0.25 mg 09/28/22 16:40 Alprazolam 0.25 Mg Tab PO TID PRN Anxiety Apixaban 5 mg 09/28/22 21:00 09/28/22 20:49 Apixaban 5 Mg Tab PO 5 mg BID KEATON Administration Protocol Atorvastatin Calcium 40 mg 09/28/22 21:00 03/23/23 20:49 Atorvastatin 40 Mg Tab PO 40 mg HS KEATON Administration Cyanocobalamin 1,000 mcg 09/29/22 09:00 Cyanocobalamin 500 Mcg Tab PO DAILY [facility] Escitalopram Oxalate 10 mg 09/28/22 21:00 09/28/22 20:49 Escitalopram 10 Mg Tab PO 10 mg HS KEATON Administration Ferrous Sulfate 325 mg 09/29/22 09:00 Ferrous Sulfate 325 Mg Tab PO Q96H [facility] Flecainide Acetate 50 mg 09/28/22 21:00 09/28/22 20:49 Flecainide 50 Mg Tab PO 50 mg Q12HR KEATON Administration Furosemide 40 mg 09/29/22 09:00 Furosemide 40 Mg Tab PO DAILY [facility] Ipratropium [place] 0.5 mg 09/28/22 16:00 09/28/22 21:05 Ipratropium 0.5 Mg/2.5 Ml Nebu INHALATION 0.5 mg RT-QID KEATON Administration Ipratropium [place] 0.5 mg 09/28/22 13:30 Ipratropium 0.5 Mg/2.5 Ml Nebu INHALATION RT-Q2H PRN Shortness Of Breath Or Wheezing Methylprednisolone Sodium Succinate 60 mg 09/29/22 00:00 09/28/22 23:34 Methylprednisolone Sod Succi 125 Mg/2 Ml Vial IV 60 mg Q8HR KEATON Administration Metoprolol Succinate 25 mg 09/29/22 09:00 Metoprolol Succinate (Er) 25 Mg Tab.Er.24h PO DAILY [facility] Multivitamins 1 each 09/29/22 09:00 Multivitamins, Thera 1 Each Tab PO DAILY [facility] Naloxone HCl 0.2 mg 09/28/22 13:25 Naloxone 0.4 Mg/Ml 1 Ml Vial IVP Q2M PRN Opioid Reversal Pantoprazole Sodium 40 mg 09/29/22 07:30 09/29/22 06:16 Pantoprazole 40 Mg Tablet PO 40 mg [id number] [facility] Administration Intake and Output 09/28/22 09/29/22 09/29/22 22:59 06:59 14:59 Other: # Voids 1 1 Weight 99.79 kg 09/28/22 11:15 09/28/22 11:15
[2022-09-29] MEDS ORDERED: PANTOPRAZOLE 40 MG TABLET PO SCH (07:30)
[2022-09-29] MEDS: methylPREDNISolone SOD SUCCI 125 MG/2 ML VIAL IV SCH (08:05)
[2022-09-29] MEDS: APIXABAN 5 MG TAB PO SCH (08:05)
[2022-09-29] MEDS: HYDROcodone/APAP 5-325MG 1 EACH TAB PO PRN ×2 (08:10→13:42)
[2022-09-29 08:48] LABS: Basophils # (A) 0.01 X 10*3/uL (0.00-0.10); Basophils % (A) 0.1 %; Eosinophils # (A) 0 X 10*3/uL (0.04-0.35); Eosinophils % (A) 0 %; HCT 36.1 % (39.6-50.0); HGB 11.6 g/dL (13.0-17.0); Immature Grans, Automated 0.9 %; Lymphocytes % (A) 12.2 %; MCH 29.8 pg (27.0-32.0); MCHC 32.1 g/dL (32.0-37.0); MCV 92.8 fL (80.0-97.0); Mean Platelet Volume 9.3 fL (9.5-12.2); Monocytes # (A) 0.18 X 10*3/uL (0.20-1.00); Monocytes % (A) 2.2 %; NRBC Per 100 WBC 0 /100 WBCS (0.0-0.0); Neutrophils # (A) 6.92 X 10*3/uL (1.80-7.70); Neutrophils % (A) 84.6 %; Platelet Count 372 X 10*3/uL (140-440); RBC 3.89 X 10*6/uL (4.40-5.60); RDW 13.7 % (11.5-14.5); WBC 8.18 X 10*3/uL (4.50-10.00)
[2022-09-29] MEDS: IPRATROPIUM 0.5 MG/2.5 ML NEBU INHALATION SCH ×2 (08:51→11:49)
[2022-09-29] MEDS: ALBUTEROL NEBULIZED 2.5 MG/3 ML INHALATION SCH ×2 (08:51→11:49)
[2022-09-29 09:00] LABS: African American GFR (CKD) 69.1 (60.0-200.0); Albumin 3.8 g/dL (3.8-4.9); Albumin/Globulin Ratio 1.65 (1.60-3.17); Anion Gap 15.7 mmol/L (10.00-18.00); BUN/Creat Ratio 22.08 Ratio (12.00-20.00); Blood Urea Nitrogen 26.5 mg/dL (9.0-27.0); Calcium 9.3 mg/dL (8.7-10.3); Carbon Dioxide 21.3 mmol/L (20.0-27.5); Globulin 2.3 g/dL (1.6-3.3); Non-African American GFR(CKD) 59.6 (60.0-200.0); Potassium 4.1 mmol/L (3.5-5.5); Total Bilirubin 0.4 mg/dL (0.30-1.20); Total Protein 6.1 g/dL (6.2-8.2)
[2022-09-29] MEDS ORDERED: CYANOCOBALAMIN 500 MCG TAB PO SCH (09:00)
[2022-09-29] MEDS ORDERED: FERROUS SULFATE 325 MG TAB PO SCH (09:00)
[2022-09-29] MEDS ORDERED: FUROSEMIDE 40 MG TAB PO SCH (09:00)
[2022-09-29] MEDS ORDERED: METOPROLOL SUCCINATE (ER) 25 MG TAB.ER.24H PO SCH (09:00)
[2022-09-29] MEDS ORDERED: NON FORMULARY DRUG (Ubidecarenone [Co Q-10] 100 MG Capsule) PO SCH (09:00)
[2022-09-29] MEDS ORDERED: MULTIVITAMINS, THERA 1 EACH TAB PO SCH (09:00)
[2022-09-29 10:02] VITALS: RESP 16
[2022-09-29] MEDS: FLECAINIDE 50 MG TAB PO SCH (10:58)
[2022-09-29 12:21] VITALS: BP 119/73; PULSE 91; TEMP 97.9
--- NOTE | 2022-09-29 12:41 | CA ---
Stress Echo Report Noble Hartman Age: 72 Gender: M : 1950 Exam Date: 09/29/2022 10:30 Exam Location: [place] [facility] Ht (in): 68 Wt (lb): 220 Ordering Physician: Biju Rojas MD ([id number]) Referring Physician: JUANA,, Certified Lactation Counselor: Allie Estrada RDCS Technologist Procedure CPT: Indication: CP ICD-9 Codes: Rhythm: Patient History: Dyspnea/SOB, Old [place], Family history, Hyperlipidemia Cardiac Medications: Medications in past 24 hours: Contrast: Stress Results Protocol: Bry Total dose(mL): Exercise Duration (min:sec): 3:[address] Depression (mm): Angina Score: Al Score: METS: 4.6 Resting HR: 96 Resting BP: 164 / 83 Peak HR: 134 Peak BP: / 80 Max Predicted HR: 147 91 % Max Predicted HR Target HR: 125 Double Product: Stress Summary: The patient's target heart rate was achieved BP Response: Normal Reason for Termination: Reached target heart rate or work-load Cardiac Symptoms: ECG Analysis Resting ECG: Stress ECG: Arrhythmia: Echo Analysis Resting Echo: Peak Echo Analysis: MEASUREMENTS (Male/Female) Normal Values CONCLUSIONS Good exercise tolerance Normal EKG and echo in response to exercise Dr. Biju Rojas MD (Electronically Signed) Final Date: 29 September 2022 12:40
--- NOTE | 2022-09-29 12:43 | CA ---
Transthoracic Echo Report Name: Noble Hartman Age: 72 Gender: M : 1950 Exam Date: 09/29/2022 10:18 Exam Location: [place] [facility] Ht (in): 68 Wt (lb): 220 Ordering Physician: Biju Rojas MD ([id number]) Attending/Referring Phys: Manager Financial Planning Allie Estrada RDCS Procedure CPT: Indications: CP Cardiac Hx: Technical Quality: Good Contrast 1: Total Dose (mL): Contrast 2: Total Dose (mL): MEASUREMENTS (Male / Female) Normal Values 2D ECHO LV Diastolic Diameter PLAX 4.8 cm 4.2 - 5.9 / 3.9 - 5.3 cm LV Systolic Diameter PLAX 2.6 cm IVS Diastolic Thickness 1.1 cm 0.6 - 1.0 / 0.6 - 0.9 cm LVPW Diastolic Thickness 1.1 cm 0.6 - 1.0 / 0.6 - 0.9 cm LV Relative Wall Thickness 0.5 RV Internal Dim ED PLAX 3.5 cm LA Systolic Diameter LX 3.6 cm 3.0 - 4.0 / 2.7 - 3.8 cm LV Diastolic Volume MOD BP 54.6 cm??? 67 - 155 / 56 - 104 cm??? LV Systolic Volume MOD BP 21.6 cm??? 22 - 58 / 19 - 49 cm??? LV Ejection Fraction MOD BP 60.5 % >= 55 % LV Diastolic Volume MOD 4C 61.3 cm??? LV Systolic Volume MOD 4C 26.7 cm??? LV Ejection Fraction MOD 4C 56.5 % LV Diastolic Length 4C 6.9 cm LV Systolic Length 4C 5.6 cm LV Diastolic Volume MOD 2C 50.1 cm??? LV Systolic Volume MOD 2C 17.4 cm??? LV Ejection Fraction MOD 2C 65.3 % LV Diastolic Length 2C 6.9 cm LV Systolic Length 2C 5.8 cm LA Volume 44.1 cm??? 18 - 58 / 22 - 52 cm??? M-MODE Aortic Root Diameter MM 4.0 cm MV E Point Septal Separation 0.4 cm AV Cusp Separation MM 1.9 cm DOPPLER AV Peak Velocity 97.2 cm/s AV Peak Gradient 3.8 mmHg MV Area PHT 3.2 cm??? Mitral E Point Velocity 53.3 cm/s Mitral A Point Velocity 54.7 cm/s Mitral E to A Ratio 1.0 MV Deceleration Time 237.8 ms MV E' Velocity 7.6 cm/s Mitral E to MV E' Ratio 7.0 TR Peak Velocity 279.1 cm/s TR Peak Gradient 31.2 mmHg Right Ventricular Systolic Press 36.2 mmHg FINDINGS Left Ventricle Left ventricular ejection fraction is estimated at 60-65 %. Left ventricular cavity size normal. Borderline left ventricular hypertrophy. No obvious regional wall motion abnormalities. Right Ventricle Mild right ventricular dilatation. Mild pulmonary hypertension. Right Atrium Normal right atrial size. Left Atrium Normal left atrial size. Mitral Valve Structurally normal mitral valve. No mitral stenosis, regurgitation or prolapse. Aortic Valve Trileaflet aortic valve. No aortic valve stenosis or regurgitation. Focal thickening of the aortic valve cusps. Tricuspid Valve Structurally normal tricuspid valve. Mild tricuspid regurgitation. Pulmonic Valve Structurally normal pulmonic valve. No pulmonic regurgitation. Pericardium Normal pericardium. No pericardial effusion. Aorta Mild aortic dilatation at the level of the sinuses of valsalva 40 mm CONCLUSIONS Normal LV systolic function Aortic sclerosis was no stenosis or insufficiency Previewed by: Dr. Biju Rojas MD (Electronically Signed) Final Date: 29 September 2022 12:42
--- NOTE | 2022-09-29 13:17 | P.DS ---
Providers Date of admission: 09/28/22 13:29 Attending physician: Betsy Tong DO Consults: 09/28/22 16:57 Consult Physician Routine Consulting Provider: Alvin Li Consult Reason/Comments: chest pain Do you want consulting provider notified?: Yes Primary care physician: Marco A Martin Hospital Course: Discharge Diagnosis: Headache History of brain aneurysm with stent placement: Stable Atypical chest pain: Resolved Shortness of breath treated for acute COPD exacerbation: Resolved Hospital Course: This is a pleasant 72-year-old male who presents to [facility] with headache and ringing in the left ear for the past few days. Patient states once he was traeted in the ER he is now more and able to express his concerns. Past medical history includes atrial fibrillation on Eliquis, hypertension hyperlipidemia, and anxiety. On initial evaluation by the ER, he presented with increased shortness of breath and chest pain, noted in documentation. However, when I interviewed the patient he more concerned about his prior brain aneurysm with stent and this constant headache on the left side. He was very nervous when he came to the ER. Patient was admitted for chest pain and acute exacerbation of COPD. Chest x-ray does show evidence of COPD. However, on exam patient does not have any wheezing or diminished breath sounds. Patient was given IV steroids on presentation. Currently patient denies chest pain or shortness of breath. Patient states that his headache is still there but has improved. Ringing in the ears persists. Patient denies dizziness, lightheadedness, nausea, vomiting, fever, chills, or focal neurological deficits. Patient lives alone and is pretty independent. His about 5 years ago. Patient has close friends in the area. The sons lives in [place], [place]. Patient had a CT head and a CTA head and neck that were unremarkable. Patient reported improvement in his headache. Patient instructed to follow-up with neurology for his headache. Patient also had an echocardiogram and also echo stress test that were unremarkable. Patient deemed stable for discharge home Patient seen and examined at bedside.[] Vital signs reviewed and stable. General: [non toxic], [no distress], [appears at stated age] Derm: [warm], [dry] Head: [atraumatic], [normocephalic], [symmetric] Eyes: [EOMI], [no lid lag], [anicteric sclera] Mouth: [no lip lesion], [mucus membranes moist] Cardiovascular: [S1S2 reg], [no murmur], [positive posterior tibial pulse bilateral], Lungs: [CTA bilateral], [no rhonchi, no rales] , [no accessory muscle use] Abdominal: [soft], [ nontender to palpation], [no guarding], [no appreciable organomegaly] Ext: [no gross muscle atrophy], [no edema], [no contractures] Neuro: [ CN II-XI grossly intact], [no focal neuro deficits] Psych: [Alert], [oriented], [appropriate affect] A total of [33] minutes of time were spent preparing this complex discharge summary . Patient Condition at Discharge: Stable Plan - Discharge Summary Discharge Rx Participant: Yes New Discharge Prescriptions: Continue Apixaban [Eliquis] 5 mg PO BID #180 tab Multivitamins, Thera [Multivitamin (formulary)] 1 tab PO DAILY Ubidecarenone [Co Q-10] 100 mg PO DAILY Flecainide [Tambocor] 50 mg PO Q12HR Pantoprazole [Protonix] 40 mg PO DAILY Furosemide [Lasix] 40 mg PO DAILY Escitalopram [Lexapro] 10 mg PO HS Ferrous Sulfate [Iron (65 MG Elemental)] 325 mg PO Q96H Cyanocobalamin (Vitamin B-12) [Vitamin B-12] 1,000 mcg PO DAILY Metoprolol Succinate [Toprol XL] 25 mg PO DAILY Atorvastatin [Lipitor] 40 mg PO HS Discharge Medication List Apixaban [Eliquis] 5 mg PO BID #180 tab 04/17/19 [Rx] Ferrous Sulfate [Iron (65 MG Elemental)] 325 mg PO Q96H 10/13/20 [History] Multivitamins, Thera [Multivitamin (formulary)] 1 tab PO DAILY 10/13/20 [History] Cyanocobalamin (Vitamin B-12) [Vitamin B-12] 1,000 mcg PO DAILY 03/02/21 [History] Flecainide [Tambocor] 50 mg PO Q12HR 03/02/21 [History] Ubidecarenone [Co Q-10] 100 mg PO DAILY 03/02/21 [History] Metoprolol Succinate [Toprol XL] 25 mg PO DAILY 07/06/21 [History] Pantoprazole [Protonix] 40 mg PO DAILY 08/15/21 [History] Furosemide [Lasix] 40 mg PO DAILY 09/19/21 [History] Atorvastatin [Lipitor] 40 mg PO HS 09/28/22 [History] Escitalopram [Lexapro] 10 mg PO HS 09/28/22 [History] Follow up Appointment(s)/Referral(s): Marco A Martin MD [Primary Care Provider] - 1-2 days Tom Junior MD [STAFF PHYSICIAN] - 1 Week Discharge Disposition: HOME SELF-CARE
== END 2022-09-29 14:04 | disposition home or self-care (01) ==
LOC: EC 10:42 → 6NMEDSUR 13:29
PROVIDERS: ADMIT Internal Medicine; ATTEND Internal Medicine
DX: I20.9 Angina pectoris, unspecified (principal); R06.02 Shortness of breath; R51.9 Headache, unspecified; R07.89 Other chest pain; Z86.79 Personal history of other diseases of the circulatory system; J44.1 Chronic obstructive pulmonary disease with (acute) exacerbation; I48.91 Unspecified atrial fibrillation; I10 Essential (primary) hypertension; E78.5 Hyperlipidemia, unspecified; F41.9 Anxiety disorder, unspecified; Z98.890 Other specified postprocedural states; H93.19 Tinnitus, unspecified ear; Z85.46 Personal history of malignant neoplasm of prostate; Z85.828 Personal history of other malignant neoplasm of skin; K21.9 Gastro-esophageal reflux disease without esophagitis; G89.29 Other chronic pain; M54.50 Low back pain, unspecified; R13.10 Dysphagia, unspecified; Z90.49 Acquired absence of other specified parts of digestive tract; Z98.84 Bariatric surgery status; Z87.891 Personal history of nicotine dependence; Z82.49 Family history of ischemic heart disease and other diseases of the circulatory system; Z83.518 Family history of other specified eye disorder; Z79.01 Long term (current) use of anticoagulants; Z79.899 Other long term (current) drug therapy; Z88.5 Allergy status to narcotic agent
CPT/HCPCS: 96376 ×2; 96374; 99285; 36415; 94640 ×2; 94760; 93005; 93306; 93351; 85379; 80053 ×2; 84443; 83735; 84484; 85025 ×2; 85610; 85730; 83036; 71046; 70496; 70450; 70498; G0378 ×2; J2930 ×2; Q9967

== ENCOUNTER → 2022-10-05 | Outpatient (CLI) | payer MEDICARE ==
--- NOTE | 2022-10-05 14:00 | MR ---
EXAMINATION TYPE: MR angio head wo/w con DATE OF EXAM: 10/05/2022 COMPARISON: MRA brain November 27, 2019. CT brain 1 week earlier HISTORY: PAIN IN FRONTAL AREA, RINGING IN BILAT EARS TECHNIQUE: Time of flight images focusing on the [place] were performed without and with IV contrast.. 2-D and 3-D postprocessing imaging is performed on independent workstation. FINDINGS: Vertebral arteries redemonstrated patent to basilar junction. Right vertebral artery redemo nstrated dominant. Patent bilateral posterior communicating arteries redemonstrated. No significant f ocal stenosis or aneurysm in the posterior circulation. Images of the anterior circulation show artifact from aneurysm clip at level of prior anterior commun icating artery aneurysm. Suboptimal evaluation of structures at this level are seen. Remainder of the anterior circulation shows no new aneurysm or significant focal stenosis. 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 No new aneurysm is seen.
--- NOTE | 2022-10-05 14:13 | MR ---
EXAMINATION TYPE: MR iac wo/w con DATE OF EXAM: 10/05/2022 COMPARISON: CT brain 1 week ago. MRI brain November 27, 2019 HISTORY: PAIN IN FRONTAL AREA, RINGING IN BILAT EARS TECHNIQUE: Multiplanar, multisequence images of the brain and brainstem is performed without and with IV contras t, utilizing 10 mL intravenous Gadavist . Acoustic nerve disorder protocol. FINDINGS: Diffusion weighted images demonstrate no evidence of a recent infarct or other diffusion ab normality. There is ventricular and sulcal prominence redemonstrated. Degree of ventricular prominen ce remains more prominent in degree of sulcal effacement. Ventricular size similar to prior MRI. Mult ifocal and confluent areas of T2 hyperintensity throughout the white matter are again seen bilaterall y. Midline structures demonstrate redemonstrate thinning of the corpus callosum. The craniocervical clotilde ction remains within normal limits. Mild mucosal thickening ethmoid sinuses bilaterally are redemonst rated. Globes are intact bilaterally. No suspicious fluid signal in the mastoid air cells bilaterally. Vestibulocochlear complexes are symm etric and felt within normal limits. There is no suspicious enhancing cerebellopontine angle mass see n bilaterally. IMPRESSION: 1. Moderate diffuse cerebral atrophy and moderate to advanced chronic small vessel ischemic change re demonstrated. Underlying moderate hydrocephalus is redemonstrated and unchanged from 2020 MRI. Correl ate for NPH. 2. No suspicious finding on IAC portion of exam to account for patient's bilateral ranging sensation.
== END | disposition home or self-care (01) ==
LOC: RADMRIMAIN 10:52
PROVIDERS: ATTEND Otolaryngology
DX: I67.1 Cerebral aneurysm, nonruptured (principal); I67.82 Cerebral ischemia; G31.9 Degenerative disease of nervous system, unspecified; G91.9 Hydrocephalus, unspecified; H93.19 Tinnitus, unspecified ear
CPT/HCPCS: 70546; 70553; A9585

== ENCOUNTER → 2022-12-15 | Outpatient (CLI) | payer MEDICARE | END | disposition home or self-care (01) | LOC: LABPAT 15:11 | PROVIDERS: ATTEND Orthopaedic Surgery Orthopaedic Surgery of the Spine | DX: Z53.9 Procedure and treatment not carried out, unspecified reason (principal) ==

== ENCOUNTER 2022-12-20 12:00 | Day surgery (SDC) | payer MEDICARE ==
[~2022-12-20 12:00] MED LIST changes: +HYDROmorphone 0.5 MG/0.5 ML SYRINGE IVP PRN; -LACTATED RINGERS 1,000 ML IV SCH; +LIDOCAINE 1% (10MG/ML) FOR IV START INTRADERMA PRN; +MIDAZOLAM 2 MG/2 ML VIAL IV PRN; +ceFAZolin 1,000 MG in SODIUM CHLORIDE 0.9% IRRIGATIO 1,000 ML IRRIGATION PRN
[2022-12-20] MEDS: LACTATED RINGERS 1,000 ML IV SCH (12:50)
[2022-12-20] MEDS ORDERED: ONDANSETRON 4 MG/2 ML VIAL ONE (13:04)
[2022-12-20] MEDS ORDERED: fentaNYL (PF) 50 MCG/ML 2 ML AMP ONE (13:12)
[2022-12-20] MEDS ORDERED: MIDAZOLAM 2 MG/2 ML VIAL ONE (13:12)
[2022-12-20] MEDS ORDERED: ROCURONIUM 10 MG/ML (5 ML VIAL) IV ONE (13:12)
[2022-12-20] MEDS ORDERED: SUCCINYLCHOLINE CHLORIDE 200 MG/10 ML VIAL IV ONE (13:12)
[2022-12-20] MEDS ORDERED: METOPROLOL TARTRATE 5 MG/5 ML VIAL IVP ONE (13:12)
[2022-12-20] MEDS ORDERED: HYDROmorphone (PF) 1 MG/ML ONE (13:12)
[2022-12-20] MEDS ORDERED: PROPOFOL 10 MG/ML 20 ML VIAL IV ONE (13:12)
[2022-12-20] MEDS ORDERED: LIDOCAINE 2% INJ 20 MG/ML (2 ML VIAL) ONE (13:12)
[2022-12-20] MEDS ORDERED: BUPIVACAINE (PF) 0.25% 30 ML VIAL SQ ONE ×2 (13:46→13:48)
[2022-12-20] MEDS ORDERED: LIDOCAINE 2%-EPI 1:100,000 20 ML VIAL SQ ONE ×2 (13:46→13:48)
[2022-12-20] MEDS ORDERED: GELATIN SPONGE,ABSORB (LARGE) 1 EACH SPONGE MISCELLANE ONE (13:46)
[2022-12-20] MEDS ORDERED: THROMBIN (BOVINE) 5,000 UNIT VIAL MISCELLANE ONE (13:47)
[2022-12-20] MEDS ORDERED: methylPREDNISolone ACETATE 40 MG/ML 1 ML VIAL MISCELLANE ONE (13:47)
[2022-12-20] MEDS ORDERED: LACTATED RINGERS 1,000 ML IV ONE (14:11)
[2022-12-20] MEDS ORDERED: BENZOCAINE/MENTHOL LOZENG 1 EACH LOZENGE MUCOUS MEM PRN (14:47)
[2022-12-20] MEDS ORDERED: CYCLOBENZAPRINE 10 MG TAB PO PRN (14:47)
[2022-12-20] MEDS ORDERED: ONDANSETRON 4 MG/2 ML VIAL IVP PRN (14:47)
[2022-12-20] MEDS ORDERED: HYDROmorphone 1 MG/ML 1 ML SYRINGE IVP PRN (14:47)
[2022-12-20] MEDS ORDERED: KETOROLAC 15 MG/ML 1 ML VIAL IVP PRN (14:47)
[2022-12-20] MEDS ORDERED: ESCITALOPRAM 10 MG TAB PO PRN (14:49)
--- NOTE | 2022-12-20 14:53 | P.OP ---
Date of Procedure: 12/20/22 Preoperative Diagnosis: Spinal stenosis L3 4, neurogenic claudication, herniated nucleus pulposis L3 4, lower extremity radiculopathy, lower extremity weakness Postoperative Diagnosis: Same Anesthesia: GETA Pathology: none sent Condition: stable Disposition: PACU Description of Procedure: BRIEF OPERATIVE NOTE Preoperative Diagnosis:Spinal stenosis L3 4, neurogenic claudication, herniated nucleus pulposis L3 4, lower extremity radiculopathy, lower extremity weakness Postoperative Diagnosis:Spinal stenosis L3 4, neurogenic claudication, herniated nucleus pulposis L3 4, lower extremity radiculopathy, lower extremity weakness Procedure: Laminectomy and decompression with partial medial facetectomy and foraminotomy L3 4 Discectomy for decompression L3 4 Use of fluoroscopic guidance for confirmation of level Surgeon: Dr. Garcia Simulation Software Engineer: Darrius Chandler is present throughout the entire the case persistence during positioning, dissection, exposure, visualization, and all crucial elements of the case as well as closure. Anesthesia: General anesthesia per Dr. Garcia Estimated blood loss: Approximately 50 mL Complications: None apparent Components implanted: None Disposition: To recovery room in good stable condition. OPERATIVE INDICATIONS The patient has been having issues in their lower back and lower extremities. The patient was found have evidence of significant stenosis L3 4 with disc herniation at that level. This correlated with his back pain in his lower extremity symptoms over his thigh with radiculopathy. He was having some weakness with left hip flexion as well. He been through aggressive conservative management however was not having any prolonged benefit despite aggressive conservative care. He is having worsening of his symptoms. The patient has been through conservative treatment. We discussed various treatment options including surgery, and the patient wishes to proceed with surgery We discussed the risk, patient's alternatives and benefits of surgery including but not limited to, risk of bleeding risk of infection, risk of need for further surgery, risk of decreased, loss of motion, loss of function, nerve damage, paralysis, heart attack, blindness and . OPERATIVE SUMMARY After discussing all the risks, patient alternatives and benefits at length, the patient elected to proceed with surgical intervention, signed informed consent, and presented for their procedure. The patient was seen and examined in the preoperative holding area and the surgical site was marked. The patient was given antibiotics and brought to the operating room. The patient was sedated and intubated by anesthesia in standard fashion. The patient was positioned on to the operating room table in a prone position on the appropriate frame which was well-padded and well molded. We were careful to pad any bony prominences and pressure points. We were careful to maintain the patient's cervical spine and good neutral alignment and position throughout. The patient was prepped and draped in a normal standard fashion. An appropriate timeout and keystone protocol performed. We were able to proceed with the surgery. Fluoroscopy was utilized to establish the appropriate level at L3 4. The local wound area was infiltrated with local anesthetic. An incision was made at the midline longitudinally over the appropriate levels of L3 4. Dissection was taken down subcutaneously to the level of the fascia which was split midline. Dissection was taken over the lamina. Intraoperative f luoroscopy was taken which showed a marker at the appropriate level at L3 4. With the appropriate level positively confirmed, we were able to proceed with laminectomy. The wound was copiously irrigated and suctioned dry as had been done periodically throughout the case. I performed a laminectomy with foraminotomies and partial medial facetectomy at L3 4 on the left with a combination of curettes and a high-speed bur and Kerrison rongeurs. A small medial facetectomy was performed again further access. A partial foraminotomy was also performed. Portions of the ligamentum flavum were taken down to expose the dura and traversing nerve root. I was able to mobilize the traversing nerve root and gain access to the disc space. Note was made of obvious compression from the disc and obvious stenosis with thickening of the ligamentum flavum as well as large osteophytes on the facet joints which were removed.. Protecting the soft tissue structures, a small annulotomy was established. I was able to perform discectomy and remove any extruded disc fragments and any loose fragments from within the disc itself. A large fragment of disc was able to be removed and many small fragments as well. There is some disc desiccation noted. I tried to preserve the disc annulus that appeared stable. There were no further extruded fragments noted. There is no evidence of dural tear or leak. Good hemostasis maintained. The wound was copiously irrigated and suctioned dry. Good decompression and discectomy was noted. We were able to proceed with closure. The fascia was closed for a watertight closure. The subcuticular tissue was closed with absorbable suture. The wound was cleaned and dried and dressed with the appropriate dressing. The drapes were broken down. The patient was gently rolled back onto their hospital bed being careful to maintain their cervical spine and good neutral alignment and position. They were woken up by anesthesia, extubated, and brought to the recovery room in good stable condition. The patient will be admitted to the hospital for observation and for appropriate postoperative care, medical management and monitoring. We will continue to follow them closely about the postoperative course.
--- NOTE | 2022-12-20 15:13 | XR ---
Fluoroscopy History: LUMBAR LAMINECTOMY HERNIATED NUCLEUS PULPOSUS L3-4. DR. SWAIN FL TIME: 5 SECONDS DAP: 2.1119 Crosstable lateral view demonstrates posterior localizer at the L4 level.
[2022-12-20] MEDS ORDERED: ceFAZolin 3 GM in SODIUM CHLORIDE 0.9% 100 ML IVPB SCH (16:00)
[2022-12-20] MEDS ORDERED: ONDANSETRON 4 MG/2 ML VIAL IVP ONE (16:05)
[2022-12-20] MEDS ORDERED: hydrALAZINE HCL 20 MG/ML 1 ML VIAL IVP ONE ×2 (16:05)
[2022-12-20] MEDS ORDERED: droPERidol 5 MG/2 ML VIAL IVP ONE (16:30)
[2022-12-20] MEDS: SODIUM CHLORIDE 0.9% 1,000 ML IV SCH (17:03)
[2022-12-20] MEDS: ACETAMINOPHEN TAB 325 MG TAB PO SCH (17:23)
[2022-12-20] MEDS: FLECAINIDE 50 MG TAB PO SCH (20:28)
[2022-12-20] MEDS: HYDROcodone/APAP 5-325MG 1 EACH TAB PO PRN (20:34)
[2022-12-20] MEDS ORDERED: ATORVASTATIN 40 MG TAB PO SCH (21:00)
[2022-12-21] MEDS: ACETAMINOPHEN TAB 325 MG TAB PO SCH ×2 (00:14→06:26)
[2022-12-21] MEDS: HYDROcodone/APAP 5-325MG 1 EACH TAB PO PRN ×3 (01:22→10:49)
[2022-12-21] MEDS: SODIUM CHLORIDE 0.9% 1,000 ML IV SCH (05:50)
[2022-12-21 08:12] VITALS: BP 109/54; PULSE 73; RESP 16; TEMP 98.2
[2022-12-21] MEDS: FLECAINIDE 50 MG TAB PO SCH (08:14)
[2022-12-21] MEDS: LACTATED RINGERS 1,000 ML IV SCH (08:14)
--- NOTE | 2022-12-21 08:47 | P.DS ---
Providers Date of admission: 12/20/22 Attending physician: Ale Garcia Primary care physician: Marco A Martin Hospital Course: The patient presented on the day of admission as per their operative note. He is postoperative day #1 status post decompression and discectomy at L3 4 for his stenosis with disc herniation. He feels his legs are doing much better. He was able ambulate last night and void freely this morning. Physical Exam The incision site is clean dry and intact. There is no erythema no drainage. There is no purulence no evidence of infection. The dressing is clear without any drainage Abdomen soft and nontender. Chest has good excursion with deep inspiration and expiration. The patient has active and passive range of motion intact at the upper and lower extremities. There is no acute change in neurologic status. He has sustained dorsal flexion plantar flexion and EHL intact. Hospital Course Postoperative day #1 status post decompression discectomy at L3 4 for his stenosis with disc herniation and lower extremity radiculopathy The patient feels that he is making good progress in his legs are much improved. He is some soreness at his back but is well controlled with medication. The patient has been making good progress postoperatively. They have completed the prophylactic antibiotics without any signs or symptoms of infection. The patient has been able to advance their diet, and is tolerating diet adequately. The pain was initially controlled with IV medications and is now controlled appropriately with oral medications. The patient has been able to increase their mobilization. The patient has progressed appropriately. I think they are in good stable condition for discharge today. They will be sent home with appropriate prescriptions. I answered their questions to the best of my ability in a language that they can understand and they are agreeable with the plan. They will follow up as directed in approximately 2 weeks or sooner if he is having problems. Patient Condition at Discharge: Good Plan - Discharge Summary Discharge Rx Participant: Yes New Discharge Prescriptions: New HYDROcodone/APAP 5-325MG [Walker 5-325] 1 tab PO Q6HR PRN 3 Days #12 tab PRN Reason: Pain No Action Apixaban [Eliquis] 5 mg PO BID #180 tab Multivitamins, Thera [Multivitamin (formulary)] 1 tab PO DAILY Flecainide [Tambocor] 50 mg PO Q12HR Furosemide [Lasix] 40 mg PO DAILY Escitalopram [Lexapro] 10 mg PO HS PRN PRN Reason: depression sx Cyanocobalamin (Vitamin B-12) [Vitamin B-12] 1,000 mcg PO DAILY Metoprolol Succinate [Toprol XL] 25 mg PO DAILY Atorvastatin [Lipitor] 40 mg PO HS Aspirin 81 mg PO DAILY Discharge Medication List Apixaban [Eliquis] 5 mg PO BID #180 tab 04/17/19 [Rx] Multivitamins, Thera [Multivitamin (formulary)] 1 tab PO DAILY 10/13/20 [History] Cyanocobalamin (Vitamin B-12) [Vitamin B-12] 1,000 mcg PO DAILY 03/02/21 [History] Flecainide [Tambocor] 50 mg PO Q12HR 03/02/21 [History] Metoprolol Succinate [Toprol XL] 25 mg PO DAILY 07/06/21 [History] Furosemide [Lasix] 40 mg PO DAILY 09/19/21 [History] Atorvastatin [Lipitor] 40 mg PO HS 09/28/22 [History] Escitalopram [Lexapro] 10 mg PO HS PRN 09/28/22 [History] Aspirin 81 mg PO DAILY 12/15/22 [History] HYDROcodone/APAP 5-325MG [Walker 5-325] 1 tab PO Q6HR PRN 3 Days #12 tab 12/20/22 [Rx] Follow up Appointment(s)/Referral(s): Ale Garcia DO [Doctor of Osteopathic Medicine] - 2 Weeks Activity/Diet/Wound Care/Special Instructions: Keep site clean. May shower with waterproof Tegaderm intact. Do not soak in a tub. After 72 hours postoperatively, patient May remove dressing and then may shower with area uncovered. Leave glue intact and allow it to fray off on its own. May ambulate as tolerated. Avoid heavy or rigorous activity. No repetitive bending twisting or lifting. No overhead work. Discharge Disposition: HOME SELF-CARE
[2022-12-21] MEDS ORDERED: FUROSEMIDE 40 MG TAB PO SCH (09:00)
[2022-12-21] MEDS ORDERED: METOPROLOL SUCCINATE (ER) 25 MG TAB.ER.24H PO SCH (09:00)
[2022-12-21] MEDS ORDERED: CYANOCOBALAMIN 500 MCG TAB PO SCH (09:00)
[2022-12-21] MEDS ORDERED: MULTIVITAMINS, THERA 1 EACH TAB PO SCH (09:00)
[2022-12-21] MEDS ORDERED: ASPIRIN 81 MG PO SCH (09:00)
[2022-12-21] MEDS ORDERED: APIXABAN 5 MG TAB PO SCH (21:00)
== END 2022-12-21 11:06 | disposition home or self-care (01) ==
LOC: OR 12:00 → 4SSUR 14:47 → OR 12-21 11:06
PROVIDERS: ATTEND Orthopaedic Surgery Orthopaedic Surgery of the Spine
DX: M51.16 Intervertebral disc disorders with radiculopathy, lumbar region (principal); M48.061 Spinal stenosis, lumbar region without neurogenic claudication; F32.A Depression, unspecified; Z79.01 Long term (current) use of anticoagulants; Z79.82 Long term (current) use of aspirin; Z79.899 Other long term (current) drug therapy
CPT/HCPCS: 86900; 86901; 86850; 72100; 63047; J2250; J0330; J0360; J1030; J0690 ×3; J2405; J3010; J1170; J1885; J2704; J1790; J2001

== ENCOUNTER → 2023-03-07 | Outpatient (CLI) | payer MEDICARE ==
--- NOTE | 2023-03-08 07:05 | CA ---
Transthoracic Echo Report Name: Noble Hartman Age: 72 Gender: M : 1950 Exam Date: 03/07/2023 13:32 Exam Location: [place] [facility] Ht (in): 68 Wt (lb): 240 Ordering Physician: Alvin Li DO ([email or web address]) Attending/Referring Phys: Alvin Li DO ([email or web address]) [employer] Kelley Proctor [facility] Procedure CPT: Indications: Z01.810 PREPROCEDURAL CARDIOVASCULAR Cardiac Hx: Technical Quality: Fair Contrast 1: Total Dose (mL): Contrast 2: Total Dose (mL): MEASUREMENTS (Male / Female) Normal Values 2D ECHO LV Diastolic Diameter PLAX 4.3 cm 4.2 - 5.9 / 3.9 - 5.3 cm LV Systolic Diameter PLAX 2.3 cm IVS Diastolic Thickness 1.0 cm 0.6 - 1.0 / 0.6 - 0.9 cm LVPW Diastolic Thickness 1.0 cm 0.6 - 1.0 / 0.6 - 0.9 cm LV Relative Wall Thickness 0.5 LVOT Diameter 2.0 cm Aortic Root Diameter 3.9 cm Ascending Aorta Diameter 3.6 cm M-MODE Aortic Root Diameter MM 3.1 cm LA Systolic Diameter MM 4.2 cm LA Ao Ratio MM 1.4 AV Cusp Separation MM 1.8 cm DOPPLER AV Peak Velocity 97.2 cm/s AV Peak Gradient 3.8 mmHg AV Mean Velocity 73.1 cm/s AV Mean Gradient 2.3 mmHg AV Velocity Time Integral 24.3 cm LVOT Peak Velocity 75.4 cm/s LVOT Peak Gradient 2.3 mmHg LVOT Velocity Time Integral 17.0 cm LVOT Stroke Volume 52.4 cm??? LVOT Stroke Volume Index 23.7 ml/m??? LVOT Cardiac Index 2341.1 cm???/min???m??? AV Area Cont Eq vti 2.2 cm??? AV Area Cont Eq pk 2.4 cm??? Mitral E Point Velocity 80.7 cm/s Mitral A Point Velocity 46.1 cm/s Mitral E to A Ratio 1.7 MV Deceleration Time 120.1 ms LV E' Lateral Velocity 9.6 cm/s Mitral E to LV E' Lateral Ratio 8.4 LV E' Septal Velocity 7.5 cm/s Mitral E to LV E' Septal Ratio 10.8 TR Peak Velocity 275.5 cm/s TR Peak Gradient 30.4 mmHg Right Atrial Pressure 3.0 mmHg Pulmonary Artery Systolic Pressu 33.4 mmHg Right Ventricular Systolic Press 33.4 mmHg FINDINGS Left Ventricle Left ventricular wall thickness at upper limits of normal. Left ventricular cavity size normal. Normal left ventricular systolic function with no obvious regional wall motion abnormalities. Left ventricular ejection fraction is estimated at 55-60%. Right Ventricle Moderate right ventricular dilatation. Right Atrium Mild right atrial dilatation. Left Atrium Mild left atrial dilatation. Mitral Valve Structurally normal mitral valve. Mild mitral regurgitation. Aortic Valve Trileaflet aortic valve. Focal thickening of the aortic valve cusps. Mild aortic regurgitation. Tricuspid Valve Structurally normal tricuspid valve. Trace tricuspid regurgitation. Pulmonic Valve Structurally normal pulmonic valve. Mild pulmonic regurgitation. Pericardium No pericardial effusion. Aorta Mild aortic dilatation at the level of the sinuses of valsalva (root). Normal size proximal ascending aorta. CONCLUSIONS Normal all day systolic function. Mild mitral regurgitation Aortic sclerosis. Mild aortic insufficiency Mildly dilated aortic root Previewed by: Dr. Biju Rojas MD (Electronically Signed) Final Date: 08 March 2023 07:04
== END | disposition home or self-care (01) ==
LOC: RADECHMAIN 13:24
PROVIDERS: ATTEND Internal Medicine
DX: Z01.810 Encounter for preprocedural cardiovascular examination (principal); I08.3 Combined rheumatic disorders of mitral, aortic and tricuspid valves
CPT/HCPCS: 93306

== ENCOUNTER 2023-03-09 17:18 | Inpatient (IN) | payer MEDICARE ==
[2023-03-09 18:03] LABS: Potassium 4.5 mmol/L (3.5-5.1)
[2023-03-09 18:04] LABS: ALT 28 U/L (4-49); AST 32 U/L (17-59); African American GFR (CKD) 66 (>60 ml/min/1.73 sqM); Albumin 3.8 g/dL (3.5-5.0); Alcohol <10 mg/dL; Alkaline Phosphatase 70 U/L (38-126); Anion Gap 5 mmol/L; Blood Urea Nitrogen 30 mg/dL (9-20); Calcium 8.8 mg/dL (8.4-10.2); Carbon Dioxide 29 mmol/L (22-30); Chloride 101 mmol/L (98-107); Glucose 134 mg/dL (74-99); INR 0.9 (<1.2); Non-African American GFR(CKD) 57 (>60 ml/min/1.73 sqM); Partial Thromboplastin Time 24.4 sec (22.0-30.0); Sodium 135 mmol/L (137-145); Total Bilirubin 0.5 mg/dL (0.2-1.3); Total Protein 6.6 g/dL (6.3-8.2)
[2023-03-09 18:09] LABS: Basophils % (A) 0 %; Eosinophils # (A) 0.3 k/uL (0-0.7); Eosinophils % (A) 4 %; HCT 36.2 % (39.0-53.0); HGB 12.1 gm/dL (13.0-17.5); Lymphocytes # (A) 1.5 k/uL (1.0-4.8); Lymphocytes % (A) 22 %; MCH 28.8 pg (25.0-35.0); MCHC 33.4 g/dL (31.0-37.0); MCV 86.2 fL (80.0-100.0); Mean Platelet Volume 7.4; Monocytes # (A) 0.7 k/uL (0-1.0); Monocytes % (A) 10 %; Neutrophils # (A) 4.2 k/uL (1.3-7.7); Neutrophils % (A) 61 %; Platelet Count 315 k/uL (150-450); RBC 4.19 m/uL (4.30-5.90); RDW 14.5 % (11.5-15.5); WBC 6.9 k/uL (3.8-10.6)
--- NOTE | 2023-03-09 18:15 | XR ---
EXAMINATION TYPE: XR chest 1V portable DATE OF EXAM: 03/09/2023 6:04 PM COMPARISON: Chest radiographs from 09/28/2022. TECHNIQUE: XR chest 1V portable Frontal view of the chest. CLINICAL INDICATION:Male, 72 years old with history of trauma; FINDINGS: Lungs/Pleura: Prominent interstitial lung markings are seen scattered throughout the lungs with jennifer ening of the diaphragm and increased lucency of the lung apices. No evidence of focal consolidation, pneumothorax or pleural effusion. Pulmonary vascularity: Unremarkable. Heart/mediastinum: Cardiomediastinal silhouette is unremarkable. Musculoskeletal: No acute osseous pathology. There is fixation hardware in the lower cervical spine. Other findings: None IMPRESSION: 1. No acute cardiopulmonary disease process. 2. COPD changes.
--- NOTE | 2023-03-09 18:22 | CT ---
EXAMINATION TYPE: CT brain cspine wo con CT DLP: 1673.8 mGycm, Automated exposure control for dose reduction was used. DATE OF EXAM: 03/09/2023 6:04 PM COMPARISON: 09/28/2022, 11/20/2019. CLINICAL INDICATION:Male, 72 years old with history of fall, head injury, on thinners; fall, head inj ury, on thinners. vomiting. TECHNIQUE: Brain: Multiple axial CT images of the brain were obtained without IV contrast. Cspine: Axial CT images from the skull base to the inferior aspect of T2 we obtained without intraven ous contrast. Coronal and sagittal reformatted images were also reviewed. FINDINGS: Brain: Extra-axial spaces: No abnormal extra-axial fluid collections. There is a metallic foreign body withi n the anterior aspect of the brain could represent postsurgical change Ventricular system: Dilatation in proportion to cerebral atrophy. Cerebral parenchyma: Cerebral atrophy. No acute intraparenchymal hemorrhage or mass effect. The peterson -white junction is well differentiated. Scattered hypoattenuating areas are seen within the white mat ter. Cerebellum: Unremarkable. Mass effect: No evidence of midline shift. Intracranial vasculature: Atherosclerotic calcifications of the intracranial vessels. Soft tissues: Retained foreign body within the left cheek which is metallic measuring 5 mm. Calvarium/osseous structures: No depressed skull fracture. Paranasal sinuses and mastoid air cells: Clear. Visualized orbits: Orbital contents are intact. Cervical spine: Fracture: None. Osseous structures: Post surgical changes spine with fixation hardware present. Hardware appears inta ct. Laminectomy changes throughout the cervical spine. Multilevel degenerative disc disease changes w ith endplate spurring and disc osteophyte complex's. Vertebral alignment: Within normal limits. Spinal canal/Neural Foramina: No evidence of significant spinal canal narrowing. No evidence for sign ificant neural foraminal stenosis. Neck soft tissues: Prevertebral soft tissues are within normal limits. Other: The airway is patent. The lung apices are clear. Atherosclerosis of the carotid bifurcations. IMPRESSION: 1. Similar ventricular dilation from 09/28/2022 and dating back to 2019. No obvious acute intercrania l process. 2. Nonspecific white matter changes, likely secondary to chronic small vessel ischemic disease. 3. No evidence of cervical spine fracture. 4. Moderate multilevel degenerative disc disease. 5. Postsurgical changes with clips in place. 6. Left cheek metallic foreign body in the subcutaneous tissues..
--- NOTE | 2023-03-09 18:56 | ED ---
Dizziness HPI - General Chief Complaint: Syncope Stated Complaint: Fall, on Thinners Time Seen by Provider: 03/09/23 17:25 Source: patient Mode of arrival: EMS Limitations: no limitations - History of Present Illness Initial Comments: 72-year-old male with past history of chronic neck and back pain, A. anne on Eliquis who presents to the emergency room for multiple falls. The patient's neighbor is at bedside who provides history. States that there was another neighbor that had seen the patient fall in his garage and he called EMS. The patient was found to be on his side. It had appeared that the patient hit his head and the the patient was confused. Patient does not report why he had been in his garage. States that he had several falling episodes earlier today. Recently he was told to double his Hershey dose by Dr. Harley. He has been taking two - 5 mg Norcos every 8 hours starting yesterday when previously he only took one every 8 hours. He states it was not controlling his pain there for the dose was increased. Earlier today the patient for himself to the ground and was having difficulty getting back up. He did sustain some skin tears to his right elbow. Sustained a new skin tear to his left elbow during the last fall in the garage. He denies having any chest pain or trouble breathing prior to the event. Denies any pain from the fall. Patient does arrive and is confused. Visible hematoma to the left occiput. He does have nausea. He denies any neck pain but is wearing a c-collar. He denies any back or pelvic pain. No other alleviating, precipitating or modifying factors - Related Data Home Medications Medication Instructions Recorded Confirmed Multivitamins, Thera [Multivitamin 1 tab PO DAILY 10/13/20 03/09/23 (formulary)] Cyanocobalamin (Vitamin B-12) 1,000 mcg PO DAILY 03/02/21 03/09/23 [Vitamin B-12] Flecainide [Tambocor] 50 mg PO Q12HR 03/02/21 03/09/23 Metoprolol Succinate [Toprol XL] 25 mg PO DAILY 07/06/21 03/09/23 Furosemide [Lasix] 40 mg PO DAILY 09/19/21 03/09/23 Atorvastatin [Lipitor] 40 mg PO HS 09/28/22 03/09/23 Escitalopram [Lexapro] 10 mg PO HS 09/28/22 03/09/23 Co Q-10 (Unknown Dose) 1 tab PO DAILY 03/09/23 03/09/23 Ferrous Sulfate [Feosol] 325 mg PO Q4D 03/09/23 03/09/23 Gabapentin 300 mg PO HS 03/09/23 03/09/23 HYDROcodone/APAP 5-325MG [Hershey 2 tab PO Q8H 03/09/23 03/09/23 5-325] Previous Rx's Medication Instructions Recorded Apixaban [Eliquis] 5 mg PO BID #180 tab 04/17/19 Allergies Allergy/AdvReac Type Severity Reaction Status Date / Time morphine AdvReac Nausea & Verified 03/09/23 20:23 Vomiting Review of Systems ROS Statement: Those systems with pertinent positive or pertinent negative responses have been documented in the HPI. ROS Other: All systems not noted in ROS Statement are negative. Past Medical History Past Medical History: Atrial Fibrillation, Cancer, GERD/Reflux, Hyperlipidemia, Hypertension, Prostate Disorder Additional Past Medical History / Comment(s): CHRONIC LOW BACK PAIN. Prostate cancer, skin cancer, kidney stone. hx vertigo History of Any Multi-Drug Resistant Organisms: None Reported Past Surgical History: Appendectomy, Bariatric Surgery, Cardiac Ablation, Cholecystectomy, Orthopedic Surgery Additional Past Surgical History / Comment(s): cervical sx with titanium rods, Colonoscopy, lap band, rt clavical reduction, Prostatectomy, SKIN CA REMOVED, pain procedures at [facility]PAIN [facility]INIC PROCEDURES, EGD Past Anesthesia/Blood Transfusion Reactions: Previous Problems w/ Anesthesia Additional Past Anesthesia/Blood Transfusion Reaction / Comment(s): vertigo. hx of difficulty voiding after anesthesia. no blood transfusions Past Psychological History: Depression Smoking Status: Former smoker Past Alcohol Use History: None Reported Past Drug Use History: None Reported - Past Family History Father Family Medical History: Myocardial Infarction ([place]) Mother Additional Family Medical History / Comment(s): MAC DEGENERATION, HEART PROBLEMS General Exam Limitations: no limitations General appearance: alert, other (Oriented 2) Head exam: Present: other (ecchymosis left occiput) Eye exam: Present: normal appearance ENT exam: Present: normal exam, mucous membranes moist Neck exam: Present: normal inspection. Absent: tenderness, meningismus, lymphadenopathy Respiratory exam: Present: normal lung sounds bilaterally. Absent: respiratory distress, wheezes, rales, rhonchi, stridor Cardiovascular Exam: Present: regular rate, normal rhythm, normal heart sounds. Absent: systolic murmur, diastolic murmur, rubs, gallop, clicks GI/Abdominal exam: Present: soft, normal bowel sounds. Absent: distended, tenderness, guarding, rebound, rigid Extremities exam: Present: other (Skin tears bilateral elbows) Neurological exam: Present: alert, other (Patient is confused as to the president. He is also unsure what he was doing in the garage) Skin exam: Present: warm, dry, other (Skin tear bilateral elbows) Course Vital Signs 03/09/23 03/09/23 03/09/23 17:23 17:38 18:24 Temperature 98 F Pulse Rate 56 L 55 L 68 Respiratory 16 20 16 Rate Blood Pressure 156/66 151/93 150/77 O2 Sat by Pulse 95 94 L 96 Oximetry 03/09/23 03/09/23 03/09/23 19:00 19:14 21:58 Temperature Pulse Rate 56 L 59 L 76 Respiratory 20 18 18 Rate Blood Pressure 148/75 151/67 142/79 O2 Sat by Pulse 96 96 97 Oximetry Medical Decision Making - Medical Decision Making Was pt. sent in by a medical professional or institution (, PA, V BELT FINISHER, urgent care, hospital, or alf...) When possible be specific @ -No Did you speak to anyone other than the patient for history (EMS, parent, family, police, friend...)? What history was obtained from this source @ -I spoke with the patient's neighbor and EMS in regards to the history Did you review nursing and triage notes (agree or disagree)? Why? @ -I reviewed and agree with nursing and triage notes Were old charts reviewed (outside hosp., previous admission, EMS record, old EKG, old radiological studies, urgent care reports/EKG's, alf records)? Report findings @ -No old charts were reviewed Differential Diagnosis (chest pain, altered mental status, abdominal pain women, abdominal pain men, vaginal bleeding, weakness, fever, dyspnea, syncope, headache, dizziness, GI bleed, back pain, seizure, CVA, palpatations, mental health, musculoskeletal)? @ -Differential Altered Mental Status: Hypoglycemia, DKA, hypercapnia, ETOH, overdose, CO poisoning, trauma, myxedema coma, HTN encephalopathy, infection, encephalitis, psychosis, intercranial hemorrhage, hepatic encephalopathy, meningitis, CVA, this is not meant to be an all-inclusive list EKG interpreted by me (3pts min.). @ -Yes and demonstrates sinus bradycardia with rate of 56. CT interval 195. QRS 98. QTC 441. Artifact in the inferior leads with some J-point elevation. No ST depression X-rays interpreted by me (1pt min.). @ -Yes and demonstrates no acute distress process CT interpreted by me (1pt min.). @ -None done U/S interpreted by me (1pt. min.). @ -None done What testing was considered but not performed or refused? (CT, X-rays, U/S, labs)? Why? @ -None What meds were considered but not given or refused? Why? @ -None Did you discuss the management of the patient with other professionals (professionals i.e. DrNakul, PA, V BELT FINISHER, lab, RT, psych nurse, social services counselor, rubber insulator, teacher, international first officer, behavioral health case manager)? Give summary @ -Spoke with Dr. Mayfield who will admit the patient Was smoking cessation discussed for >3mins.? @ -No Was critical care preformed (if so, how long)? @ -No Were there social determinants of health that impacted care today? How? (Homelessness, low income, unemployed, alcoholism, drug addiction, transpor tation, low edu. Level, literacy, decrease access to med. care, fpc, rehab)? @ -No Was there de-escalation of care discussed even if they declined (Discuss DNR or withdrawal of care, Hospice)? DNR status @ -No What co-morbidities impacted this encounter? (DM, HTN, Smoking, COPD, CAD, Cancer, CVA, ARF, Chemo, Hep., AIDS, mental health diagnosis, sleep apnea, morbid obesity)? @ -afib, chronic back pain Was patient admitted / discharged? Hospital course, mention meds given and route, prescriptions, significant lab abnormalities, going to OR and other pertinent info. @ -Upon arrival patient was placed into room 5. There are history of physical exam is performed. Patient does present confused and vomiting. He is in a c- collar. IV is established and the patient was given 4 mg of Zofran. He is sent for CT of his brain and cervical spine which demonstrates enlarged ventricles unchanged from previous. No acute bleed. No cervical fractures. C-collar is removed. Laboratory studies are conducted and reviewed. Discussed results with the patient. Do feel that the patient should be admitted due to his multiple falls with head injury. Patient originally wanted to go home and was discharged. Called back into the room the patient states that he is changed his mind. I spoke with Dr. Mayfield who will admit the patient. Patient taken to floor in stable condition Undiagnosed new problem with uncertain prognosis? @ -Yes Drug Therapy requiring intensive monitoring for toxicity (Heparin, Nitro, In sulin, Cardizem)? @ -No Were any procedures done? @ -No Diagnosis/symptom? @ -Acute fall, blunt head trauma, acute nausea, multiple falls Acute, or Chronic, or Acute on Chronic? @ -Acute Uncomplicated (without systemic symptoms) or Complicated (systemic symptoms)? @ -Complicated Side effects of treatment? @ -No Exacerbation, Progression, or Severe Exacerbation? @ -No Poses a threat to life or bodily function? How? (Chest pain, [place], [place], pneumonia, PE, COPD, DKA, ARF, appy, cholecystitis, CVA, Diverticulitis, Homicidal, Suicidal, threat to staff... and all critical care pts) @ -Yes - patient has head injury on anticoagulation - Lab Data Result diagrams: 03/09/23 17:38 03/09/23 17:38 Lab Results 03/09/23 03/09/23 03/09/23 Range/Units 17:38 17:38 17:38 WBC 6.9 (3.8-10.6) k/uL RBC 4.19 L (4.30-5.90) m/uL Hgb 12.1 L (13.0-17.5) gm/dL Hct 36.2 L (39.0-53.0) % MCV 86.2 (80.0-100.0) fL MCH 28.8 (25.0-35.0) pg MCHC 33.4 (31.0-37.0) g/dL RDW 14.5 (11.5-15.5) % Plt Count 315 (150-450) k/uL MPV 7.4 Neutrophils % 61 % Lymphocytes % 22 % Monocytes % 10 % Eosinophils % 4 % Basophils % 0 % Neutrophils # 4.2 (1.3-7.7) k/uL Lymphocytes # 1.5 (1.0-4.8) k/uL Monocytes # 0.7 (0-1.0) k/uL Eosinophils # 0.3 (0-0.7) k/uL Basophils # 0.0 (0-0.2) k/uL PT 10.0 (9.0-12.0) sec INR 0.9 (<1.2) APTT 24.4 (22.0-30.0) sec Sodium 135 L (137-145) mmol/L Potassium 4.5 (3.5-5.1) mmol/L Chloride 101 (98-107) mmol/L Carbon Dioxide 29 (22-30) mmol/L Anion Gap 5 mmol/L BUN 30 H (9-20) mg/dL Creatinine 1.25 (0.66-1.25) mg/dL Est GFR (CKD-EPI)AfAm 66 (>60 ml/min/1.73 sqM) Est GFR (CKD-EPI)NonAf 57 (>60 ml/min/1.73 sqM) Glucose 134 H (74-99) mg/dL Calcium 8.8 (8.4-10.2) mg/dL Total Bilirubin 0.5 (0.2-1.3) mg/dL AST 32 (17-59) U/L ALT 28 (4-49) U/L Alkaline Phosphatase 70 (38-126) U/L Troponin I (0.000-0.034) ng/mL Total Protein 6.6 (6.3-8.2) g/dL Albumin 3.8 (3.5-5.0) g/dL Serum Alcohol <10 mg/dL 03/09/23 Range/Units 17:38 WBC (3.8-10.6) k/uL RBC (4.30-5.90) m/uL Hgb (13.0-17.5) gm/dL Hct (39.0-53.0) % MCV (80.0-100.0) fL MCH (25.0-35.0) pg MCHC (31.0-37.0) g/dL RDW (11.5-15.5) % Plt Count (150-450) k/uL MPV Neutrophils % % Lymphocytes % % Monocytes % % Eosinophils % % Basophils % % Neutrophils # (1.3-7.7) k/uL Lymphocytes # (1.0-4.8) k/uL Monocytes # (0-1.0) k/uL Eosinophils # (0-0.7) k/uL Basophils # (0-0.2) k/uL PT (9.0-12.0) sec INR (<1.2) APTT (22.0-30.0) sec Sodium (137-145) mmol/L Potassium (3.5-5.1) mmol/L Chloride (98-107) mmol/L Carbon Dioxide (22-30) mmol/L Anion Gap mmol/L BUN (9-20) mg/dL Creatinine (0.66-1.25) mg/dL Est GFR (CKD-EPI)AfAm (>60 ml/min/1.73 sqM) Est GFR (CKD-EPI)NonAf (>60 ml/min/1.73 sqM) Glucose (74-99) mg/dL Calcium (8.4-10.2) mg/dL Total Bilirubin (0.2-1.3) mg/dL AST (17-59) U/L ALT (4-49) U/L Alkaline Phosphatase (38-126) U/L Troponin I <0.012 (0.000-0.034) ng/mL Total Protein (6.3-8.2) g/dL Albumin (3.5-5.0) g/dL Serum Alcohol mg/dL Disposition Clinical Impression: Fall, Blunt head trauma Disposition: ADMITTED IP TO THIS [facility] Condition: Stable Is patient prescribed a controlled substance at d/c from ED?: No Time of Disposition: 19:52 Decision to Admit Reason: Admit from EC Decision Date: 03/09/23 Decision Time: 20:17
[2023-03-09] MEDS ORDERED: ACETAMINOPHEN TAB 325 MG TAB PO PRN (20:17)
[2023-03-09] MEDS ORDERED: NALOXONE 0.4 MG/ML 1 ML VIAL IV PRN (20:17)
[2023-03-10] MEDS ORDERED: HYDROcodone/APAP 5-325MG 1 EACH TAB PO STA (00:10)
--- NOTE | 2023-03-10 00:11 | P.HPIM ---
History of Present Illness H&P Date: 03/09/23 Patient is a 72-year-old male with a PMH of A. fib on Eliquis, hyperlipidemia, cervical DJD status post surgery, who was brought to the emergency room via EMS for loss of consciousness and falls. The patient reports that over the past few weeks, he has been having increasing lower back pain and Dr. Garcia had increased his Allen dose from 1 tab 5 mg every 8 hourly to 2 tablets every 8 hours. The patient also reports that he has been getting progressively weaker in both his legs and has progressed from not needing any assisted devices and walking independently 2 weeks ago to now being unable to fully ambulate with walker. He is scheduled to undergo lumbar spinal surgery with Dr Garcia on 03/21/23. He also reports taking gabapentin 300 mg twice daily, although the prescription is for 300 mg at bedtime only. He reports that earlier today he had multiple falls where he feels his legs gave out and he eased himself down to the ground. The patient however was ultimately found in his garage on the ground and confused. He does not recall the events prior to or immediately after the fall. He does not recall if he lost consciousness. He reports getting abrasions on both his elbows and hitting his head but denied any additional pain. She denied experiencing slurred speech or visual impairments. Also denied focal weakness, numbness, or tingling. Denied urinary incontinence or tongue biting. The patient does report a prior history of neurosurgery with placement of a intracranial "stent" by Dr Rayray Lebron at [facility] neurosurgery. Patient does not recall the diagnosis for which it was placed. Denied experiencing chest discomfort or shortness of breath at the time of interview. Also denied nausea, vomiting, abdominal pain, diarrhea. In the emergency room, had/cervical spine CT revealed similar ventricular dilatation from 2019 with no acute intracranial abnormalities noted. Furthermore there was moderate multilevel degenerative disc disease. CXR was unremarkable. EKG revealed sinus bradycardia at [address]/T-wave changes noted as reviewed by me. Laboratory evaluation was remarkable for troponin less than 0.012, sodium 135, BUN 30, creatinine 1.25, and glucose 134 with serum alcohol less than 10. ED documentation reviewed and case discussed with ED provider. Review of systems: Pertinent positives and negatives as discussed in HPI, a complete review of systems was performed and all other systems are negative. Physical examination: Vital signs reviewed General: non toxic, no distress, appears at stated age, obese Derm: no unusual rashes/lesions, warm Head: atraumatic, normocephalic, symmetric Eyes: EOMI, no lid lag, anicteric sclera, pupils equal round reactive to light ENT: Nose and ears atraumatic Neck: No cervical lymphadenopathy, trachea midline, supple Mouth: no lip lesion, mucus membranes moist Cardiovascular: S1S2 reg, no murmur, positive dorsalis pedis pulse bilateral, no edema Lungs: CTA bilateral, no rhonchi, no rales, no accessory muscle use Abdominal: soft, nontender to palpation, no guarding Ext: muscle strength 5 out of 5 bilateral upper extremities, LLE strength 2/5 diffusely, RLE strength 3/5 diffusely, no gross muscle atrophy, no contractures Neuro: CN II-XI grossly intact, no gross focal neuro deficits Psych: Alert, oriented, appropriate affect Assessment: Fall and possible syncope, unclear etiology, possibly secondary to excessive opi ate use vs less likely NPH Progressive LE weaknss Hx of intracranial surgery Chronic conditions: Afib, HLD, spinal DJD Imaging: In the emergency room, had/cervical spine CT revealed similar ventricular dilatation from 2019 with no acute intracranial abnormalities noted. Fu rthermore there was moderate multilevel degenerative disc disease. CXR was unremarkable. EKG revealed sinus bradycardia at [address]/T-wave changes noted as reviewed by me. Data Review: Laboratory evaluation was remarkable for troponin less than 0.012, sodium 135, BUN 30, creatinine 1.25, and glucose 134 with serum alcohol less than 10. Plan: Limited opiate use for now Obtain orthostatics Fall precautions Cardiac monitoring Recent Echocardiogram on 03/07 with normal LV systolic function with mild MR and mild AR Consult Dr Garcia Neurology consulted PT consult Will need additional information from [facility] in am regarding prior in tracranial surgery history DVT prophylaxis: Maria Mqumiguel The patient is admitted with an anticipated less than 2 midnight stay for evaluation of syncope CODE STATUS: Full Code Discussed with: Patient Anticipated discharge place: Home Past Medical History Past Medical History: Atrial Fibrillation, Cancer, GERD/Reflux, Hyperlipidemia, Hypertension, Prostate Disorder Additional Past Medical History / Comment(s): CHRONIC LOW BACK PAIN. Prostate cancer, skin cancer, kidney stone. hx vertigo History of Any Multi-Drug Resistant Organisms: None Reported Past Surgical History: Appendectomy, Bariatric Surgery, Cardiac Ablation, Cholecystectomy, Orthopedic Surgery Additional Past Surgical History / Comment(s): cervical sx with titanium rods, Colonoscopy, lap band, rt clavical reduction, Prostatectomy, SKIN CA REMOVED, pain procedures at [facility].PAIN CLINIC PROCEDURES, EGD Past Anesthesia/Blood Transfusion Reactions: Previous Problems w/ Anesthesia Additional Past Anesthesia/Blood Transfusion Reaction / Comment(s): vertigo. hx of difficulty voiding after anesthesia. no blood transfusions Past Psychological History: Depression Smoking Status: Former smoker Past Alcohol Use History: None Reported Past Drug Use History: None Reported - Past Family History Father Family Medical History: Myocardial Infarction ([place]) Mother Additional Family Medical History / Comment(s): MAC DEGENERATION, HEART PROBLEMS Medications and Allergies Home Medications Medication Instructions Recorded Confirmed Type Apixaban [Eliquis] 5 mg PO BID #180 tab 04/17/19 03/09/23 Rx Multivitamins, Thera [Multivitamin 1 tab PO DAILY 10/13/20 03/09/23 History (formulary)] Cyanocobalamin (Vitamin B-12) 1,000 mcg PO DAILY 03/02/21 03/09/23 History [Vitamin B-12] Flecainide [Tambocor] 50 mg PO Q12HR 03/02/21 03/09/23 History Metoprolol Succinate [Toprol XL] 25 mg PO DAILY 07/06/21 03/09/23 History Furosemide [Lasix] 40 mg PO DAILY 09/19/21 03/09/23 History Atorvastatin [Lipitor] 40 mg PO HS 09/28/22 03/09/23 History Escitalopram [Lexapro] 10 mg PO HS 09/28/22 03/09/23 History Co Q-10 (Unknown Dose) 1 tab PO DAILY 03/09/23 03/09/23 History Ferrous Sulfate [Feosol] 325 mg PO Q4D 03/09/23 03/09/23 History Gabapentin 300 mg PO HS 03/09/23 03/09/23 History HYDROcodone/APAP 5-325MG [Allen 2 tab PO Q8H 03/09/23 03/09/23 History 5-325] Allergies Allergy/AdvReac Type Severity Reaction Status Date / Time morphine AdvReac Nausea & Verified 03/09/23 20:23 Vomiting Physical Exam Vitals: Vital Signs Temp Pulse Pulse Resp BP BP Pulse Ox 03/09/23 22:15 98.0 F 71 16 134/92 95 03/09/23 21:58 76 18 142/79 97 03/09/23 19:14 59 L 18 151/67 96 03/09/23 19:00 56 L 20 148/75 96 03/09/23 18:24 68 16 150/77 96 03/09/23 17:38 55 L 20 151/93 94 L 03/09/23 17:23 98 F 56 L 16 156/66 95 Intake and Output 03/09/23 03/09/23 03/10/23 14:59 22:59 06:59 Other: Weight 99.79 kg Results CBC & Chem 7: 03/09/23 17:38 03/09/23 17:38 Labs: Abnormal Lab Results - Last 24 Hours (Table) 03/09/23 03/09/23 Range/Units 17:38 17:38 RBC 4.19 L (4.30-5.90) m/uL Hgb 12.1 L (13.0-17.5) gm/dL Hct 36.2 L (39.0-53.0) % Sodium 135 L (137-145) mmol/L BUN 30 H (9-20) mg/dL Glucose 134 H (74-99) mg/dL Thrombosis Risk Factor Assmnt - Choose All That Apply Any of the Below Risk Factors Present?: Yes Each Factor Represents 1 point: Obesity (BMI >25) Other Risk Factors: Yes Each Risk Factor Represents 2 Points: Age 61-74 years Other congenital or acquired thrombophilia - If yes, enter type in comment: No Thrombosis Risk Factor Assessment Total Risk Factor Score: 3 Thrombosis Risk Factor Assessment Level: Moderate Risk
[2023-03-10] MEDS: ATORVASTATIN 40 MG TAB PO SCH ×2 (00:21→20:55)
[2023-03-10] MEDS: FERROUS SULFATE 325 MG TAB PO SCH (00:21)
[2023-03-10] MEDS: FLECAINIDE 50 MG TAB PO SCH ×3 (00:21→20:55)
[2023-03-10] MEDS: GABAPENTIN 300 MG CAP PO SCH ×2 (00:21→20:55)
[2023-03-10] MEDS: MULTIVITAMINS, THERA 1 EACH TAB PO SCH (08:25)
[2023-03-10] MEDS: CYANOCOBALAMIN 500 MCG TAB PO SCH (08:25)
[2023-03-10] MEDS: FUROSEMIDE 40 MG TAB PO SCH (08:25)
[2023-03-10] MEDS: METOPROLOL SUCCINATE (ER) 25 MG TAB.ER.24H PO SCH (08:27)
[2023-03-10] MEDS ORDERED: MORPHINE SULFATE 2 MG/ML SYRINGE IVP STA (08:28)
[2023-03-10] MEDS ORDERED: MORPHINE SULFATE 2 MG/ML SYRINGE IVP PRN (08:28)
[2023-03-10] MEDS ORDERED: HYDROcodone/APAP 5-325MG 1 EACH TAB PO PRN (08:30)
[2023-03-10] MEDS ORDERED: APIXABAN 5 MG TAB PO SCH (09:00)
[2023-03-10] MEDS ORDERED: CO Q10 PO SCH (09:00)
[2023-03-10 09:11] LABS: BUN/Creat Ratio 22.17 Ratio (12.00-20.00); Blood Urea Nitrogen 26.6 mg/dL (9.0-27.0); Calcium 9.1 mg/dL (8.7-10.3); Carbon Dioxide 26.2 mmol/L (21.6-31.8); Chloride 103 mmol/L (96-109); Glucose 109 mg/dL (70-110); Potassium 4.2 mmol/L (3.5-5.5); Sodium 141 mmol/L (135-145)
--- NOTE | 2023-03-10 09:35 | CT ---
EXAMINATION TYPE: CT thor lumbar spine wo con CT DLP: 2591.2 mGycm, Automated exposure control for dose reduction was used. DATE OF EXAM: 03/10/2023 9:24 AM COMPARISON: Lumbar spine radiograph 12/20/2022, MRI lumbar spine 06/28/2020. CLINICAL INDICATION:Male, 72 years old with history of weakness; PHH, Mid to low back pain, no injury . TECHNIQUE: Axial images of the thoracolumbar spine were obtained without contrast. Coronal and sagitt al reformats were performed. FINDINGS: Postsurgical changes of the cervical spine with bilateral pedicle screws and rods and nanda ectomy changes. This creates streak artifact which limits evaluation. Mild multilevel degenerative di sc disease of the thoracal lumbar spine with disc space narrowing, endplate sclerosis, and anterior o steophytosis. Vacuum disc disease identified at L2-L3. No osseous erosions. The vertebral bodies have preserved heights and alignment. There is fat stranding with edema identified within the posterior b ack soft tissues at L2-L3. Fat stranding with foci of gas identified in the left aspect of the poultry field service technician ior limits at L2-L3 (series 3, image 150). Trace pneumorachis at this level. No significant central c anal or neural foraminal stenosis of the thoracic spine. Broad-based disc bulge with ligamentum flavu m buckling and bilateral facet arthropathy at L2-L3 causing at least moderate central canal stenosis. Moderate bilateral neural foraminal stenosis at L2-L3. Mild bilateral neural foraminal stenosis at L 3-L4. Aortic valvular calcifications. Moderate coronary artery distal. Colonic diverticulosis without visua lized acute diverticulitis. Postsurgical changes with gastric lap band. Postcholecystectomy changes. Atherosclerotic calcification of the aorta and its branches. IMPRESSION: 1. No acute fracture. 2. Soft tissue fat stranding and foci of gas along the left posterior elements at L2-L3. No osseous erosions. There is associated pneumorachis at this level. Findings may relate to recent instrumentati on however infectious process could have this appearance. Cannot exclude small abscess. Clinical guevara elation is recommended. 3. Degenerative disc disease at L2-L3 with broad-based disc bulge, ligamentum flavum flavum buckling and bilateral facet arthropathy resulting in moderate central canal stenosis and moderate bilateral neural foraminal stenosis. 4. Postsurgical changes of the cervical spine.
[2023-03-10 09:40] LABS: Basophils # (A) 0.03 X 10*3/uL (0.00-0.10); Basophils % (A) 0.4 %; Eosinophils % (A) 2.6 %; HCT 34.9 % (39.6-50.0); Lymphocytes # (A) 1.86 X 10*3/uL (0.90-5.00); Lymphocytes % (A) 24.1 %; MCH 27.6 pg (27.0-32.0); MCHC 31.5 d/dL (32.0-37.0); MCV 87.5 FL (80.0-97.0); Mean Platelet Volume 9.5 FL (9.5-12.2); Monocytes # (A) 1.27 X 10*3/uL (0.20-1.00); Monocytes % (A) 16.5 %; NRBC Per 100 WBC 0 X 10*3/uL (0.00-0.01); Neutrophils # (A) 4.32 X 10*3/uL (1.80-7.70); Platelet Count 314 X 10*3/uL (140-440); RBC 3.99 X 10*6/uL (4.40-5.60); RDW 14.3 % (11.5-14.5); WBC 7.71 X 10*3/uL (4.50-10.00)
--- NOTE | 2023-03-10 12:07 | P.CNOR ---
History of Present Illness - [facility] Consult date: 03/10/23 Consult reason: low back pain, other History of present illness: The patient is a very pleasant 72-year-old male seen and examined today at bedside. He is well known to our service. He is anxious scheduled for surgery March 21 with our service for revision laminectomy decompression L3 4 with new stabilization and fusion at L3 4. Please note that the patient has a partially lumbarized S1 vertebrae and I'm referring to the L3 4 level where in a number of his notes and reports it has been referred to as the L2-3 level. The patient has been having significant pain and difficulty ambulate due to his left lower extremity. He has had multiple falls at home. In December 2022 underwent laminectomy decompression at L2-3 and initially was doing quite well. However he started having worsening of his symptoms and had a couple of falls and has been having progressive worsening at his back and left lower extremity. He is now having some weakness at his left lower extremity. He had further workup and new MRI which showed evidence of recurrent stenosis and foraminal encroachment at the level of the prior laminectomy. There is been some progressive degeneration at the level of surgery at L3 4 as well. The patient was having worsening and had a fall yesterday at home on his driveway. His neighbor's found him and called an ambulance and he was brought here. We have been following patient in the office we saw him just last week and again discussed the surgery. Patient is a interested in pursuing surgery as soon as possible. He had been scheduled for March 21 in 2 weeks but he does not fee l he can make it to a time. The patient takes medications including Eliquis blood thinners. He had his Eliquid dose this morning. He has had some further workup including a head CT which does not show any acute new changes. He had new computed tomography scan of his lumbar spine which shows the prior surgery at L34 with recurrent stenosis at that level. (Of note the patient report is referring to the level L2-3 however this is the same level on evaluation and I'm referring to as L3 4) Review of Systems As per HPI. His had frequent falls He feels his weakness in his left leg is getting worse. He denies any changes in bowel bladder function. Denies any chest pain shortness breath. He denies any headaches or neck pain. Denies any changes right upper joint. He continues to have good strength at his right lower extremity. Past Medical History Past Medical History: Atrial Fibrillation, Cancer, GERD/Reflux, Hyperlipidemia, Hypertension, Prostate Disorder Additional Past Medical History / Comment(s): CHRONIC LOW BACK PAIN. Prostate cancer, skin cancer, kidney stone. hx vertigo. History of laminectomy L34 approximately 3 months ago. Recurrent pain with numbness tingling and weakness of left lower extremity. Multiple falls History of Any Multi-Drug Resistant Organisms: None Reported Past Surgical History: Appendectomy, Bariatric Surgery, Cardiac Ablation, Cholecystectomy, Orthopedic Surgery Additional Past Surgical History / Comment(s): cervical sx with titanium rods, Colonoscopy, lap band, rt clavical reduction, Prostatectomy, SKIN CA REMOVED, pain procedures at [facility]PAIN CLINIC PROCEDURES, EGD Past Anesthesia/Blood Transfusion Reactions: Previous Problems w/ Anesthesia Additional Past Anesthesia/Blood Transfusion Reaction / Comm: vertigo. hx of di fficulty voiding after anesthesia. no blood transfusions Past Psychological History: Depression Smoking Status: Former smoker Past Alcohol Use History: None Reported Past Drug Use History: None Reported - Past Family History Father Family Medical History: Myocardial Infarction ([place]) Mother Additional Family Medical History / Comment(s): MAC DEGENERATION, HEART PROBLEMS Medications and Allergies Home Medications Medication Instructions Recorded Confirmed Type Apixaban [Eliquis] 5 mg PO BID #180 tab 04/17/19 03/09/23 Rx Multivitamins, Thera [Multivitamin 1 tab PO DAILY 10/13/20 03/09/23 History (formulary)] Cyanocobalamin (Vitamin B-12) 1,000 mcg PO DAILY 03/02/21 03/09/23 History [Vitamin B-12] Flecainide [Tambocor] 50 mg PO Q12HR 03/02/21 03/09/23 History Metoprolol Succinate [Toprol XL] 25 mg PO DAILY 07/06/21 03/09/23 History Furosemide [Lasix] 40 mg PO DAILY 09/19/21 03/09/23 History Atorvastatin [Lipitor] 40 mg PO HS 09/28/22 03/09/23 History Escitalopram [Lexapro] 10 mg PO HS 09/28/22 03/09/23 History Co Q-10 (Unknown Dose) 1 tab PO DAILY 03/09/23 03/09/23 History Ferrous Sulfate [Feosol] 325 mg PO Q4D 03/09/23 03/09/23 History Gabapentin 300 mg PO HS 03/09/23 03/09/23 History HYDROcodone/APAP 5-325MG [[place] 2 tab PO Q8H 03/09/23 03/09/23 History 5-325] Allergies Allergy/AdvReac Type Severity Reaction Status Date / Time morphine AdvReac Nausea & Verified 03/09/23 20:23 Vomiting Physical Examination Osteopathic Statement: *. No significant issues noted on an osteopathic structural exam other than those noted in the History and Physical/Consult. - L Spine: dermatomal strength & reflexes left Strength: hip flexion: 3/5 Strength: hip extension: 3/5 (The patient's back incision sites well-healed. There is no erythema. His left lower extremity has weakness with hip flexion and knee extension. He has good dorsal flexion plantarflexion. Calves and thighs are soft nontender.) Results - Labs Labs: Abnormal Lab Results - Last 24 Hours (Table) 03/09/23 03/09/23 03/10/23 Range/Units 17:38 17:38 04:04 RBC 4.19 L 3.99 L (4.30-5.90) m/uL Hgb 12.1 L 11.0 L (13.0-17.5) gm/dL Hct 36.2 L 34.9 L (39.0-53.0) % MCHC 31.5 L (32.0-37.0) d/dL Monocytes # 1.27 H (0.20-1.00) X 10*3/uL Sodium 135 L (137-145) mmol/L BUN 30 H (9-20) mg/dL BUN/Creatinine Ratio (12.00-20.00) Ratio Glucose 134 H (74-99) mg/dL 03/10/23 Range/Units 04:04 RBC (4.30-5.90) m/uL Hgb (13.0-17.5) gm/dL Hct (39.0-53.0) % MCHC (32.0-37.0) d/dL Monocytes # (0.20-1.00) X 10*3/uL Sodium (137-145) mmol/L BUN (9-20) mg/dL BUN/Creatinine Ratio 22.17 H (12.00-20.00) Ratio Glucose (74-99) mg/dL H & H 03/09/23 03/10/23 Range/Units 17:38 04:04 Hgb 12.1 L 11.0 L (13.0-17.5) gm/dL Hct 36.2 L 34.9 L (39.0-53.0) % Coagulation 03/09/23 Range/Units 17:38 INR 0.9 (<1.2) Result Diagrams: 03/10/23 04:04 03/10/23 04:04 - Diagnostic results CT Scan - lumbar: report reviewed (There is progressive disc degeneration at L3 4. There is some degenerative changes L4 5 with some facet arthrosis), image reviewed (The patient had prior surgery at L3 4. This level was referred had computed tomography scan as L2-3. He has a partially lumbarized S1 vertebrae and residual S1 to disc. There is evidence of prior laminectomy L3 4 with evidence of stenosis L3 4) Assessment and Plan Assessment: Recurrent stenosis L3 4 Progressive weakness left lower extremity due to the stenosis L3 4 History of prior laminectomy L3 4 Degenerative disc disease L3 4 Inability to ambulate and multiple falls (Note that the CT report refers to the level of L2-3, this is the same level I'm referring to as L3 4 as the patient has a lumbarized S1 vertebrae, for counting purposes.) Plan: Recurrent stenosis L3 4 Progressive weakness left lower extremity due to the stenosis L3 4 History of prior laminectomy L3 4 Degenerative disc disease L3 4 Inability to ambulate and multiple falls (Note that the CT report refers to the level of L2-3, this is the same level I'm referring to as L3 4 as the patient has a lumbarized S1 vertebrae, for counting purposes.) The patient continues to have significant symptoms at his left lower extremity with weakness his left lower extremity. He feels with these new falls he has had some worsening of his strength in his left lower extremity. He initially had good results after having his decompression at L3 4 in December but is now having recurrent and worsening symptoms and is having multiple falls essentially inability to ambulate and mobilize. We had scheduled the patient for revision surgery with fusion at L3 4 for March 21. With the patient's worsening strength and his inability to ambulate I think that he requires urgent surgical intervention. I think that our plan for surgery will be the same for revision decompression at L3 4 with new fusion at that level. We should plan to proceed with surgery as soon as possible. The patient has history of other medical issues and is on Eliquis blood thinner, which he recieved this morning. We need to wait at least 48 hours before proceeding with spinal surgery after holding the blood thinner. We will plan for surgery on Sunday morning if he is cleared with medicine service. We will plan for revision laminectomy decompression with fusion L3 4. He will be nothing by mouth after midnight on Sunday to prepare for possible surgery on Sunday. The patient had an MRI ordered here. We have a recent MRI from our office which have access to. I think we can cancel the new lumbar MRI here. I discussed the risk of occasions alternatives benefits with the patient length. Discussed the risk of bleeding risk of infection risk and need for further surgery risk of decreased loss of motion loss function malunion nonunion hardware failure nerve damage paralysis heart attack blindness and the possibly . We discussed the fact that surgery is stress on the body and it can create difficulty is with his heart and lungs and other medical issues. He understands the issues and like to proceed with surgical intervention. I answered his questions best my ability and language she can understand. Time with Patient: Greater than 30
--- NOTE | 2023-03-10 12:18 | US ---
EXAMINATION TYPE: US carotid duplex BILAT DATE OF EXAM: 03/10/2023 COMPARISON: CTA CLINICAL INDICATION: Male, 72 years old with history of syncope; Syncope TECHNIQUE: Carotid duplex ultrasound examination. Indirect Doppler criteria was utilized. FINDINGS: EXAM MEASUREMENTS: RIGHT: Peak Systolic Velocity (PSV) cm/sec ----- Right CCA: 68.2 ----- Right ICA: 130 ----- Right ECA: 107 ICA/CCA ratio: 1.9 RIGHT: End Diastole cm/sec ----- Right CCA: 14.9 ----- Right ICA: 39.3 ----- Right ECA: 0.0 LEFT: Peak Systolic Velocity (PSV) cm/sec ----- Left CCA: 85.1 ----- Left ICA: 124 ----- Left ECA: 112 ICA/CCA ratio: 1.5 LEFT: End Diastole cm/sec ----- Left CCA: 17.5 ----- Left ICA: 29.2 ----- Left ECA: 12.3 VERTEBRALS (direction of flow): Right Vertebral: Antegrade Left Vertebral: Antegrade Rhythm: Normal EVENTS INTERN NOTES: No significant stenosis seen IMPRESSION: No ultrasound evidence for hemodynamically significant stenosis of the bilateral visualized carotid a rterial systems. Criteria for Assigning % of Stenosis / Diameter reduction (Estimation based on the indirect measurements of the internal carotid artery velocities (ICA PSV). 1. Normal (no stenosis)=ICA PSV < 125 cm/s: ratio < 2.0: ICA EDV<40 cm/s. 2. Less than 50% stenosis=ICA PSV < 125 cm/s: ratio < 2.0: ICA EDV<40 cm/s. 3. 50 to 69% stenosis=ICA PSV of 125 to 230 cm/s: ration 2.0 ? 4.0: ICA EDV 40-100 cm/s. 4. Greater than 70% stenosis to near occlusion= ICA PSV > 230 cm/s: ratio > 4.0: ICA EDV > 100 cm/s. 5. Near occlusion= ICA PSV velocities may be low or undetectable: variable ratio and ICA EDV. 6. Total occlusion=unable to detect flow.
--- NOTE | 2023-03-10 12:22 | P.CNNES ---
History of Present Illness Consult date: 03/10/23 Requesting physician: Jenniffer Mora Reason for Consult: multiple falls, blunt head trauma History of Present Illness: This is a 72-year-old gentleman with history of atrial fibrillation on eliquis, chronic left lower back pain who presents for recurrent falls. Patient states he has left posterior lower back pain for the past 13 months and follows-up with Orthopedic team as outpatient and is scheduled surgery in the next 2-3 weeks. He stated he had nerve ablation in past but not effective. Recently his left lower back pain has been radiating down his left knee posteriorly and when he walks his left leg give out and he eventually falls but denies any LOC, urinary rentention or bowel issues associated with them. He denies any history of seizures. It seems yesterday in the afternoon, patient was in his garage and was trying to go to his mail and was found passed out by his neighbor that he was told. He denies any syncopal episode in past. He does not recall episode. He denies being told of shaking of extremities. Denies urinary or bowel incontinence. Denies any chest pain or any warning signs he recalls prior to episode. Currently feels back to baseline. Denies any history of stroke. Denies any significant memory issues that he is being told by his girlfriend. Some of the work-up during this hospital visit consisted of: Orthostatic vitals: Supine 153/76 with HR 72, sitting 142/71 with HR 76 and standing 121/[address] brain and cervical spine is reported as Similar ventricular dilation from 09/28/2022 and dating back to 2019. No obvious acute intracranial process. Nonspecific white matter changes, likely secondary to chronic small vessel ischemic disease. No evidence of cervical spine fracture. Moderate multilevel degenerative disc disease. Postsurgical changes with clips in place. Left cheek metalic foregin body in the subcutaneous tissues.I personally review CT he ad and patient does have component of NPH as agree it seems as far as 2019. There is no acute or subacute ischemic stroke or any mass effect. CT thoracic and lumbar region is reported as no acute fracture. soft tissue stranding and foci of gas along the left posterior elements at L2-L3. No osseou s erosions. There is associated pneumorachis at this level. Findings may relate to recent instrumentation hower infection process could have this appearance. Cannot exclude samll ascess. Clinical correlation is recommended. Past Medical History Past Medical History: Atrial Fibrillation, Cancer, GERD/Reflux, Hyperlipidemia, Hypertension, Prostate Disorder Additional Past Medical History / Comment(s): CHRONIC LOW BACK PAIN. Prostate cancer, skin cancer, kidney stone. hx vertigo History of Any Multi-Drug Resistant Organisms: None Reported Past Surgical History: Appendectomy, Bariatric Surgery, Cardiac Ablation, Cholecystectomy, Orthopedic Surgery Additional Past Surgical History / Comment(s): cervical sx with titanium rods, Colonoscopy, lap band, rt clavical reduction, Prostatectomy, SKIN CA REMOVED, pain procedures at [facility]PAIN [facility]INIC PROCEDURES, EGD Past Anesthesia/Blood Transfusion Reactions: Previous Problems w/ Anesthesia Additional Past Anesthesia/Blood Transfusion Reaction / Comment(s): vertigo. hx of difficulty voiding after anesthesia. no blood transfusions Past Psychological History: Depression Smoking Status: Former smoker Past Alcohol Use History: None Reported Past Drug Use History: None Reported - Past Family History Father Family Medical History: Myocardial Infarction ([place]) Mother Additional Family Medical History / Comment(s): MAC DEGENERATION, HEART PROBLEMS Medications and Allergies Home Medications Medication Instructions Recorded Confirmed Type Apixaban [Eliquis] 5 mg PO BID #180 tab 04/17/19 03/09/23 Rx Multivitamins, Thera [Multivitamin 1 tab PO DAILY 10/13/20 03/09/23 History (formulary)] Cyanocobalamin (Vitamin B-12) 1,000 mcg PO DAILY 03/02/21 03/09/23 History [Vitamin B-12] Flecainide [Tambocor] 50 mg PO Q12HR 03/02/21 03/09/23 History Metoprolol Succinate [Toprol XL] 25 mg PO DAILY 07/06/21 03/09/23 History Furosemide [Lasix] 40 mg PO DAILY 09/19/21 03/09/23 History Atorvastatin [Lipitor] 40 mg PO HS 09/28/22 03/09/23 History Escitalopram [Lexapro] 10 mg PO HS 09/28/22 03/09/23 History Co Q-10 (Unknown Dose) 1 tab PO DAILY 03/09/23 03/09/23 History Ferrous Sulfate [Feosol] 325 mg PO Q4D 03/09/23 03/09/23 History Gabapentin 300 mg PO HS 03/09/23 03/09/23 History HYDROcodone/APAP 5-325MG [[place] 2 tab PO Q8H 03/09/23 03/09/23 History 5-325] Allergies Allergy/AdvReac Type Severity Reaction Status Date / Time morphine AdvReac Nausea & Verified 03/09/23 20:23 Vomiting Physical Examination - Vital Signs Vital Signs: Vital Signs Temp Pulse Pulse Pulse Pulse Pulse Resp 03/10/23 09:03 76 82 72 03/10/23 07:40 97.9 F 64 16 03/10/23 00:23 97.7 F 74 16 03/09/23 22:15 98.0 F 71 16 03/09/23 21:58 76 18 03/09/23 19:14 59 L 18 03/09/23 19:00 56 L 20 03/09/23 18:24 68 16 03/09/23 17:38 55 L 20 03/09/23 17:23 98 F 56 L 16 BP BP BP BP BP BP Pulse Ox 03/10/23 09:03 142/71 121/76 153/76 03/10/23 07:40 128/74 96 03/10/23 00:23 132/70 97 03/09/23 22:15 134/92 95 03/09/23 21:58 142/79 97 03/09/23 19:14 151/67 96 03/09/23 19:00 148/75 96 03/09/23 18:24 150/77 96 03/09/23 17:38 151/93 94 L 03/09/23 17:23 156/66 95 Intake and Output 03/09/23 03/10/23 03/10/23 22:59 06:59 14:59 Intake Total 240 Balance 240 Intake: Oral 240 Other: # Voids 2 Weight 99.79 kg Results - Laboratory Findings CBC and BMP: 03/10/23 04:04 03/10/23 04:04 Abnormal Lab Findings: Abnormal Labs 03/09/23 03/09/23 03/10/23 17:38 17:38 04:04 RBC 4.19 L 3.99 L Hgb 12.1 L 11.0 L Hct 36.2 L 34.9 L MCHC 31.5 L Monocytes # 1.27 H Sodium 135 L BUN 30 H BUN/Creatinine Ratio Glucose 134 H 03/10/23 04:04 RBC Hgb Hct MCHC Monocytes # Sodium BUN BUN/Creatinine Ratio 22.17 H Glucose Assessment and Plan Assessment: This is a 72-year-old gentleman with chronic left lower back pain for the past 13 months who recently having posterior left low back pain radiating left knee with left leg giving out and leading to recurrent falls without LOC. Yesterday in afternoon he had a syncopal episode and does not recall episode. No history of seizures. Syncopal episode. Unsure exactly. Has positive orthostatic and unsure if this is only cause. Does not appear seizure in nature. 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 Denies urinary retentions, memory issues that significant other noticed. Yes it can contribute to falls but it seems more his left lumbar radiculopathy causing falls. History of atrial fibrillation on eliquis Plan: * CT brain and cervical spine is reported as Similar ventricular dilation from 09/28/2022 and dating back to 2019. No obvious acute intracranial process. Nonspecific white matter changes, likely secondary to chronic small vessel ischemic disease. No evidence of cervical spine fracture. Moderate multilevel degenerative disc disease. Postsurgical changes with clips in place. Left cheek metalic foregin body in the subcutaneous tissues.I personally review CT head and patient does have component of NPH as agree it seems as far as 2019. There is no acute or subacute ischemic stroke or any mass effect. * CT thoracic and lumbar region is reported as no acute fracture. soft tissue stranding and foci of gas along the left posterior elements at L2-L3. No osseous erosions. There is associated pneumorachis at this level. Findings may relate to recent instrumentation hower infection process could have this appearance. Cannot exclude luis ascdonta. Clinical correlation is recommended. * Consider MRI Thoracic and Lumbar. Per the nurse, Dr. Garcia notified her that he had recent MRI's in his Orthopedic office and does not need a repeat MRI. Dr. Garcia will pursue with surgical intervention per nurse. * For his syncopal episode: I ordered routine EEG (will be done on Sunday since not tech for routines), carotid duplex, MRI Brain w/ and w/o and 2D echo. Will defer the management of positive orthos to primary team. 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 Recommend neurospych evaluation for detailed memory evaluation as outpatient. * Primary team consulted I.D. team. * Cardiac monitoring. * PT and OT consulted. * Orthopedic team is consulted. * Will defer the rest of medical management to primary and other specialist. The plan is discussed with patient, primary attending, Ortho team. Thank you for the consultation. Dr. Erazo will start neurology service tomorrow A.M. (03/11/2023). Time with Patient: Greater than 30
--- NOTE | 2023-03-10 12:47 | P.PN ---
Subjective Progress Note Date: 03/10/23 Patient is a 72-year-old male with a PMH of A. anne on Eliquis, hyperlipidemia, cervical DJD status post surgery, who was brought to the emergency room via EMS for loss of consciousness and falls. He reports that earlier today he had multiple falls where he feels his legs gave out and he eased himself down to the ground. The patient however was ultimately found in his garage on the ground and confused. He does not recall the events prior to or immediately after the fall. He does not recall if he lost consciousness. He reports getting abrasions on both his elbows and hitting his head but denied any additional pain. He denied experiencing slurred speech or visual impairments. Also denied focal weakness, numbness, or tingling. Denied urinary incontinence or tongue biting. The patient does report a prior history of neurosurgery with placement of a intracranial "stent" by Dr Rayray Lebron at [facility] neurosurgery. In the emergency room, had/cervical spine CT revealed similar ventricular dilatation from 2019 with no acute intracranial abnormalities noted. Furthermore there was moderate multilevel degenerative disc disease. CXR was unremarkable. EKG revealed sinus bradycardia at [address]/T-wave changes noted as reviewed by me. Laboratory evaluation was remarkable for troponin less than 0.012, sodium 135, BUN 30, creatinine 1.25, and glucose 134 with serum alcohol less than 10. 03/10 Patient was seen and examined. He reports a history of falls secondary to his legs giving out and lower back pain with radiation to the LLE. Yesterday, he was walking with the aid of a walker to check his mail when he apparently lost consciousness. Patient is unable to recall the events leading to his LOC. Neighbors found him down and EMS was called. He denies any bladder or bowel incontinence. He denies any saddle anesthesia. He denies any chest pain, shortness of breath or palpitations. CBC shows hemoglobin of 11. BMP shows BUN to creatinine ratio of 22.17. Orthopedic surgery has evaluated the patient and recommends emergent revision surgery with fusion at L3 4 likely to be done on Sunday. Neurology recommends carotid Doppler, echocardiogram, MRI brain, EEG for further workup of syncopal episode. Cardiology will be consulted as well medical clearance in preparation for surgery. There is question of abscess versus postsurgical changes of the lumbar spine. Infectious disease will be consulted. General: non toxic, no distress, appears at stated age, obese Derm: no unusual rashes/lesions, warm Head: atraumatic, normocephalic, symmetric Eyes: EOMI, no lid lag, anicteric sclera ENT: Nose and ears atraumatic Neck: No cervical lymphadenopathy, trachea midline, supple Cardiovascular: S1S2 reg, no murmur, no edema Lungs: CTA bilateral, no rhonchi, no rales, no accessory muscle use Ext: muscle strength 5 out of 5 bilateral upper extremities, LLE strength 2/5 diffusely, RLE strength 3/5 diffusely, no gross muscle atrophy, no contractures Neuro: no gross focal neuro deficits Psych: Alert, oriented, appropriate affect Syncopal episode with no prodrome Orthostatic hypotension Recurrent falls due to bilateral lower extremity weakness History of intracranial surgery, unknown Chronic conditions: Atrial fibrillation on Eliquis, dyslipidemia, cervical DJD Based on my assessment of this patient, this patient meets a high complexity level of care. Patient has an acute diagnosis of syncope that poses a threat to life or bodily function. Syncopal episode with no prodrome: Orthostats are positive. Recent echocardiogram on 03/07 shows EF of 55-60% with mild MR and mild AR. Telemetry monitoring. Start NS at 75 mL per hour. Fall precautions. Cardiology consul tation. Neurology consultation. Orthostatic hypotension: IV hydration as above. Recurrent falls due to bilateral lower extremity weakness: CT thoracic and lumbar spine ordered to evaluate spinal cord pathology. History of intracranial surgery, unknown I have reviewed the following change management consultant notes: Orthopedic surgery note, neurology note reviewed. I have reviewed the results of the following tests: CBC, BMP. I have ordered the following tests: CT thoracic and lumbar spine ordered. Agree with echocardiogram, carotid Doppler, MRI brain, EEG ordered by neurology. I have discussed the care of this patient with the following independent historian: I have independently interpreted the following test below: I have discussed the management of this patient with the following physician: Case discussed extensively with neurology as above. CT shows findings concerning for possible abscess. ID will be consulted for further guidance. Objective - Vital Signs Vital signs: Vital Signs Temp 97.9 F 03/10/23 07:40 Pulse 72 03/10/23 09:03 Resp 16 03/10/23 07:40 BP 153/76 03/10/23 09:03 Pulse Ox 96 03/10/23 07:40 FiO2 Intake & Output 03/09/23 03/10/23 03/10/23 18:59 06:59 18:59 Intake Total 240 Balance 240 Weight 99.79 kg 99.79 kg Intake: Oral 240 Other: # Voids 2 - Labs CBC & Chem 7: 03/10/23 04:04 03/10/23 04:04 Labs: Abnormal Lab Results - Last 24 Hours (Table) 03/09/23 03/09/23 03/10/23 Range/Units 17:38 17:38 04:04 RBC 4.19 L 3.99 L (4.30-5.90) m/uL Hgb 12.1 L 11.0 L (13.0-17.5) gm/dL Hct 36.2 L 34.9 L (39.0-53.0) % MCHC 31.5 L (32.0-37.0) d/dL Monocytes # 1.27 H (0.20-1.00) X 10*3/uL Sodium 135 L (137-145) mmol/L BUN 30 H (9-20) mg/dL BUN/Creatinine Ratio (12.00-20.00) Ratio Glucose 134 H (74-99) mg/dL 03/10/23 Range/Units 04:04 RBC (4.30-5.90) m/uL Hgb (13.0-17.5) gm/dL Hct (39.0-53.0) % MCHC (32.0-37.0) d/dL Monocytes # (0.20-1.00) X 10*3/uL Sodium (137-145) mmol/L BUN (9-20) mg/dL BUN/Creatinine Ratio 22.17 H (12.00-20.00) Ratio Glucose (74-99) mg/dL
--- NOTE | 2023-03-10 15:03 | P.CRDCN ---
History of Present Illness Consult date: 03/10/23 History of present illness: History of Present Illness: The patient is a 72-year-old male with known history of mild CAD, history of atrial fibrillation status post ablation, maintaining sinus mechanism with severe back discomfort who has been evaluated to undergo revision of his back surgery who presented after a fall and possible syncope. The patient has been quite limited in his physical activity because of the severe pain and like weakness. He was walking to get his mail when he fell and apparently had loss of consciousness. He denies any chest discomfort, palpitations, tonic-clonic activity or loss of bladder control. He was in sinus mechanism on presentation and had no further episodes of syncope. He had no evidence to suggest pauses. He had an echocardiogram performed on March 07 that showed a preserved systolic function with mild mitral and aortic regurgitation. He underwent cardiac catheterization in February [address] Li and there was no evidence of significant obstructive disease. He has a prior history of cerebral aneurysm was coiling done at [facility]. He denies any history of PND, orthopnea or peripheral edema. He is a nonsmoker. He is scheduled to undergo surgery on Sunday, his anticoagulation is being held Medications: Toprol-XL 25 mg daily, Lasix 40 mg daily, flecainide 50 mg twice a day, Lipitor 40 mg daily, Eliquis 5 mg twice a day Review of Systems: Respiratory: No history of asthma, bronchitis or recent cough. GI: No nausea or vomiting . No history of peptic ulcer disease. No recent GI bleed. : No hematuria or dysuria. Nervous System: No stroke or seizure. He had the recent fall and weakness Physical Examination: 72-year-old male, alert and oriented no apparent distress ,Blood pressure 128/70 with mild orthostatic changes, Heart rate 70 Head: Normocephalic. Eyes: Sclerae nonicteric. Neck: Good carotid upstroke, no bruit, no jugular venous distention. Lungs: Clear to auscultation. Heart: Regular rate and rhythm, S1-S2, no S3, no rub. Systolic ejection murmur, 2/6. Abdomen: Soft nontender, positive bowel sounds no organomegaly. Extremities: No edema, intact distal pulses. Labs: Hemoglobin 11, potassium 4.2, BUN 26, creatinine 1.2. Troponin less than 0.012. Carotid duplex scan with no high grade stenosis. Chest x-ray with no acute infiltrate. EKG: Sinus mechanism with no acute ST segment changes Impression: 1. Fall and syncope, could be a combination of orthostatic hypotension and discomfort from his back. No evidence of pauses or malignant arrhythmia 2. Severe back discomfort, scheduled for surgical intervention 3. Mild CAD by cardiac catheterization 4. History of hyperlipidemia 5. Atrial fibrillation status post ablation, maintaining sinus mechanism, ant icoagulated Plan: 1. Patient does not show any signs of malignant arrhythmia to explain his syncopal episode, continue telemetry 2. Hold anticoagulation for surgery on Sunday 3. Continue beta teresa and flecainide 4. Continue telemetry 5. Depending on his progress further recommendations will be made, thank you for this consult we will follow with you. Past Medical History Past Medical History: Atrial Fibrillation, Cancer, GERD/Reflux, Hyperlipidemia, Hypertension, Prostate Disorder Additional Past Medical History / Comment(s): CHRONIC LOW BACK PAIN. Prostate cancer, skin cancer, kidney stone. hx vertigo History of Any Multi-Drug Resistant Organisms: None Reported Past Surgical History: Appendectomy, Bariatric Surgery, Cardiac Ablation, Cholecystectomy, Orthopedic Surgery Additional Past Surgical History / Comment(s): cervical sx with titanium rods, Colonoscopy, lap band, rt clavical reduction, Prostatectomy, SKIN CA REMOVED, pain procedures at [facility]PA[facility]IN[facility] PROCEDURES, EGD Past Anesthesia/Blood Transfusion Reactions: Previous Problems w/ Anesthesia Additional Past Anesthesia/Blood Transfusion Reaction / Comment(s): vertigo. hx of difficulty voiding after anesthesia. no blood transfusions Past Psychological History: Depression Smoking Status: Former smoker Past Alcohol Use History: None Reported Past Drug Use History: None Reported - Past Family History Father Family Medical History: Myocardial Infarction ([place]) Mother Additional Family Medical History / Comment(s): MAC DEGENERATION, HEART PROBLEMS Medications and Allergies Home Medications Medication Instructions Recorded Confirmed Type Apixaban [Eliquis] 5 mg PO BID #180 tab 04/17/19 03/09/23 Rx Multivitamins, Thera [Multivitamin 1 tab PO DAILY 10/13/20 03/09/23 History (formulary)] Cyanocobalamin (Vitamin B-12) 1,000 mcg PO DAILY 03/02/21 03/09/23 History [Vitamin B-12] Flecainide [Tambocor] 50 mg PO Q12HR 03/02/21 03/09/23 History Metoprolol Succinate [Toprol XL] 25 mg PO DAILY 07/06/21 03/09/23 History Furosemide [Lasix] 40 mg PO DAILY 09/19/21 03/09/23 History Atorvastatin [Lipitor] 40 mg PO HS 09/28/22 03/09/23 History Escitalopram [Lexapro] 10 mg PO HS 09/28/22 03/09/23 History Co Q-10 (Unknown Dose) 1 tab PO DAILY 03/09/23 03/09/23 History Ferrous Sulfate [Feosol] 325 mg PO Q4D 03/09/23 03/09/23 History Gabapentin 300 mg PO HS 03/09/23 03/09/23 History HYDROcodone/APAP 5-325MG [[place] 2 tab PO Q8H 03/09/23 03/09/23 History 5-325] Allergies Allergy/AdvReac Type Severity Reaction Status Date / Time morphine AdvReac Nausea & Verified 03/09/23 20:23 Vomiting Physical Exam Vitals: Vital Signs Temp Pulse Pulse Pulse Pulse Pulse Resp 03/10/23 09:03 76 82 72 03/10/23 07:40 97.9 F 64 16 03/10/23 00:23 97.7 F 74 16 03/09/23 22:15 98.0 F 71 16 03/09/23 21:58 76 18 03/09/23 19:14 59 L 18 03/09/23 19:00 56 L 20 03/09/23 18:24 68 16 03/09/23 17:38 55 L 20 03/09/23 17:23 98 F 56 L 16 BP BP BP BP BP BP Pulse Ox 03/10/23 09:03 142/71 121/76 153/76 03/10/23 07:40 128/74 96 03/10/23 00:23 132/70 97 03/09/23 22:15 134/92 95 03/09/23 21:58 142/79 97 03/09/23 19:14 151/67 96 03/09/23 19:00 148/75 96 03/09/23 18:24 150/77 96 03/09/23 17:38 151/93 94 L 03/09/23 17:23 156/66 95 Intake and Output 03/09/23 03/10/23 03/10/23 22:59 06:59 14:59 Intake Total 240 Balance 240 Intake: Oral 240 Other: # Voids 2 Weight 99.79 kg Results 03/10/23 04:04 03/10/23 04:04 Cardiac Enzymes 03/09/23 03/09/23 Range/Units 17:38 17:38 AST 32 (17-59) U/L Troponin I <0.012 (0.000-0.034) ng/mL Coagulation 03/09/23 Range/Units 17:38 PT 10.0 (9.0-12.0) sec APTT 24.4 (22.0-30.0) sec CBC 03/09/23 03/10/23 Range/Units 17:38 04:04 WBC 6.9 7.71 (3.8-10.6) k/uL RBC 4.19 L 3.99 L (4.30-5.90) m/uL Hgb 12.1 L 11.0 L (13.0-17.5) gm/dL Hct 36.2 L 34.9 L (39.0-53.0) % Plt Count 315 314 (150-450) k/uL Comprehensive Metabolic Panel 03/09/23 03/10/23 Range/Units 17:38 04:04 Sodium 135 L 141 (137-145) mmol/L Potassium 4.5 4.2 (3.5-5.1) mmol/L Chloride 101 103 (98-107) mmol/L Carbon Dioxide 29 26.2 (22-30) mmol/L BUN 30 H 26.6 (9-20) mg/dL Creatinine 1.25 1.2 (0.66-1.25) mg/dL Glucose 134 H 109 (74-99) mg/dL Calcium 8.8 9.1 (8.4-10.2) mg/dL AST 32 (17-59) U/L ALT 28 (4-49) U/L Alkaline Phosphatase 70 (38-126) U/L Total Protein 6.6 (6.3-8.2) g/dL Albumin 3.8 (3.5-5.0) g/dL Current Medications Generic Name Dose Route Start Last Admin Trade Name Freq PRN Reason Stop Dose Admin Acetaminophen 650 mg 03/09/23 20:17 03/10/23 03:58 Acetaminophen Tab 325 Mg Tab PO 650 mg Q6HR PRN Administration Mild Pain or Fever > 100.5 Hydrocodone Bitart/Acetaminophen 2 each 03/10/23 10:41 Hydrocodone/Apap 5-325mg 1 Each Tab PO Q8H PRN Breakthrough Pain Atorvastatin Calcium 40 mg 03/10/23 00:15 03/10/23 00:21 Atorvastatin 40 Mg Tab PO 40 mg HS KEATON Administration Cyanocobalamin 1,000 mcg 03/10/23 09:00 03/10/23 08:25 Cyanocobalamin 500 Mcg Tab PO 1,000 mcg DAILY KEATON Administration Escitalopram Oxalate 10 mg 03/10/23 21:00 Escitalopram 10 Mg Tab PO HS KEATON Ferrous Sulfate 325 mg 03/10/23 00:15 03/10/23 00:21 Ferrous Sulfate 325 Mg Tab PO 325 mg Q4D KEATON Administration Flecainide Acetate 50 mg 03/10/23 00:15 03/10/23 08:27 Flecainide 50 Mg Tab PO 50 mg Q12HR KEATON Administration Furosemide 40 mg 03/10/23 09:00 03/10/23 08:25 Furosemide 40 Mg Tab PO 40 mg DAILY KEATON Administration Gabapentin 300 mg 03/10/23 00:15 03/10/23 00:21 Gabapentin 300 Mg Cap PO 300 mg HS KEATON Administration Sodium Chloride 1,000 mls @ 75 mls/hr 03/10/23 10:45 Saline 0.9% IV .[id number] KEATON Metoprolol Succinate 25 mg 03/10/23 09:00 03/10/23 08:27 Metoprolol Succinate (Er) 25 Mg Tab.Er.24h PO 25 mg DAILY KEATON Administration Multivitamins 1 each 03/10/23 09:00 03/10/23 08:25 Multivitamins, Thera 1 Each Tab PO 1 each DAILY KEATON Administration Naloxone HCl 0.2 mg 03/09/23 20:17 Naloxone 0.4 Mg/Ml 1 Ml Vial IV Q2M PRN Opioid Reversal Intake and Output 03/09/23 03/10/23 03/10/23 22:59 06:59 14:59 Intake Total 240 Balance 240 Intake: Oral 240 Other: # Voids 2 Weight 99.79 kg 03/10/23 04:04 03/10/23 04:04
[2023-03-10] MEDS: HYDROcodone/APAP 5-325MG 1 EACH TAB PO PRN ×2 (16:04→23:58)
[2023-03-10] MEDS: ESCITALOPRAM 10 MG TAB PO SCH (20:55)
--- NOTE | 2023-03-10 21:06 | P.CONS ---
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 in this patient who did have a previous lumbar surgery in December 2022 with laminectomy decompression at L2 and 3 the patient apparently was doing well however lately simply having progressive pain to the lower back area also complaining of pain rating down to his leg and did have some weakness and fall denies any bowel or bladder problems patient apparently did have a fall yesterday at home on his driveway his neighbor found him and called EMS and the patient was brought to the hospital patient denies having any fever or any chills over the last few days patient denies having any headache or URI symptoms no chest pain shortness of breath or cough no nausea no pain no abdominal pain no diarrhea no burning or frequency. Has been complaining of mostly pain in lower back area that has been getting been getting worse over the last few weeks patient describes the pain to be sharp to dull aching intensity almost dinnertime and severe with some radiation to the leg denies any focal weakness bowel or bladder problems patient on presentation to the hospital was afebrile and no fever has been recorded subsequently patient did have a normal white count with no left shift kidney function was normal liver enzymes are normal patient did have a thoracal lumbar spine CT which did shows no acute fracture soft tissue fat stranding and foci of gas along the left posterior elements at L2-3 no bony erosion associated AT this level could relate to recent instrumentation however infectious process could have the same appearance that has prompted this infectious disease consultation patient did mention receiving a steroid injection to the lower back but the last injection was possibly in November 2022 Past Medical History Past Medical History: Atrial Fibrillation, Cancer, GERD/Reflux, Hyperlipidemia, Hypertension, Prostate Disorder Additional Past Medical History / Comment(s): CHRONIC LOW BACK PAIN. Prostate cancer, skin cancer, kidney stone. hx vertigo History of Any Multi-Drug Resistant Organisms: None Reported Past Surgical History: Appendectomy, Bariatric Surgery, Cardiac Ablation, Cholecystectomy, Orthopedic Surgery Additional Past Surgical History / Comment(s): cervical sx with titanium rods, Colonoscopy, lap band, rt clavical reduction, Prostatectomy, SKIN CA REMOVED, pain procedures at [facility]PAIN [facility]INIC PROCEDURES, EGD Past Anesthesia/Blood Transfusion Reactions: Previous Problems w/ Anesthesia Additional Past Anesthesia/Blood Transfusion Reaction / Comm: vertigo. hx of difficulty voiding after anesthesia. no blood transfusions Past Psychological History: Depression Smoking Status: Former smoker Past Alcohol Use History: None Reported Past Drug Use History: None Reported - Past Family History Father Family Medical History: Myocardial Infarction ([place]) Mother Additional Family Medical History / Comment(s): MAC DEGENERATION, HEART PROBLEMS Medications and Allergies Home Medications Medication Instructions Recorded Confirmed Type Apixaban [Eliquis] 5 mg PO BID #180 tab 04/17/19 03/09/23 Rx Multivitamins, Thera [Multivitamin 1 tab PO DAILY 10/13/20 03/09/23 History (formulary)] Cyanocobalamin (Vitamin B-12) 1,000 mcg PO DAILY 03/02/21 03/09/23 History [Vitamin B-12] Flecainide [Tambocor] 50 mg PO Q12HR 03/02/21 03/09/23 History Metoprolol Succinate [Toprol XL] 25 mg PO DAILY 07/06/21 03/09/23 History Furosemide [Lasix] 40 mg PO DAILY 09/19/21 03/09/23 History Atorvastatin [Lipitor] 40 mg PO HS 09/28/22 03/09/23 History Escitalopram [Lexapro] 10 mg PO HS 09/28/22 03/09/23 History Co Q-10 (Unknown Dose) 1 tab PO DAILY 03/09/23 03/09/23 History Ferrous Sulfate [Feosol] 325 mg PO Q4D 03/09/23 03/09/23 History Gabapentin 300 mg PO HS 03/09/23 03/09/23 History HYDROcodone/APAP 5-325MG [[place] 2 tab PO Q8H 03/09/23 03/09/23 History 5-325] Allergies Allergy/AdvReac Type Severity Reaction Status Date / Time morphine AdvReac Nausea & Verified 03/09/23 20:23 Vomiting Physical Exam Vitals: Vital Signs Temp Pulse Pulse Pulse Pulse Pulse Resp 03/10/23 09:03 76 82 72 03/10/23 07:40 97.9 F 64 16 03/10/23 00:23 97.7 F 74 16 03/09/23 22:15 98.0 F 71 16 03/09/23 21:58 76 18 03/09/23 19:14 59 L 18 03/09/23 19:00 56 L 20 03/09/23 18:24 68 16 03/09/23 17:38 55 L 20 03/09/23 17:23 98 F 56 L 16 BP BP BP BP BP BP Pulse Ox 03/10/23 09:03 142/71 121/76 153/76 03/10/23 07:40 128/74 96 03/10/23 00:23 132/70 97 03/09/23 22:15 134/92 95 03/09/23 21:58 142/79 97 03/09/23 19:14 151/67 96 03/09/23 19:00 148/75 96 03/09/23 18:24 150/77 96 03/09/23 17:38 151/93 94 L 03/09/23 17:23 156/66 95 Intake and Output 03/09/23 03/10/23 03/10/23 22:59 06:59 14:59 Intake Total 240 Balance 240 Intake: Oral 240 Other: # Voids 2 Weight 99.79 kg Results CBC & Chem 7: 03/10/23 04:04 03/10/23 04:04 Labs: Abnormal Lab Results - Last 24 Hours (Table) 03/09/23 03/09/23 03/10/23 Range/Units 17:38 17:38 04:04 RBC 4.19 L 3.99 L (4.30-5.90) m/uL Hgb 12.1 L 11.0 L (13.0-17.5) gm/dL Hct 36.2 L 34.9 L (39.0-53.0) % MCHC 31.5 L (32.0-37.0) d/dL Monocytes # 1.27 H (0.20-1.00) X 10*3/uL Sodium 135 L (137-145) mmol/L BUN 30 H (9-20) mg/dL BUN/Creatinine Ratio (12.00-20.00) Ratio Glucose 134 H (74-99) mg/dL 03/10/23 Range/Units 04:04 RBC (4.30-5.90) m/uL Hgb (13.0-17.5) gm/dL Hct (39.0-53.0) % MCHC (32.0-37.0) d/dL Monocytes # (0.20-1.00) X 10*3/uL Sodium (137-145) mmol/L BUN (9-20) mg/dL BUN/Creatinine Ratio 22.17 H (12.00-20.00) Ratio Glucose (74-99) mg/dL Assessment and Plan Plan: 1patient with the history of advanced arthritis to the lumbar spine and spine in this patient who did have a laminectomy and decompression at L2-3 level in this patient scheduled for repeat surgery March 21 now presenting the hospital with a fall weakness with abnormal CT with a question of advanced osteoarthritis versus abscess patient is clinically not behaving as an abscess as the patient currently denies having any fever or any chills no fever has been recorded the patient did have a normal white count. 2we will obtain blood cultures and inflammatory markers. 3as the patient does not look toxic we will hold on adding any systemic antibiotic therapy at this point also discussed with spine surgeon planning for surgery on Sunday morning at that point cultures will be obtained before starting the patient on any empiric antibiotic therapy to increase the yield of those culture We will follow on clinical condition and cultures to further adjust medication if needed Thank you for this consultation we will follow the patient along with you Dictation was produced using [email or web address] dictation software. please excuse any grammatical, word or spelling errors. Time with Patient: Greater than 30
[2023-03-10] MEDS: SODIUM CHLORIDE 0.9% 1,000 ML IV SCH (23:59)
[2023-03-11] MEDS: SODIUM CHLORIDE 0.9% 1,000 ML IV SCH ×2 (01:17→21:51)
[2023-03-11] MEDS: MULTIVITAMINS, THERA 1 EACH TAB PO SCH (09:04)
[2023-03-11] MEDS: CYANOCOBALAMIN 500 MCG TAB PO SCH (09:04)
[2023-03-11] MEDS: FLECAINIDE 50 MG TAB PO SCH ×2 (09:04→21:48)
[2023-03-11] MEDS: HYDROcodone/APAP 5-325MG 1 EACH TAB PO PRN ×2 (09:05→18:17)
[2023-03-11] MEDS: METOPROLOL SUCCINATE (ER) 25 MG TAB.ER.24H PO SCH (09:05)
[2023-03-11] MEDS: FUROSEMIDE 40 MG TAB PO SCH (09:05)
--- NOTE | 2023-03-11 09:40 | P.PN ---
Progress Note - Text Progress Note Date: 03/11/23 The patient is seen and examined at bedside. There are no new changes. He continues to have severe pain and weakness in his left lower extremity. He denies any fevers or chills. Denies any chest pain shortness breath. He's remained afebrile overnight His blood pressure and rhythm are stable Abdomen is soft nontender His left lower extremity has significant weakness with hip flexion and extension. He is nontender over his leg. His prior back incision sites clean dry and intact. His well-healed. His arms have good active passive range of motion. His neck is nontender to palpation range motion. 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 He had prior surgery at that level and initially had some good response but had recurrent herniation with stenosis. This seems to be the primary source is correlate well with his imaging of his left lower extremity symptoms. He does not seem to have infectious process at this point. He is afebrile and the incision site looks clear. I discussed the case with infectious disease and they are in agreement. We will take cultures at the time of surgery as well. The patient is having significant issues and was initially scheduled for revision surgery of decompression and fusion at L3 4 on March 21. However the patient's been having worsening symptoms and multiple falls and with his weakness I think that moving forward with surgery earlier on Sunday, March 12 is necessary. I discussed the risk of occasions alternatives and benefits with him at length. I answered his questions best my ability and he wishes to proceed. We were able to hold his further blood thinners yesterday and tomorrow he will be at 48 hours from having his Eliquis. We will be able to proceed with surgery tomorrow morning on Sunday for revision decompression with fusion L3 4. He'll be nothing by mouth after midnight.
--- NOTE | 2023-03-11 10:24 | P.PN ---
Subjective Progress Note Date: 03/11/23 This is a pleasant 72-year-old male with known history of mild CAD, atrial fibrillation status post ablation, maintaining sinus mechanism with severe back discomfort who has been evaluated to undergo revision of his back surgery. He presented after a fall and possible syncope. The patient has been quite limited in his physical activity because of the severe pain and leg weakness. He was walking to get his mail when he fell and apparently had loss of consciousness. He denies any chest discomfort, palpitations, tonic-clonic activity or loss of bladder control. He was in sinus mechanism on presentation and had no further episodes of syncope. He had no evidence to suggest pauses. He had an echoca rdiogram performed on March 07 that showed a preserved systolic function with mild mitral and aortic regurgitation. He underwent cardiac catheterization in February [address] Li and there was no evidence of significant obstructive disease. He has a prior history of cerebral aneurysm with coiling done at [facility]. He denies any history of PND, orthopnea or peripheral edema. He is a nonsmoker. He is scheduled to undergo surgery Sunday and his anticoagulation is being held. 03/11/2023 Patient was seen and examined sitting up at the site of the bed. He denies further episodes of syncope. Orthostatic blood pressures were checked yesterday with a supine blood pressure of 153/76 and a standing blood pressure of 121/76. Continues to complain of significant back pain. He is scheduled to undergo surgery tomorrow with Dr. Garcia. His anticoagulation remains on hold. Objective - Vital Signs Vital signs: Vital Signs Temp 97.8 F 03/11/23 07:00 Pulse 71 03/11/23 07:00 Resp 16 03/11/23 07:00 BP 147/57 03/11/23 07:00 Pulse Ox 98 03/11/23 07:00 FiO2 Intake & Output 03/10/23 03/11/23 03/11/23 18:59 06:59 18:59 Intake Total 1311 450 Balance 1311 450 Intake: Intake, IV Titration 450 Amount Sodium Chloride 0.9% 1, 450 000 ml @ 75 mls/hr IV . [id number] [facility] Rx#:[id number] Oral 1311 Other: # Voids 2 1 - Exam Head: Normocephalic. Eyes: Sclerae nonicteric. Neck: Good carotid upstroke, no bruit, no jugular venous distention. Lungs: Clear to auscultation. Heart: Regular rate and rhythm, S1-S2, no S3, no rub. Systolic ejection murmur, 2/6. Abdomen: Soft nontender, positive bowel sounds no organomegaly. Extremities: No edema, intact distal pulses. - Labs CBC & Chem 7: 03/10/23 04:04 03/10/23 04:04 Labs: Abnormal Lab Results - Last 24 Hours (Table) 03/11/23 Range/Units 06:36 ESR 30 H (0-20) mm/Hr Assessment and Plan Assessment: 1. Fall and syncope, could be a combination of orthostatic hypotension and discomfort from his back. No evidence of pauses or malignant arrhythmia 2. Severe back discomfort, scheduled for surgical intervention 3. Mild CAD by cardiac catheterization 4. History of hyperlipidemia 5. Atrial fibrillation status post ablation, maintaining sinus mechanism, anticoagulation currently on hold for surgery tomorrow Plan: From cardiology's perspective there is been no signs of malignant arrhythmia or pauses. Continue telemetry monitoring. Continue to hold anticoagulation for surgery tomorrow. Continue beta teresa and flecainide. Resume anticoagulation once okay with Dr. Garcia. We will continue to follow the patient perioperatively and provide further recommendations accordingly. ELOCUTION TEACHER note has been reviewed, I agree with a documented findings and plan of care. Patient was seen and examined.
--- NOTE | 2023-03-11 11:00 | P.PN ---
Subjective Progress Note Date: 03/11/23 Patient is a 72-year-old male with a PMH of A. anne on Eliquis, hyperlipidemia, cervical DJD status post surgery, who was brought to the emergency room via EMS for loss of consciousness and falls. He reports that earlier today he had multiple falls where he feels his legs gave out and he eased himself down to the ground. The patient however was ultimately found in his garage on the ground and confused. He does not recall the events prior to or immediately after the fall. He does not recall if he lost consciousness. He reports getting abrasions on both his elbows and hitting his head but denied any additional pain. He denied experiencing slurred speech or visual impairments. Also denied focal weakness, numbness, or tingling. Denied urinary incontinence or tongue biting. The patient does report a prior history of neurosurgery with placement of a intracranial "stent" by Dr Rayray Lebron at [facility] neurosurgery. In the emergency room, had/cervical spine CT revealed similar ventricular dilatation from 2019 with no acute intracranial abnormalities noted. Furthermore there was moderate multilevel degenerative disc disease. CXR was unremarkable. EKG revealed sinus bradycardia at [address]/T-wave changes noted as reviewed by me. Laboratory evaluation was remarkable for troponin less than 0.012, sodium 135, BUN 30, creatinine 1.25, and glucose 134 with serum alcohol less than 10. 03/10 Patient was seen and examined. He reports a history of falls secondary to his legs giving out and lower back pain with radiation to the LLE. Yesterday, he was walking with the aid of a walker to check his mail when he apparently lost consciousness. Patient is unable to recall the events leading to his LOC. Neighbors found him down and EMS was called. He denies any bladder or bowel incontinence. He denies any saddle anesthesia. He denies any chest pain, shortness of breath or palpitations. CBC shows hemoglobin of 11. BMP shows BUN to creatinine ratio of 22.17. Orthopedic surgery has evaluated the patient and recommends emergent revision surgery with fusion at L3 4 likely to be done on Sunday. Neurology recommends carotid Doppler, echocardiogram, MRI brain, EEG for further workup of syncopal episode. Cardiology will be consulted as well medical clearance in preparation for surgery. There is question of abscess versus postsurgical changes of the lumbar spine. Infectious disease will be consulted. 03/11 Patient was seen and examined. Well controlled lower back pain. No di zziness, chest pain, SOB, palpitations. Requesting stool softener. ID consulted regarding findings on CT T-L spine, feels patient does not have infectious process. Carotid doppler negative for stenosis. ESR 30. CRP < 0.3. Plans for emergent revision surgery with fusion at L3 4 tomorrow. General: non toxic, no distress, appears at stated age, obese Derm: no unusual rashes/lesions, warm Head: atraumatic, normocephalic, symmetric Eyes: EOMI, no lid lag, anicteric sclera ENT: Nose and ears atraumatic Neck: No cervical lymphadenopathy, trachea midline, supple Cardiovascular: S1S2 reg, no murmur, no edema Lungs: CTA bilateral, no rhonchi, no rales, no accessory muscle use Ext: muscle strength 5 out of 5 bilateral upper extremities, LLE strength 2/5 diffusely, RLE strength 3/5 diffusely, no gross muscle atrophy, no contractures Neuro: no gross focal neuro deficits Psych: Alert, oriented, appropriate affect Syncopal episode with no prodrome Orthostatic hypotension Recurrent falls due to bilateral lower extremity weakness History of intracranial surgery, unknown Chronic conditions: Atrial fibrillation on Eliquis, dyslipidemia, cervical DJD Based on my assessment of this patient, this patient meets a moderate complexity level of care. Patient has an acute diagnosis of syncope that poses a threat to life or bodily function. Syncopal episode with no prodrome: Orthostats are positive 03/10. Recent echocardiogram on 03/07 shows EF of 55-60% with mild MR and mild AR. Telemetry monitoring. Continue NS at 75 mL per hour. Fall precautions. Cardiology on board, no arrhythmias on telemetry. Neurology on board, ordered EEG, MRI brain, Echocardiogram. Orthostatic hypotension: IV hydration as above. Recurrent falls due to bilateral lower extremity weakness: Plans for emergent revision surgery with fusion at L3 [address] Garcia tomorrow. History of intracranial surgery, unknown I have reviewed the following medical cost consultant notes: Orthopedic surgery note, Cardiology, ID note reviewed. I have reviewed the results of the following tests: ESR, CRP. I have ordered the following tests: Agree with echocardiogram, carotid Doppler, MRI brain, EEG ordered by neurology. I have discussed the care of this patient with the following independent historian: I have independently interpreted the following test below: I have discussed the management of this patient with the following physician: Objective - Vital Signs Vital signs: Vital Signs Temp 97.8 F 03/11/23 07:00 Pulse 71 03/11/23 07:00 Resp 16 03/11/23 07:00 BP 147/57 03/11/23 07:00 Pulse Ox 98 03/11/23 07:00 FiO2 Intake & Output 03/10/23 03/11/23 03/11/23 18:59 06:59 18:59 Intake Total 1311 450 Balance 1311 450 Intake: Intake, IV Titration 450 Amount Sodium Chloride 0.9% 1, 450 000 ml @ 75 mls/hr IV . [id number] [facility] Rx#:[id number] Oral 1311 Other: # Voids 2 1 - Labs CBC & Chem 7: 03/10/23 04:04 03/10/23 04:04 Labs: Abnormal Lab Results - Last 24 Hours (Table) 03/11/23 Range/Units 06:36 ESR 30 H (0-20) mm/Hr
--- NOTE | 2023-03-11 16:14 | P.PN ---
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 On today's evaluation that is 03/11/2023 patient denies having any fever or any chills, the patient is breathing comfortably on room air no chest pain or shortness of breath or cough no abdominal pain secondary to pain to the lower back radiating to the left leg but no worsening no bowel or bladder problem Patient did have white count 7.71, he did have a sed rate of 30 CRP was less than 0.30 Objective - Vital Signs Vital signs: Vital Signs Temp 97.8 F 03/11/23 07:00 Pulse 71 03/11/23 07:00 Resp 16 03/11/23 07:00 BP 147/57 03/11/23 07:00 Pulse Ox 98 03/11/23 07:00 FiO2 Intake & Output 03/10/23 03/11/23 03/11/23 18:59 06:59 18:59 Intake Total 1311 450 240 Output Total 600 Balance 1311 450 -360 Intake: Intake, IV Titration 450 Amount Sodium Chloride 0.9% 1, 450 000 ml @ 75 mls/hr IV . [id number] [facility] Rx#:[id number] Oral 1311 240 Output: Urine 600 Other: # Voids 2 1 - Exam GENERAL DESCRIPTION: An elderly male lying in bed in no distress RESPIRATORY SYSTEM: Unlabored breathing , decreased breath sounds at bases HEART: S1 S2 regular rate and rhythm , ABDOMEN: Soft , no tenderness EXTREMITIES: No edema feet - Labs CBC & Chem 7: 03/10/23 04:04 03/10/23 04:04 Labs: Abnormal Lab Results - Last 24 Hours (Table) 03/11/23 Range/Units 06:36 ESR 30 H (0-20) mm/Hr Assessment and Plan (1) Abnormal CT scan, lumbar spine Current Visit: Yes Status: Acute Code(s): R93.7 - ABNORMAL FINDINGS ON DIAGNOSTIC IMAGING OF PRT MS SYS SNOMED Code(s): 017874293 Plan: 1patient with the history of advanced arthritis to the lumbar spine and spine in this patient who did have a laminectomy and decompression at L2-3 level in this patient scheduled for repeat surgery March 21 now presenting the hospital with a fall weakness with abnormal CT with a question of advanced osteoarthritis versus abscess patient is clinically not behaving as an abscess as the patient currently denies having any fever or any chills no fever has been recorded the patient did have a normal white count. 2blood cultures has been obtained and currently pending patient did have normal CRP and a sed rate was only 30. 3as the patient does not look toxic and no clinical suspicious for abscess we will monitor the patient closely off antibiotic therapy ,Plan for his surgery in the a.m. at which time cultures will be obtained Dictation was produced using lucierna dictation software. please excuse any grammatical, word or spelling errors. Time with Patient: Less than 30
[2023-03-11] MEDS: ATORVASTATIN 40 MG TAB PO SCH (21:48)
[2023-03-11] MEDS: ESCITALOPRAM 10 MG TAB PO SCH (21:48)
[2023-03-11] MEDS: GABAPENTIN 300 MG CAP PO SCH (21:49)
[2023-03-11] MEDS: MELATONIN 5 MG TABLET PO SCH (22:08)
[2023-03-12] MEDS: SODIUM CHLORIDE 0.9% 1,000 ML IV SCH ×3 (06:21→12:30)
[2023-03-12] MEDS ORDERED: LACTATED RINGERS 1,000 ML IV ONE ×2 (07:45→09:03)
[2023-03-12] MEDS ORDERED: ePHEDrine 50 MG/ML 1 ML VIAL ONE (07:54)
[2023-03-12] MEDS ORDERED: NEOSTIGMINE 1 MG/ML 10 ML VIAL ONE (07:54)
[2023-03-12] MEDS ORDERED: KETAMINE 10 MG/ML 20 ML VIAL ONE (07:54)
[2023-03-12] MEDS ORDERED: SUCCINYLCHOLINE CHLORIDE 200 MG/10 ML VIAL IV ONE (07:54)
[2023-03-12] MEDS ORDERED: ROCURONIUM 10 MG/ML (5 ML VIAL) IV ONE (07:54)
[2023-03-12] MEDS ORDERED: GLYCOPYRROLATE 0.2 MG/ML 2 ML VIAL ONE (07:54)
[2023-03-12] MEDS ORDERED: PROPOFOL 10 MG/ML 20 ML VIAL IV ONE (07:54)
[2023-03-12] MEDS ORDERED: LIDOCAINE 2% INJ 20 MG/ML (2 ML VIAL) ONE (07:54)
[2023-03-12] MEDS ORDERED: ONDANSETRON 4 MG/2 ML VIAL ONE (07:54)
[2023-03-12] MEDS ORDERED: fentaNYL (PF) 50 MCG/ML 2 ML AMP ONE (07:54)
[2023-03-12] MEDS ORDERED: BUPIVACAINE (PF) 0.5% 30 ML VIAL SQ ONE ×2 (08:25)
[2023-03-12] MEDS ORDERED: LIDOCAINE 2%-EPI 1:100,000 20 ML VIAL SQ ONE ×2 (08:25)
[2023-03-12] MEDS ORDERED: THROMBIN (BOVINE) 5,000 UNIT VIAL TOPICAL ONE (08:36)
[2023-03-12] MEDS ORDERED: GELATIN SPONGE,ABSORB (LARGE) 1 EACH SPONGE TOPICAL ONE (08:36)
[2023-03-12] MEDS ORDERED: ceFAZolin 1,000 MG in SODIUM CHLORIDE 0.9% 1,000 ML IRRIGATION ONE (08:38)
[2023-03-12] MEDS ORDERED: SODIUM CHLORIDE 0.9% 50 ML with ceFAZolin 2,000 MG IV ONE ×2 (08:57)
--- NOTE | 2023-03-12 11:08 | P.PN ---
Subjective Progress Note Date: 03/11/23 Patient was initially seen by Dr. Marlo Cheek. Please refer to his note for details. Patient is a 72-year-old male with left lumbar radiculopathy and left leg giving out resulting in recurrent falls. Patient also had a syncopal episode prior to arrival, and does not recall. 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 Patient's orthostatics are positive. Patient states he still has lower back pain radiating to the left leg all the way to the ankle, rates his pain as 9/10. Patient says he is scheduled for surgical decompression tomorrow. He states he has history of low back pain for one year, has tried physical therapy, radiofrequency ablation of the nerves without improvement. Some of the work-up during this hospital visit consisted of: Orthostatic vitals: Supine 153/76 with HR 72, sitting 142/71 with HR 76 and standing 121/[address] brain and cervical spine is reported as Similar ventricular dilation from 09/28/2022 and dating back to 2019. No obvious acute intracranial process. Nonspecific white matter changes, likely secondary to chronic small vessel isc hemic disease. No evidence of cervical spine fracture. Moderate multilevel degenerative disc disease. Postsurgical changes with clips in place. Left cheek metalic foregin body in the subcutaneous tissues.I personally review CT head and patient does have component of NPH as agree it seems as far as 2019. There is no acute or subacute ischemic stroke or any mass effect. CT thoracic and lumbar region is reported as no acute fracture. soft tissue stranding and foci of gas along the left posterior elements at L2-L3. No osseous erosions. There is associated pneumorachis at this level. Findings may relate to recent instrumentation hower infection process could have this appearance. Cannot exclude samll ascess. Clinical correlation is recommended. Objective - Vital Signs Vital signs: Vital Signs Temp 97.8 F 03/11/23 07:00 Pulse 71 03/11/23 07:00 Resp 16 03/11/23 07:00 BP 147/57 03/11/23 07:00 Pulse Ox 98 03/11/23 07:00 FiO2 Intake & Output 03/10/23 03/11/23 03/11/23 18:59 06:59 18:59 Intake Total 1311 450 240 Output Total 600 Balance 1311 450 -360 Intake: Intake, IV Titration 450 Amount Sodium Chloride 0.9% 1, 450 000 ml @ 75 mls/hr IV . [id number] [facility] Rx#:[id number] Oral 1311 240 Output: Urine 600 Other: # Voids 2 1 - Exam Patient's mental status, speech and language functions are normal. Cranial nerves are normal. On muscle strength testing the strength is completely normal in both upper limbs. In the lower limbs his ankles are completely normal in the eversion, inversion, ankle dorsiflexion, toe extension and toe flexion bilaterally. Knee extension is 5 on the right, 2 on the left with a lot of pain. Likewise hip flexion was 4 on the right, and could not check on the left because of pain. Reflexes are trace in the upper limbs, 1+ at the ankles and plantars are possibly upgoing. Sensory to touch is decreased in the left L3/L4 dermatomes. No ataxia for [id number] testing. Gait deferred - Labs CBC & Chem 7: 03/10/23 04:04 03/10/23 04:04 Labs: Abnormal Lab Results - Last 24 Hours (Table) 03/11/23 Range/Units 06:36 ESR 30 H (0-20) mm/Hr Assessment and Plan Assessment: This is a 72-year-old gentleman with chronic left lower back pain for the past 13 months who recently having posterior left low back pain radiating left knee with left leg giving out and leading to recurrent falls without LOC. One day prior to arrival to the hospital in the afternoon, patient had a syncopal episode and does not recall episode. No history of seizures. Syncopal episode. Unsure exactly, probably due to orthostasis. Has positive orthostatic and unsure if this is only cause. Does not appear seizure in nature. 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 Denies urinary retentions, memory issues that significant other noticed. NPH can also contribute to falls but it seems more his left lumbar radiculopathy is the main cause of the falls. History of atrial fibrillation on eliquis Plan: * CT brain and cervical spine is reported as Similar ventricular dilation from 09/28/2022 and dating back to 2019. No obvious acute intracranial process. Nonspecific white matter changes, likely secondary to chronic small vessel ischemic disease. No evidence of cervical spine fracture. Moderate multilevel degenerative disc disease. Postsurgical changes with clips in place. Left cheek metalic foregin body in the subcutaneous tissues.I personally review CT head and patient does have component of NPH as agree it seems as far as 2019. There is no acute or subacute ischemic stroke or any mass effect. * CT thoracic and lumbar region is reported as no acute fracture. soft tissue stranding and foci of gas along the left posterior elements at L2-L3. No osseous erosions. There is associated pneumorachis at this level. Findings may relate to recent instrumentation hower infection process could have this appearance. Cannot exclude luis nova. Clinical correlation is recommended. * Consider MRI Thoracic and Lumbar. Per the nurse, Dr. Garcia notified her that he had recent MRI's in his Orthopedic office and does not need a repeat MRI. Dr. Garcia will pursue with surgical intervention per nurse. * For his syncopal episode: Dr. Cheek has ordered routine EEG (will be done on Sunday since not tech for routines), also MRI of the brain with and without contrast and 2-D echo. * Carotid Doppler revealed no ultrasound evidence of hemodynamically significant stenosis of bilateral carotid arteries. Antegrade flow in both vertebral arteries. Will defer the management of positive orthos to primary team. * Recommend his radiographic NPH he has been having since 2019, recommend following up with neurologist and neurosurgeon as outpatient for consideration of large volume tap and possible DEPARTURE CLERK shunt. Recommend neurospych evaluation for detailed memory evaluation as outpatient. * Primary team consulted I.D. team to rule out abscess. Patient undergoing lumbar surgery in the morning. Cultures will be obtained. * Cardiac monitoring. * PT and OT consulted. * Orthopedic team is consulted. * Will defer the rest of medical management to primary and other specialist.
[2023-03-12] MEDS ORDERED: BENZOCAINE/MENTHOL LOZENG 1 EACH LOZENGE MUCOUS MEM PRN (11:23)
[2023-03-12] MEDS ORDERED: bisacodyL 10 MG SUPP RECTAL PRN (11:23)
[2023-03-12] MEDS ORDERED: ONDANSETRON 4 MG/2 ML VIAL IVP PRN (11:23)
[2023-03-12] MEDS ORDERED: HYDROcodone/APAP 5-325MG 1 EACH TAB PO PRN (11:23)
[2023-03-12] MEDS ORDERED: NA PHOS,M-B/NA PHOS,DI-BA 133 ML ENEMA RECTAL PRN (11:23)
[2023-03-12] MEDS ORDERED: MAGNESIUM HYDROXIDE 2,400 MG/30 ML CUP PO PRN (11:23)
[2023-03-12] MEDS ORDERED: HYDROmorphone 0.5 MG/0.5 ML SYRINGE IVP ONE (11:39)
--- NOTE | 2023-03-12 11:39 | P.OP ---
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 Left lower extremity radiculopathy Left lower extremity weakness Recurrent falls due to weakness History laminectomy L3 4 Progressive disc degeneration L3 4 Instability L3 4 Postoperative Diagnosis: Same With evidence of multiple fragments of disc herniation causing stenosis No evidence of any purulence No evidence of significant epidural hematoma Procedure: Revision Laminectomy and decompression L3 [address] navigation aided Minimally invasive Posterior lateral decompression and facet fusion L3 4 Minimally invasive Transforaminal lumbar interbody fusion for a 360 fusion L3 4 Revision Discectomy for decompression L3 4 Placement of interbody graft L3 4 Use of computer navigation for fusion Local autogenous bone grafting Aspiration of bone marrow from the vertebral body pedicle of L3 on the left Use of bone graft extenders Surgeon: Dr. Garcia Professor Of Environmental Engineering: Surgical first Asst. who is present throughout the entire the case persistence during positioning, dissection, exposure, visualization, and all crucial elements of the case as well as closure. Anesthesia: General anesthesia per Dr. Figueroa Estimated blood loss: Approximately 250 mL Complications: None apparent Components implanted: K2M minimally invasive [place] pedicle screw system withscrews measuring 6.5 mm in diameter to rods one [place] interbody cage with 10 mL of osteo amp bio4 bone graft substitute and 30 mL of the BX bone fibers to supplement the local autogenous bone graft and bone marrow aspirate Specimen: Deep L3 4 culture sent to [facility] Disposition: To recovery room in good stable condition. OPERATIVE INDICATIONS The patient has had severe issues at their lower extremity in her lower back over the past several years with significant worsening over the past several weeks. The patient had been having issues in his back and had undergone laminectomy discectomy in December of this year. He initially did very well with this at L3 4 and is having improvement in his symptoms. However he sustained a fall and started having recurrence of his symptoms. He was having recurrent falls and worsening pain at his left lower extremity. He had revision imaging which showed evidence of recurrent stenosis and disc herniation and was planned to have surgical intervention for revision decompression with stabilization and fusion at L3 4. This was scheduled for March 21. However patient continue to have falls and fell outside of his home where he was found by his neighbors and was then brought to the hospital. He was having progressive weakness at his left lower extremity and severe pain in his left leg which correlated with his current symptoms. His imaging correlated well with his back and lower extremity issues and we discussed the possibility of pursuing surgical intervention earlier than planned. With his weakness in his left lower extremity felt that surgery was necessary. I felt that surgery could offer him could benefit though it was impossible to predict the full function of his external base and relief of his pain. I discussed the case with neurology as well as with infectious disease. We discussed various treatment options including surgery, and the patient wishes to proceed with surgery We discussed the risk, patient's alternatives and benefits of surgery including but not limited to, risk of bleeding risk of infection, risk of need for further surgery, risk of decreased, loss of motion, muscle function, malunion nonunion, hardware failure, nerve damage, paralysis, heart attack, blindness and . They understood issues with the current pandemic and the possibility of exposure. OPERATIVE SUMMARY After discussing all the risks, patient alternatives and benefits at length, the patient elected to proceed with surgical intervention, signed informed consent, and presented for their procedure. The patient was seen and examined in the preoperative holding area and the surgical site was marked. The patient was given antibiotics and brought to the operating room. The patient was sedated and intubated by anesthesia in standard fashion. The patient was positioned on to the operating room table in a prone position on the appropriate frame which was well-padded and well molded. We were careful to pad any bony prominences and pressure points. We were careful to maintain the patient's cervical spine and good neutral alignment and position throughout. The patient was prepped and draped in a normal standard fashion. An appropriate timeout and keystone protocol performed. We were able to proceed with the surgery. The local wound area was infiltrated with local anesthetic. I utilized the prior midline incision over L3 4. I dissected down over the spinous processes and over the lamina at L3 and L4. I dissected the L4 spinous process in order to place the [employer] referencing bony stabilizing sensor. I was able place the computer referencing device at the stable spinous process to establish an appropriate reference point for the Ziem CT navigation. We then were able to place patient in an appropriate drape and do a navigation spin for visualization and 3-D reconstruction of the lumbar spine. I was able utilize C- arm guidance and navigation to establish appropriate position over the pedicles bilaterally at the appropriate levels at L3 and L4 . Please note that in a number of references they discussed the L2-3 level. The patient does have a lumbarized S1 and I referred to the same level for counting purposes as L3 4. With the appropriate levels confirmed was able to make small incisions over the appropriate pedicle sites on the right, and through the fascia on the left.. I was able to visualize the midline and the left lamina. Utilizing the computer navigation device I was able to establish bony landmarks at the right iliac crest for a bony reference point for the navigation device. I was able to establish a Jamshidi needle over the lateral aspect of the pedicle and advanced the trocar into the pedicle being careful not to breech superiorly inferiorly medially or laterally using computer navigation device. Position was confirmed regularly with AP and lateral images on C-arm and with the computer navigation device at the appropriate levels bilaterally at L3 and L4. I was able to establish the trocar into the pedicle appropriately into the posterior aspect of the vertebral body bilaterally at the appropriate levels. This was done at each of the pedicle positions and each of the vertebrae. At the superior vertebrae I was able to take approximately 15 mL of bone aspiration for use later in the case to supplement the allograft and autograft bone. I was able place the guidewire into the trocar and into the vertebral body appropriately under C-arm guidance. Dissection was taken down over the wire to the appropriate starting position for the screw placed. The appropriate length screw was chosen, threaded over the guidewire and screwed appropriately into the pedicle and vertebral body under C-arm guidance in excellent alignment and position with good bony purchase. This is done at each of the screw sites at the appropriate levels at L3 and L4 bilaterally.. With the screws intact I extended the incision to connect the screw hole sites o n the most symptomatic side on the left. I dissected down to establish access over the pars and lamina to the base of the spinous process. I was able to expose the facet joint. I performed a revision decompression with facetectomy and foraminotomy on the left side The capsule the facet was taken down and showed some facet arthrosis at the joint. I was able to use a combination of curettes and Kerrison rongeurs and a high-speed drill to take down the facet joint and do a facetectomy. Note was made of multiple disc fragments that had herniated causing severe compression. There is no evidence of any purulence or pus. There is no significant epidural hematoma. There is significant compression due to the multiple fragments of disc herniation. I was able to get excellent decompression with removal of the disc and recurrent discectomy. I was able get excellent foraminal decompression and central decompression with undermining across midline to perform a laminectomy centrally and con tralaterally. I was able get good central decompression. The ligamentum flavum was taken down to further decompress centrally and at bilateral neural foramen. I was able to expose the disc space and visualize the traversing nerve root. I was able to explore the rent in the disc from the prior discectomy and there was disc herniation that was abutting the traversing nerve root at the level causing further compression of the nerve root. I was able to establish a annulotomy at the appropriate level protecting soft tissue and neural structures as stated above. Note was made of some severe disc loss at the disc. I performed a complete discectomy with accommodation of curettes and rasps and scrapers. I was able get good endplate preparation at the disc space. I sized for the appropriate size interbody spacer protecting the soft tissue and neural structures. The wound was copiously irrigated and suctioned dry. There is no evidence of any dural tear or leak. I was able to pack the disc space with local autogenous bone graft as well as a small amount of bone graft which was also placed into the interbody cage itself. Protecting the soft tissue structures and neural structures I was able place the interbody cage in good alignment and good position with good fit and fill at the interbody space. Position was confirmed with C-arm guidance. Good hemostasis maintained. There is no evidence of any dural tear or leak. The wound was irrigated and suctioned dry. With the hardware intact, intraoperative C-arm imaging was again taken which showed good alignment and position of the hardware at the appropriate levels at L3 and L4. We were then able to measure, contour and place the rods and appropriate hardware bilaterally. I was able to place capcrews, tighten them down, and torque them with the torque screwdriver appropriately. With this intact I was able to place the local autogenous bone graft with additional bone graft enhancer as necessary into the posterior lateral gutters over the decorticated transverse processes and facet joints on the contralateral side. The remainder of the bone graft was placed over the facet joint on the contralateral side after taking down the facet joint capsule. With the bone graft intact, a stable construct, and good decompression at the appropriate levels, we were able to proceed with closure. Good hemostasis was maintained. There is no evidence of dural tear or leak. The fascia was closed for a watertight closure. he subcuticular tissue was closed with absorbable suture. The wound was cleaned and dried and dressed with the appropriate dressing. The drapes were broken down. The patient was gently rolled back onto their hospital bed being careful to maintain their cervical spine and good neutral alignment an d position. They were woken up by anesthesia, extubated, and brought to the recovery room in good stable condition. The patient will be admitted to the hospital for appropriate postoperative care, medical management and monitoring. We will continue to follow them closely about the postoperative course.
[2023-03-12] MEDS ORDERED: ONDANSETRON 4 MG/2 ML VIAL IVP ONE (11:51)
[2023-03-12] MEDS: HYDROmorphone 1 MG/ML 1 ML SYRINGE IVP PRN ×3 (14:20→21:56)
[2023-03-12] MEDS: METOPROLOL SUCCINATE (ER) 25 MG TAB.ER.24H PO SCH (14:21)
[2023-03-12] MEDS: CYANOCOBALAMIN 500 MCG TAB PO SCH (14:21)
[2023-03-12] MEDS: FUROSEMIDE 40 MG TAB PO SCH (14:21)
[2023-03-12] MEDS: MULTIVITAMINS, THERA 1 EACH TAB PO SCH (14:21)
[2023-03-12] MEDS: HYDROcodone/APAP 5-325MG 1 EACH TAB PO PRN ×2 (15:33→23:30)
[2023-03-12] MEDS: FLECAINIDE 50 MG TAB PO SCH ×2 (16:03→20:47)
--- NOTE | 2023-03-12 17:41 | P.PN ---
Subjective Progress Note Date: 03/12/23 Patient is a 72-year-old male with a PMH of A. anne on Eliquis, hyperlipidemia, cervical DJD status post surgery, who was brought to the emergency room via EMS for loss of consciousness and falls. He reports that earlier today he had multiple falls where he feels his legs gave out and he eased himself down to the ground. The patient however was ultimately found in his garage on the ground and confused. He does not recall the events prior to or immediately after the fall. He does not recall if he lost consciousness. He reports getting abrasions on both his elbows and hitting his head but denied any additional pain. He denied experiencing slurred speech or visual impairments. Also denied focal weakness, numbness, or tingling. Denied urinary incontinence or tongue biting. The patient does report a prior history of neurosurgery with placement of a intracranial "stent" by Dr Rayray Lebron at [facility] neurosurgery. In the emergency room, had/cervical spine CT revealed similar ventricular dilatation from 2019 with no acute intracranial abnormalities noted. Furthermore there was moderate multilevel degenerative disc disease. CXR was unremarkable. EKG revealed sinus bradycardia at [address]/T-wave changes noted as reviewed by me. Laboratory evaluation was remarkable for troponin less than 0.012, sodium 135, BUN 30, creatinine 1.25, and glucose 134 with serum alcohol less than 10. 03/10 Patient was seen and examined. He reports a history of falls secondary to his legs giving out and lower back pain with radiation to the LLE. Yesterday, he was walking with the aid of a walker to check his mail when he apparently lost consciousness. Patient is unable to recall the events leading to his LOC. Neighbors found him down and EMS was called. He denies any bladder or bowel incontinence. He denies any saddle anesthesia. He denies any chest pain, shortness of breath or palpitations. CBC shows hemoglobin of 11. BMP shows BUN to creatinine ratio of 22.17. CT T and L spine was done which showed soft tissue fat stranding left posterior L2L3, cannot exclude abscess, DJD L2L3, moderate spinal stenosis and moderate foraminal stenosis. Orthopedic surgery has evaluated the patient and recommends emergent revision surgery with fusion at L3 4 likely to be done on Sunday. Neurology recommends carotid Doppler, echocardiogram, MRI brain, EEG for further workup of syncopal episode. Cardiology will be consulted as well medical clearance in preparation for surgery. There is question of abscess versus postsurgical changes of the lumbar spine. Infectious disease will be consulted. 03/11 Patient was seen and examined. Well controlled lower back pain. No dizziness, chest pain, SOB, palpitations. Requesting stool softener. ID consulted regarding findings on CT T-L spine, feels patient does not have infectious process. Carotid doppler negative for stenosis. ESR 30. CRP < 0.3. Plans for emergent revision surgery with fusion at L3 4 tomorrow. 03/12 Patient was seen and examined. Underwent revision Laminectomy and decompression L3 [address] Garcia[address] Seen post surgery. Patient reports well controlled pain. Currently with Ornelas catheter. Complains of improving RLE numbness. Plans for PT and OT evaluation tomorrow and possible SNF. General: non toxic, no distress, appears at stated age, obese Derm: no unusual rashes/lesions, warm Head: atraumatic, normocephalic, symmetric Eyes: EOMI, no lid lag, anicteric sclera ENT: Nose and ears atraumatic Neck: No cervical lymphadenopathy, trachea midline, supple Cardiovascular: S1S2 reg, no murmur, no edema Lungs: CTA bilateral, no rhonchi, no rales, no accessory muscle use Ext: muscle strength 5 out of 5 bilateral upper extremities, LLE strength 2/5 diffusely, RLE strength 3/5 diffusely, no gross muscle atrophy, no contractures Neuro: no gross focal neuro deficits Psych: Alert, oriented, appropriate affect Syncopal episode with no prodrome Orthostatic hypotension Recurrent falls due to bilateral lower extremity weakness History of intracranial surgery, unknown Chronic conditions: Atrial fibrillation on Eliquis, dyslipidemia, cervical DJD Based on my assessment of this patient, this patient meets a moderate complexity level of care. Patient has an acute diagnosis of syncope that poses a threat to life or bodily function. Syncopal episode with no prodrome: Orthostats are positive 03/10. Recent echocardiogram on 03/07 shows EF of 55-60% with mild MR and mild AR. Telemetry monitoring. Continue NS at 75 mL per hour. Fall precautions. Cardiology on board, no arrhythmias on telemetry. Neurology on board, ordered EEG, MRI brain, Echocardiogram. Orthostatic hypotension: IV hydration as above. Recurrent falls due to bilateral lower extremity weakness: Revision surgery with fusion at L3 [address] Garcia 03/12. PT and OT consult. History of intracranial surgery, unknown I have reviewed the following edi consultant notes: Orthopedic operative note reviewed. I have reviewed the results of the following tests: I have ordered the following tests: Agree with echocardiogram, carotid Doppler, MRI brain, EEG ordered by neurology. CBC and BMP for tomorrow morning. I have discussed the care of this patient with the following independent historian: I have independently interpreted the following test below: I have discussed the management of this patient with the following physician: Objective - Vital Signs Vital signs: Vital Signs Temp 97.7 F 03/12/23 12:13 Pulse 78 03/12/23 14:13 Resp 19 03/12/23 12:13 BP 149/72 03/12/23 14:13 Pulse Ox 92 L 03/12/23 14:13 FiO2 Intake & Output 03/11/23 03/12/23 03/12/23 18:59 06:59 18:59 Intake Total 949 1651 Output Total 600 500 440 Balance 349 -500 1211 Intake: IV 1651 Oral 949 Output: Urine 600 500 240 Estimated Blood Loss 200 Other: # Voids 2 - Labs CBC & Chem 7: 03/10/23 04:04 03/10/23 04:04 Labs: Microbiology - Last 24 Hours (Table) 03/10/23 13:12 Blood Culture - Preliminary Blood 03/10/23 14:31 Blood Culture - Preliminary Blood
[2023-03-12] MEDS: MELATONIN 5 MG TABLET PO SCH (20:12)
[2023-03-12] MEDS: ATORVASTATIN 40 MG TAB PO SCH (20:12)
[2023-03-12] MEDS: GABAPENTIN 300 MG CAP PO SCH (20:12)
[2023-03-12] MEDS: ESCITALOPRAM 10 MG TAB PO SCH (20:47)
[2023-03-13] MEDS: SODIUM CHLORIDE 0.9% 1,000 ML IV SCH ×5 (00:13→18:27)
[2023-03-13] MEDS: HYDROmorphone 1 MG/ML 1 ML SYRINGE IVP PRN ×4 (01:46→23:39)
[2023-03-13] MEDS: HYDROcodone/APAP 5-325MG 1 EACH TAB PO PRN ×2 (08:09→18:27)
[2023-03-13] MEDS: CYCLOBENZAPRINE 10 MG TAB PO PRN (08:09)
[2023-03-13] MEDS: SENNOSIDES-DOCUSATE SODIUM 1 EACH TAB PO SCH (08:10)
[2023-03-13] MEDS: MULTIVITAMINS, THERA 1 EACH TAB PO SCH (08:10)
[2023-03-13] MEDS: CYANOCOBALAMIN 500 MCG TAB PO SCH (08:10)
[2023-03-13] MEDS: FUROSEMIDE 40 MG TAB PO SCH (08:10)
[2023-03-13] MEDS: METOPROLOL SUCCINATE (ER) 25 MG TAB.ER.24H PO SCH (08:10)
[2023-03-13] MEDS: FLECAINIDE 50 MG TAB PO SCH ×2 (08:10→21:26)
[2023-03-13 08:45] LABS: HCT 30.9 % (39.6-50.0); HGB 9.4 d/dL (13.0-17.0); MCH 27.2 pg (27.0-32.0); MCHC 30.4 d/dL (32.0-37.0); MCV 89.6 FL (80.0-97.0); Mean Platelet Volume 9.6 FL (9.5-12.2); NRBC Per 100 WBC 0 X 10*3/uL (0.00-0.01); Platelet Count 226 X 10*3/uL (140-440); RBC 3.45 X 10*6/uL (4.40-5.60); RDW 14.6 % (11.5-14.5); WBC 11.42 X 10*3/uL (4.50-10.00)
[2023-03-13 08:46] LABS: BUN/Creat Ratio 19.42 Ratio (12.00-20.00); Blood Urea Nitrogen 23.3 mg/dL (9.0-27.0); Calcium 8.3 mg/dL (8.7-10.3); Carbon Dioxide 27.3 mmol/L (21.6-31.8); Chloride 102 mmol/L (96-109); Glucose 132 mg/dL (70-110); Potassium 4.4 mmol/L (3.5-5.5); Sodium 138 mmol/L (135-145)
[2023-03-13 10:24] LABS: Basophils # (A) 0.02 X 10*3/uL (0.00-0.10); Basophils % (A) 0.2 %; Eosinophils # (A) 0.01 X 10*3/uL (0.04-0.35); Eosinophils % (A) 0.1 %; Lymphocytes % (A) 7.9 %; Monocytes # (A) 1.73 X 10*3/uL (0.20-1.00); Monocytes % (A) 15.1 %; Neutrophils # (A) 8.71 X 10*3/uL (1.80-7.70); Neutrophils % (A) 76.3 %
--- NOTE | 2023-03-13 12:39 | P.PN ---
Progress Note - Text Progress Note Date: 03/13/23 Orthopedic Spine History of present illness: Patient is a pleasant 72-year-old male who is seen and examined at the bedside following posterior lateral decompression and fusion performed yesterday. Patient states they are doing ok post operatively but he does have significant pain. He has not been out of bed post operatively but therapy is planning to help increase the patient's mobility and ambulation today. He is known have significant left lower extremity radiculopathy or weakness with recurrent falls. He does continue to have difficulty with trying to roll over in bed. His Ornelas catheter remains intact. Currently does not complain of nausea, vomiting, fever, or chills. Patient states pain has been adequately controlled. Patient does not feel he would be able to return home initially postoperatively. He is willing for discharge to a rehabilitation facility. Patient has been seen by multiple medical providers during his admission to the hospital. Patient has multiple other medical diagnoses including atrial fibrillation currently on Eliquis, hyperlipidemia, and reported history of intracranial stent placement at [facility] by Dr. Rayray Lebron. Physical Exam Lumbar Fusion: Status post surgical day number 1 Patient is awake, alert, and oriented 3 Vital signs stable Good chest excursion with deep inspiration and expiration Patient does have significant difficulty with trying to roll over in bed Dorsiflexion, plantarflexion, and extensor hallucis longus positive sustained bilaterally No signs or symptoms of DVT; no calf pain; pneumatic cuffs intact bilateral lower extremities Optifoam dressing remains intact Ornelas catheter intact Assessment: Status post L3-4 minimally invasive posterior lateral decompression and fusion with transforaminal lumbar interbody fusion with revision laminectomy Low back pain Left lower extremity radiculopathy Left lower extremity weakness with hip flexion and knee extension Recurrent falls due to left lower extremity weakness History of L3-4 laminectomy decompression L3-4 progressive degenerative disc disease L3-4 instability Atrial fibrillation currently on Eliquis Hyperlipidemia History of intracranial surgery Plan: 1. Ambulate as tolerated; work with Physical Therapy to increase mobilization 2. Continue pain control with IV and oral medications; will plan to begin weaning the patient off of IV narcotic medication in anticipation for discharge to a rehabilitation facility in the next 2-3 days 3. Dressings to remain intact with Optifoam; patient may shower with dressing intact 4. Medicine and other medical providers will continue to follow and manage the patient for his other significant medical diagnoses; continue with anticoagulation per recommendations of cardiology and/or medicine 5. Ornelas catheter will remain intact until patient is able to increase his mobility and ambulation 6. Patient can follow-up with Darrius Guillaume PA-C or Dr. Flaquito Garcia at [facility] in 2-3 weeks following discharge
--- NOTE | 2023-03-13 13:44 | P.PN ---
Subjective Progress Note Date: 03/13/23 Pt has no new complaints. has had an episode of dizziness upon transfer to chair from bed today. Back is sore. Gen: awake, alert HEENT: normocephalic, atraumatic, good hearing acuity, moist mucous membranes Resp: good air exchange, breathing comfortably with no accessory muscle use CVS: good distal perfusion x 4, GI: soft, NTTP, ND : no SPT, no CVAT, tripathi catheter not present MSK: no pitting edema, no clubbing Neuro: non-focal, moving all extremities Psych: cooperative, euthymic mood Hospital Course: Patient is a 72-year-old male with a PMH of A. fib on Eliquis, hyperlipidemia, cervical DJD status post surgery, who was brought to the emergency room via EMS for loss of consciousness and falls. He reports that earlier today he had multiple falls where he feels his legs gave out and he eased himself down to the ground. The patient however was ultimately found in his garage on the ground and confused. He does not recall the events prior to or immediately after the fall. He does not recall if he lost consciousness. He reports getting abrasions on both his elbows and hitting his head but denied any additional pain. He denied experiencing slurred speech or visual impairments. Also denied focal weakness, numbness, or tingling. Denied urinary incontinence or tongue biting. The patient does report a prior history of neurosurgery with placement of a intracranial "stent" by Dr Rayray Lebron at [facility] neurosurgery. In the emergency room, had/cervical spine CT revealed similar ventricular dilatation from 2019 with no acute intracranial abnormalities noted. Furthermore there was moderate multilevel degenerative disc disease. CXR was unremarkable. EKG revealed sinus bradycardia at [address]/T-wave changes noted as reviewed by me. Laboratory evaluation was remarkable for troponin less than 0.012, sodium 135, BUN 30, creatinine 1.25, and glucose 134 with serum alcohol less than 10. 9/2 Patient was seen and examined. He reports a history of falls secondary to his legs giving out and lower back pain with radiation to the LLE. Yesterday, he was walking with the aid of a walker to check his mail when he apparently lost consciousness. Patient is unable to recall the events leading to his LOC. Neighbors found him down and EMS was called. He denies any bladder or bowel incontinence. He denies any saddle anesthesia. He denies any chest pain, shortness of breath or palpitations. CBC shows hemoglobin of 11. BMP shows BUN to creatinine ratio of 22.17. CT T and L spine was done which showed soft tissue fat stranding left posterior L2L3, cannot exclude abscess, DJD L2L3, moderate spinal stenosis and moderate foraminal stenosis. Orthopedic surgery has evaluated the patient and recommends emergent revision surgery with fusion at L3 4 likely to be done on Sunday. Neurology recommends carotid Doppler, echocardiogram, MRI brain, EEG for further workup of syncopal episode. Cardiology will be consulted as well medical clearance in preparation for surgery. There is question of abscess versus postsurgical changes of the lumbar spine. Infectious disease will be consulted. 03/11 Patient was seen and examined. Well controlled lower back pain. No dizziness, chest pain, SOB, palpitations. Requesting stool softener. ID consulted regarding findings on CT T-L spine, feels patient does not have infectious process. Carotid doppler negative for stenosis. ESR 30. CRP < 0.3. Plans for emergent revision surgery with fusion at L3 4 tomorrow. 03/12 Patient was seen and examined. Underwent revision Laminectomy and decompression L3 [address] Garcia[address] Seen post surgery. Patient reports well controlled pain. Currently with Tripathi catheter. Complains of improving RLE numbness. Plans for PT and OT evaluation tomorrow and possible SNF. Assessment/Plan: Vitals: Patient is afebrile, 107/69, heart rate 73, 98% on 3 L of nasal cannula Labs: Hemoglobin is down to 9.4. Basic metabolic panel was unremarkable. CRP was less than 0.3. Images: No new images to review Consultation: Orthopedic surgery note reviewed, continue physical therapy, pain control, discharged to rehab when it is available; Syncopal episode with no prodrome Orthostatic hypotension Recurrent falls due to bilateral lower extremity weakness History of intracranial surgery, unknown Chronic conditions: Atrial fibrillation on Eliquis, dyslipidemia, cervical DJD - Pending MRI of the brain, echocardiogram per neurology -Continue checking orthostatics twice daily -IV fluids, pain control Patient is full code Objective - Vital Signs Vital signs: Vital Signs Temp 98.3 F 03/13/23 07:13 Pulse 73 03/13/23 11:11 Resp 16 03/13/23 11:11 BP 107/69 03/13/23 11:11 Pulse Ox 98 03/13/23 11:11 FiO2 Intake & Output 03/12/23 03/13/23 03/13/23 18:59 06:59 18:59 Intake Total 1651 1070 Output Total 1140 2640 Balance 511 -1570 Intake: IV 1651 Oral 1070 Output: Urine 240 1240 Stool 700 1400 Estimated Blood Loss 200 Other: Voiding Method Indwelling Catheter # Voids 2 - Labs CBC & Chem 7: 03/13/23 06:02 03/13/23 06:02 Labs: Abnormal Lab Results - Last 24 Hours (Table) 03/13/23 03/13/23 Range/Units 06:02 06:02 WBC 11.42 H (4.50-10.00) X 10*3/uL RBC 3.45 L (4.40-5.60) X 10*6/uL Hgb 9.4 L (13.0-17.0) d/dL Hct 30.9 L (39.6-50.0) % MCHC 30.4 L (32.0-37.0) d/dL RDW 14.6 H (11.5-14.5) % Neutrophils # 8.71 H (1.80-7.70) X 10*3/uL Monocytes # 1.73 H (0.20-1.00) X 10*3/uL Eosinophils # 0.01 L (0.04-0.35) X 10*3/uL Glucose 132 H (70-110) mg/dL Calcium 8.3 L (8.7-10.3) mg/dL Microbiology - Last 24 Hours (Table) 03/12/23 09:00 Gram Stain - Preliminary Other - Other 03/10/23 14:31 Blood Culture - Preliminary Blood 03/10/23 13:12 Blood Culture - Preliminary Blood
--- NOTE | 2023-03-13 16:51 | P.CONS ---
History of Present Illness - Reason for Consult Consult date: 03/13/23 rehabilitation recommendations - Chief Complaint debility - History of Present Illness Mr. Harmtan is a 72-year-old right/left handed male. He lives in a one-story house by himself. Patient is normally independent and drives. Mr. Hartman presented to [facility] on 03/09/2023 EMS due to multiple falls and loss of consciousness. Upon arriving to the ER, the patient's neighbor was at bedside to provide history. Apparently another neighbor witnessed the patient fall in his garage and called EMS. It appeared that the patient had hit his head during the fall and was confused. Patient noted to be confused in the ER, with visible hematoma to the left occiput. Patient also noted to have multiple skin tears. In the ER, patient had a cervical spine CT revealing no acute findings. Chest x-ray was negative. CT thoracic and lumbar region reported no acute fracture. There was a question of abscess versus postsurgical changes of the lumbar spine. For this reason infectious disease was consulted. Blood cultures were obtained and are pending. Inflammatory markers negative. Infectious disease held off on antimicrobial therapy because the patient did not look toxic and there were no clinical suspicions for an abscess. EKG showed sinus bradycardia. Laboratory evaluation showing nothing significant. Echocardiogram from 03/07 normal EF of 55 to 60%. Patient was admitted with a consult to neurology, Dr. Garcia with orthopedics and cardiology. Of note, in December of this year patient underwent laminectomy decompression at L2-3. After surgery patient was doing well for some time. And progressively developed symptoms including falls and worsening back pain. He is now having weakness. An MRI was completed outpatient showing evidence of recurrent stenosis and foraminal encroachment at the level of the prior laminectomy. Patient was scheduled for revision laminectomy, decompression L3-4 with new stabilization and fusion at L3-4 on 03/21. Due to the patient's worsening symptoms and inability to ambulate the patient was taken for surgical intervention 03/12. Neurology recommended a carotid Doppler, echocardiogram, MRI of the brain, EEG for work-up of syncopal episodes. Carotid Doppler showed no dynamically significant stenosis. Cardiology was consulted for medical clearance in preparation for surgery. No MRI or EEG noted in the EMR. PM&R consulted for rehab recommendations and patient needing moderate assistance for bathing, min assistance for UE dressing, total assistance for LE dressing, min assist for grooming, total assist for toileting, mod assist for ambulation, mod assist for transfer to chair with 2 WW Review of Systems negative unless noted in the HPI Past Medical History Past Medical History: Atrial Fibrillation, Cancer, GERD/Reflux, Hyperlipidemia, Hypertension, Prostate Disorder Additional Past Medical History / Comment(s): CHRONIC LOW BACK PAIN. Prostate cancer, skin cancer, kidney stone. hx vertigo History of Any Multi-Drug Resistant Organisms: None Reported Past Surgical History: Appendectomy, Bariatric Surgery, Cardiac Ablation, Cholecystectomy, Orthopedic Surgery Additional Past Surgical History / Comment(s): cervical sx with titanium rods, Colonoscopy, lap band, rt clavical reduction, Prostatectomy, SKIN CA REMOVED, pain procedures at [facility] PROC[facility], EGD Past Anesthesia/Blood Transfusion Reactions: Previous Problems w/ Anesthesia Additional Past Anesthesia/Blood Transfusion Reaction / Comm: vertigo. hx of difficulty voiding after anesthesia. no blood transfusions Past Psychological History: Depression Smoking Status: Former smoker Past Alcohol Use History: None Reported Past Drug Use History: None Reported - Past Family History Father Family Medical History: Myocardial Infarction (LA) Mother Additional Family Medical History / Comment(s): MAC DEGENERATION, HEART PROBLEMS Medications and Allergies Home Medications Medication Instructions Recorded Confirmed Type Apixaban [Eliquis] 5 mg PO BID #180 tab 04/17/19 03/09/23 Rx Multivitamins, Thera [Multivitamin 1 tab PO DAILY 10/13/20 03/09/23 History (formulary)] Cyanocobalamin (Vitamin B-12) 1,000 mcg PO DAILY 03/02/21 03/09/23 History [Vitamin B-12] Flecainide [Tambocor] 50 mg PO Q12HR 03/02/21 03/09/23 History Metoprolol Succinate [Toprol XL] 25 mg PO DAILY 07/06/21 03/09/23 History Furosemide [Lasix] 40 mg PO DAILY 09/19/21 03/09/23 History Atorvastatin [Lipitor] 40 mg PO HS 09/28/22 03/09/23 History Escitalopram [Lexapro] 10 mg PO HS 09/28/22 03/09/23 History Co Q-10 (Unknown Dose) 1 tab PO DAILY 03/09/23 03/09/23 History Ferrous Sulfate [Feosol] 325 mg PO Q4D 03/09/23 03/09/23 History Gabapentin 300 mg PO HS 03/09/23 03/09/23 History HYDROcodone/APAP 5-325MG [Sage 2 tab PO Q8H 03/09/23 03/09/23 History 5-325] Allergies Allergy/AdvReac Type Severity Reaction Status Date / Time morphine AdvReac Nausea & Verified 03/09/23 20:23 Vomiting Physical Exam Vitals: Vital Signs Temp Pulse Resp BP Pulse Ox 03/13/23 13:28 98.2 F 82 16 90/53 93 L 03/13/23 11:11 73 16 107/69 98 03/13/23 07:13 98.3 F 92 18 134/76 94 L 03/13/23 01:50 98.5 F 85 18 91/54 94 L 03/12/23 20:00 81 18 03/12/23 19:13 98.0 F 81 18 118/66 93 L Intake and Output 03/13/23 03/13/23 03/13/23 06:59 14:59 22:59 Output Total 1000 Balance -1000 Output: Urine 1000 Other: Voiding Method Indwelling Catheter EXAM; General: WDWN, male, NAD Head: Normocephalic, atraumatic. Eyes: Symmetric Ears: Symmetric. Hearing within normal limits. Mouth: Clear. Neck: Supple. Cardiac: Regular rate and rhythm. Calves supple, non tender, no edema Lungs: Breathing comfortably on RA. Chest symmetric. Abdomen: Soft, nontender. Extremities: Arthritic changes consistent with age. Neurological: Alert and oriented x 3. Speech is clear and fluent without paraphasic errors Cranial nerves: CN II-XII: intact. Sensation: Intact and symmetrical limbs. Musculoskeletal: ROM WFL MMT UE Sh Abd EE EF FABD WE HG Right 5 5 5 5 5 5 Left 5 5 5 5 5 5 MMT LE HF KE DF EHL Right 4 5 5 Left 4 5 5 Reflexes Biceps Triceps Brachioradialis Patella Achilles Babinski Hoffmans Right 1 Left 1 Skin: Skin intact where visible to head, neck, and bilateral upper and lower extremities Psych: Calm, cooperative Results CBC & Chem 7: 03/13/23 06:02 03/13/23 06:02 Labs: Abnormal Lab Results - Last 24 Hours (Table) 03/13/23 03/13/23 Range/Units 06:02 06:02 WBC 11.42 H (4.50-10.00) X 10*3/uL RBC 3.45 L (4.40-5.60) X 10*6/uL Hgb 9.4 L (13.0-17.0) d/dL Hct 30.9 L (39.6-50.0) % MCHC 30.4 L (32.0-37.0) d/dL RDW 14.6 H (11.5-14.5) % Neutrophils # 8.71 H (1.80-7.70) X 10*3/uL Monocytes # 1.73 H (0.20-1.00) X 10*3/uL Eosinophils # 0.01 L (0.04-0.35) X 10*3/uL Glucose 132 H (70-110) mg/dL Calcium 8.3 L (8.7-10.3) mg/dL Microbiology - Last 24 Hours (Table) 03/12/23 09:00 Gram Stain - Preliminary Other - Other 03/10/23 14:31 Blood Culture - Preliminary Blood 03/10/23 13:12 Blood Culture - Preliminary Blood Assessment and Plan Assessment: #Repeated falls with debility now with deficits in mobility and ADLs -Orthostatics +03/10, echocardiogram done 03/07 EF of 55 to 60%, carotid Doppler showing no hemodynamically significant stenosis #Blunt head trauma secondary to fall # chronic back pain with history of laminectomy #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 # Diet -Regular # Skin/wound: Skin/Wound care to follow as needed # Pain Management Tylenol 650 mg every 6 hours as needed, Flexeril 10 mg 3 times daily as needed, gabapentin 300 mg nightly, Sage 11/08/2024 1 tab every 4 hours as needed, 2 tabs every 8 hours as needed, Dilaudid 1 mg IV push every 4 hours as needed # DVT Prophylaxis: -Eliquis 5 mg twice daily # Comorbidities: Hypertension, former smoker # Your medical dx and mgt Goals: Modified Independent mobility and ADLS both basic and advanced; increased functional mobility/strength; increased balance, safety, endurance. Improvement in medical issues through your care. Barriers: Pain, endurance, Discharge recommendation: Patient is below baseline function. He would benefit from short course of IPR. He has goals to work on for a safe DC home and I believe he can reach these goals in IPR with plan to go home. Patient seen and examined by Dr. Rouse Note prepped by MAGUE Hogan
--- NOTE | 2023-03-13 19:23 | P.PN ---
Subjective Progress Note Date: 03/13/23 03/13/2023: Patient was seen for a follow-up. Patient is laying comfortably in the bed. Still complaining of pain in the low back 8/10, extending to the left leg laterally all the way to the ankle. So far surgery has not improved pain. Patient mentions that his falls were related to severe pain and left leg weakness. It happened twice in the house, and once outside when he was going to check the mail when he fell down and was out for a short while. He did not bite his tongue, no seizure. No loss of control of urine. Never has any history of seizures. Telemetry monitoring showing sinus rhythm in 100. 03/11/2023: Patient was initially seen by Dr. Marlo Cheek. Please refer to his note for details. Patient is a 72-year-old male with left lumbar radiculopathy and left leg giving out resulting in recurrent falls. Patient also had a syncopal episode prior to arrival, and does not recall. 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 Patient's orthostatics are positive. Patient states he still has lower back pain radiating to the left leg all the way to the ankle, rates his pain as 9/10. Patient says he is scheduled for surgical decompression tomorrow. He states he has history of low back pain for one year, has tried physical therapy, radiofrequency ablation of the nerves without improvement. Some of the work-up during this hospital visit consisted of: Orthostatic vitals: Supine 153/76 with HR 72, sitting 142/71 with HR 76 and standing 121/[address] brain and cervical spine is reported as Similar ventricular dilation from 09/28/2022 and dating back to 2019. No obvious acute intracranial process. Nonspecific white matter changes, likely secondary to chronic small vessel ischemic disease. No evidence of cervical spine fracture. Moderate multilevel degenerative disc disease. Postsurgical changes with clips in place. Left cheek metalic foregin body in the subcutaneous tissues.I personally review CT head and patient does have component of NPH as agree it seems as far as 2019. There is no acute or subacute ischemic stroke or any mass effect. CT thoracic and lumbar region is reported as no acute fracture. soft tissue stranding and foci of gas along the left posterior elements at L2-L3. No osseous erosions. There is associated pneumorachis at this level. Findings may relate to recent instrumentation hower infection process could have this appearance. Cannot exclude samll ascess. Clinical correlation is recommended. Objective - Vital Signs Vital signs: Vital Signs Temp 98.2 F 03/13/23 13:28 Pulse 82 03/13/23 13:28 Resp 16 03/13/23 13:28 BP 90/53 03/13/23 13:28 Pulse Ox 93 L 03/13/23 13:28 FiO2 Intake & Output 03/13/23 03/13/23 03/14/23 06:59 18:59 06:59 Intake Total 1070 Output Total 2640 600 Balance -1570 -600 Intake: Oral 1070 Output: Urine 1240 600 Stool 1400 Other: Voiding Method Indwelling Catheter # Voids 2 - Exam Patient's mental status, speech and language functions are normal. Cranial nerves are normal. Detailed testing deferred. Please refer to examination below for baseline exami nation prior to surgery. - Labs CBC & Chem 7: 03/13/23 06:02 03/13/23 06:02 Labs: Abnormal Lab Results - Last 24 Hours (Table) 03/13/23 03/13/23 Range/Units 06:02 06:02 WBC 11.42 H (4.50-10.00) X 10*3/uL RBC 3.45 L (4.40-5.60) X 10*6/uL Hgb 9.4 L (13.0-17.0) d/dL Hct 30.9 L (39.6-50.0) % MCHC 30.4 L (32.0-37.0) d/dL RDW 14.6 H (11.5-14.5) % Neutrophils # 8.71 H (1.80-7.70) X 10*3/uL Monocytes # 1.73 H (0.20-1.00) X 10*3/uL Eosinophils # 0.01 L (0.04-0.35) X 10*3/uL Glucose 132 H (70-110) mg/dL Calcium 8.3 L (8.7-10.3) mg/dL Microbiology - Last 24 Hours (Table) 03/12/23 09:00 Gram Stain - Preliminary Other - Other 03/10/23 14:31 Blood Culture - Preliminary Blood 03/10/23 13:12 Blood Culture - Preliminary Blood Assessment and Plan Assessment: This is a 72-year-old gentleman with chronic left lower back pain for the past 13 months who recently having posterior left low back pain radiating left knee with left leg giving out and leading to recurrent falls without LOC. One day prior to arrival to the hospital in the afternoon, patient had a syncopal e pisode and does not recall episode. No history of seizures. Syncopal episode likely vasovagal/orthostasis. Recurrent falls due to severe pain and left leg weakness. No evidence of seizure. Patient is status post, postop day 1 of minimally invasive posterior lateral decompression and fusion at L3-L4, with transforaminal lumbar interbody fusion with revision laminectomy. 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 Denies urinary retentions, memory issues that significant other noticed. NPH can also contribute to falls but it seems more his left lumbar radiculopathy is the main cause of the falls. History of atrial fibrillation on eliquis Plan: * Patient is status post lumbar decompressive surgery. Patient is doing stable but still in a lot of pain. Recommend pain management. * CT brain and cervical spine is reported as Similar ventricular dilation from 09/28/2022 and dating back to 2019. No obvious acute intracranial process. Nonspecific white matter changes, likely secondary to chronic small vessel ischemic disease. No evidence of cervical spine fracture. Moderate multilevel degenerative disc disease. Postsurgical changes with clips in place. Left cheek metalic foregin body in the subcutaneous tissues.I personally review CT head and patient does have component of NPH as agree it seems as far as 2019. There is no acute or subacute ischemic stroke or any mass effect. * CT thoracic and lumbar region is reported as no acute fracture. soft tissue stranding and foci of gas along the left posterior elements at L2-L3. No osseous erosions. There is associated pneumorachis at this level. Findings may relate to recent instrumentation hower infection process could have this appearance. Cannot exclude samll ascess. Clinical correlation is recommended. * Consider MRI Thoracic and Lumbar. Per the nurse, Dr. Garcia notified her that he had recent MRI's in his Orthopedic office and does not need a repeat MRI. Dr. Garcia will pursue with surgical intervention per nurse. * Patient did not have a seizure. No indication for MRI of the brain, echo or EEG. We will cancel these tests. * Carotid Doppler revealed no ultrasound evidence of hemodynamically significant stenosis of bilateral carotid arteries. Antegrade flow in both vertebral arteries. Will defer the management of positive orthos to primary team. * Recommend his radiographic NPH he has been having since 2019, recommend following up with neurologist and neurosurgeon as outpatient for consideration of large volume tap and possible CHAIR SPRINGER shunt. Recommend neurospych evaluation for detailed memory evaluation as outpatient. * Primary team consulted I.D. team to rule out abscess. Patient undergoing lumbar surgery in the morning. Cultures will be obtained. * Cardiac monitoring. * PT and OT consulted. * Orthopedic team on board. * Will defer the rest of medical management to primary and other specialist. * Neurologically clear otherwise for transfer to rehab facility, if cleared by orthopedic surgery and ID.
[2023-03-13] MEDS: ATORVASTATIN 40 MG TAB PO SCH (21:25)
[2023-03-13] MEDS: APIXABAN 5 MG TAB PO SCH (21:26)
[2023-03-13] MEDS: MELATONIN 5 MG TABLET PO SCH (21:26)
[2023-03-13] MEDS: GABAPENTIN 300 MG CAP PO SCH (21:26)
[2023-03-13] MEDS: ESCITALOPRAM 10 MG TAB PO SCH (21:26)
[2023-03-13] MEDS: FERROUS SULFATE 325 MG TAB PO SCH (23:23)
[2023-03-14] MEDS: HYDROcodone/APAP 5-325MG 1 EACH TAB PO PRN ×2 (07:00→21:48)
--- NOTE | 2023-03-14 08:56 | P.PN ---
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 in this patient who did have a previous lumbar surgery in December 2022 with laminectomy decompression at L2 and 3 the patient apparently was having progressive pain to the lower back area, patient did have a fall for the patient was brought into the ER he did have abnormal CT of the lumbar spine that was read as possible abscess.Patient is status post posterior lateral decompression revision discectomy as patient on the bone marrow core total pain and evidence of any purulence, procedure completed on 03/12/2023 On today's evaluation that is 03/12/2023, the patient denies having any fever or any chills has been complaining of pain to the neck area but no chest pain shortness of breath or cough no abdominal pain no diarrhea. No blood work was done today cultures negative so far Objective - Vital Signs Vital signs: Vital Signs Temp 97.7 F 03/12/23 12:13 Pulse 78 03/12/23 14:13 Resp 19 03/12/23 12:13 BP 149/72 03/12/23 14:13 Pulse Ox 92 L 03/12/23 14:13 FiO2 Intake & Output 03/11/23 03/12/23 03/12/23 18:59 06:59 18:59 Intake Total 949 1651 Output Total 600 500 440 Balance 349 -500 1211 Intake: IV 1651 Oral 949 Output: Urine 600 500 240 Estimated Blood Loss 200 Other: # Voids 2 - Labs CBC & Chem 7: 03/13/23 06:02 03/13/23 06:02 Labs: Microbiology - Last 24 Hours (Table) 03/10/23 13:12 Blood Culture - Preliminary Blood 03/10/23 14:31 Blood Culture - Preliminary Blood Assessment and Plan (1) Abnormal CT scan, lumbar spine Current Visit: Yes Status: Acute Code(s): R93.7 - ABNORMAL FINDINGS ON DIAGNOSTIC IMAGING OF PRT MS ANGELAS SNOMED Code(s): 069803956 Plan: 1patient with the history of advanced arthritis to the lumbar spine and spine in this patient who did have a laminectomy and decompression at L2-3 level in this patient scheduled for repeat surgery March 21 now presenting the hospital with a fall weakness with abnormal CT with a question of advanced osteoarthritis versus abscess patient is clinically not behaving as an abscess as the patient currently denies having any fever or any chills no fever has been recorded the patient did have a normal white count. 2blood cultures currently negative local cultures obtained which are currently pending. 3patient received cefazolin perioperatively afterwards the patient will monitor closely off antibiotic therapy Dictation was produced using [employer] dictation software. please excuse any grammatical, word or spelling errors.
[2023-03-14] MEDS ORDERED: VANCOMYCIN IV PER PHARMACY 1 EACH MISC MISCELLANE PRN (08:57)
--- NOTE | 2023-03-14 09:00 | P.PN ---
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 in this patient who did have a previous lumbar surgery in December 2022 with laminectomy decompression at L2 and 3 the patient apparently was having progressive pain to the lower back area, patient did have a fall for the patient was brought into the ER he did have abnormal CT of the lumbar spine that was read as possible abscess.Patient is status post posterior lateral decompression revision discectomy as patient on the bone marrow core total pain and evidence of any purulence, procedure completed on 03/12/2023 On today's evaluation that is 03/13/2023 patient remains to be afebrile, the patient is breathing comfortably the patient pain to the lumbar surgical site is controlled with the pain medication which denies having any chest pain shortness of breath or cough no abdominal pain and no diarrhea. Patient did have a white count of 11.42 creatinine is 1.2 blood culture has been negative local cultures currently pending Objective - Vital Signs Vital signs: Vital Signs Temp 98.3 F 03/13/23 07:13 Pulse 73 03/13/23 11:11 Resp 16 03/13/23 11:11 BP 107/69 03/13/23 11:11 Pulse Ox 98 03/13/23 11:11 FiO2 Intake & Output 03/12/23 03/13/23 03/13/23 18:59 06:59 18:59 Intake Total 1651 1070 Output Total 1140 2640 Balance 511 -1570 Intake: IV 1651 Oral 1070 Output: Urine 240 1240 Stool 700 1400 Estimated Blood Loss 200 Other: Voiding Method Indwelling Catheter # Voids 2 - Exam GENERAL DESCRIPTION: An elderly male lying in bed in no distress RESPIRATORY SYSTEM: Unlabored breathing , decreased breath sounds at bases HEART: S1 S2 regular rate and rhythm , ABDOMEN: Soft , no tenderness EXTREMITIES: No edema feet - Labs CBC & Chem 7: 03/13/23 06:02 03/13/23 06:02 Labs: Abnormal Lab Results - Last 24 Hours (Table) 03/13/23 03/13/23 Range/Units 06:02 06:02 WBC 11.42 H (4.50-10.00) X 10*3/uL RBC 3.45 L (4.40-5.60) X 10*6/uL Hgb 9.4 L (13.0-17.0) d/dL Hct 30.9 L (39.6-50.0) % MCHC 30.4 L (32.0-37.0) d/dL RDW 14.6 H (11.5-14.5) % Neutrophils # 8.71 H (1.80-7.70) X 10*3/uL Monocytes # 1.73 H (0.20-1.00) X 10*3/uL Eosinophils # 0.01 L (0.04-0.35) X 10*3/uL Glucose 132 H (70-110) mg/dL Calcium 8.3 L (8.7-10.3) mg/dL Microbiology - Last 24 Hours (Table) 03/12/23 09:00 Gram Stain - Preliminary Other - Other 03/10/23 14:31 Blood Culture - Preliminary Blood 03/10/23 13:12 Blood Culture - Preliminary Blood Assessment and Plan (1) Abnormal CT scan, lumbar spine Current Visit: Yes Status: Acute Code(s): R93.7 - ABNORMAL FINDINGS ON DIAGNOSTIC IMAGING OF PRT MS SYS SNOMED Code(s): 773726097 Plan: 1patient with the history of advanced arthritis to the lumbar spine and spine in this patient who did have a laminectomy and decompression at L2-3 level in this patient scheduled for repeat surgery March 21 [facility] with abnormal CT with a question of advanced osteoarthritis versus abscess patient is clinically not behaving as an abscess as the patient currently denies having any fever or any chills no fever has been recorded the patient did have a normal white count. 2blood cultures currently negative local cultures obtained which are currently pending. 3patient did have mild leukocytosis likely reactive postoperatively patient will monitor closely of antibiotic therapy as localized suspicious for infection while waiting for the culture to finalize Dictation was produced using [employer] dictation software. please excuse any grammatical, word or spelling errors.
[2023-03-14] MEDS: CYANOCOBALAMIN 500 MCG TAB PO SCH (09:17)
[2023-03-14] MEDS: FUROSEMIDE 40 MG TAB PO SCH (09:18)
[2023-03-14] MEDS: MULTIVITAMINS, THERA 1 EACH TAB PO SCH (09:18)
[2023-03-14] MEDS: SENNOSIDES-DOCUSATE SODIUM 1 EACH TAB PO SCH (09:18)
[2023-03-14] MEDS: APIXABAN 5 MG TAB PO SCH ×2 (09:18→21:42)
[2023-03-14] MEDS: FLECAINIDE 50 MG TAB PO SCH ×2 (09:18→23:04)
[2023-03-14] MEDS: METOPROLOL SUCCINATE (ER) 25 MG TAB.ER.24H PO SCH (09:18)
[2023-03-14] MEDS ORDERED: VANCOMYCIN 2,000 MG in SODIUM CHLORIDE 0.9% 500 ML 500 ML IVPB ONE (10:00)
[2023-03-14 10:58] LABS: Basophils % (A) 0 %; Eosinophils # (A) 0.3 k/uL (0-0.7); Eosinophils % (A) 2 %; HCT 27.7 % (39.0-53.0); Lymphocytes % (A) 8 %; MCH 28.8 pg (25.0-35.0); MCHC 33.1 g/dL (31.0-37.0); MCV 86.9 fL (80.0-100.0); Monocytes % (A) 8 %; Neutrophils # (A) 9.4 k/uL (1.3-7.7); Neutrophils % (A) 80 %; Platelet Count 192 k/uL (150-450); RBC 3.19 m/uL (4.30-5.90); RDW 14.9 % (11.5-15.5); WBC 11.9 k/uL (3.8-10.6)
[2023-03-14 11:03] LABS: HGB 9.2 gm/dL (13.0-17.5)
--- NOTE | 2023-03-14 11:06 | P.PN ---
Subjective Progress Note Date: 03/14/23 Pt has no new complaints. has been having low grade fevers. Back is sore. Gen: awake, alert HEENT: normocephalic, atraumatic, good hearing acuity, moist mucous membranes Resp: good air exchange, breathing comfortably with no accessory muscle use CVS: good distal perfusion x 4, GI: soft, NTTP, ND : no SPT, no CVAT, tripathi catheter not present MSK: no pitting edema, no clubbing Neuro: non-focal, moving all extremities Psych: cooperative, euthymic mood Hospital Course: Patient is a 72-year-old male with a PMH of A. anne on Eliquis, hyperlipidemia, cervical DJD status post surgery, who was brought to the emergency room via EMS for loss of consciousness and falls. He reports that earlier today he had multiple falls where he feels his legs gave out and he eased himself down to the ground. The patient however was ultimately found in his garage on the ground and confused. He does not recall the events prior to or immediately after the fall. He does not recall if he lost consciousness. He reports getting abrasions on both his elbows and hitting his head but denied any additional pain. He denied experiencing slurred speech or visual impairments. Also denied focal weakness, numbness, or tingling. Denied urinary incontinence or tongue biting. The patient does report a prior history of neurosurgery with placement of a intracranial "stent" by Dr Rayray Lebron at [facility] neurosurgery. In the emergency room, had/cervical spine CT revealed similar ventricular dilatation from 2019 with no acute intracranial abnormalities noted. Furthermore there was moderate multilevel degenerative disc disease. CXR was unremarkable. EKG revealed sinus bradycardia at [address]/T-wave changes noted as reviewed by me. Laboratory evaluation was remarkable for troponin less than 0.012, sodium 135, BUN 30, creatinine 1.25, and glucose 134 with serum alcohol less than 10. 9/2 Patient was seen and examined. He reports a history of falls secondary to his legs giving out and lower back pain with radiation to the LLE. Yesterday, he was walking with the aid of a walker to check his mail when he apparently lost consciousness. Patient is unable to recall the events leading to his LOC. Neighbors found him down and EMS was called. He denies any bladder or bowel incontinence. He denies any saddle anesthesia. He denies any chest pain, shortness of breath or palpitations. CBC shows hemoglobin of 11. BMP shows BUN to creatinine ratio of 22.17. CT T and L spine was done which showed soft tissue fat stranding left posterior L2L3, cannot exclude abscess, DJD L2L3, moderate spinal stenosis and moderate foraminal stenosis. Orthopedic surgery has evaluated the patient and recommends emergent revision surgery with fusion at L3 4 likely to be done on Sunday. Neurology recommends carotid Doppler, echocardiogram, MRI brain, EEG for further workup of syncopal episode. Cardiology will be consulted as well medical clearance in preparation for surgery. There is question of abscess versus postsurgical changes of the lumbar spine. Infectious disease will be consulted. 03/11 Patient was seen and examined. Well controlled lower back pain. No dizziness, chest pain, SOB, palpitations. Requesting stool softener. ID consulted regarding findings on CT T-L spine, feels patient does not have in fectious process. Carotid doppler negative for stenosis. ESR 30. CRP < 0.3. Plans for emergent revision surgery with fusion at L3 4 tomorrow. 03/12 Patient was seen and examined. Underwent revision Laminectomy and decompression L3 [address] Garcia[address] Seen post surgery. Patient reports well controlled pain. Currently with Tripathi catheter. Complains of improving RLE numbness. Plans for PT and OT evaluation tomorrow and possible SNF. Assessment/Plan: Vitals: Patient is febrile to 100.6, 111/57, heart rate 78, 93% on room air Labs: Hemoglobin is down to 9.2, white blood cell count is 11.9. CBC, basic metabolic panel, magnesium ordered for tomorrow; UA ordered for today Images: No new images to review; chest x-ray ordered for today Consultation: Neurology note reviewed, no need for MRI of the brain echo or EEG; PM and R note reviewed, evaluating for rehab Fevers -Review chest x-ray, UA when available -Tylenol 650 mg every 6 hours when necessary for fever Syncopal episode with no prodrome Orthostatic hypotension Recurrent falls due to bilateral lower extremity weakness History of intracranial surgery, unknown Chronic conditions: Atrial fibrillation on Eliquis, dyslipidemia, cervical DJD - Imaging canceled by neurology -Continue checking orthostatics twice daily -IV fluids, pain control Patient is full code Objective - Vital Signs Vital signs: Vital Signs Temp 98.4 F 03/14/23 09:15 Pulse 78 03/14/23 07:51 Resp 18 03/14/23 07:51 BP 111/57 03/14/23 07:51 Pulse Ox 93 L 03/14/23 09:15 FiO2 Intake & Output 03/13/23 03/14/23 03/14/23 18:59 06:59 18:59 Output Total 600 400 Balance -600 -400 Output: Urine 600 400 Other: Voiding Method Indwelling Catheter Indwelling Catheter Indwelling Catheter # Voids 0 # Bowel Movements 0 - Labs CBC & Chem 7: 03/13/23 06:02 03/13/23 06:02 Labs: Microbiology - Last 24 Hours (Table) 03/10/23 14:31 Blood Culture - Preliminary Blood 03/10/23 13:12 Blood Culture - Preliminary Blood 03/12/23 09:00 Gram Stain - Preliminary Other - Other Wound Culture - Preliminary
[2023-03-14 11:18] LABS: African American GFR (CKD) 71 (>60 ml/min/1.73 sqM); Anion Gap 5 mmol/L; Blood Urea Nitrogen 25 mg/dL (9-20); Calcium 8.1 mg/dL (8.4-10.2); Carbon Dioxide 25 mmol/L (22-30); Chloride 100 mmol/L (98-107); Glucose 137 mg/dL (74-99); Non-African American GFR(CKD) 61 (>60 ml/min/1.73 sqM); Sodium 130 mmol/L (137-145)
--- NOTE | 2023-03-14 11:18 | XR ---
EXAMINATION TYPE: XR chest 1V DATE OF EXAM: 03/14/2023 11:14 AM COMPARISON: Chest radiographs from 03/09/2023 TECHNIQUE: XR chest 1V Frontal view of the chest. CLINICAL INDICATION:Male, 72 years old with history of fever; FINDINGS: Lungs/Pleura: There is no evidence of pleural effusion or pneumothorax. Left basilar patchy airspace opacity. Pulmonary vascularity: Unremarkable. Heart/mediastinum: Cardiomediastinal silhouette is unremarkable. Atherosclerotic calcifications are seen in the aorta. Musculoskeletal: No acute osseous pathology. Degenerative changes of the thoracic spine. Cervical fus ion hardware. IMPRESSION: Left basilar patchy airspace opacities which may represent atelectasis versus infiltrate in the appro priate clinical setting.
--- NOTE | 2023-03-14 11:23 | P.EN ---
Cardiology team signed off from this patient's case. Please reconsult us in case of any questions.
--- NOTE | 2023-03-14 12:25 | P.PN ---
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 in this patient who did have a previous lumbar surgery in December 2022 with laminectomy decompression at L2 and 3 the patient apparently was having progressive pain to the lower back area, patient did have a fall for the patient was brought into the ER he did have abnormal CT of the lumbar spine that was read as possible abscess.Patient is status post posterior lateral decompression revision discectomy as patient on the bone marrow core total pain and evidence of any purulence, procedure completed on 03/12/2023 On today's evaluation that is 03/14/2023 patient did spike a low-grade fever last night and this morning, the patient is breathing comfortably on room air, the patient has been complaining of pain to the lumbar surgical site, the patient denies having any chest pain shortness of breath or cough no abdominal pain and no diarrhea. Patient did have a white count of slightly up to 11.9 creatinine is 1.17 blood culture has been negative local cultures currently pending Objective - Vital Signs Vital signs: Vital Signs Temp 98.4 F 03/14/23 09:15 Pulse 78 03/14/23 07:51 Resp 18 03/14/23 07:51 BP 111/57 03/14/23 07:51 Pulse Ox 93 L 03/14/23 09:15 FiO2 Intake & Output 03/13/23 03/14/23 03/14/23 18:59 06:59 18:59 Output Total 600 400 Balance -600 -400 Output: Urine 600 400 Other: Voiding Method Indwelling Catheter Indwelling Catheter Indwelling Catheter # Voids 0 # Bowel Movements 0 - Exam GENERAL DESCRIPTION: An elderly male lying in bed in no distress RESPIRATORY SYSTEM: Unlabored breathing , decreased breath sounds at bases HEART: S1 S2 regular rate and rhythm , ABDOMEN: Soft , no tenderness EXTREMITIES: No edema feet - Labs CBC & Chem 7: 03/14/23 10:30 03/14/23 10:30 Labs: Abnormal Lab Results - Last 24 Hours (Table) 03/14/23 03/14/23 03/14/23 Range/Units 10:30 10:30 10:30 WBC 11.9 H (3.8-10.6) k/uL RBC 3.19 L (4.30-5.90) m/uL Hgb 9.2 L D (13.0-17.5) gm/dL Hct 27.7 L (39.0-53.0) % Neutrophils # 9.4 H (1.3-7.7) k/uL Sodium 130 L (137-145) mmol/L BUN 25 H (9-20) mg/dL Glucose 137 H (74-99) mg/dL Calcium 8.1 L (8.4-10.2) mg/dL C-Reactive Protein 22.6 H (<1.0) mg/dL Microbiology - Last 24 Hours (Table) 03/10/23 14:31 Blood Culture - Preliminary Blood 03/10/23 13:12 Blood Culture - Preliminary Blood 03/12/23 09:00 Gram Stain - Preliminary Other - Other Wound Culture - Preliminary Assessment and Plan (1) Abnormal CT scan, lumbar spine Current Visit: Yes Status: Acute Code(s): R93.7 - ABNORMAL FINDINGS ON DIAGNOSTIC IMAGING OF PRT MS ANGELAS SNOMED Code(s): 392222108 Plan: 1patient with the history of advanced arthritis to the lumbar spine and spine in this patient who did have a laminectomy and decompression at L2-3 level in t his patient scheduled for repeat surgery March 21 now presenting the hospital with a fall weakness with abnormal CT with a question of advanced osteoarthritis versus abscess patient is clinically not behaving as an abscess as the patient currently denies having any fever or any chills no fever has been recorded the patient did have a normal white count. 2blood cultures currently negative local cultures obtained which are currently pending. 3patient did have mild leukocytosis and also new fever that is slightly concerning, could be reactive to surgery, blood cultures have been obtained this morning vancomycin has been added empirically while waiting for the culture finalized Dictation was produced using [employer] dictation software. please excuse any grammatical, word or spelling errors. Time with Patient: Less than 30
[2023-03-14] MEDS ORDERED: SENNOSIDES-DOCUSATE SODIUM 1 EACH TAB PO PRN (12:35)
--- NOTE | 2023-03-14 12:37 | P.PN ---
Progress Note - Text Progress Note Date: 03/14/23 Orthopedic Spine History of present illness: Patient is a pleasant 72-year-old male who is seen and examined at the bedside following posterior lateral decompression and fusion performed Sunday. Patient states they are doing ok post operatively but he does have significant pain. He does feel his pain has improved today as compared to yesterday. His pain continues to be well controlled with oral and IV medications. His pain is most significant at the surgical site his lumbar spine. He continues to have some left lower extremity radiculopathy but states the pain has improved postoperatively. He continues to have weakness with his left lower extremity but states his left knee flexion and extension has improved. He does have weakness with hip flexion on the left. He was only able to sit at the bedside with physical therapy yesterday. He does continue to have significant difficulty with mobilization. He will plan to work with physical therapy again today. Patient is known have weakness with recurrent falls. He has been accepted for inpatient rehab when cleared. Case management will apply for authorization tomorrow for discharge to inpatient rehabilitation facility at [facility] on 03/16/2023. Patient does not feel he would be able to return home initially postoperatively. He is willing for discharge to a rehabilitation facility. Patient has been seen by multiple medical providers during his admission to the hospital. Patient has multiple other medical diagnoses including atrial fibrillation currently on Eliquis, hyperlipidemia, and reported history of intracranial stent placement at [facility] by Dr. Rayray Lebron. Patient has not had a bowel movement postoperatively but denies any abdominal pain or distention. Nursing states patient does have good bowel sounds. Physical Exam Lumbar Fusion: Status post surgical day number 2 Patient is awake, alert, and oriented 3 Vital signs stable Abdomen is soft nontender Good chest excursion with deep inspiration and expiration Patient does have significant difficulty with trying to roll over in bed Dorsiflexion, plantarflexion, and extensor hallucis longus positive sustained bilaterally No signs or symptoms of DVT; no calf pain; pneumatic cuffs intact bilateral lower extremities Optifoam dressing remains intact Ornelas catheter intact Good active range of motion of the right lower extremity independently without difficulty Difficulty with hip flexion on the left Patient is able to perform active left knee flexion and extension independently Assessment: Status post L3-4 minimally invasive posterior lateral decompression and fusion with transforaminal lumbar interbody fusion with revision laminectomy Low back pain Left lower extremity radiculopathy Left lower extremity weakness with hip flexion and knee extension Recurrent falls due to left lower extremity weakness History of L3-4 laminectomy decompression L3-4 progressive degenerative disc disease L3-4 instability Atrial fibrillation currently on Eliquis Hyperlipidemia History of intracranial surgery Plan: 1. Ambulate as tolerated; work with Physical Therapy to increase mobilization 2. Continue pain control with IV and oral medications; will plan to begin weaning the patient off of IV narcotic medication in anticipation for discharge to a rehabilitation facility in the next 2-3 days 3. Dressings to remain intact with Optifoam; patient may shower with dressing intact 4. Medicine and other medical providers will continue to follow and manage the patient for his other significant medical diagnoses; continue with anticoagulation per recommendations of cardiology and/or medicine 5. Ornelas catheter will remain intact until patient is able to increase his mobility and ambulation 6. We will increase Senokot 2 twice a day to help facilitate in a bowel movement. Patient is also receiving milk of magnesia as needed. 7. Patient does continue to have significant difficulties mobilization and ambulation. He does not feel he could safely return home at the time of discharge. He has been accepted for inpatient rehabilitation at [facility] at the time of discharge. We did discuss if he does have some improvement, his pain is able to be controlled with oral medications, and he is cleared by multiple other medical providers, we could plan for discharge to inpatient rehabilitation facility at [facility] this coming 03/16/2023 8. Patient can follow-up with Darrius Guillaume PA-C or Dr. Flaquito Garcia at [facility] in 2-3 weeks following discharge The patient is seen and examined at bedside. I agree with the above. He is improving somewhat with his left lower extremity and we will continue to monitor his progress.
[2023-03-14 16:03] LABS: Appearance,Urine Clear (Clear); Bacteria,Urine Occasional /hpf; Bilirubin,Urine Negative (Negative); Blood,Urine Moderate (Negative); Color,Urine Colorless; Glucose,Urine (UA) Negative (Negative); Ketones,Urine Negative (Negative); Leukocyte Esterase,Urine Negative (Negative); Mucus,Urine Rare /hpf; Nitrite,Urine Negative (Negative); Protein,Urine Negative (Negative); RBC,Urine 50 /hpf (0-5); Specific Gravity,Urine 1.006 (1.001-1.035); Squamous Epithelial Cell,Urine <1 /hpf (0-4); Urobilinogen,Urine <2.0 mg/dL (<2.0); WBC,Urine <1 /hpf (0-5)
--- NOTE | 2023-03-14 18:05 | CA ---
Transthoracic Echo Report Name: Noble Hartman Age: 72 Gender: M : 1950 Exam Date: 03/13/2023 15:21 Exam Location: [place] [facility] Ht (in): 68 Wt (lb): 220 Ordering Physician: Marlo Cheek MD Attending/Referring Phys: Lime Sludge Mixer Chapin Maurice Procedure CPT: Indications: Syncope Cardiac Hx: Technical Quality: Fair Contrast 1: Agitated Saline Total Dose (mL): 5 Contrast 2: Total Dose (mL): MEASUREMENTS (Male / Female) Normal Values FINDINGS Left Ventricle Right Ventricle Right Atrium Left Atrium Negative bubble study. Mitral Valve Aortic Valve Tricuspid Valve Pulmonic Valve Pericardium Aorta CONCLUSIONS Limited echo to evaluate intracardiac shunt with a bubble study No [id number] intracardiac shunt evident on this bubble study. Sensitivities limited due to poor image quality Previewed by: Dr Binh Guajardo (Electronically Signed) Final Date: 14 March 2023 17:56
[2023-03-14] MEDS: SODIUM CHLORIDE 0.9% 1,000 ML IV SCH ×2 (19:11→23:04)
[2023-03-14] MEDS: AMPICILLIN-SULBACTAM 3 GM in SODIUM CHLORIDE 0.9% 100 ML IVPB SCH (21:36)
[2023-03-14] MEDS: GABAPENTIN 300 MG CAP PO SCH (21:42)
[2023-03-14] MEDS: ATORVASTATIN 40 MG TAB PO SCH (21:42)
[2023-03-14] MEDS: MELATONIN 5 MG TABLET PO SCH (21:42)
[2023-03-14] MEDS: ESCITALOPRAM 10 MG TAB PO SCH (21:42)
[2023-03-14] MEDS: CYCLOBENZAPRINE 10 MG TAB PO PRN (21:49)
[2023-03-14] MEDS: VANCOMYCIN 2,000 MG in SODIUM CHLORIDE 0.9% 500 ML 500 ML IVPB SCH (23:02)
[2023-03-15] MEDS: SODIUM CHLORIDE 0.9% 1,000 ML IV SCH ×3 (01:20→09:14)
[2023-03-15] MEDS: AMPICILLIN-SULBACTAM 3 GM in SODIUM CHLORIDE 0.9% 100 ML IVPB SCH ×5 (02:42→23:57)
[2023-03-15] MEDS: HYDROmorphone 1 MG/ML 1 ML SYRINGE IVP PRN ×3 (07:08→20:15)
[2023-03-15] MEDS: CYANOCOBALAMIN 500 MCG TAB PO SCH (09:15)
[2023-03-15] MEDS: FLECAINIDE 50 MG TAB PO SCH ×2 (09:16→20:11)
[2023-03-15] MEDS: FUROSEMIDE 40 MG TAB PO SCH (09:16)
[2023-03-15] MEDS: MULTIVITAMINS, THERA 1 EACH TAB PO SCH (09:16)
[2023-03-15] MEDS: METOPROLOL SUCCINATE (ER) 25 MG TAB.ER.24H PO SCH (09:16)
[2023-03-15] MEDS: APIXABAN 5 MG TAB PO SCH ×2 (09:16→20:10)
[2023-03-15] MEDS: HYDROcodone/APAP 5-325MG 1 EACH TAB PO PRN ×3 (10:00→23:53)
--- NOTE | 2023-03-15 10:29 | P.PN ---
Subjective Progress Note Date: 03/15/23 Pt has no new complaints. Started on vancomycin and unasyn last night. Gen: awake, alert HEENT: normocephalic, atraumatic, good hearing acuity, moist mucous membranes Resp: good air exchange, breathing comfortably with no accessory muscle use CVS: good distal perfusion x 4, GI: soft, NTTP, ND : no SPT, no CVAT, tripathi catheter not present MSK: no pitting edema, no clubbing Neuro: non-focal, moving all extremities Psych: cooperative, euthymic mood Hospital Course: Patient is a 72-year-old male with a PMH of A. anne on Eliquis, hyperlipidemia, cervical DJD status post surgery, who was brought to the emergency room via EMS for loss of consciousness and falls. He reports that earlier today he had multiple falls where he feels his legs gave out and he eased himself down to the ground. The patient however was ultimately found in his garage on the ground and confused. He does not recall the events prior to or immediately after the fall. He does not recall if he lost consciousness. He reports getting abrasions on both his elbows and hitting his head but denied any additional pain. He denied experiencing slurred speech or visual impairments. Also denied focal weakness, numbness, or tingling. Denied urinary incontinence or tongue biting. The patient does report a prior history of neurosurgery with placement of a intracranial "stent" by Dr Rayray Lebron at [facility] neurosurgery. In the emergency room, had/cervical spine CT revealed similar ventricular dilatation from 2019 with no acute intracranial abnormalities noted. Furthermore there was moderate multilevel degenerative disc disease. CXR was unremarkable. EKG revealed sinus bradycardia at [address]/T-wave changes noted as reviewed by me. Laboratory evaluation was remarkable for troponin less than 0.012, sodium 135, BUN 30, creatinine 1.25, and glucose 134 with serum alcohol less than 10. 9/2 Patient was seen and examined. He reports a history of falls secondary to his legs giving out and lower back pain with radiation to the LLE. Yesterday, he was walking with the aid of a walker to check his mail when he apparently lost consciousness. Patient is unable to recall the events leading to his LOC. Neighbors found him down and EMS was called. He denies any bladder or bowel incontinence. He denies any saddle anesthesia. He denies any chest pain, shortness of breath or palpitations. CBC shows hemoglobin of 11. BMP shows BUN to creatinine ratio of 22.17. CT T and L spine was done which showed soft tissue fat stranding left posterior L2L3, cannot exclude abscess, DJD L2L3, moderate spinal stenosis and moderate foraminal stenosis. Orthopedic surgery has evaluated the patient and recommends emergent revision surgery with fusion at L3 4 likely to be done on Sunday. Neurology recommends carotid Doppler, echocardiogram, MRI brain, EEG for further workup of syncopal episode. Cardiology will be consulted as well medical clearance in preparation for surgery. There is question of abscess versus postsurgical changes of the lumbar spine. Infectious disease will be consulted. 03/11 Patient was seen and examined. Well controlled lower back pain. No dizziness, chest pain, SOB, palpitations. Requesting stool softener. ID consulted regarding findings on CT T-L spine, feels patient does not have infe ctious process. Carotid doppler negative for stenosis. ESR 30. CRP < 0.3. Plans for emergent revision surgery with fusion at L3 4 tomorrow. 03/12 Patient was seen and examined. Underwent revision Laminectomy and decompression L3 [address] Garcia[address] Seen post surgery. Patient reports well controlled pain. Currently with Tripathi catheter. Complains of improving RLE numbness. Plans for PT and OT evaluation tomorrow and possible SNF. Assessment/Plan: Vitals: Patient is afebrile and last 24 hours, 146/65, heart rate 85, 91% on room air Labs: UA shows moderate blood, 50 red blood cells Images: Chest x-ray reviewed and personally interpreted, left lower lobe airspace opacity insistent with budding pneumonia Consultation: ID note reviewed, patient was started on vancomycin empirically Pneumonia -Continue Unasyn, vancomycin per ID -Tylenol 650 mg every 6 hours when necessary for fever Syncopal episode with no prodrome Orthostatic hypotension Recurrent falls due to bilateral lower extremity weakness History of intracranial surgery, unknown Chronic conditions: Atrial fibrillation on Eliquis, dyslipidemia, cervical DJD - Imaging canceled by neurology -Continue checking orthostatics twice daily -IV fluids, pain control Patient is full code Objective - Vital Signs Vital signs: Vital Signs Temp 98.1 F 03/15/23 08:00 Pulse 85 03/15/23 08:00 Resp 20 03/15/23 08:00 BP 146/65 03/15/23 08:00 Pulse Ox 91 L 03/15/23 08:00 FiO2 Intake & Output 03/14/23 03/15/23 03/15/23 18:59 06:59 18:59 Intake Total 800 Output Total 2300 2150 Balance -1500 -2150 Intake: Intake, IV Titration 800 Amount Sodium Chloride 0.9% 1, 300 000 ml @ 75 mls/hr IV . [id number] [facility] Rx#:[id number] Vancomycin 2,000 mg In 500 Sodium Chloride 0.9% 500 ml 500 ml @ 167 mls/hr IVPB Q16H [facility]ON Rx#: [id number] Output: Urine 2300 1450 Stool 700 Other: Voiding Method Indwelling Catheter Indwelling Catheter # Voids 0 0 # Bowel Movements 0 0 - Labs CBC & Chem 7: 03/14/23 10:30 03/14/23 10:30 Labs: Abnormal Lab Results - Last 24 Hours (Table) 03/14/23 03/14/23 03/14/23 Range/Units 10:30 10:30 10:30 WBC 11.9 H (3.8-10.6) k/uL RBC 3.19 L (4.30-5.90) m/uL Hgb 9.2 L D (13.0-17.5) gm/dL Hct 27.7 L (39.0-53.0) % Neutrophils # 9.4 H (1.3-7.7) k/uL Sodium 130 L (137-145) mmol/L BUN 25 H (9-20) mg/dL Glucose 137 H (74-99) mg/dL Calcium 8.1 L (8.4-10.2) mg/dL C-Reactive Protein 22.6 H (<1.0) mg/dL Urine Blood (Negative) Urine RBC (0-5) /hpf Urine Bacteria (None) /hpf Urine Mucus (None) /hpf 03/14/23 Range/Units 15:18 WBC (3.8-10.6) k/uL RBC (4.30-5.90) m/uL Hgb (13.0-17.5) gm/dL Hct (39.0-53.0) % Neutrophils # (1.3-7.7) k/uL Sodium (137-145) mmol/L BUN (9-20) mg/dL Glucose (74-99) mg/dL Calcium (8.4-10.2) mg/dL C-Reactive Protein (<1.0) mg/dL Urine Blood Moderate H (Negative) Urine RBC 50 H (0-5) /hpf Urine Bacteria Occasional H (None) /hpf Urine Mucus Rare H (None) /hpf Microbiology - Last 24 Hours (Table) 03/12/23 09:00 Gram Stain - Final Other - Other Wound Culture - Final 03/12/23 09:00 Anaerobic Culture - Preliminary Other - Other
--- NOTE | 2023-03-15 10:43 | P.PN ---
Progress Note - Text Progress Note Date: 03/15/23 Postoperative day #3 Patient is seen and examined today at bedside. The patient has some pain around the surgical site as expected but it is improving slightly . he has been able to get up to a chair today with maximum assist. He feels his left leg is improving with good strength but is still quite weak. Pain is being controlled with medication. He says he has not had a bowel movement and is not passing gas Physical Exam Afebrile with stable vital signs Abdomen is soft nontender. there is no rebound or rigidity. Chest has good excursion deep and space expiration The incision site is clean dry and intact. No erythema there is no purulence. Extremities have had slightly improved neurologic change in the motion at the left leg from prior to surgery.He still has considerable weakness with hip flexion and extension and particularly on the left Calves and thighs were soft nontender without evidence of DVT. Assessment/Plan Postoperative day #3 status post decompression and fusion for severe stenosis with recurrent disc herniation Lower extremity weakness which seems to be slightly improving but continues to have significant weakness Constipation Patient is progressing slowly as expected from the surgery. He did get up to a chair and I have encouraged him to try to increase his mobility. His strength in his left leg does seem to be slightly improved and he we'll continue exercises while seated and while in bed to try to continue motion at the leg. He should continue with his physical therapy. We will continue to increase the patient's mobilization with therapy. He has constipation and we'll try to collect posterior today. He says he has had issues with this in the past after surgery and we'll keep an eye on this long with medicine service. We will continue pain control with oral or IV medications. We'll continue to follow patient closely.
[2023-03-15 11:21] LABS: Basophils # (A) 0.02 X 10*3/uL (0.00-0.10); Basophils % (A) 0.2 %; Eosinophils # (A) 0.45 X 10*3/uL (0.04-0.35); HCT 29.6 % (39.6-50.0); HGB 9.1 d/dL (13.0-17.0); Lymphocytes # (A) 0.92 X 10*3/uL (0.90-5.00); Lymphocytes % (A) 8.2 %; MCH 27.4 pg (27.0-32.0); MCHC 30.7 d/dL (32.0-37.0); MCV 89.2 FL (80.0-97.0); Monocytes # (A) 1.27 X 10*3/uL (0.20-1.00); Monocytes % (A) 11.3 %; NRBC Per 100 WBC 0 X 10*3/uL (0.00-0.01); Neutrophils # (A) 8.51 X 10*3/uL (1.80-7.70); Neutrophils % (A) 75.8 %; Platelet Count 230 X 10*3/uL (140-440); RBC 3.32 X 10*6/uL (4.40-5.60); RDW 14.5 % (11.5-14.5); WBC 11.23 X 10*3/uL (4.50-10.00)
[2023-03-15 11:24] LABS: BUN/Creat Ratio 17.09 Ratio (12.00-20.00); Blood Urea Nitrogen 18.8 mg/dL (9.0-27.0); Calcium 8.1 mg/dL (8.7-10.3); Chloride 101 mmol/L (96-109); Glucose 100 mg/dL (70-110); Magnesium 2.1 mg/dL (1.5-2.4); Potassium 3.7 mmol/L (3.5-5.5); Sodium 138 mmol/L (135-145)
[2023-03-15] MEDS: VANCOMYCIN 2,000 MG in SODIUM CHLORIDE 0.9% 500 ML 500 ML IVPB SCH (14:55)
--- NOTE | 2023-03-15 19:06 | P.PN ---
Subjective Progress Note Date: 03/15/23 03/15/2023: Patient was seen for a follow-up. Patient states he is feeling better. He got of walked today. The nurse. He states he is going to inpatient rehab tomorrow. 03/13/2023: Patient was seen for a follow-up. Patient is laying comfortably in the bed. Still complaining of pain in the low back 8/10, extending to the left leg laterally all the way to the ankle. So far surgery has not improved pain. Patient mentions that his falls were related to severe pain and left leg weakness. It happened twice in the house, and once outside when he was going to check the mail when he fell down and was out for a short while. He did not bite his tongue, no seizure. No loss of control of urine. Never has any history of seizures. Telemetry monitoring showing sinus rhythm in 100. 03/11/2023: Patient was initially seen by Dr. Marlo Cheek. Please refer to his note for details. Patient is a 72-year-old male with left lumbar radiculopathy and left leg giving out resulting in recurrent falls. Patient also had a syncopal episode prior to arrival, and does not recall. 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 Patient's orthostatics are positive. Patient states he still has lower back pain radiating to the left leg all the way to the ankle, rates his pain as 9/10. Patient says he is scheduled for surgical decompression tomorrow. He states he has history of low back pain for one year, has tried physical therapy, radiofrequency ablation of the nerves without improvement. Some of the work-up during this hospital visit consisted of: Orthostatic vitals: Supine 153/76 with HR 72, sitting 142/71 with HR 76 and standing 121/[address] brain and cervical spine is reported as Similar ventricular dilation from 0 09/28/2022 and dating back to 2019. No obvious acute intracranial process. Nonspecific white matter changes, likely secondary to chronic small vessel ischemic disease. No evidence of cervical spine fracture. Moderate multilevel degenerative disc disease. Postsurgical changes with clips in place. Left cheek metalic foregin body in the subcutaneous tissues.I personally review CT head and patient does have component of NPH as agree it seems as far as 2019. There is no acute or subacute ischemic stroke or any mass effect. CT thoracic and lumbar region is reported as no acute fracture. soft tissue stranding and foci of gas along the left posterior elements at L2-L3. No osseous erosions. There is associated pneumorachis at this level. Findings may relate to recent instrumentation hower infection process could have this appearance. Cannot exclude samll ascess. Clinical correlation is recommended. Objective - Vital Signs Vital signs: Vital Signs Temp 98.4 F 03/15/23 12:36 Pulse 71 03/15/23 12:36 Resp 20 03/15/23 12:36 BP 131/72 03/15/23 12:36 Pulse Ox 91 L 03/15/23 12:36 FiO2 Intake & Output 03/15/23 03/15/23 03/16/23 06:59 18:59 06:59 Intake Total 1050 Output Total 2150 Balance -2150 1050 Intake: Intake, IV Titration 1050 Amount Ampicillin-Sulbactam 3 gm 100 In Sodium Chloride 0.9% 100 ml @ 200 mls/hr IVPB Q6HR [facility] Rx#:[id number] Sodium Chloride 0.9% 1, 450 000 ml @ 75 mls/hr IV . [id number] [facility]ON Rx#:[id number] Vancomycin 2,000 mg In 500 Sodium Chloride 0.9% 500 ml 500 ml @ 167 mls/hr IVPB Q16H [facility] Rx#: [id number] Output: Urine 1450 Stool 700 Other: Voiding Method Indwelling Catheter Indwelling Catheter # Voids 0 1 # Bowel Movements 0 1 - Exam Patient's mental status, speech and language functions are normal. Cranial nerves are normal. Muscle strength reveals normal strength in the upper limbs distally and proximally bilaterally. In the lower limbs strength is (right/left), hip flexion is 4/2-3, hip abduction 5/5, hip adduction patient did not want to be checked because of pain, knee extension 5/2+, ankle dorsiflexion 5/5. - Labs CBC & Chem 7: 03/15/23 07:03 03/15/23 07:03 Labs: Abnormal Lab Results - Last 24 Hours (Table) 03/15/23 03/15/23 Range/Units 07:03 07:03 WBC 11.23 H (4.50-10.00) X 10*3/uL RBC 3.32 L (4.40-5.60) X 10*6/uL Hgb 9.1 L (13.0-17.0) d/dL Hct 29.6 L (39.6-50.0) % MCHC 30.7 L (32.0-37.0) d/dL Neutrophils # 8.51 H (1.80-7.70) X 10*3/uL Monocytes # 1.27 H (0.20-1.00) X 10*3/uL Eosinophils # 0.45 H (0.04-0.35) X 10*3/uL Calcium 8.1 L (8.7-10.3) mg/dL Microbiology - Last 24 Hours (Table) 03/14/23 10:30 Blood Culture - Preliminary Blood 03/12/23 09:00 Gram Stain - Final Other - Other Wound Culture - Final 03/12/23 09:00 Anaerobic Culture - Preliminary Other - Other Assessment and Plan Assessment: This is a 72-year-old gentleman with chronic left lower back pain for the past 13 months who recently having posterior left low back pain radiating left knee with left leg giving out and leading to recurrent falls without LOC. One day prior to arrival to the hospital in the afternoon, patient had a syncopal e pisode and does not recall episode. No history of seizures. Syncopal episode likely vasovagal/orthostasis. Recurrent falls due to severe pain and left leg weakness. No evidence of seizure. Patient is status post, postop day 1 of minimally invasive posterior lateral decompression and fusion at L3-L4, with transforaminal lumbar interbody fusion with revision laminectomy. 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 Denies urinary retentions, memory issues that significant other noticed. NPH can also contribute to falls but it seems more his left lumbar radiculopathy is the main cause of the falls. History of atrial fibrillation on eliquis Plan: * Patient is status post lumbar decompressive surgery. Patient is doing better, the strength is improving. Less pain. Continue pain management. * CT brain and cervical spine is reported as Similar ventricular dilation from 09/28/2022 and dating back to 2019. No obvious acute intracranial process. Nonspecific white matter changes, likely secondary to chronic small vessel ischemic disease. No evidence of cervical spine fracture. Moderate mult ilevel degenerative disc disease. Postsurgical changes with clips in place. Left cheek metalic foregin body in the subcutaneous tissues.I personally review CT head and patient does have component of NPH as agree it seems as far as 2019. There is no acute or subacute ischemic stroke or any mass effect. * CT thoracic and lumbar region is reported as no acute fracture. soft tissue stranding and foci of gas along the left posterior elements at L2-L3. No osseous erosions. There is associated pneumorachis at this level. Findings may relate to recent instrumentation hower infection process could have this appearance. Cannot exclude samll ascess. Clinical correlation is recommended. * Consider MRI Thoracic and Lumbar. Per the nurse, Dr. Garcia notified her that he had recent MRI's in his Orthopedic office and does not need a repeat MRI. Dr. Garcia will pursue with surgical intervention per nurse. * Patient did not have a seizure. No indication for MRI of the brain, echo or EEG. We will cancel these tests. * Carotid Doppler revealed no ultrasound evidence of hemodynamically significant stenosis of bilateral carotid arteries. Antegrade flow in both vertebral arteries. Will defer the management of positive orthos to primary team. * Recommend his radiographic NPH he has been having since 2020, recommend following up with neurologist and neurosurgeon as outpatient for consideration of large volume tap and possible CVICU NURSE shunt. Recommend neurospych evaluation for detailed memory evaluation as outpatient. * Primary team consulted I.D. team to rule out abscess. Patient undergoing lumbar surgery in the morning. Cultures will be obtained. * Cardiac monitoring. * PT and OT consulted. * Orthopedic team on board. * Will defer the rest of medical management to primary and other specialist. * Neurologically clear otherwise for transfer to rehab facility, when cleared by orthopedic surgery and ID.
[2023-03-15] MEDS: ESCITALOPRAM 10 MG TAB PO SCH (20:10)
[2023-03-15] MEDS: ATORVASTATIN 40 MG TAB PO SCH (20:10)
[2023-03-15] MEDS: GABAPENTIN 300 MG CAP PO SCH (20:10)
[2023-03-15] MEDS: MELATONIN 5 MG TABLET PO SCH (20:11)
[2023-03-15 21:37] VITALS: RESP 18
[2023-03-16] MEDS: AMPICILLIN-SULBACTAM 3 GM in SODIUM CHLORIDE 0.9% 100 ML IVPB SCH ×2 (05:04→12:18)
[2023-03-16] MEDS: VANCOMYCIN 2,000 MG in SODIUM CHLORIDE 0.9% 500 ML 500 ML IVPB SCH (06:06)
[2023-03-16] MEDS: CYANOCOBALAMIN 500 MCG TAB PO SCH (08:24)
[2023-03-16] MEDS: MULTIVITAMINS, THERA 1 EACH TAB PO SCH (08:25)
[2023-03-16] MEDS: METOPROLOL SUCCINATE (ER) 25 MG TAB.ER.24H PO SCH (08:25)
[2023-03-16] MEDS: FLECAINIDE 50 MG TAB PO SCH (08:25)
[2023-03-16] MEDS: HYDROcodone/APAP 5-325MG 1 EACH TAB PO PRN ×2 (08:25→16:09)
[2023-03-16] MEDS: FUROSEMIDE 40 MG TAB PO SCH (08:25)
[2023-03-16] MEDS: APIXABAN 5 MG TAB PO SCH (08:25)
--- NOTE | 2023-03-16 09:18 | P.PN ---
Progress Note - Text Progress Note Date: 03/16/23 Orthopedic Spine History of present illness: Patient is a pleasant 72-year-old male who is seen and examined at the bedside following posterior lateral decompression and fusion performed Sunday. Patient states they are doing ok postoperatively. He has continued to have some improvement over the past couple days. He does continue to have significant pain and most significant at his lumbar spine. He states again today that his pain has improved today as compared to yesterday. His pain continues to be well controlled with oral and IV medications. His pain is most significant at the surgical site his lumbar spine. He continues to have some left lower extremity radiculopathy but states the pain has improved postoperatively. He continues to have weakness with his left lower extremity but states this has continued to improve as well postoperatively in regards to his left knee flexion and extension and left hip flexion. He has continued to work with physical therapy. He does continue to have significant difficulty with mobilization. He will plan to work with physical therapy again today. Patient is known have weakness with recurrent falls. He has been accepted for inpatient rehab when cleared. Case management will apply for authorization tomorrow for discharge to inpatient rehabilitation facility at [facility] on 03/16/2023. Patient does not feel he would be able to return home initially postoperatively. He is willing for discharge to a rehabilitation facility. Patient has been seen by multiple medical providers during his admission to the hospital. Patient has multiple other medical diagnoses including atrial fibrillation currently on Eliquis, hyperlipidemia, and reported history of intracranial stent placement at [facility] by Dr. Rayray Lebron. He is currently being treated for pneumonia as well as currently on vancomycin and Unasyn per infectious. Nursing states patient is still currently planning for discharge to inpatient rehabilitation facility today if cleared by other multiple medical providers. Patient did have a small bowel movement this morning. Physical Exam Lumbar Fusion: Status post surgical day number 4 Patient is awake, alert, and oriented 3 Vital signs stable Good chest excursion with deep inspiration and expiration Patient currently sitting at the bedside Dorsiflexion, plantarflexion, and extensor hallucis longus positive sustained bilaterally No signs or symptoms of DVT; no calf pain; pneumatic cuffs intact bilateral lower extremities Optifoam dressing remains intact but is removing physical examination Surgical incision sites are clean, dry, and intact with no active drainage; no obvious sign of infection Good active range of motion of the right lower extremity independently without difficulty Patient has weakness but is able to perform some hip flexion and knee extension on the left independently Assessment: Status post L3-4 minimally invasive posterior lateral decompression and fusion with transforaminal lumbar interbody fusion with revision laminectomy Low back pain Left lower extremity radiculopathy Left lower extremity weakness with hip flexion and knee extension Recurrent falls due to left lower extremity weakness History of L3-4 laminectomy decompression L3-4 progressive degenerative disc disease L3-4 instability Atrial fibrillation currently on Eliquis Hyperlipidemia History of intracranial surgery Pneumonia Plan: 1. Ambulate as tolerated; work with Physical Therapy to increase mobilization 2. Continue pain control with IV and oral medications; will plan to begin weaning the patient off of IV narcotic medication in anticipation for discharge to a rehabilitation facility today. A prescription has been written for hydrocodone 5 mg/325 mg, 1-2 tabs, every 6 hours as needed for acute pain, dispensed #56. He is also given a prescription for baclofen 10 mg, 1 3 times a day, as needed for muscle spasm, dispensed #60. Prescriptions are printed, signed, and placed in the patient's chart for discharge to rehabilitation facility 3. Surgical dressings have been removed. Surgical sites are clean, dry, and intact. Patient may shower without a dressing intact at this time. 4. Medicine and other medical providers will continue to follow and manage the patient for his other significant medical diagnoses; continue with anticoagulation per recommendations of cardiology and/or medicine 5. Patient is currently being seen by infectious disease and is being treated for pneumonia with vancomycin and Unasyn. This will continue be managed by infectious disease. 6. Patient has had some constipation. He did have a small bowel movement this morning. We will continue his medications as prescribed as needed to help facilitate further bowel movements. 7. Patient does continue to have significant difficulties mobilization and ambulation. He does not feel he could safely return home at the time of discharge. He has been accepted for inpatient rehabilitation at [facility] at the time of discharge. He has had some improvement in regards to his pain at the surgical sites at his lumbar spine. He also has had some improvement of his left lower extremity weakness and radiculopathy. Patient does feel he would be ready for discharge to inpatient rehabilitation today. We did discuss, from an orthopedic spine standpoint, he is clear for discharge. We did discuss uniquely is by multiple other medical providers prior to discharge. He is currently admitted to medicine. If cleared, he will be discharged to inp atient rehabilitation facility at [facility] this coming 03/16/2023 8. Patient can follow-up with Darrius Guillaume PA-C or Dr. Flaquito Garcia at [facility] in 2-3 weeks following discharge
[2023-03-16 11:29] VITALS: BP 116/69; PULSE 64; TEMP 97.9
[2023-03-16 12:12] VITALS: BMI 33.4
[2023-03-16] MEDS: SODIUM CHLORIDE 0.9% 1,000 ML IV SCH (13:14)
[2023-03-16] MEDS: CYCLOBENZAPRINE 10 MG TAB PO PRN (13:40)
--- NOTE | 2023-03-16 13:50 | P.PN ---
Subjective Progress Note Date: 03/16/23 Pt has defervesced since starting abx. No growth on BCx. C/o back pain again today which is improved with norco. Discussed with his insurance and patient was declined for IPR. Gen: awake, alert HEENT: normocephalic, atraumatic, good hearing acuity, moist mucous membranes Resp: good air exchange, breathing comfortably with no accessory muscle use CVS: good distal perfusion x 4, GI: soft, NTTP, ND : no SPT, no CVAT, tripathi catheter not present MSK: no pitting edema, no clubbing Neuro: non-focal, moving all extremities Psych: cooperative, euthymic mood Hospital Course: Patient is a 72-year-old male with a PMH of A. fib on Eliquis, hyperlipidemia, cervical DJD status post surgery, who was brought to the emergency room via EMS for loss of consciousness and falls. He reports that earlier today he had multiple falls where he feels his legs gave out and he eased himself down to the ground. The patient however was ultimately found in his garage on the ground and confused. He does not recall the events prior to or immediately after the fall. He does not recall if he lost consciousness. He reports getting abrasions on both his elbows and hitting his head but denied any additional pain. He denied experiencing slurred speech or visual impairments. Also denied focal weakness, numbness, or tingling. Denied urinary incontinence or tongue biting. The patient does report a prior history of neurosurgery with placement of a intracranial "stent" by Dr Rayray Lebron at [facility] neurosurgery. In the emergency room, had/cervical spine CT revealed similar ventricular dilatation from 2019 with no acute intracranial abnormalities noted. Furthermore there was moderate multilevel degenerative disc disease. CXR was unremarkable. EKG revealed sinus bradycardia at [address]/T-wave changes noted as reviewed by me. Laboratory evaluation was remarkable for troponin less than 0.012, sodium 135, BUN 30, creatinine 1.25, and glucose 134 with serum alcohol less than 10. 9 Patient was seen and examined. He reports a history of falls secondary to his legs giving out and lower back pain with radiation to the LLE. Yesterday, he was walking with the aid of a walker to check his mail when he apparently lost consciousness. Patient is unable to recall the events leading to his LOC. Neighbors found him down and EMS was called. He denies any bladder or bowel incontinence. He denies any saddle anesthesia. He denies any chest pain, shortness of breath or palpitations. CBC shows hemoglobin of 11. BMP shows BUN to creatinine ratio of 22.17. CT T and L spine was done which showed soft tissue fat stranding left posterior L2L3, cannot exclude abscess, DJD L2L3, moderate spinal stenosis and moderate foraminal stenosis. Orthopedic surgery has evaluated the patient and recommends emergent revision surgery with fusion at L3 4 likely to be done on Sunday. Neurology recommends carotid Doppler, echocardiogram, MRI brain, EEG for further workup of syncopal episode. Cardiology will be consulted as well medical clearance in preparation for surgery. There is question of abscess versus postsurgical changes of the lumbar spine. Infectious disease will be consulted. 03/11 Patient was seen and examined. Well controlled lower back pain. No dizziness, chest pain, SOB, palpitations. Requesting stool softener. ID consulted regarding findings on CT T-L spine, feels patient does not have infectious process. Carotid doppler negative for stenosis. ESR 30. CRP < 0.3. Plans for emergent revision surgery with fusion at L3 4 tomorrow. 03/12 Patient was seen and examined. Underwent revision Laminectomy and decompression L3 [address] Garcia[address] Seen post surgery. Patient reports well controlled pain. Currently with Tripathi catheter. Complains of improving RLE numbness. Plans for PT and OT evaluation tomorrow and possible SNF. Assessment/Plan: Vitals: Patient is afebrile and last 24 hours, 146/65, heart rate 85, 91% on room air Labs: UA shows moderate blood, 50 red blood cells Images: Chest x-ray reviewed and personally interpreted, left lower lobe airspace opacity insistent with budding pneumonia Consultation: ID note reviewed, patient was started on vancomycin empirically Pneumonia -Continue Unasyn, vancomycin per ID -Tylenol 650 mg every 6 hours when necessary for fever Syncopal episode with no prodrome Orthostatic hypotension Recurrent falls due to bilateral lower extremity weakness History of intracranial surgery, unknown Chronic conditions: Atrial fibrillation on Eliquis, dyslipidemia, cervical DJD - Imaging canceled by neurology -Continue checking orthostatics twice daily -IV fluids, pain control Patient is full code Objective - Vital Signs Vital signs: Vital Signs Temp 97.9 F 03/16/23 11:29 Pulse 64 03/16/23 11:29 Resp 18 03/16/23 11:29 BP 116/69 03/16/23 11:29 Pulse Ox 95 03/16/23 11:29 FiO2 Intake & Output 03/15/23 03/16/23 03/16/23 18:59 06:59 18:59 Intake Total 1050 Output Total 700 725 Balance 1050 -700 -725 Weight 99.79 kg Intake: Intake, IV Titration 1050 Amount Ampicillin-Sulbactam 3 gm 100 In Sodium Chloride 0.9% 100 ml @ 200 mls/hr IVPB Q6HR [facility] Rx#:[id number] Sodium Chloride 0.9% 1, 450 000 ml @ 75 mls/hr IV . [id number] [facility] Rx#:[id number] Vancomycin 2,000 mg In 500 Sodium Chloride 0.9% 500 ml 500 ml @ 167 mls/hr IVPB Q16H [facility] Rx#: [id number] Output: Urine 725 Stool 700 Other: Voiding Method Indwelling Catheter Indwelling Catheter Bedside Commode # Voids 1 1 # Bowel Movements 1 1 - Labs CBC & Chem 7: 03/15/23 07:03 03/15/23 07:03 Labs: Microbiology - Last 24 Hours (Table) 03/10/23 14:31 Blood Culture - Final Blood 03/10/23 13:12 Blood Culture - Final Blood 03/14/23 10:30 Blood Culture - Preliminary Blood
--- NOTE | 2023-03-16 15:13 | P.DS ---
Providers Date of admission: 03/10/23 12:46 Expected date of discharge: 03/16/23 Attending physician: Sharee Mayfield MD Consults: 03/09/23 20:17 Consult Physician Urgent Consulting Provider: Marlo Cheek Consult Reason/Comments: multiple falls, blunt head trauma Do you want consulting provider notified?: Yes 03/10/23 00:01 Consult Physician Urgent Consulting Provider: Ale Garcia Consult Reason/Comments: Progressive LE weakness Do you want consulting provider notified?: Yes 03/10/23 11:49 Consult Physician Routine Consulting Provider: Iqra Leigh Consult Reason/Comments: possible spinal abscess? Do you want consulting provider notified?: Yes 03/10/23 12:41 Consult Physician Routine Consulting Provider: Geoff Richards Consult Reason/Comments: syncope Do you want consulting provider notified?: Yes 03/13/23 09:46 Consult Physician Routine Consulting Provider: Tacho Cuevas Consult Reason/Comments: assessment for rehab Do you want consulting provider notified?: Yes Primary care physician: Marco A Martin Hospital Course: Pneumonia Syncopal episode with no prodrome Orthostatic hypotension Recurrent falls due to bilateral lower extremity weakness History of intracranial surgery, unknown Chronic conditions: Atrial fibrillation on Eliquis, dyslipidemia, cervical DJD Hospital Course: Patient is a 72-year-old male with a PMH of A. fib on Eliquis, hyperlipidemia, cervical DJD status post surgery, who was brought to the emergency room via EMS for loss of consciousness and falls. He reports that earlier today he had multiple falls where he feels his legs gave out and he eased himself down to the ground. The patient however was ultimately found in his garage on the ground and confused. He does not recall the events prior to or immediately after the fall. He does not recall if he lost consciousness. He reports getting abrasions on both his elbows and hitting his head but denied any additional pain. He denied experiencing slurred speech or visual impairments. Also denied focal weakness, numbness, or tingling. Denied urinary incontinence or tongue biting. The patient does report a prior history of neurosurgery with placement of a intracranial "stent" by Dr Rayray Lebron at [facility] neurosurgery. In the emergency room, had/cervical spine CT revealed similar ventricular dilatation from 2019 with no acute intracranial abnormalities noted. Furthermore there was moderate multilevel degenerative disc disease. CXR was unremarkable. EKG revealed sinus bradycardia at [address]/T-wave changes noted as reviewed by me. Laboratory evaluation was remarkable for troponin less than 0.012, sodium 135, BUN 30, creatinine 1.25, and glucose 134 with serum alcohol less than 10. 03/10 Patient was seen and examined. He reports a history of falls secondary to his legs giving out and lower back pain with radiation to the LLE. Yesterday, he was walking with the aid of a walker to check his mail when he apparently lost consciousness. Patient is unable to recall the events leading to his LOC. Neighbors found him down and EMS was called. He denies any bladder or bowel incontinence. He denies any saddle anesthesia. He denies any chest pain, shortness of breath or palpitations. CBC shows hemoglobin of 11. BMP shows BUN to creatinine ratio of 22.17. CT T and L spine was done which showed soft tissue fat stranding left posterior L2L3, cannot exclude abscess, DJD L2L3, moderate spinal stenosis and moderate foraminal stenosis. Orthopedic surgery has evaluated the patient and recommends emergent revision surgery with fusion at L3 4 likely to be done on Sunday. Neurology recommends carotid Doppler, echocardiogram, MRI brain, EEG for further workup of syncopal episode. Cardiology will be consulted as well medical clearance in preparation for surgery. There is question of abscess versus postsurgical changes of the lumbar spine. Infectious disease will be consulted. 03/11 Patient was seen and examined. Well controlled lower back pain. No dizziness, chest pain, SOB, palpitations. Requesting stool softener. ID consulted regarding findings on CT T-L spine, feels patient does not have infectious process. Carotid doppler negative for stenosis. ESR 30. CRP < 0.3. Plans for emergent revision surgery with fusion at L3 4 tomorrow. 03/12 Patient was seen and examined. Underwent revision Laminectomy and decompression L3-[address] Garcia. Seen post surgery. Patient reports well controlled pain. Currently with Tripathi catheter. Complains of improving RLE numbness. Plans for PT and OT evaluation tomorrow and possible SNF. 03/13-03/16 Pt did spike low grade fevers and was found to have LLL opacity. Started on vancomycin and unasyn. On discharge narrowed to augmentin for an additional 5 days to make a 7 day course total. I spent 45 minutes coordinating this discharge on 03/16 Gen: awake, alert HEENT: normocephalic, atraumatic, good hearing acuity, moist mucous membranes Resp: good air exchange, breathing comfortably with no accessory muscle use CVS: good distal perfusion x 4, GI: soft, NTTP, ND : no SPT, no CVAT, tripathi catheter not present MSK: no pitting edema, no clubbing Neuro: non-focal, moving all extremities Psych: cooperative, euthymic mood Patient Condition at Discharge: Good Plan - Discharge Summary New Discharge Prescriptions: New HYDROcodone/APAP 5-325MG [Med[place] 5] 1 - 2 each PO Q6HR PRN #56 tab PRN Reason: Pain Cyclobenzaprine [Flexeril] 10 mg PO TID PRN tab PRN Reason: Muscle Spasm Acetaminophen Tab [Tylenol] 650 mg PO Q6HR PRN tab PRN Reason: Mild Pain Or Fever > 100.5 Baclofen 10 mg PO TID PRN #60 tab PRN Reason: Spasms Amoxic-Pot Clav 875-125Mg [Augmentin 875-125] 1 tab PO BID 1 Days #10 tab Melatonin 5 mg PO HS tab Sennosides-Docusate Sodium [Senokot-S] 1 each PO BID PRN tab PRN Reason: Constipation Continue Apixaban [Eliquis] 5 mg PO BID #180 tab Multivitamins, Thera [Multivitamin (formulary)] 1 tab PO DAILY Flecainide [Tambocor] 50 mg PO Q12HR Furosemide [Lasix] 40 mg PO DAILY Escitalopram [Lexapro] 10 mg PO HS Gabapentin 300 mg PO HS Cyanocobalamin (Vitamin B-12) [Vitamin B-12] 1,000 mcg PO DAILY Metoprolol Succinate [Toprol XL] 25 mg PO DAILY Atorvastatin [Lipitor] 40 mg PO HS Ferrous Sulfate [Iron (65 MG Elemental)] 325 mg PO Q4D Co Q-10 (Unknown Dose) 1 tab PO DAILY HYDROcodone/APAP 5-325MG [Medina 5-325] 2 tab PO Q8H Discharge Medication List Apixaban [Eliquis] 5 mg PO BID #180 tab 04/17/19 [Rx] Multivitamins, Thera [Multivitamin (formulary)] 1 tab PO DAILY 10/13/20 [History] Cyanocobalamin (Vitamin B-12) [Vitamin B-12] 1,000 mcg PO DAILY 03/02/21 [Hi story] Flecainide [Tambocor] 50 mg PO Q12HR 03/02/21 [History] Metoprolol Succinate [Toprol XL] 25 mg PO DAILY 07/06/21 [History] Furosemide [Lasix] 40 mg PO DAILY 09/19/21 [History] Atorvastatin [Lipitor] 40 mg PO HS 09/28/22 [History] Escitalopram [Lexapro] 10 mg PO HS 09/28/22 [History] Co Q-10 (Unknown Dose) 1 tab PO DAILY 03/09/23 [History] Ferrous Sulfate [Iron (65 MG Elemental)] 325 mg PO Q4D 03/09/23 [History] Gabapentin 300 mg PO HS 03/09/23 [History] HYDROcodone/APAP 5-325MG [Medina 5-325] 2 tab PO Q8H 03/09/23 [History] Acetaminophen Tab [Tylenol] 650 mg PO Q6HR PRN tab 03/16/23 [Rx] Amoxic-Pot Clav 875-125Mg [Augmentin 875-125] 1 tab PO BID 1 Days #10 tab 03/16/23 [Rx] Baclofen 10 mg PO TID PRN #60 tab 03/16/23 [Rx] Cyclobenzaprine [Flexeril] 10 mg PO TID PRN tab 03/16/23 [Rx] HYDROcodone/APAP 5-325MG [Med[place] 5] 1 - 2 each PO Q6HR PRN #56 tab 03/16/23 [Rx] Melatonin 5 mg PO HS tab 03/16/23 [Rx] Sennosides-Docusate Sodium [Senokot-S] 1 each PO BID PRN tab 03/16/23 [Rx] Follow up Appointment(s)/Referral(s): Darrius Guillaume PAC [PHYSICIAN CRYPTOLOGIC TECHNICIAN] - 2 Weeks (Patient may follow-up with Darrius Guillaume PA-C or Dr. Flaquito Garcia at [facility] in 2-3 weeks following discharge. ) Marco A Martin MD [Primary Care Provider] - 1-2 days Patient Instructions/Handouts: Head Injury (ED) Activity/Diet/Wound Care/Special Instructions: Please call your doctor and make an appointment to see them next week. I recommend that you only take one of the pain pills at a time if you are out and about. Take two if you are relaxing at home. Return to the emergency department should you have any new or worsening symptoms 1. Patient may shower without Optifoam dressing intact. 2. Patient should refrain from driving until at least after their first follow- up appointment in the office. 3. Patient should avoid excessive bending, twisting, lifting; avoid overhead lifting; no lifting greater than 10 pounds 4. Take medications as prescribed 5. Patient should avoid anti-inflammatory medications over the next 6 weeks postoperatively 6. Do not soak in tub Discharge Disposition: HOME SELF-CARE
[2023-03-16] MEDS ORDERED: VANCOMYCIN TROUGH DUE 1 EACH MISC MISCELLANE ONE (21:00)
== END 2023-03-16 17:07 | DRG 453 ==
LOC: EC 17:18 → 6NMEDSUR 20:17 → OBSVTOIN 03-10 12:46 → 5NMEDONC 03-12 08:34
PROVIDERS: ADMIT Internal Medicine; ATTEND Internal Medicine
PROC: 0SG0071 Fusion of Lumbar Vertebral Joint with Autologous Tissue Substitute, Posterior Approach, Posterior Column, Open Approach (ICD-10-PCS; 2023-03-12)
PROC: 01NB0ZZ Release Lumbar Nerve, Open Approach (ICD-10-PCS; 2023-03-12)
PROC: 079T3ZX Drainage of Bone Marrow, Percutaneous Approach, Diagnostic (ICD-10-PCS; 2023-03-12)
PROC: 0SG00AJ Fusion of Lumbar Vertebral Joint with Interbody Fusion Device, Posterior Approach, Anterior Column, Open Approach (ICD-10-PCS; principal; 2023-03-12 08:00)
DX: M48.061 Spinal stenosis, lumbar region without neurogenic claudication (principal); J18.9 Pneumonia, unspecified organism; S09.90XA Unspecified injury of head, initial encounter; I08.0 Rheumatic disorders of both mitral and aortic valves; F32.A Depression, unspecified; I10 Essential (primary) hypertension; M51.16 Intervertebral disc disorders with radiculopathy, lumbar region; R29.6 Repeated falls; S51.011A Laceration without foreign body of right elbow, initial encounter; S51.012A Laceration without foreign body of left elbow, initial encounter; E78.5 Hyperlipidemia, unspecified; K21.9 Gastro-esophageal reflux disease without esophagitis; R00.1 Bradycardia, unspecified; G89.29 Other chronic pain; I95.1 Orthostatic hypotension; I48.91 Unspecified atrial fibrillation; M47.26 Other spondylosis with radiculopathy, lumbar region; M53.2X6 Spinal instabilities, lumbar region; M47.22 Other spondylosis with radiculopathy, cervical region; K59.00 Constipation, unspecified; Z74.09 Other reduced mobility; Z74.1 Need for assistance with personal care; Y92.015 Private garage of single-family (private) house as the place of occurrence of the external cause; Z91.81 History of falling; Z79.899 Other long term (current) drug therapy; Z79.01 Long term (current) use of anticoagulants; Z88.5 Allergy status to narcotic agent; Z85.828 Personal history of other malignant neoplasm of skin; Z85.46 Personal history of malignant neoplasm of prostate; Z98.84 Bariatric surgery status; Z87.891 Personal history of nicotine dependence; Z86.73 Personal history of transient ischemic attack (TIA), and cerebral infarction without residual deficits
CPT/HCPCS: 36415; 70450; 71045; 72125; 72128; 72131; 80048; 80053; 80320; 81001; 83735; 84484; 85025; 85610; 85652; 85730; 86140; 87040; 87070; 87075; 87205; 93005; 93308; 93880; 99285

== ENCOUNTER 2023-04-03 14:45 | Inpatient (IN) | payer MEDICARE ==
--- NOTE | 2023-04-03 15:17 | ED ---
Nausea/Vomiting/Diarrhea HPI - General Source: patient, family, RN notes reviewed Mode of arrival: wheelchair Limitations: no limitations - History of Present Illness MD complaint: nausea, vomiting <Marika Landa - Last Filed: 04/03/23 15:08> <Marlon Steven - Last Filed: 04/04/23 00:41> <Eleuterio Mo - Last Filed: 04/04/23 04:23> <Jenniffer Mora - Last Filed: 04/04/23 09:08> - General Chief complaint: Nausea/Vomiting/Diarrhea Stated complaint: vomiting Time Seen by Provider: 04/03/23 15:10 - History of Present Illness Initial comments: This is a 72 year old male who presents to the emergency department for nausea, vomiting, and shortness of breath. Symptoms started yesterday. He had back surgery earlier this month and has been at [facility] for rehab. He had been recovering well, until last night when he started to develop nausea, vomiting, and shortness of breath. (Marika Landa) 72-year-old male presenting with chief complaint of nausea and confusion. Patient states that he has been nauseous and dry heaving but has not been vomiting. He has had a low appetite and states he has not really been eating or drinking. He also states that he has had increasing confusion. States that he has had multiple falls and he is not sure if he has been passing out. He currently lives alone and has physical therapy coming to his home. He does have friends in the area helped him, his children live a ways away. He denies chest pain, difficulty breathing, abdominal pain, URI-like symptoms, dysuria, hematuria, palpitations. (Marlon Steven) - Related Data Home Medications Medication Instructions Recorded Confirmed Multivitamins, Thera [Multivitamin 1 tab PO DAILY 10/13/20 04/03/23 (formulary)] Cyanocobalamin (Vitamin B-12) 1,000 mcg PO DAILY 03/02/21 04/03/23 [Vitamin B-12] Flecainide [Tambocor] 50 mg PO Q12HR 03/02/21 04/03/23 Metoprolol Succinate [Toprol XL] 25 mg PO DAILY 07/06/21 04/03/23 Furosemide [Lasix] 40 mg PO DAILY 09/19/21 04/03/23 Atorvastatin [Lipitor] 40 mg PO HS 09/28/22 04/03/23 Escitalopram [Lexapro] 10 mg PO HS 09/28/22 04/03/23 Co Q-10 (Unknown Dose) 1 tab PO DAILY 03/09/23 04/03/23 Ferrous Sulfate [Iron (65 MG 325 mg PO Q4D 03/09/23 04/03/23 Elemental)] HYDROcodone/APAP 5-325MG [[place] 1 - 2 tab PO Q6H PRN 03/09/23 04/03/23 5-325] Potassium Chloride ER [K-Dur 10] 10 meq PO DAILY 04/03/23 04/03/23 Sennosides-Docusate Sodium 1 tab PO BID PRN 04/03/23 04/03/23 [Senokot-S] Previous Rx's Medication Instructions Recorded Apixaban [Eliquis] 5 mg PO BID #180 tab 04/17/19 Acetaminophen Tab [Tylenol] 650 mg PO Q6HR PRN tab 03/16/23 Baclofen 10 mg PO TID PRN #60 tab 03/16/23 Cyclobenzaprine [Flexeril] 10 mg PO TID PRN tab 03/16/23 Gabapentin 300 mg PO HS #3 cap 03/16/23 Melatonin 5 mg PO HS tab 03/16/23 Allergies Allergy/AdvReac Type Severity Reaction Status Date / Time morphine AdvReac Nausea & Verified 04/03/23 22:12 Vomiting Review of Systems ROS Other: All systems not noted in ROS Statement are negative. <Marika Landa - Last Filed: 04/03/23 15:08> ROS Other: All systems not noted in ROS Statement are negative. <Marlon Steven - Last Filed: 04/04/23 00:41> ROS Other: All systems not noted in ROS Statement are negative. <Eleuterio Mo - Last Filed: 04/04/23 04:23> ROS Other: All systems not noted in ROS Statement are negative. <Jenniffer Mora - Last Filed: 04/04/23 09:08> ROS Statement: Those systems with pertinent positive or pertinent negative responses have been documented in the HPI. Past Medical History Past Medical History: Atrial Fibrillation, Cancer, GERD/Reflux, Hyperlipidemia, Hypertension, Prostate Disorder Additional Past Medical History / Comment(s): CHRONIC LOW BACK PAIN. Prostate cancer, skin cancer, kidney stone. hx vertigo History of Any Multi-Drug Resistant Organisms: None Reported Past Surgical History: Appendectomy, Bariatric Surgery, Cardiac Ablation, Cholecystectomy, Orthopedic Surgery Additional Past Surgical History / Comment(s): cervical sx with titanium rods, Colonoscopy, lap band, rt clavical reduction, Prostatectomy, SKIN CA REMOVED, pain procedures at [facility] PROCEDURES, EGD Past Anesthesia/Blood Transfusion Reactions: Previous Problems w/ Anesthesia Additional Past Anesthesia/Blood Transfusion Reaction / Comment(s): vertigo. hx of difficulty voiding after anesthesia. no blood transfusions Past Psychological History: Depression Smoking Status: Former smoker Past Alcohol Use History: None Reported Past Drug Use History: None Reported - Past Family History Father Family Medical History: Myocardial Infarction ([place]) Mother Additional Family Medical History / Comment(s): MAC DEGENERATION, HEART PROBLEMS <Marika Landa - Last Filed: 04/03/23 15:08> General Exam <Marika Landa - Last Filed: 04/03/23 15:08> Limitations: no limitations General appearance: alert, in no apparent distress Head exam: Present: atraumatic, normocephalic, normal inspection Eye exam: Present: normal appearance, EOMI Neck exam: Present: normal inspection, full ROM Respiratory exam: Present: normal lung sounds bilaterally. Absent: respiratory distress, wheezes, rales, rhonchi, stridor Cardiovascular Exam: Present: regular rate, normal rhythm, normal heart sounds. Absent: systolic murmur, diastolic murmur, rubs, gallop, clicks Neurological exam: Present: alert, oriented X3 Expanded Patient oriented to: Present: person, place, time Speech: Present: fluid speech Cranial nerves: EOM's Intact: Normal Eye Response: (4) open spontaneously Motor Response: (6) obeys commands Verbal Response: (5) oriented [place] Total: 15 Psychiatric exam: Present: normal affect, normal mood Skin exam: Present: warm, dry, intact, normal color. Absent: rash <Marlon Steven - Last Filed: 04/04/23 00:41> - General Exam Comments Initial Comments: Visual Physical Exam Vital signs reviewed General: Well-appearing, nontoxic, no acute distress. Head: Normocephalic, atraumatic Eyes: PERRLA, EOMI ENT: Airway patent Chest: Nonlabored breathing Skin: No visual rash, normal skin tone Neuro: Alert and oriented 3 Musculoskeletal: No gross abnormalities I performed the QuickNote portion of this chart. Signed Marika Landa PA-C. (Marika Landa) Course Vital Signs 04/03/23 04/03/23 04/03/23 15:09 20:46 21:00 Temperature 97.8 F 98 F Pulse Rate 77 78 Respiratory 18 18 Rate Blood Pressure 135/73 155/76 O2 Sat by Pulse 99 99 Oximetry 04/03/23 04/04/23 04/04/23 23:09 00:00 01:00 Temperature 98.2 F 98.4 F 98.5 F Pulse Rate 82 88 84 Respiratory 18 18 18 Rate Blood Pressure 155/73 155/73 175/68 O2 Sat by Pulse 97 Oximetry 04/04/23 04/04/23 04/04/23 01:30 04:21 08:00 Temperature 98.4 F 98.4 F 97.8 F Pulse Rate 76 74 Respiratory 18 18 Rate Blood Pressure 134/82 135/57 O2 Sat by Pulse 96 98 Oximetry Medical Decision Making - Lab Data Result diagrams: 04/03/23 17:21 04/03/23 17:21 <Marlon Steven - Last Filed: 04/04/23 00:41> - Lab Data Result diagrams: 04/03/23 17:21 04/03/23 17:21 <Eleuterio Mo - Last Filed: 04/04/23 04:23> - Lab Data Result diagrams: 04/03/23 17:21 04/03/23 17:21 <Jenniffer Mora - Last Filed: 04/04/23 09:08> - Medical Decision Making Was pt. sent in by a medical professional or institution ([facility], [facility] SPECIALIST, urgent care, hospital, or alf...) When possible be specific @ -No Did you speak to anyone other than the patient for history (EMS, parent, family, police, friend...)? What history was obtained from this source @ -No Did you review nursing and triage notes (agree or disagree)? Why? @ -I reviewed and agree with nursing and triage notes Were old charts reviewed (outside hosp., previous admission, EMS record, old EKG, old radiological studies, urgent care reports/EKG's, alf records)? Report findings @ -No old charts were reviewed Differential Diagnosis (chest pain, altered mental status, abdominal pain women, abdominal pain men, vaginal bleeding, weakness, fever, dyspnea, syncope, headache, dizziness, GI bleed, back pain, seizure, CVA, palpatations, mental h ealth, musculoskeletal)? @ -Differential Weakness: Hypoglycemia, shock, sepsis, hyponatremia, anemia, infection, [place], ETOH, adverse medicine reaction, overdose, stroke, this is not meant to be an all-inclusive list. EKG interpreted by me (3pts min.). @ -Sinus rhythm rate of 77, PA interval 195, QRS duration 100, QTC [address] segment elevation, tremor artifact. X-rays interpreted by me (1pt min.). @Chest x-ray negative for acute cardiopulmonary findings. CT interpreted by me (1pt min.). @ -Head CT negative for intracranial hemorrhage or mass effect U/S interpreted by me (1pt. min.). @ -None done What testing was considered but not performed or refused? (CT, X-rays, U/S, labs)? Why? @ -None What meds were considered but not given or refused? Why? @ -None Did you discuss the management of the patient with other professionals (professionals i.e. , PA, [facility] SPECIALIST, lab, RT, psych nurse, social human services assistants, direct care counselor, teacher, chief administrative officer, case management director)? Give summary @ -No Was smoking cessation discussed for >3mins.? @ -No Was critical care preformed (if so, how long)? @ -No Were there social determinants of health that impacted care today? How? (Homelessness, low income, unemployed, alcoholism, drug addiction, transp ortation, low edu. Level, literacy, decrease access to med. care, prison, rehab)? @ -No Was there de-escalation of care discussed even if they declined (Discuss DNR or withdrawal of care, Hospice)? DNR status @ -No What co-morbidities impacted this encounter? (DM, HTN, Smoking, COPD, CAD, Cancer, CVA, ARF, Chemo, Hep., AIDS, mental health diagnosis, sleep apnea, morbid obesity)? @ -[Atrial fibrillation, hypertension Was patient admitted / discharged? Hospital course, mention meds given and route, prescriptions, significant lab abnormalities, going to OR and other pertinent info. @ 72-year-old male who presented with weakness, vomiting, and smokes multiple falls. Patient has a normal platelet count, stable hemoglobin, normal electrolytes. Chest x-ray and head CT are unremarkable for acute findings. My initial plan was to admit this patient given his frequent falls, weakness. Patient is alert and oriented 3 and does not want to be admitted. He wishes to be discharged. He states he has good care at home he does live alone but has resources in place. Undiagnosed new problem with uncertain prognosis? @ -No Drug Therapy requiring intensive monitoring for toxicity (Heparin, Nitro, Insulin, Cardizem)? @ -No Were any procedures done? @ -No Diagnosis/symptom? @ -Weakness, vomiting, multiple falls Acute, or Chronic, or Acute on Chronic? @ -[Acute Uncomplicated (without systemic symptoms) or Complicated (systemic symptoms)? @ -default Side effects of treatment? @ -No Exacerbation, Progression, or Severe Exacerbation? @ -No Poses a threat to life or bodily function? How? (Chest pain, [place], [place], pneumonia, PE, COPD, DKA, ARF, appy, cholecystitis, CVA, Diverticulitis, Homicidal, Suicidal, threat to staff... and all critical care pts) @ -[Yes, multiple falls, weakness (Eleuterio Mo) Patient was evaluated by several providers yesterday. The plan was for the patient to be discharged in the morning as he does live alone. We did receive a call from his son who states that he is extremely confused and worried about him going home. The confusion has come up in the past week. When we discussed this with the patient he does not even remember why he came to the emergency de partment yesterday. As there is concern for this new confusion, we did recommend admission for which the patient was agreeable. I spoke with Dr. Barber who will admit the patient (Jenniffer Mora) - Lab Data Lab Results 04/03/23 04/03/23 04/03/23 Range/Units 17:21 17:21 17:21 WBC 8.4 (3.8-10.6) k/uL RBC 3.91 L (4.30-5.90) m/uL Hgb 12.2 L D (13.0-17.5) gm/dL Hct 34.1 L (39.0-53.0) % MCV 87.2 (80.0-100.0) fL MCH 31.1 (25.0-35.0) pg MCHC 35.7 (31.0-37.0) g/dL RDW 14.6 (11.5-15.5) % Plt Count 392 D (150-450) k/uL MPV 7.3 Neutrophils % 83 % Lymphocytes % 10 % Monocytes % 6 % Eosinophils % 1 % Basophils % 0 % Neutrophils # 6.9 (1.3-7.7) k/uL Lymphocytes # 0.8 L (1.0-4.8) k/uL Monocytes # 0.5 (0-1.0) k/uL Eosinophils # 0.1 (0-0.7) k/uL Basophils # 0.0 (0-0.2) k/uL Hypochromasia Slight Sodium 140 (137-145) mmol/L Potassium 4.7 (3.5-5.1) mmol/L Chloride 104 (98-107) mmol/L Carbon Dioxide 24 (22-30) mmol/L Anion Gap 12 mmol/L BUN 27 H (9-20) mg/dL Creatinine 1.10 (0.66-1.25) mg/dL Est GFR (CKD-EPI)AfAm 77 (>60 ml/min/1.73 sqM) Est GFR (CKD-EPI)NonAf 66 (>60 ml/min/1.73 sqM) Glucose 134 H (74-99) mg/dL Calcium 9.9 (8.4-10.2) mg/dL Total Bilirubin 1.1 (0.2-1.3) mg/dL AST 31 (17-59) U/L ALT 18 (4-49) U/L Alkaline Phosphatase 98 (38-126) U/L Total Protein 7.9 (6.3-8.2) g/dL Albumin 4.3 (3.5-5.0) g/dL Amylase 50 (30-110) U/L Lipase 69 (23-300) U/L Urine Color Urine Appearance (Clear) Urine pH (5.0-8.0) Ur Specific [place] (1.001-1.035) Urine Protein (Negative) Urine Glucose (UA) (Negative) Urine Ketones (Negative) Urine Blood (Negative) Urine Nitrite (Negative) Urine Bilirubin (Negative) Urine Urobilinogen (<2.0) mg/dL Ur Leukocyte Esterase (Negative) Urine RBC (0-5) /hpf Urine WBC (0-5) /hpf Ur Squamous Epith Cells (0-4) /hpf Amorphous Sediment (None) /hpf Urine Bacteria (None) /hpf Urine Mucus (None) /hpf Influenza Type A (PCR) Not Detected (Not Detectd) Influenza Type B (PCR) Not Detected (Not Detectd) RSV (PCR) Not Detected (Not Detectd) SARS-CoV-2 (PCR) Not Detected (Not Detectd) 04/04/23 Range/Units 00:44 WBC (3.8-10.6) k/uL RBC (4.30-5.90) m/uL Hgb (13.0-17.5) gm/dL Hct (39.0-53.0) % MCV (80.0-100.0) fL MCH (25.0-35.0) pg MCHC (31.0-37.0) g/dL RDW (11.5-15.5) % Plt Count (150-450) k/uL MPV Neutrophils % % Lymphocytes % % Monocytes % % Eosinophils % % Basophils % % Neutrophils # (1.3-7.7) k/uL Lymphocytes # (1.0-4.8) k/uL Monocytes # (0-1.0) k/uL Eosinophils # (0-0.7) k/uL Basophils # (0-0.2) k/uL Hypochromasia Sodium (137-145) mmol/L Potassium (3.5-5.1) mmol/L Chloride (98-107) mmol/L Carbon Dioxide (22-30) mmol/L Anion Gap mmol/L BUN (9-20) mg/dL Creatinine (0.66-1.25) mg/dL Est GFR (CKD-EPI)AfAm (>60 ml/min/1.73 sqM) Est GFR (CKD-EPI)NonAf (>60 ml/min/1.73 sqM) Glucose (74-99) mg/dL Calcium (8.4-10.2) mg/dL Total Bilirubin (0.2-1.3) mg/dL AST (17-59) U/L ALT (4-49) U/L Alkaline Phosphatase (38-126) U/L Total Protein (6.3-8.2) g/dL Albumin (3.5-5.0) g/dL Amylase (30-110) U/L Lipase (23-300) U/L Urine Color Yellow Urine Appearance Clear (Clear) Urine pH 5.5 (5.0-8.0) Ur Specific [place] 1.028 (1.001-1.035) Urine Protein 1+ H (Negative) Urine Glucose (UA) Negative (Negative) Urine Ketones 1+ H (Negative) Urine Blood Moderate H (Negative) Urine Nitrite Negative (Negative) Urine Bilirubin Negative (Negative) Urine Urobilinogen <2.0 (<2.0) mg/dL Ur Leukocyte Esterase Negative (Negative) Urine RBC 11 H (0-5) /hpf Urine WBC 2 (0-5) /hpf Ur Squamous Epith Cells <1 (0-4) /hpf Amorphous Sediment Rare H (None) /hpf Urine Bacteria Rare H (None) /hpf Urine Mucus Occasional H (None) /hpf Influenza Type A (PCR) (Not Detectd) Influenza Type B (PCR) (Not Detectd) RSV (PCR) (Not Detectd) SARS-CoV-2 (PCR) (Not Detectd) Disposition <Marika Landa - Last Filed: 04/03/23 15:08> <Malron Steven - Last Filed: 04/04/23 00:41> Is patient prescribed a controlled substance at d/c from ED?: No Time of Disposition: 04:00 <Eleuterio Mo - Last Filed: 04/04/23 04:23> Is patient prescribed a controlled substance at d/c from ED?: No Decision to Admit Reason: Admit from EC Decision Date: 04/04/23 Decision Time: 08:08 <Jenniffer Mora - Last Filed: 04/04/23 09:08> Clinical Impression: Fall, Dehydration, Vomiting, Encephalopathy acute Disposition: ADMITTED IP TO THIS [facility] Condition: Fair
--- NOTE | 2023-04-03 16:34 | XR ---
EXAMINATION TYPE: XR chest 2V DATE OF EXAM: 04/03/2023 COMPARISON: 03/14/2023 INDICATION: Difficulty breathing, vomiting TECHNIQUE: Frontal and lateral views of the chest are obtained. FINDINGS: The heart size is normal. The pulmonary vasculature is normal. The lungs are clear. IMPRESSION: 1. No acute pulmonary process.
[2023-04-03 17:48] LABS: Basophils % (A) 0 %; Eosinophils # (A) 0.1 k/uL (0-0.7); Eosinophils % (A) 1 %; HCT 34.1 % (39.0-53.0); Hypochromasia Slight; Lymphocytes # (A) 0.8 k/uL (1.0-4.8); Lymphocytes % (A) 10 %; MCH 31.1 pg (25.0-35.0); MCHC 35.7 g/dL (31.0-37.0); MCV 87.2 fL (80.0-100.0); Mean Platelet Volume 7.3; Monocytes # (A) 0.5 k/uL (0-1.0); Monocytes % (A) 6 %; Neutrophils # (A) 6.9 k/uL (1.3-7.7); Neutrophils % (A) 83 %; RBC 3.91 m/uL (4.30-5.90); RDW 14.6 % (11.5-15.5); WBC 8.4 k/uL (3.8-10.6)
[2023-04-03 17:50] LABS: ALT 18 U/L (4-49); African American GFR (CKD) 77 (>60 ml/min/1.73 sqM); Albumin 4.3 g/dL (3.5-5.0); Amylase 50 U/L (30-110); Anion Gap 12 mmol/L; Blood Urea Nitrogen 27 mg/dL (9-20); Calcium 9.9 mg/dL (8.4-10.2); Carbon Dioxide 24 mmol/L (22-30); Chloride 104 mmol/L (98-107); Glucose 134 mg/dL (74-99); HGB 12.2 gm/dL (13.0-17.5); Lipase 69 U/L (23-300); Non-African American GFR(CKD) 66 (>60 ml/min/1.73 sqM); Platelet Count 392 k/uL (150-450); Sodium 140 mmol/L (137-145); Total Bilirubin 1.1 mg/dL (0.2-1.3); Total Protein 7.9 g/dL (6.3-8.2)
[2023-04-03 17:56] LABS: AST 31 U/L (17-59); Alkaline Phosphatase 98 U/L (38-126); Potassium 4.7 mmol/L (3.5-5.1)
--- NOTE | 2023-04-03 22:43 | CT ---
EXAM: CT Head Without Intravenous Contrast CLINICAL HISTORY: ITS.REASON CT Reason: recurrent falls, confusion TECHNIQUE: Axial computed tomography images of the head/brain without intravenous contrast. CTDI is 45.2 mGy and DLP is 1044 mGy-cm. This CT exam was performed using one or more of the following dose reduction techniques: automated exposure control, adjustment of the mA and/or kV according to patient size, and/or use of iterative reconstruction technique. COMPARISON: No relevant prior studies available. FINDINGS: Brain: Age-related global cerebral atrophy. No significant white matter disease. No acute intracranial hemorrhage. Midline shift: No midline shift. Ventricles: Unremarkable. No ventriculomegaly. Bones/joints: Unremarkable. No acute fracture. Soft tissues: Unremarkable. Vasculature: Embolization coil in the region of the RIGHT anterior communicating artery. Sinuses: Unremarkable as visualized. No acute sinusitis. Mastoid air cells: Unremarkable as visualized. No mastoid effusion. IMPRESSION: 1. Embolization coil in the region of the RIGHT anterior communicating artery. 2. No acute intracranial hemorrhage. EXAM: CT Cervical Spine Without Intravenous Contrast CLINICAL HISTORY: ITS.REASON CT Reason: recurrent falls, confusion TECHNIQUE: Axial computed tomography images of the cervical spine without intravenous contrast. CTDI is 16.3 mGy and DLP is 438.7 mGy-cm. This CT exam was performed using one or more of the following dose reduction techniques: automated exposure control, adjustment of the mA and/or kV according to patient size, and/or use of iterative reconstruction technique. COMPARISON: No relevant prior studies available. FINDINGS: The vertebral body heights are maintained. The craniocervical junction is intact. The atlanto-dens interval is maintained. The dens is intact. There is no spondylolisthesis. Multilevel posterior fusion and laminectomies C2-C6. Straightening of the cervical lordosis. Multilevel cervical spondylosis and degenerative disc disease. Osseous demineralization. IMPRESSION: No cervical spine fracture. Multilevel posterior fusion and laminectomies C2-C6.
[2023-04-03] MEDS ORDERED: SODIUM CHLORIDE 0.9% 1,000 ML IV ONE (23:10)
[2023-04-04 01:25] LABS: Amorphous Sediment,Urine Rare /hpf; Appearance,Urine Clear (Clear); Bacteria,Urine Rare /hpf; Bilirubin,Urine Negative (Negative); Blood,Urine Moderate (Negative); Color,Urine Yellow; Glucose,Urine (UA) Negative (Negative); Ketones,Urine 1+ (Negative); Leukocyte Esterase,Urine Negative (Negative); Mucus,Urine Occasional /hpf; Nitrite,Urine Negative (Negative); PH, Urine 5.5 (5.0-8.0); Protein,Urine 1+ (Negative); RBC,Urine 11 /hpf (0-5); Specific Gravity,Urine 1.028 (1.001-1.035); Squamous Epithelial Cell,Urine <1 /hpf (0-4); Urobilinogen,Urine <2.0 mg/dL (<2.0); WBC,Urine 2 /hpf (0-5)
[2023-04-04] MEDS ORDERED: NALOXONE 0.4 MG/ML 1 ML VIAL IV PRN (08:28)
[2023-04-04] MEDS ORDERED: HYDROcodone/APAP 5-325MG 1 EACH TAB PO PRN (08:31)
[2023-04-04] MEDS ORDERED: ACETAMINOPHEN TAB 325 MG TAB PO PRN (08:31)
[2023-04-04] MEDS ORDERED: BACLOFEN 10 MG TAB PO PRN (08:31)
[2023-04-04] MEDS ORDERED: SENNOSIDES-DOCUSATE SODIUM 1 EACH TAB PO PRN (08:31)
[2023-04-04] MEDS: METOPROLOL SUCCINATE (ER) 25 MG TAB.ER.24H PO SCH (09:07)
[2023-04-04] MEDS: FLECAINIDE 50 MG TAB PO SCH ×2 (09:07→20:45)
[2023-04-04] MEDS: FUROSEMIDE 40 MG TAB PO SCH (09:07)
[2023-04-04] MEDS: POTASSIUM CHLORIDE ER 10 MEQ TAB.ER.PRT PO SCH (09:07)
[2023-04-04] MEDS: APIXABAN 5 MG TAB PO SCH ×2 (09:07→20:41)
[2023-04-04] MEDS: MULTIVITAMINS, THERA 1 EACH TAB PO SCH (10:42)
--- NOTE | 2023-04-04 17:18 | P.HPIM ---
History of Present Illness H&P Date: 04/04/23 Patient is a 72-year-old male with a PMH of A. fib on Eliquis, brain coiling in 2000, hyperlipidemia, cervical DJD status post surgery who presents to the ED for confusion. Patient is unable to remember any events leading up to this hospitalization. His friend Robbie Moore [phone] brought the patient to the hospital. Son is at bedside providing some of the history. Son reports progressing worsening of confusion in his dad since being discharged from SNF one week ago. He was previous admitted from 03/10-03/16 after a syncopal episode. He underwent extensive evaluation at that time including the following: Orthostats are positive Recent echocardiogram on 03/07 shows EF of 55-60% with mild MR and mild AR Telemetry revealed no arrhythmias. Carotid doppler showed no significant stenosis. CT T and L spine was done which showed soft tissue fat stranding left posterior L2L3, cannot exclude abscess, DJD L2L3, moderate spinal stenosis and moderate foraminal stenosis. Cardiology at that time evaluated the patient and cleared the patient for surgery. He underwent revision Laminectomy and decompression L3 [address] Garcia on 03/12. He was discharged to SNF where he did well and was released home. The son lives 3 hours away and has noticed the patient to be more confused while talking on the phone. He is forgetful of recent events with intact penitentiary memory. Forgetfulness waxes and wanes. His son reports his father has a pharmacist friend that may be supplying him with medications that arent prescribed to him. Patient has a pill binder with medication missing from his April pack. Patient lives alone and currently drives. 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 Patient currently reports no complaints. In the ED, his vital signs are stable. Chest x-ray was negative. CT head and CT C-spine was negative for acute findings. EKG showed sinus rhythm with ventricular rate of 77. CBC showed hemoglobin of 12.2. CMP showed BUN of 27 and glucose of 134. Urinalysis showed 1+ ketone, 1+ protein, moderate blood, 11 RBCs. Patient is admitted for further workup and management. Pertinent positives and negatives as discussed in HPI, a complete review of systems was performed and all other systems are negative. General: non toxic, no distress, appears at stated age Derm: warm, dry Head: atraumatic, normocephalic, symmetric Eyes: EOMI, no lid lag, anicteric sclera Mouth: no lip lesion, mucus membranes moist Cardiovascular: S1S2 reg, no murmur, positive posterior tibial pulse bilateral, Lungs: CTA bilateral, no rhonchi, no rales , no accessory muscle use Abdominal: soft, nontender to palpation, no guarding, no appreciable organomegaly Ext: no gross muscle atrophy, no edema, no contractures Neuro: CN II-XI grossly intact, no focal neuro deficits Psych: Alert, oriented, appropriate affect Confusion and forgetfulness Prerenal azotemia Hematuria Chronic conditions: A. fib on Eliquis, brain coiling in 2000, hyperlipidemia, cervical DJD status post surgery, laminectomy and decompression L3 4 Based on my assessment of this patient, this patient meets a high complexity level of care. Patient has a confusion and forgetfulness with severe exacerbation or progression of disease which poses a threat to life or bodily function. Confusion and forgetfulness: Possible overdosing on home medications. Restart home medications. He is AO x 3 currently. MRI brain. EEG. TSH, B12, Folate, Ammonia ordered. PT and OT consult. Fall precautions. Prerenal azotemia: Encourage hydration by mouth. Hematuria: Outpatient workup. Will attempt to call his friend Robbie Moore for further infromation. Maria Mquis for DVT prophylaxis. FULL CODE. I have reviewed the following merchandising consultant notes: I have reviewed the results of the following tests: CBC, CMP, CT head, CT C-spine, CXR, UA. I have ordered the following tests: B12, Folate, TSH, Folate, MRI brain, EEG, UDS I have discussed the care of this patient with the following independent historian: Discussed with son and RN I have independently interpreted the following test below: EKG as above I have discussed the management of this patient with the following physician: Past Medical History Past Medical History: Atrial Fibrillation, Cancer, GERD/Reflux, Hyperlipidemia, Hypertension, Prostate Disorder Additional Past Medical History / Comment(s): CHRONIC LOW BACK PAIN. Prostate cancer, skin cancer, kidney stone. hx vertigo History of Any Multi-Drug Resistant Organisms: None Reported Past Surgical History: Appendectomy, Bariatric Surgery, Cardiac Ablation, Cholecystectomy, Orthopedic Surgery Additional Past Surgical History / Comment(s): cervical sx with titanium rods, Colonoscopy, lap band, rt clavical reduction, Prostatectomy, SKIN CA REMOVED, pain procedures at [facility] PROCEDURES, EGD Past Anesthesia/Blood Transfusion Reactions: Previous Problems w/ Anesthesia Additional Past Anesthesia/Blood Transfusion Reaction / Comment(s): vertigo. hx of difficulty voiding after anesthesia. no blood transfusions Past Psychological History: Depression Smoking Status: Former smoker Past Alcohol Use History: None Reported Past Drug Use History: None Reported - Past Family History Father Family Medical History: Myocardial Infarction (SD) Mother Additional Family Medical History / Comment(s): MAC DEGENERATION, HEART PROBLEMS Medications and Allergies Home Medications Medication Instructions Recorded Confirmed Type Apixaban [Eliquis] 5 mg PO BID #180 tab 04/17/19 04/03/23 Rx Multivitamins, Thera [Multivitamin 1 tab PO DAILY 10/13/20 04/03/23 History (formulary)] Cyanocobalamin (Vitamin B-12) 1,000 mcg PO DAILY 03/02/21 04/03/23 History [Vitamin B-12] Flecainide [Tambocor] 50 mg PO Q12HR 03/02/21 04/03/23 History Metoprolol Succinate [Toprol XL] 25 mg PO DAILY 07/06/21 04/03/23 History Furosemide [Lasix] 40 mg PO DAILY 09/19/21 04/03/23 History Atorvastatin [Lipitor] 40 mg PO HS 09/28/22 04/03/23 History Escitalopram [Lexapro] 10 mg PO HS 09/28/22 04/03/23 History Co Q-10 (Unknown Dose) 1 tab PO DAILY 03/09/23 04/03/23 History Ferrous Sulfate [Iron (65 MG 325 mg PO Q4D 03/09/23 04/03/23 History Elemental)] HYDROcodone/APAP 5-325MG [[place] 1 - 2 tab PO Q6H PRN 03/09/23 04/03/23 History 5-325] Acetaminophen Tab [Tylenol] 650 mg PO Q6HR PRN tab 03/16/23 04/03/23 Rx Baclofen 10 mg PO TID PRN #60 tab 03/16/23 04/03/23 Rx Cyclobenzaprine [Flexeril] 10 mg PO TID PRN tab 03/16/23 04/03/23 Rx Gabapentin 300 mg PO HS #3 cap 03/16/23 04/03/23 Rx Melatonin 5 mg PO HS tab 03/16/23 04/03/23 Rx Potassium Chloride ER [K-Dur 10] 10 meq PO DAILY 04/03/23 04/03/23 History Sennosides-Docusate Sodium 1 tab PO BID PRN 04/03/23 04/03/23 History [Senokot-S] Allergies Allergy/AdvReac Type Severity Reaction Status Date / Time morphine AdvReac Nausea & Verified 04/03/23 22:12 Vomiting Physical Exam Vitals: Vital Signs Temp Pulse Pulse Resp BP BP Pulse Ox 04/04/23 14:39 97.6 F 68 17 128/69 99 04/04/23 10:53 97.9 F 74 17 169/75 96 04/04/23 10:44 97.8 F 67 18 146/70 98 04/04/23 08:00 97.8 F 74 18 135/57 98 04/04/23 04:21 98.4 F 76 18 134/82 96 04/04/23 01:30 98.4 F 04/04/23 01:00 98.5 F 84 18 175/68 04/04/23 00:00 98.4 F 88 18 155/73 04/03/23 23:09 98.2 F 82 18 155/73 97 04/03/23 21:00 155/76 04/03/23 20:46 98 F 78 18 99 Results CBC & Chem 7: 04/03/23 17:21 04/03/23 17:21 Labs: Abnormal Lab Results - Last 24 Hours (Table) 04/03/23 04/03/23 04/04/23 Range/Units 17:21 17:21 00:44 RBC 3.91 L (4.30-5.90) m/uL Hgb 12.2 L D (13.0-17.5) gm/dL Hct 34.1 L (39.0-53.0) % Lymphocytes # 0.8 L (1.0-4.8) k/uL BUN 27 H (9-20) mg/dL Glucose 134 H (74-99) mg/dL Urine Protein 1+ H (Negative) Urine Ketones 1+ H (Negative) Urine Blood Moderate H (Negative) Urine RBC 11 H (0-5) /hpf Amorphous Sediment Rare H (None) /hpf Urine Bacteria Rare H (None) /hpf Urine Mucus Occasional H (None) /hpf
[2023-04-04 17:50] LABS: Amphetamine Screen,Urine Not Detected (NotDetected); Barbiturate Screen,Urine Not Detected (NotDetected); Benzodiazepines Screen,Urine Not Detected (NotDetected); Cocaine Screen,Urine Not Detected (NotDetected); Methadone Screen, Urine Not Detected (NotDetected); Opiate Screen,Urine Not Detected (NotDetected); Oxycodone Screen, Urine Not Detected (NotDetected); Phencyclidine Screen,Urine Not Detected (NotDetected); Tricyclic Antidepressant,Urine Not Detected (NotDetected); Urn Cannabinoid Scrn Not Detected (NotDetected)
[2023-04-04] MEDS: MELATONIN 5 MG TABLET PO SCH (20:41)
[2023-04-04] MEDS: ATORVASTATIN 40 MG TAB PO SCH (20:41)
[2023-04-04] MEDS: GABAPENTIN 300 MG CAP PO SCH (20:42)
[2023-04-04] MEDS: ESCITALOPRAM 10 MG TAB PO SCH (20:45)
[2023-04-05] MEDS: MULTIVITAMINS, THERA 1 EACH TAB PO SCH (08:43)
[2023-04-05] MEDS: METOPROLOL SUCCINATE (ER) 25 MG TAB.ER.24H PO SCH (08:43)
[2023-04-05] MEDS: FUROSEMIDE 40 MG TAB PO SCH (08:43)
[2023-04-05] MEDS: APIXABAN 5 MG TAB PO SCH ×2 (08:43→21:59)
[2023-04-05] MEDS: FLECAINIDE 50 MG TAB PO SCH ×2 (08:44→21:59)
[2023-04-05] MEDS: POTASSIUM CHLORIDE ER 10 MEQ TAB.ER.PRT PO SCH (08:44)
--- NOTE | 2023-04-05 12:50 | P.PN ---
Subjective Progress Note Date: 04/05/23 Patient is a 72-year-old male with a PMH of A. anne on Eliquis, brain coiling in 2000, hyperlipidemia, cervical DJD status post surgery who presents to the ED for confusion. Patient is unable to remember any events leading up to this hospitalization. His friend Robbie oMore [phone] brought the patient to the hospital. Son is at bedside providing some of the history. Son reports progressing worsening of confusion in his dad since being discharged from SNF one week ago. He was previous admitted from 03/10-03/16 after a syncopal episode. He underwent extensive evaluation at that time including the following: Orthostats are positive Recent echocardiogram on 03/07 shows EF of 55-60% with mild MR and mild AR Telemetry revealed no arrhythmias. Carotid doppler showed no significant stenosis. CT T and L spine was done which showed soft tissue fat stranding left posterior L2L3, cannot exclude abscess, DJD L2L3, moderate spinal stenosis and moderate foraminal stenosis. Cardiology at that time evaluated the patient and cleared the patient for surgery. He underwent revision Laminectomy and decompression L3 [address] Garcia on 03/12. He was discharged to SNF where he did well and was released home. The so n lives 3 hours away and has noticed the patient to be more confused while talking on the phone. He is forgetful of recent events with intact longwall foreman memory. Forgetfulness waxes and wanes. His son reports his father has a pharmacist friend that may be supplying him with medications that arent pres cribed to him. Patient has a pill binder with medication missing from his April pack. Patient lives alone and currently drives. 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 Patient currently reports no complaints. In the ED, his vital signs are stable. Chest x-ray was negative. CT head and CT C-spine was negative for acute findings. EKG showed sinus rhythm with ventricular rate of 77. CBC showed hemoglobin of 12.2. CMP showed BUN of 27 and glucose of 134. Urinalysis showed 1+ ketone, 1+ protein, moderate blood, 11 RBCs. Patient is admitted for further workup and management. 04/05 Patient was seen and examined. He reports lightheadedness when standing up this morning. No chest pain or SOB. Working well with PT. Orthostats were positive today so he will be started on NS at 75 cc/hr. YULIET hose ordered thigh high BL LE. B12, TSH, Folate within normal limits. MRI brain and EEG pending. UDS negative. General: non toxic, no distress, appears at stated age Derm: warm, dry Head: atraumatic, normocephalic, symmetric Eyes: EOMI, no lid lag, anicteric sclera Mouth: no lip lesion, mucus membranes moist Cardiovascular: good distal perfusion in all 4 extremities Lungs: breathing comfortably, no accessory muscle use Ext: no gross muscle atrophy, no edema, no contractures Neuro: no focal neuro deficits Psych: Alert, oriented, appropriate affect Confusion and forgetfulness Orthostatic hypotension Prerenal azotemia Hematuria Chronic conditions: A. fib on Eliquis, brain coiling in 2000, hyperlipidemia, cervical DJD status post surgery, laminectomy and decompression L3 4 Based on my assessment of this patient, this patient meets a moderate complexity level of care. Patient has a confusion and forgetfulness with severe exacerbation or progression of disease which poses a threat to life or bodily function. Confusion and forgetfulness: Possible overdosing on home medications. Restart home medications. He is AO x 3 currently. MRI brain pending. EEG pending. TSH, B12, Folate within normal limits. PT and OT consult. Fall precautions. Orthostatic hypotension: NS at 75 cc/hr. YULIET hose thigh high BL LE. Advised slow positional changes. Start Midodrine 5 mg PO BID. Prerenal azotemia: Encourage hydration by mouth. Hematuria: Outpatient workup. Will attempt to call his friend Robbie Moore for further infromation. Madelyn for DVT prophylaxis. FULL CODE. I have reviewed the following hr shared services consultant notes: I have reviewed the results of the following tests: B12, Folate, TSH. UDS. I have ordered the following tests: MRI brain, EEG I have discussed the care of this patient with the following independent historian: Discussed with son and RN I have independently interpreted the following test below: I have discussed the management of this patient with the following physician: Objective - Vital Signs Vital signs: Vital Signs Temp 97.9 F 04/05/23 07:24 Pulse 94 04/05/23 07:24 Resp 18 04/05/23 07:24 BP 130/74 04/05/23 09:00 Pulse Ox 93 L 04/05/23 07:24 FiO2 Intake & Output 04/04/23 04/05/23 04/05/23 18:59 06:59 18:59 Intake Total 100 Balance 100 Weight 99.79 kg Intake: Oral 100 Other: # Voids 2 1 - Labs CBC & Chem 7: 04/03/23 17:21 04/03/23 17:21 Labs: Abnormal Lab Results - Last 24 Hours (Table) 04/04/23 Range/Units 17:57 Vitamin B12 1001.0 H (200.0-944.0) pg/mL
[2023-04-05] MEDS: SODIUM CHLORIDE 0.9% 1,000 ML IV SCH (14:22)
--- NOTE | 2023-04-05 15:17 | CDI ---
Documentation Clarification Form Date: 04/05/2023 02:49:47 PM From: Tamar Maguire RN, CCDS Admit Date: 04/04/2023 08:28:00 AM Patient Name: Noble Hartman Visit Number: [id number] Discharge Date: ATTENTION: The Clinical Documentation Specialists (CDI) and [facility] Coding Staff appreciate your assistance in clarifying documentation. Please respond to the clarification below the line at the bottom and electronically sign. The CDI & [facility] Coding staff will review the response and follow-up if needed. Please note: Queries are made part of the Legal Health Record. If you have any questions, please contact the author of this message via ITS. Dr. Sherry Lawrencenam Your patient has confusion and forgetfulness possible overdosing on home medications documented in the H/P and subsequent progress notes. Additional clarification regarding the etiology/cause of this symptom is requested. History/Risk Factors: A. fib, hyperlipidemia, Clinical Indicators: 72-year-old male presents to the ED for confusion. Forgetfulness waxes and wanes. Patient has a pill binder with medication missing from his April pack. 04/03 VS: 135/73 77 18 97.8 99 RA Chest x-ray was negative. CT head and CT C-spine was negative for acute findings. EKG showed sinus rhythm with ventricular rate of 77. 04/03 Labs: WBC 8.4 HGB 12.2, HCT 34.1 BUN 27, CR 1.10, GFR 66; UDS: Negative Treatment: Please clarify the etiology of the symptom of Altered Mental Status: [x ] Possible Toxic Encephalopathy due to possible overdosing on home medications [ ] Dementia (if know, specify Type and if with/without Behavioral Disturbance) [ ] Other condition (please specify) [ ] Unable to determine (Template Last Revised: August 2020) MTDD
[2023-04-05] MEDS: MIDODRINE 5 MG TAB PO SCH (15:30)
--- NOTE | 2023-04-05 17:14 | EEG ---
ELECTROENCEPHALOGRAM REPORT CLINICAL HISTORY: This is a 72-year-old gentleman with reported confusion. The video EEG is obtained to evaluate for seizure epileptiform discharges. RELEVANT MEDICATION: Gabapentin per classroom technology coach report . EEG TYPE: A routine 21-channel EEG with video using the 10/20 electrode placement system. DESCRIPTION: Wakefulness is only obtained. During awake state, the posterior-dominant rhythm consists of ruf-yl-flzjjulp voltage of 10 hertz activity that is well modulated and well sustained. There is no physiological sleep architecture. There is no focal slowing. Interictal and ictal is none. ACTIVATION PROCEDURE: Photic stimulation did not evoke a posterior driving response. There is no abnormality during the photic stimulation. Hyperventilation is not performed. CLINICAL INTERPRETATION: This is a normal routine EEG. There is no focal slowing, epileptiform discharge, or seizure on the EEG. Normal routine EEG. Does not rule out underlying epilepsy. Clinical correlation is recommended. DWAIN / DELGADO: [id number] / MTDD
[2023-04-05] MEDS: GABAPENTIN 300 MG CAP PO SCH (21:58)
[2023-04-05] MEDS: ATORVASTATIN 40 MG TAB PO SCH (21:58)
[2023-04-05] MEDS: MELATONIN 5 MG TABLET PO SCH (21:58)
[2023-04-05] MEDS: ESCITALOPRAM 10 MG TAB PO SCH (21:59)
[2023-04-06] MEDS: SODIUM CHLORIDE 0.9% 1,000 ML IV SCH ×2 (00:31→18:43)
[2023-04-06] MEDS: MIDODRINE 5 MG TAB PO SCH ×2 (06:40→18:43)
[2023-04-06] MEDS: FLECAINIDE 50 MG TAB PO SCH ×2 (09:04→21:24)
[2023-04-06] MEDS: POTASSIUM CHLORIDE ER 10 MEQ TAB.ER.PRT PO SCH (09:04)
[2023-04-06] MEDS: METOPROLOL SUCCINATE (ER) 25 MG TAB.ER.24H PO SCH (09:04)
[2023-04-06] MEDS: MULTIVITAMINS, THERA 1 EACH TAB PO SCH (09:05)
[2023-04-06] MEDS: FUROSEMIDE 40 MG TAB PO SCH (09:05)
[2023-04-06] MEDS: APIXABAN 5 MG TAB PO SCH ×2 (09:05→21:24)
[2023-04-06] MEDS ORDERED: LORazepam 1 MG TAB PO PRN (12:06)
--- NOTE | 2023-04-06 13:34 | P.DS ---
Providers Date of admission: 04/04/23 08:28 Expected date of discharge: 04/06/23 Attending physician: Sherry Becerra MD Primary care physician: Marco A [place] Hospital Course: Patient is a 72-year-old male with a PMH of A. fib on Eliquis, brain coiling in 2000, hyperlipidemia, cervical DJD status post surgery who presents to the ED for confusion. Patient is unable to remember any events leading up to this hospitalization. His friend Robbie Moore [phone] brought the patient to the hospital. Son is at bedside providing some of the history. Son reports progressing worsening of confusion in his dad since being discharged from SNF one week ago. He was previous admitted from 03/10-03/16 after a syncopal episode. He underwent extensive evaluation at that time including the following: Orthostats are positive Recent echocardiogram on 03/07 shows EF of 55-60% with mild MR and mild AR Telemetry revealed no arrhythmias. Carotid doppler showed no significant stenosis. CT T and L spine was done which showed soft tissue fat stranding left posterior L2L3, cannot exclude abscess, DJD L2L3, moderate spinal stenosis and moderate foraminal stenosis. Cardiology at that time evaluated the patient and cleared the patient for surgery. He underwent revision Laminectomy and decompression L3 [address] Garcia on 03/12. He was discharged to SNF where he did well and was released home. The son lives 3 hours away and has noticed the patient to be more confused while talking on the phone. He is forgetful of recent events with intact prison memory. Forgetfulness waxes and wanes. His son reports his father has a pharmacist friend that may be supplying him with medications that arent prescribed to him. Patient has a pill binder with medication missing from his April pack. Patient lives alone and currently drives. 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 Patient currently reports no complaints. In the ED, his vital signs are stable. Chest x-ray was negative. CT head and CT C-spine was negative for acute findings. EKG showed sinus rhythm with ventricular rate of 77. CBC showed hemoglobin of 12.2. CMP showed BUN of 27 and glucose of 134. Urinalysis showed 1+ ketone, 1+ protein, moderate blood, 11 RBCs. Patient is admitted for further workup and management. 04/05 Patient was seen and examined. He reports lightheadedness when standing up this morning. No chest pain or SOB. Working well with PT. Orthostats were positive today so he will be started on NS at 75 cc/hr. YULIET bush ordered thigh high BL LE. B12, TSH, Folate within normal limits. MRI brain and EEG pending. UDS negative. 04/06 Patient was seen and examined. Confusion resolved. Positional light headedness has improved. EEG negative for seizure like activity. MRI brain pending. Attempted to call his friend Robbie, went to [facility]. Plans for discharge home today if MRI is negative. Advised slow positional changes. Pertient studies include CXR, CT head, CT C-spine, EKG, EEG, MRI brain. Follow up with PCP within 1-2 days of discharge. General: non toxic, no distress, appears at stated age Derm: warm, dry Head: atraumatic, normocephalic, symmetric Eyes: EOMI, no lid lag, anicteric sclera Mouth: no lip lesion, mucus membranes moist Cardiovascular: good distal perfusion in all 4 extremities Lungs: breathing comfortably, no accessory muscle use Ext: no gross muscle atrophy, no edema, no contractures Neuro: no focal neuro deficits Psych: Alert, oriented, appropriate affect Discharge Diagnosis: Confusion and forgetfulness Orthostatic hypotension Prerenal azotemia Hematuria Chronic conditions: A. fib on Eliquis, brain coiling in 2000, hyperlipidemia, c ervical DJD status post surgery, laminectomy and decompression L3 4 Patient Condition at Discharge: Stable Plan - Discharge Summary Discharge Rx Participant: No New Discharge Prescriptions: No Action Apixaban [Eliquis] 5 mg PO BID #180 tab Multivitamins, Thera [Multivitamin (formulary)] 1 tab PO DAILY Flecainide [Tambocor] 50 mg PO Q12HR Furosemide [Lasix] 40 mg PO DAILY Escitalopram [Lexapro] 10 mg PO HS Cyclobenzaprine [Flexeril] 10 mg PO TID PRN tab PRN Reason: Muscle Spasm Acetaminophen Tab [Tylenol] 650 mg PO Q6HR PRN tab PRN Reason: Mild Pain Or Fever > 100.5 Potassium Chloride ER [K-Dur 10] 10 meq PO DAILY Cyanocobalamin (Vitamin B-12) [Vitamin B-12] 1,000 mcg PO DAILY Metoprolol Succinate [Toprol XL] 25 mg PO DAILY Atorvastatin [Lipitor] 40 mg PO HS Ferrous Sulfate [Iron (65 MG Elemental)] 325 mg PO Q4D Co Q-10 (Unknown Dose) 1 tab PO DAILY HYDROcodone/APAP 5-325MG [[place] 5-325] 1 - 2 tab PO Q6H PRN PRN Reason: Pain Baclofen 10 mg PO TID PRN #60 tab PRN Reason: Spasms Melatonin 5 mg PO HS tab Gabapentin 300 mg PO HS #3 cap Sennosides-Docusate Sodium [Senokot-S] 1 tab PO BID PRN PRN Reason: Constipation Discharge Medication List Apixaban [Eliquis] 5 mg PO BID #180 tab 04/17/19 [Rx] Multivitamins, Thera [Multivitamin (formulary)] 1 tab PO DAILY 10/13/20 [History] Cyanocobalamin (Vitamin B-12) [Vitamin B-12] 1,000 mcg PO DAILY 03/02/21 [History] Flecainide [Tambocor] 50 mg PO Q12HR 03/02/21 [History] Metoprolol Succinate [Toprol XL] 25 mg PO DAILY 07/06/21 [History] Furosemide [Lasix] 40 mg PO DAILY 09/19/21 [History] Atorvastatin [Lipitor] 40 mg PO HS 09/28/22 [History] Escitalopram [Lexapro] 10 mg PO HS 09/28/22 [History] Co Q-10 (Unknown Dose) 1 tab PO DAILY 03/09/23 [History] Ferrous Sulfate [Iron (65 MG Elemental)] 325 mg PO Q4D 03/09/23 [History] HYDROcodone/APAP 5-325MG [[place] 5-325] 1 - 2 tab PO Q6H PRN 03/09/23 [History] Acetaminophen Tab [Tylenol] 650 mg PO Q6HR PRN tab 03/16/23 [Rx] Baclofen 10 mg PO TID PRN #60 tab 03/16/23 [Rx] Cyclobenzaprine [Flexeril] 10 mg PO TID PRN tab 03/16/23 [Rx] Gabapentin 300 mg PO HS #3 cap 03/16/23 [Rx] Melatonin 5 mg PO HS tab 03/16/23 [Rx] Potassium Chloride ER [K-Dur 10] 10 meq PO DAILY 04/03/23 [History] Sennosides-Docusate Sodium [Senokot-S] 1 tab PO BID PRN 04/03/23 [History] Follow up Appointment(s)/Referral(s): [facility], [NON-STAFF] - 1 Week Marco A Martin MD [Primary Care Provider] - 1-2 days Patient Instructions/Handouts: Acute Nausea and Vomiting (ED)
--- NOTE | 2023-04-06 16:20 | MR ---
EXAMINATION TYPE: MR brain wo con DATE OF EXAM: 04/06/2023 1:27 PM CLINICAL INDICATION:Male, 72 years old with history of confusion, AMS; Acute encephalopathy, falls, A MS. COMPARISON: 04/03/2023. TECHNIQUE: Multi planar, multi sequence imaging was performed through the brain including: T1, T2, In version recovery, Diffusion weighted imaging, and gradient echo imaging. No gadolinium was given. FINDINGS: There is dilated ventricular system which is out of proportion to cerebral atrophy. Particularly the lateral ventricles and third ventricle are dilated. Leahy index of 0.4 Scattered foci of high T2 sign al intensity are seen within the periventricular white matter. Midline structures show no abnormality . Diffusion-weighted imaging shows no evidence of restricted diffusion. The susceptibility weighted i mages do not reveal any evidence for micro-hemorrhage. The bone marrow signal is within normal limits. Paranasal sinuses and mastoid air cells: No significant paranasal sinus disease. Visualized orbits: Orbital contents are intact. IMPRESSION: 1. Dilation of ventricular system specifically the lateral and third ventricles with relative sparing of the fourth ventricle which can be seen in setting of obstructive processes such as aqueduct steno sis. 2. No evidence of intracranial mass or acute/subacute infarct. 3. Nonspecific white matter changes, likely secondary to small vessel ischemic disease.
[2023-04-06] MEDS: ATORVASTATIN 40 MG TAB PO SCH (21:24)
[2023-04-06] MEDS: MELATONIN 5 MG TABLET PO SCH (21:24)
[2023-04-06] MEDS: ESCITALOPRAM 10 MG TAB PO SCH (21:24)
[2023-04-06] MEDS: GABAPENTIN 300 MG CAP PO SCH (21:24)
[2023-04-07] MEDS: MIDODRINE 5 MG TAB PO SCH (06:51)
[2023-04-07 08:23] VITALS: BP 130/77; PULSE 76; RESP 14; TEMP 98.4
[2023-04-07] MEDS: APIXABAN 5 MG TAB PO SCH (09:55)
[2023-04-07] MEDS: MULTIVITAMINS, THERA 1 EACH TAB PO SCH (09:55)
[2023-04-07] MEDS: METOPROLOL SUCCINATE (ER) 25 MG TAB.ER.24H PO SCH (09:55)
[2023-04-07] MEDS: POTASSIUM CHLORIDE ER 10 MEQ TAB.ER.PRT PO SCH (09:55)
[2023-04-07] MEDS: FUROSEMIDE 40 MG TAB PO SCH (09:55)
[2023-04-07] MEDS: FLECAINIDE 50 MG TAB PO SCH (11:39)
--- NOTE | 2023-04-07 12:13 | P.CNNES ---
History of Present Illness Consult date: 04/07/23 Requesting physician: Clayton Martinez Reason for Consult: encephalopathy, falls, concern for NPH History of Present Illness: This is a 72-year-old gentleman with lower back pain with history of recent surgery in early March 2023 residual left lower extremity weakness, falls, atrial fibrillation on Eliquis presented emergency department because of confusion. Patient is accompanied with his son. It seems the patient has been having few falls and last was in begnining of 03/2023. At that time he was evaluated in our facility and that he had the lumbar surgery with residual left lower extremity weakness. The patient got rehab and he has not had any falls since then. When he got home it seems that the his girlfriend felt he was confused according to patient's son since the surgery but he's doing much mirian r. Patient denies of any urinary incontinence. Denies of any urinary frequency. He uses a walker to ambulate and as stated earlier he has not been having any further falling episodes since the his lumbar surgery rather feels his walking is somewhat better. Per the patient's son and the last 1 year patient has subtle confusion such as he'll repeat the same story over he'll ask the same question but he stated that he noticed that a few times. Patient denies of any focal weakness numbness. Denies of history of diabetes Since the patient has history of brain aneurysm and had coiling at [facility] in 2020. Denies any history of stroke. Of note Dr. Erazo, neuro-hospitalist who evaluate the patient last on 03/13/2023 and he stated the patient has a lumbar radiculopathy and he had decompressive surgery. I had also positive orthostatic. He felt that the patient had radiographic normal pressure hydrocephalus since 2019 imaging but denies any urinary retention, memory issues that significant. He felt a NPH could also contribute to the fall but is seems more left lumbar radiculopathy is the main cause of the falls. He recommended the patient to follow-up with a neurologist and neurosurgeon as an outpatient for consideration of large volume tap and possible TRAFFIC MAINTENANCE OFFICER shunt as well as recommended neuropsych evaluation for detailed memory evaluation as an outpatient. Please refer to Dr. Melendez's note for further details. Some other workup in our facility consisted of: Routine EEG is normal. MRI the brain is reported as dilation of the ventricular system specifically the lateral and third ventricle with relative sparing of the fourth ventricle which can be seen in the setting of obstructive process such as adequate gnosis. No evidence of intracranial mass or acute/subacute infarct. Nonspecific white matter changes likely secondary due to small vessel ischemic disease. I personally reviewed the MRI and I do agree that lateral ventricle third ventricle is more dilated compared to the patient's atrophy. There is questionable dilation of the fourth ventricle but I agree again the lateral and third ventricle is more dilated. Review of Systems The pertinent positive and negative as per HPI. Past Medical History Past Medical History: Atrial Fibrillation, Cancer, GERD/Reflux, Hyperlipidemia, Hypertension, Prostate Disorder Additional Past Medical History / Comment(s): CHRONIC LOW BACK PAIN. Prostate cancer, skin cancer, kidney stone. hx vertigo History of Any Multi-Drug Resistant Organisms: None Reported Past Surgical History: Appendectomy, Bariatric Surgery, Cardiac Ablation, Cholecystectomy, Orthopedic Surgery Additional Past Surgical History / Comment(s): cervical sx with titanium rods, Colonoscopy, lap band, rt clavical reduction, Prostatectomy, SKIN CA REMOVED, pain procedures at [facility] PROCEDURES, EGD, 12/20/22 Laminectomy & decomp.,discectomy for decompression L 3-4 Past Anesthesia/Blood Transfusion Reactions: Previous Problems w/ Anesthesia Additional Past Anesthesia/Blood Transfusion Reaction / Comment(s): vertigo. hx of difficulty voiding after anesthesia. no blood transfusions Past Psychological History: Depression Additional Psychological History / Comment(s): past hx depression after Smoking Status: Former smoker Past Alcohol Use History: None Reported Additional Past Alcohol Use History / Comment(s): started smoking age 13 stopped age 53 (08/05/97) SMOKED 3ppd Past Drug Use History: None Reported - Past Family History Father Family Medical History: Myocardial Infarction ([place]) Mother Additional Family Medical History / Comment(s): MAC DEGENERATION, HEART PROBLEMS Medications and Allergies Home Medications Medication Instructions Recorded Confirmed Type Apixaban [Eliquis] 5 mg PO BID #180 tab 04/17/19 04/03/23 Rx Multivitamins, Thera [Multivitamin 1 tab PO DAILY 10/13/20 04/03/23 History (formulary)] Cyanocobalamin (Vitamin B-12) 1,000 mcg PO DAILY 03/02/21 04/03/23 History [Vitamin B-12] Flecainide [Tambocor] 50 mg PO Q12HR 03/02/21 04/03/23 History Metoprolol Succinate [Toprol XL] 25 mg PO DAILY 07/06/21 04/03/23 History Furosemide [Lasix] 40 mg PO DAILY 09/19/21 04/03/23 History Atorvastatin [Lipitor] 40 mg PO HS 09/28/22 04/03/23 History Escitalopram [Lexapro] 10 mg PO HS 09/28/22 04/03/23 History Co Q-10 (Unknown Dose) 1 tab PO DAILY 03/09/23 04/03/23 History Ferrous Sulfate [Iron (65 MG 325 mg PO Q4D 03/09/23 04/03/23 History Elemental)] HYDROcodone/APAP 5-325MG [[place] 1 - 2 tab PO Q6H PRN 03/09/23 04/03/23 History 5-325] Acetaminophen Tab [Tylenol] 650 mg PO Q6HR PRN tab 03/16/23 04/03/23 Rx Baclofen 10 mg PO TID PRN #60 tab 03/16/23 04/03/23 Rx Cyclobenzaprine [Flexeril] 10 mg PO TID PRN tab 03/16/23 04/03/23 Rx Gabapentin 300 mg PO HS #3 cap 03/16/23 04/03/23 Rx Melatonin 5 mg PO HS tab 03/16/23 04/03/23 Rx Potassium Chloride ER [K-Dur 10] 10 meq PO DAILY 04/03/23 04/03/23 History Sennosides-Docusate Sodium 1 tab PO BID PRN 04/03/23 04/03/23 History [Senokot-S] Midodrine [ProAmatine] 5 mg PO AC-BID #60 tab 04/07/23 Rx Allergies Allergy/AdvReac Type Severity Reaction Status Date / Time morphine AdvReac Nausea & Verified 04/03/23 22:12 Vomiting Physical Examination - Vital Signs Vital Signs: Vital Signs Temp Pulse Resp BP BP BP Pulse Ox 04/07/23 07:04 98.4 F 76 14 130/77 96 04/07/23 06:50 118/75 04/07/23 01:24 98.2 F 71 18 126/73 96 04/06/23 19:05 97.6 F 65 17 130/72 98 04/06/23 18:42 137/74 04/06/23 14:00 60 16 126/68 96 Intake and Output 04/06/23 04/07/23 04/07/23 22:59 06:59 14:59 Output Total 600 Balance -600 Output: Urine 600 Other: Voiding Method Toilet # Voids 2 GENERAL: The patient is lying in bed and is not in acute distress. NEUROLOGICAL: Higher mental function: The patient is awake, alert, oriented to self, place and time. Patient is following commands. No aphasia and no neglect. Cranial nerves: The pupils are round, equal and reactive to light. Visual vidales are full to confrontation throughout. Extraocular movement is intact no nystagmus is noted. Facial sensation is normal to touch throughout. The facial strength is normal throughout. Hearing is mildly decreased bilaterally to hand rub. Tongue is midline and moved [id number] without any difficulty. No dysarthria is noted. Shoulder shrug is normal bilaterally. Motor: The strength is left lower extremity is 4+ (old). Otherwise 5 over 5 throughout. Normal tone and bulk. Cerebellum: Normal finger to nose bilaterally. Sensation: Sensation is normal to touch throughout. Reflexes (right/left): 2+ in uppers while lowers are 1+ Plantars are mute bilaterally. Results - Laboratory Findings CBC and BMP: 04/03/23 17:21 04/03/23 17:21 Abnormal Lab Findings: Abnormal Labs 04/03/23 04/03/23 04/04/23 17:21 17:21 00:44 RBC 3.91 L Hgb 12.2 L D Hct 34.1 L Lymphocytes # 0.8 L BUN 27 H Glucose 134 H Vitamin B12 Urine Protein 1+ H Urine Ketones 1+ H Urine Blood Moderate H Urine RBC 11 H Amorphous Sediment Rare H Urine Bacteria Rare H Urine Mucus Occasional H 04/04/23 17:57 RBC Hgb Hct Lymphocytes # BUN Glucose Vitamin B12 1001.0 H Urine Protein Urine Ketones Urine Blood Urine RBC Amorphous Sediment Urine Bacteria Urine Mucus Assessment and Plan Assessment: This is a 72-year-old gentleman with history of left lumbar radiculopathy status post decompression in the beginning of March 2023, falls due to lumbar radiculopathy the pulses resolved since the surgery who presented him at department because of confusion. In beginning of March 2023, Dr. Erazo was concerned about Radiographic Normal Pressure Hydrocephalus and recommended outpatient follow-up. MRI of the brain shows dilation of the lateral and third ventricle. Dilation of the lateral ventricles and third ventricle and out of proportion to atrophy and minimal atrophy of the fourth ventricle concerning for either aqueduct stenosis versus Radiographic Normal Pressure Hydrocephalus (denies of any urinary issues. He has subtle confusion per the son and his walk-in has slightly improved and no further falls since Lumbar surgery). Subtle confusions per son in which he had few episodes he repeated same conversation and ask same question. On examination the patient was alert oriented 4. Unsure if due to normal aging vs rule out early onset dementia vs pseudodementia History of left lumbar radiculopathy status post decompression in the beginning of March 2023 through residual left lower extremity weakness. 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 Per Dr. Erazo recommendation on 03/13/2023, to follow-up with a neurologist neurosurgeon as an outpatient and consideration of a large volume tap and if improvement consider TRAFFIC MAINTENANCE OFFICER shunt. Patient will consider follow-up with his neurosurgeon that performed coiling. I agree with following-up with neurosurgeon evaluation as outpatient for further work-up/management. I agree with a detailed neuropsych evaluation as an outpatient We'll defer the rest of the medical measurement the primary team The plan discussed with the patient, his son was at bedside and the primary team There is no additional neurological workup. Thank for the consultation Time with Patient: Greater than 30
--- NOTE | 2023-04-07 14:33 | P.DS ---
Providers Date of admission: 04/04/23 08:28 Expected date of discharge: 04/07/23 Attending physician: Sherry Becerra MD Consults: 04/06/23 17:58 Consult Physician Routine Consulting Provider: Marlo Cheek Consult Reason/Comments: encephalopathy, falls, concern for NPH Do you want consulting provider notified?: Yes Primary care physician: [facility] Course: Patient is a 72-year-old male with a PMH of A. fib on , brain coiling in 2000, hyperlipidemia, cervical DJD status post surgery who presents to the ED for confusion. Patient is unable to remember any events leading up to this hospitalization. His friend Robbie Moore [phone] brought the patient to the hospital. Son is at bedside providing some of the history. Son reports progressing worsening of confusion in his dad since being discharged from SNF one week ago. He was previous admitted from 03/10-03/16 after a syncopal episode. He underwent extensive evaluation at that time including the following: Orthostats are positive Recent echocardiogram on 03/07 shows EF of 55-60% with mild MR and mild AR Telemetry revealed no arrhythmias. Carotid doppler showed no significant stenosis. CT T and L spine was done which showed soft tissue fat stranding left posterior L2L3, cannot exclude abscess, DJD L2L3, moderate spinal stenosis and moderate foraminal stenosis. Cardiology at that time evaluated the patient and cleared the patient for surgery. He underwent revision Laminectomy and decompression L3 [address] Garcia on 03/12. He was discharged to SNF where he did well and was released home. The son lives 3 hours away and has noticed the patient to be more confused while talking on the phone. 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 Forgetfulness waxes and wanes. His son reports his father has a pharmacist friend that may be supplying him with medications that arent prescribed to him. Patient has a pill binder with medication missing from his April pack. Patient lives alone and currently drives. 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 Patient currently reports no complaints. In the ED, his vital signs are stable. Chest x-ray was negative. CT head and CT C-spine was negative for acute findings. EKG showed sinus rhythm with ventricular rate of 77. CBC showed hemoglobin of 12.2. CMP showed BUN of 27 and glucose of 134. Urinalysis showed 1+ ketone, 1+ protein, moderate blood, 11 RBCs. Patient is admitted for further workup and management. 04/05 Patient was seen and examined. He reports lightheadedness when standing up this morning. No chest pain or SOB. Working well with PT. Orthostats were positive today so he will be started on NS at 75 cc/hr. YULIET bush ordered thigh high BL LE. B12, TSH, Folate within normal limits. MRI brain and EEG pending. UDS negative. 04/06 Patient was seen and examined. Confusion resolved. Positional light headedness has improved. EEG negative for seizure like activity. MRI brain pending. Attempted to call his friend Robbie, went to [facility]. Plans for discharge home today if MRI is negative. Advised slow positional changes. 04/07 Patient was seen and examined. He reports no complaints. MRI brain showed dilation of the ventricular system specifically the lateral and third ventricle with relative sparing of the fourth ventricle which can be seen in the setting of obstructive process such as adequate stenosis. Discussed with Dr. Cheek who recommends no further workup and outpatient follow up with his Neurosurgeon at [facility]. He will be discharged on Midodrine 5 mg PO BID. Advised to continue all other home medications. Pertinent studies include CXR, CT head, CT C-spine, EKG, EEG, MRI brain. Follow up with PCP within 1-2 days of discharge. General: non toxic, no distress, appears at stated age Derm: warm, dry Head: atraumatic, normocephalic, symmetric Eyes: EOMI, no lid lag, anicteric sclera Mouth: no lip lesion, mucus membranes moist Cardiovascular: good distal perfusion in all 4 extremities Lungs: breathing comfortably, no accessory muscle use Ext: no gross muscle atrophy, no edema, no contractures Neuro: no focal neuro deficits Psych: Alert, oriented, appropriate affect Discharge Diagnosis: Confusion and forgetfulness Orthostatic hypotension Prerenal azotemia Hematuria Chronic conditions: A. fib on Eliquis, brain coiling in 2000, hyperlipidemia, cervical DJD status post surgery, laminectomy and decompression L3 4 Patient Condition at Discharge: Stable Plan - Discharge Summary Discharge Rx Participant: No New Discharge Prescriptions: New Midodrine [ProAmatine] 5 mg PO AC-BID #60 tab Continue Apixaban [Eliquis] 5 mg PO BID #180 tab Multivitamins, Thera [Multivitamin (formulary)] 1 tab PO DAILY Flecainide [Tambocor] 50 mg PO Q12HR Furosemide [Lasix] 40 mg PO DAILY Escitalopram [Lexapro] 10 mg PO HS Cyclobenzaprine [Flexeril] 10 mg PO TID PRN tab PRN Reason: Muscle Spasm Acetaminophen Tab [Tylenol] 650 mg PO Q6HR PRN tab PRN Reason: Mild Pain Or Fever > 100.5 Potassium Chloride ER [K-Dur 10] 10 meq PO DAILY Cyanocobalamin (Vitamin B-12) [Vitamin B-12] 1,000 mcg PO DAILY Metoprolol Succinate [Toprol XL] 25 mg PO DAILY Atorvastatin [Lipitor] 40 mg PO HS Ferrous Sulfate [Iron (65 MG Elemental)] 325 mg PO Q4D Co Q-10 (Unknown Dose) 1 tab PO DAILY HYDROcodone/APAP 5-325MG [[place] 5-325] 1 - 2 tab PO Q6H PRN PRN Reason: Pain Baclofen 10 mg PO TID PRN #60 tab PRN Reason: Spasms Melatonin 5 mg PO HS tab Gabapentin 300 mg PO HS #3 cap Sennosides-Docusate Sodium [Senokot-S] 1 tab PO BID PRN PRN Reason: Constipation Discharge Medication List Apixaban [Eliquis] 5 mg PO BID #180 tab 04/17/19 [Rx] Multivitamins, Thera [Multivitamin (formulary)] 1 tab PO DAILY 10/13/20 [History] Cyanocobalamin (Vitamin B-12) [Vitamin B-12] 1,000 mcg PO DAILY 03/02/21 [History] Flecainide [Tambocor] 50 mg PO Q12HR 03/02/21 [History] Metoprolol Succinate [Toprol XL] 25 mg PO DAILY 07/06/21 [History] Furosemide [Lasix] 40 mg PO DAILY 09/19/21 [History] Atorvastatin [Lipitor] 40 mg PO HS 09/28/22 [History] Escitalopram [Lexapro] 10 mg PO HS 09/28/22 [History] Co Q-10 (Unknown Dose) 1 tab PO DAILY 03/09/23 [History] Ferrous Sulfate [Iron (65 MG Elemental)] 325 mg PO Q4D 03/09/23 [History] HYDROcodone/APAP 5-325MG [[place] 5-325] 1 - 2 tab PO Q6H PRN 03/09/23 [History] Acetaminophen Tab [Tylenol] 650 mg PO Q6HR PRN tab 03/16/23 [Rx] Baclofen 10 mg PO TID PRN #60 tab 03/16/23 [Rx] Cyclobenzaprine [Flexeril] 10 mg PO TID PRN tab 03/16/23 [Rx] Gabapentin 300 mg PO HS #3 cap 03/16/23 [Rx] Melatonin 5 mg PO HS tab 03/16/23 [Rx] Potassium Chloride ER [K-Dur 10] 10 meq PO DAILY 04/03/23 [History] Sennosides-Docusate Sodium [Senokot-S] 1 tab PO BID PRN 04/03/23 [History] Midodrine [ProAmatine] 5 mg PO AC-BID #60 tab 04/07/23 [Rx] Follow up Appointment(s)/Referral(s): [facility], [NON-STAFF] - 1 Week Marco A Martin MD [Primary Care Provider] - 1-2 days (Please call Sunday to schedule appiontment ) Patient Instructions/Handouts: Acute Nausea and Vomiting (ED) Activity/Diet/Wound Care/Special Instructions: Slow positional changes. Follow up with your PCP within 1-2 days of discharge. Follow up with your Neurosurgeon at [facility] with regard to findings on MRI Brain. Discharge Disposition: HOME SELF-CARE
--- NOTE | 2023-04-27 14:42 | CDI ---
Documentation Clarification Form Date: From: Maryam Bynum Phone: Admit Date: 04/04/2023 08:28:00 AM Patient Name: Noble Hartman Visit Number: [id number] Discharge Date: 04/07/2023 01:11:00 PM ATTENTION: The Clinical Documentation Specialists (CDI) and [facility] Coding Staff appreciate your assistance in clarifying documentation. Please respond to the clarification below the line at the bottom and electronically sign. The CDI & [facility] Coding staff will review the response and follow-up if needed. Please note: Queries are made part of the Legal Health Record. If you have any questions, please contact the author of this message via ITS. Dr. Sherry Becerra, Possible toxic encephalopathy due to possible overdosing on home medications is documented on 04/05/23 as a provider response from CDI query, but is not noted in subsequent documentation. Clarification is requested. History/Risk Factors: 04/05 PN documented "confusion and forgetfulness: possible overdosing on home medications". D/C summary noted "son reports father has a pharmacist friend who may be supplying him with medications that aren't prescibed to him.. he has a pill binder missing medication from his October pack". D/C summary only mentions "encephalopathy" as a reason for consult to Dr. Cheek. Clinical Indicators: 72 year old male presents to the ED for confusion. Forgetfullness waxes and wanes. 04/03 VS: 135/73 18 97.8 99 RA Chest x-ray is negative CT head and CT spine was negative for acute findings. EKG showed sinus rhythm with ventricular rate of 77. 04/03 Labs: WBC 8.4 HGB 12.2, HCT 34.1 BUN 27, CR 1.10, GFR 66; UDS: Negative Please clarify if the Possible toxic encephalopathy due to possible overdosing on home medications is: [ ] Possible toxic encephalopathy due to possible overdosing on home medications confirmed, remains under treatment at the time of discharge [ ] Possible toxic encephalopathy due to possible overdosing on home medications confirmed, resolved at the time of discharge [ ] Possible toxic encephalopathy due to possible overdosing on home medications ruled out at the time of discharge [ ] Other condition, please specify [x ] Unable to determine (Template Last Revised: September 2020) MTDD
== END 2023-04-07 13:11 | disposition home or self-care (01) | DRG 917 ==
LOC: EC 14:45 → 4SSUR 04-04 08:28 → 1SOBS 04-04 10:33 → 4SSUR 04-05 17:15
PROVIDERS: ADMIT Family Medicine; ATTEND Family Medicine
DX: T50.901A Poisoning by unspecified drugs, medicaments and biological substances, accidental (unintentional), initial encounter (principal); G92.8 Other toxic encephalopathy; I48.20 Chronic atrial fibrillation, unspecified; E78.5 Hyperlipidemia, unspecified; E86.0 Dehydration; F32.A Depression, unspecified; I10 Essential (primary) hypertension; I95.1 Orthostatic hypotension; M54.16 Radiculopathy, lumbar region; R41.0 Disorientation, unspecified; T50.905A Adverse effect of unspecified drugs, medicaments and biological substances, initial encounter; R79.89 Other specified abnormal findings of blood chemistry; R29.6 Repeated falls; Z20.822 Contact with and (suspected) exposure to COVID-19; Z79.01 Long term (current) use of anticoagulants; Z79.899 Other long term (current) drug therapy; Z82.49 Family history of ischemic heart disease and other diseases of the circulatory system; Z85.46 Personal history of malignant neoplasm of prostate; Z85.828 Personal history of other malignant neoplasm of skin; Z87.442 Personal history of urinary calculi; Z87.891 Personal history of nicotine dependence; Z91.81 History of falling; Z88.5 Allergy status to narcotic agent
CPT/HCPCS: 36415; 70450; 70551; 71046; 72125; 80053; 80306; 81001; 82140; 82150; 82607; 82746; 83690; 84443; 85025; 87636; 93005; 95816; 96360; 96361; 99285

== ENCOUNTER → 2023-09-08 | Outpatient (CLI) | payer MEDICARE ==
[2023-09-08 13:21] LABS: Basophils # (A) 0.04 X 10*3/uL (0.00-0.10); Basophils % (A) 0.6 %; Eosinophils # (A) 0.38 X 10*3/uL (0.04-0.35); HCT 37.5 % (39.6-50.0); HGB 11.7 g/dL (13.0-17.0); Lymphocytes # (A) 1.35 X 10*3/uL (0.90-5.00); Lymphocytes % (A) 21.4 %; MCH 27.6 pg (27.0-32.0); MCHC 31.2 g/dL (32.0-37.0); MCV 88.4 FL (80.0-97.0); Mean Platelet Volume 9.4 FL (9.5-12.2); Monocytes # (A) 0.78 X 10*3/uL (0.20-1.00); Monocytes % (A) 12.4 %; NRBC Per 100 WBC 0 X 10*3/uL (0.00-0.01); Neutrophils # (A) 3.73 X 10*3/uL (1.80-7.70); Neutrophils % (A) 59.3 %; Platelet Count 301 X 10*3/uL (140-440); RBC 4.24 X 10*6/uL (4.40-5.60); RDW 14.8 % (11.5-14.5)
[2023-09-08 13:45] LABS: % Iron Saturation 13.13 (15.00-50.00); ALT 18 U/L (10-49); AST 18 U/L (14-35); Alkaline Phosphatase 68 U/L (41-126); BUN/Creat Ratio 23.77 Ratio (12.00-20.00); Blood Urea Nitrogen 30.9 mg/dL (9.0-27.0); Chloride 107 mmol/L (96-109); Chol/HDL Ratio 2.18 Ratio; Ferritin 37.3 ng/mL (22.0-322.0); Globulin 2.5 g/dL (1.6-3.3); Glucose 131 mg/dL (70-110); Iron 57 UG/DL (65-175); LDL Cholesterol,Calculated 69.9 mg/dL (0.0-131.0); Potassium 4.5 mmol/L (3.5-5.5); Sodium 144 mmol/L (135-145); T4, Free (Free Thyroxine) 0.99 ng/dL (0.80-1.80); Total Bilirubin 0.4 mg/dL (0.3-1.2); Total Iron Binding Capacity 434 UG/DL (228-460); Total Protein 6.5 g/dL (6.2-8.2); VLDL Calculation 12.26 mg/dL (5.00-40.00)
[2023-09-08 13:46] LABS: PSA Annual Screen <0.014 ng/mL (0.000-4.000)
== END | disposition home or self-care (01) ==
LOC: LABWHC1 09:47
PROVIDERS: ATTEND Family Medicine
DX: Z00.01 Encounter for general adult medical examination with abnormal findings (principal); Z12.5 Encounter for screening for malignant neoplasm of prostate; I25.10 Atherosclerotic heart disease of native coronary artery without angina pectoris; D64.9 Anemia, unspecified
CPT/HCPCS: 84439; 80061; 80053; 82728; 83540; 83550; 84443; 85025; 36415; G0103

== ENCOUNTER → 2023-09-19 | Outpatient (CLI) | payer MEDICARE ==
--- NOTE | 2023-09-22 16:08 | CT ---
EXAMINATION TYPE: CT chest wo con CT DLP: 590.1 mGycm, Automated exposure control for dose reduction was used. DATE OF EXAM: 09/20/2023 10:31 AM COMPARISON: Chest radiograph from 04/03/2023, CT is 03/10/2023 02/14/2021. . CLINICAL INDICATION:Male, 73 years old with history of R91.8 ABNORMAL FINDING OF LUNG FIELD; , abdnor mal finding of lung field TECHNIQUE: Multiple axial images were obtained through the chest. Sagittal and coronal reformats were created for review. Contrast used: mL of (None if empty) Oral contrast used: (None if empty) FINDINGS: LUNGS/ PLEURA: Right minor fissure intrafissural lymph node series 4 image 44. Left lower lobe 5 mm p ulmonary nodule series 4 image 53. No focal consolidation, pneumothorax or pleural effusion. AIRWAY: Patent and unremarkable. HEART: Size within normal limits. Moderate coronary artery calcifications are present. MEDIASTINUM: No gross evidence of adenopathy. VASCULATURE: No aortic aneurysm. MUSCULOSKELETAL: Fixation changes in the lower cervical spine partially visualized. Fixation changes also in the upper lumbar spine partially visualized. Hardware appears intact. SOFT TISSUES/LYMPH NODES: Unremarkable. LOWER NECK: No significant findings. UPPER ABDOMEN: Cholecystectomy changes present. Gastric lap band is present in appropriate position. IMPRESSION: 1. Mild emphysema changes. 2. No evidence for suspicious pulmonary nodule. 4 mm left lower lobe and right minor fissure intrafi ssural lymph node present. Pulmonary nodules measuring less than 6 mm. Incidentally detected nodules of this size are generally considered benign in individuals without concomitant risk factors such as smoking history or other risk factors for malignancy. Followup imaging is generally not performed, in accordance with Fleischner Society guidelines. In high-risk patients, a [address] thorax can be considered. 3. Gastric lap band in appropriate position. 4. Moderate coronary artery calcifications.
== END | disposition home or self-care (01) ==
LOC: RADCTMAIN 10:46
PROVIDERS: ATTEND Family Medicine
DX: R91.8 Other nonspecific abnormal finding of lung field (principal); J43.9 Emphysema, unspecified; I25.10 Atherosclerotic heart disease of native coronary artery without angina pectoris
CPT/HCPCS: 71250

== ENCOUNTER → 2023-10-29 | Outpatient (CLI) | payer MEDICARE ==
--- NOTE | 2023-10-29 08:58 | P.HPBAR ---
Bariatric H&P - History & Physicial H&P Date: 10/29/23 History & Physicial: Visit/CC: Patient initial contact: Initial weight: 140.614 kg Initial weight in pounds: Height: Initial BMI: Last weight: Current weight: Current weight in pounds: Current BMI: [place] body weight (based on NIH guidelines): Excess body weight loss: The patient is a 73 year-old M who presents for Bariatric Assessment.This is a 73-year-old male who has history of LAP-BAND surgery several years ago. Patient had his LAP-BAND emptied previously due to problems with dysphagia. Patient is unable to tolerate an adjustment of his LAP-BAND. Patient has complaints of pain at his LAP-BAND port site. Is also had some melanotic stool. Past Medical History Past Medical History: Atrial Fibrillation, Cancer, GERD/Reflux, Hyperlipidemia, Hypertension, Prostate Disorder Additional Past Medical History / Comment(s): CHRONIC LOW BACK PAIN. Prostate cancer, skin cancer, kidney stone. hx vertigo History of Any Multi-Drug Resistant Organisms: None Reported Past Surgical History: Appendectomy, Bariatric Surgery, Cardiac Ablation, Cholecystectomy, Orthopedic Surgery Additional Past Surgical History / Comment(s): cervical sx with titanium rods, Colonoscopy, lap band, rt clavical reduction, Prostatectomy, SKIN CA REMOVED, pain procedures at [facility] PROCEDURES, EGD, 12/20/22 Laminectomy & decomp.,discectomy for decompression L 3-4 Past Anesthesia/Blood Transfusion Reactions: Previous Problems w/ Anesthesia Additional Past Anesthesia/Blood Transfusion Reaction / Comm: vertigo. hx of difficulty voiding after anesthesia. no blood transfusions Past Psychological History: Depression Additional Psychological History / Comment(s): past hx depression after Smoking Status: Former smoker Past Alcohol Use History: None Reported Additional Past Alcohol Use History / Comment(s): started smoking age 13 stopped age 53 (08/05/97) SMOKED 3ppd Past Drug Use History: None Reported - Past Family History Father Family Medical History: Myocardial Infarction ([place]) Mother Additional Family Medical History / Comment(s): MAC DEGENERATION, HEART PROBLEMS Surgical - Exam - General well developed, well nourished - Eyes PERRL - ENT normal pinna - Neck no masses - Respiratory normal expansion - Cardiovascular Rhythm: regular - Abdomen Tenderness at port site. There is no sign of redness or infection. Abdomen: soft Bariatric Assessment & Plan Plan: Possible GI bleed. Patient be scheduled for EGD and colonoscopy. Patient would like to have his LAP-BAND removed and convert to sleeve gastrectomy due to chronic issues with pain at the port site and issues with dysphagia when his band was adjusted. Bariatric Checklist Checklist: Plan: Checklist: EGD: 1. Hiatal hernia: 2. H. Pylori: HgbA1c: Vitamin D: Smoking: Former smoker Primary care physician referral: Dr Martin Psychiatry clearance: Cardiology clearance: Sleep study: Diet journal: VTE risk score: VTE risk level: Rehab needs at discharge:
[2023-10-29 11:22] VITALS: BP 160/83; PULSE 66; RESP 14; TEMP 97.9; BMI 37.3
== END ==
LOC: BARWHC3 07:36
PROVIDERS: ATTEND Surgery
DX: G89.29 Other chronic pain (principal); R13.10 Dysphagia, unspecified; K63.89 Other specified diseases of intestine; Z46.51 Encounter for fitting and adjustment of gastric lap band; Z87.891 Personal history of nicotine dependence; Z98.84 Bariatric surgery status; Z88.5 Allergy status to narcotic agent
CPT/HCPCS: 99211

== ENCOUNTER 2023-11-01 07:32 | Day surgery (SDC) | payer MEDICARE ==
[2023-10-30 15:00] VITALS: BMI 36.5
[2023-11-01] MEDS: LACTATED RINGERS 1,000 ML IV SCH (08:30)
[2023-11-01 08:42] VITALS: TEMP 97.1
[2023-11-01] MEDS ORDERED: PROPOFOL 10 MG/ML 20 ML VIAL IV ONE (08:52)
[2023-11-01] MEDS ORDERED: LIDOCAINE 2% (PF) 20 MG/ML 5 ML VIAL ONE (08:52)
--- NOTE | 2023-11-01 08:53 | P.GSHP ---
History of Present Illness H&P Date: 11/01/23 Chief Complaint: GERD, change in bowel habits this a 73-year-old male presents today for EGD and colonoscopy. Patient points of GERD. He's also had change in bowel habits with increasing constipation. Patient presents today for EGD and screening colonoscopy.the patient had [place] surgery many years ago. He has complaints of pain at his port site. Past Medical History Past Medical History: Atrial Fibrillation, Cancer, GERD/Reflux, Hyperlipidemia, Hypertension, Prostate Disorder Additional Past Medical History / Comment(s): CHRONIC LOW BACK PAIN. Prostate cancer, skin cancer, kidney stone. hx vertigo History of Any Multi-Drug Resistant Organisms: None Reported Past Surgical History: Appendectomy, Bariatric Surgery, Cardiac Ablation, Cholecystectomy, Orthopedic Surgery Additional Past Surgical History / Comment(s): cervical sx with titanium rods, Colonoscopy, lap band, rt clavical reduction, Prostatectomy, SKIN CA REMOVED, pain procedures at [facility] PROCEDURES, EGD, 12/20/22 Laminectomy & decomp.,discectomy for decompression L 3-4 Past Anesthesia/Blood Transfusion Reactions: Previous Problems w/ Anesthesia Additional Past Anesthesia/Blood Transfusion Reaction / Comment(s): vertigo. hx of difficulty voiding after anesthesia. no blood transfusions Smoking Status: Former smoker - Past Family History Father Family Medical History: Myocardial Infarction ([place]) Mother Additional Family Medical History / Comment(s): MAC DEGENERATION, HEART PROBLEMS Medications and Allergies Home Medications Medication Instructions Recorded Confirmed Type Apixaban [Eliquis] 5 mg PO BID #180 tab 04/17/19 11/01/23 Rx Flecainide [Tambocor] 50 mg PO Q12HR 03/02/21 11/01/23 History Metoprolol Succinate [Toprol XL] 25 mg PO DAILY 07/06/21 11/01/23 History Furosemide [Lasix] 40 mg PO DAILY 09/19/21 11/01/23 History Atorvastatin [Lipitor] 40 mg PO HS 09/28/22 11/01/23 History Escitalopram [Lexapro] 10 mg PO HS 09/28/22 11/01/23 History Acetaminophen Tab [Tylenol] 650 mg PO Q6HR PRN tab 03/16/23 11/01/23 Rx Potassium Chloride ER [K-Dur 10] 10 meq PO DAILY 04/03/23 11/01/23 History Midodrine [ProAmatine] 5 mg PO AC-BID #60 tab 04/07/23 11/01/23 Rx Ferrous Sulfate [Iron] 325 mg PO DAILY 10/30/23 11/01/23 History Gabapentin 300 mg PO BID 10/31/23 11/01/23 History Allergies Allergy/AdvReac Type Severity Reaction Status Date / Time morphine AdvReac Nausea & Verified 11/01/23 08:25 Vomiting Surgical - Exam Vital Signs Temp Pulse Resp BP Pulse Ox 97.1 F L 83 18 160/79 97 11/01/23 08:22 11/01/23 08:22 11/01/23 08:22 11/01/23 08:22 11/01/23 08:22 - General well developed, well nourished, no distress - Eyes PERRL - ENT normal pinna - Neck no masses - Respiratory normal expansion - Cardiovascular Rhythm: regular - Abdomen tenderness port site. Abdomen: soft Assessment and Plan Assessment: history of LAP-BAND surgery. Patient has plates of pain at the port site and dysphagia. Patient undergo EGD and screening colonoscopy.
--- NOTE | 2023-11-01 09:04 | P.OP ---
Date of Procedure: 11/01/23 Preoperative Diagnosis: GERD, dysphagia Postoperative Diagnosis: antral gastritis Mild esophagitis Procedure(s) Performed: EGD Anesthesia: MAC Surgeon: Alvarez Charles Pathology: other (antrum, esophagus) Condition: stable Disposition: PACU Description of Procedure: patient's placed on the endoscopy table in the lateral position. He received IV sedation. The gastro-/oropharynx passed in the esophagus and stomach. Scope was placed through the pylorus. The first and second portion of the duodenum a ppeared normal. Scope was then brought back the antrum this. Mildly inflamed. A biopsies was performed. The scope was unretroflexed and remainder the stomach appeared normal. The GE junction was at 40 cm. There is no evidence of any erosion of LAP-BAND. The scope was then brought back and the distal esophagus this appeared mildly inflamed. A biopsies performed. The scope was then retroflexed and remainder the stomach appeared normal.
[2023-11-01 09:27] VITALS: BP 143/70; PULSE 66; RESP 16
== END 2023-11-01 09:35 | disposition home or self-care (01) ==
LOC: ORWHC2ENDO 07:32
PROVIDERS: ATTEND Surgery
DX: K29.50 Unspecified chronic gastritis without bleeding (principal); K21.00 Gastro-esophageal reflux disease with esophagitis, without bleeding; I48.91 Unspecified atrial fibrillation; I10 Essential (primary) hypertension; G89.29 Other chronic pain; E78.5 Hyperlipidemia, unspecified; Z79.01 Long term (current) use of anticoagulants; Z85.46 Personal history of malignant neoplasm of prostate; Z85.828 Personal history of other malignant neoplasm of skin; Z87.891 Personal history of nicotine dependence; Z88.5 Allergy status to narcotic agent; Z90.49 Acquired absence of other specified parts of digestive tract; Z90.79 Acquired absence of other genital organ(s); Z79.899 Other long term (current) drug therapy
CPT/HCPCS: 88305; 43239; J2704; J2001

== ENCOUNTER → 2023-11-05 | Outpatient (CLI) | payer MEDICARE ==
[2023-11-05 13:06] VITALS: BP 158/86; PULSE 76; RESP 14; TEMP 98; BMI 37.7
--- NOTE | 2024-01-24 11:57 | P.HPBAR ---
Bariatric H&P - History & Physicial H&P Date: 11/05/23 History & Physicial: Visit/CC: follow up post test Patient initial contact: Initial weight: 140.614 kg Initial weight in pounds: 310.00 Height: 5 ft 8 in Initial BMI: 47.1 Last weight: Current weight: 112.536 kg Current weight in pounds: 248.10 Current BMI: 37.7 [place] body weight (based on NIH guidelines): 69.853 kg Excess body weight loss: 39.6% The patient is a 73 year-old M who presents for Bariatric Assessment. Patient presents for bariatric follow-up. Patient has a malfunctioning Lap-Band port. Patient is interested in possible conversion to sleeve gastrectomy. Past Medical History Past Medical History: Atrial Fibrillation, Cancer, GERD/Reflux, Hyperlipidemia, Hypertension, Prostate Disorder Additional Past Medical History / Comment(s): CHRONIC LOW BACK PAIN. Prostate cancer, skin cancer, kidney stone. hx vertigo History of Any Multi-Drug Resistant Organisms: None Reported Past Surgical History: Appendectomy, Bariatric Surgery, Cardiac Ablation, Cholecystectomy, Orthopedic Surgery Additional Past Surgical History / Comment(s): cervical sx with titanium rods, Colonoscopy, lap band, rt clavical reduction, Prostatectomy, SKIN CA REMOVED, pain procedures at [facility] PROCEDURES, EGD, 12/20/22 Laminectomy & decomp.,discectomy for decompression L 3-4 Past Anesthesia/Blood Transfusion Reactions: Previous Problems w/ Anesthesia Additional Past Anesthesia/Blood Transfusion Reaction / Comm: vertigo. hx of difficulty voiding after anesthesia. no blood transfusions Past Psychological History: Depression Additional Psychological History / Comment(s): past hx depression after Smoking Status: Former smoker Past Alcohol Use History: None Reported Additional Past Alcohol Use History / Comment(s): started smoking age 13 stopped age 53 (08/05/97) SMOKED 3ppd Past Drug Use History: None Reported - Past Family History Father Family Medical History: Myocardial Infarction ([place]) Mother Additional Family Medical History / Comment(s): MAC DEGENERATION, HEART PROBLEMS Surgical - Exam Vital Signs Temp Pulse Resp BP 98 F 76 14 158/86 11/05/23 12:53 11/05/23 12:53 11/05/23 12:53 11/05/23 12:53 - General Vital signs appear stable. Abdomen is soft nontender. There is no sign of infection at the Lap-Band port. Bariatric Assessment & Plan Plan: Malfunctioning Lap-Band port. Patient was given the option to either convert to sleeve gastrectomy or have the Lap-Band port replaced. Patient will contact us when he decides. Bariatric Checklist Checklist: Plan: Checklist: EGD: 1. Hiatal hernia: 2. H. Pylori: HgbA1c: Vitamin D: Smoking: Former smoker Primary care physician referral: Dr Maritn Psychiatry clearance: Cardiology clearance: Sleep study: Diet journal: VTE risk score: VTE risk level: Rehab needs at discharge:
== END ==
LOC: BARWHC3 08:42
PROVIDERS: ATTEND Surgery
DX: E66.01 Morbid (severe) obesity due to excess calories (principal); R10.9 Unspecified abdominal pain; Z46.51 Encounter for fitting and adjustment of gastric lap band; Z87.891 Personal history of nicotine dependence; Z88.5 Allergy status to narcotic agent; Z68.37 Body mass index [BMI] 37.0-37.9, adult; Z98.84 Bariatric surgery status
CPT/HCPCS: 99211

== ENCOUNTER → 2024-09-22 | Outpatient (CLI) | payer MEDICARE ==
--- NOTE | 2024-09-22 15:32 | CT ---
EXAMINATION TYPE: CT chest wo con CT DLP: 594.9 mGycm, Automated exposure control for dose reduction was used. DATE OF EXAM: 09/22/2024 3:22 PM COMPARISON: CT chest 09/20/2023 CLINICAL INDICATION:Male, 74 years old with history of R91.8 OTHER NONSPECIFIC ABNORMAL FINDING OF EUGENIO NG F; PHH, SOB TECHNIQUE: Multiple axial images were obtained through the chest without IV contrast. Lack of IV or o ral contrast limits evaluation of solid and hollow organ viscera. . Coronal and sagittal reformats re viewed. FINDINGS: LUNGS/ PLEURA: No pleural effusion, pneumothorax, focal consolidation. Minimal bilateral lower lobe d ependent subsegmental atelectasis. Minimal emphysematous changes. A few scattered stable pulmonary no dules with a right lower lobe 3 mm pulmonary nodule (series 4, image 43). Left lower lobe 4.6 mm pulm onary nodule (series 4, image 49). New anterior right upper lobe 5.1 mm pulmonary nodule (series 4, i mage 26). AIRWAY: Patent and unremarkable.. HEART: Size within normal limits. Mild coronary artery calcifications present. No pericardial effusi on. MEDIASTINUM: No gross evidence of adenopathy. VASCULATURE: No aortic aneurysm. At the atherosclerotic calcification of the aorta and its branches. MUSCULOSKELETAL: No acute osseous abnormalities. Multilevel degenerative disc disease with anterior o steophytosis. Postsurgical changes with posterior fusion at L2-L3 with bilateral pedicle screws and r ods with disc spacer. Cervical decompression hardware identified on the indexer radiograph. SOFT TISSUES/LYMPH NODES: Mild bilateral gynecomastia. LOWER NECK: No significant findings. UPPER ABDOMEN: Gastric lap band is identified. Gallbladder is surgically absent. Ventral wall midabdo men hernia containing fat and small mesenteric vessels with defect measuring up to 1.5 cm in diameter . IMPRESSION: 1. Few stable pulmonary nodules with a new anterior right upper lobe 5.1 mm pulmonary nodule. Follow- up CT chest in 6 months is recommended. 2. Minimal emphysematous change. [facility], , 09/22/2024 3:29 PM
== END | disposition home or self-care (01) ==
LOC: RADCTMAIN 15:04
PROVIDERS: ATTEND Family Medicine
DX: J43.9 Emphysema, unspecified (principal); R91.8 Other nonspecific abnormal finding of lung field; R91.1 Solitary pulmonary nodule
CPT/HCPCS: 71250